=== PATIENT | female | born 1970 | race Caucasian/White ===

== ENCOUNTER → 2017-11-21 15:55 | Outpatient (CLI) | payer OTHER, SELFPAY ==
[2017-11-26 09:22] LABS: HPV Reflexed? NOT INDICATED
== END ==
PROVIDERS: Visit Provider Nurse Practitioner Adult Health
DX: Z01.419 Encounter for gynecological examination (general) (routine) without abnormal findings (principal)
CPT/HCPCS: 88175; G0145

== ENCOUNTER → 2017-12-05 13:02 | Outpatient (CLI) | payer OTHER, SELFPAY ==
--- NOTE | 2017-12-05 13:05 | BI_ITS ---
MAMMOGRAPHY - BILATERAL SCREENING REASON FOR EXAM: Female, 47 years old. Routine annual screening examination. PERTINENT HISTORY: Non-contributory. TECHNIQUE: Digital bilateral breast charly (3D mammographic acquisition) in the CC and MLO projections. 2-D mediolateral oblique (MLO) and craniocaudad (CC) views of both breasts were obtained. CAD: Full Field Digital Mammography with Computer Added Detection was performed. COMPARISON: Comparison is made with prior study dated October 08, 2016 and August 18, 2015. FINDINGS: Breast Composition: There are scattered areas of fibroglandular density. There are no dominant masses or suspicious calcifications. No other significant abnormalities are identified. There has been no significant change since the prior study. BI/SCREENING MAMM (CAD), BILAT IMPRESSION: Stable bilateral screening mammogram. Yearly follow-up mammogram recommended. (A) ASSESSMENT CATEGORY: BIRADS Category 1: Negative. A letter regarding these results will be sent to the patient by the facility within 30 days. Approximately 10% of breast cancers are not detected by mammography. A normal mammogram should not delay biopsy of a clinically suspicious abnormality. [id number] Electronically Signed: Ricky Jensen MD at 15:27 EDT Tel [phone], Service support ,
== END ==
PROVIDERS: Visit Provider Nurse Practitioner Adult Health
DX: Z12.31 Encounter for screening mammogram for malignant neoplasm of breast (principal)
CPT/HCPCS: 77063; 77067

== ENCOUNTER → 2018-04-15 15:04 | Outpatient (CLI) | payer OTHER, SELFPAY ==
[2018-04-15 17:33] LABS: Absolute Lymphocyte Count 1.37 X10^3/ul (0.83-4.51); Basophil# 0.01 X10^3/uL; Basophil% 0.2 % (0-1); Eosinophils% 1.6 % (0-5); Hematocrit 39.3 % (37-47); Lymphocyte # 1.37 X10^3/ul (4.0); Lymphocyte % 22.5 % (19-41); Mean Corp Hgb Conc 33.1 g/gl (32-36); Mean Corpuscular Hgb 34.7 pg (27.0-32.0); Mean Corpuscular Volume 104.8 fL (81-99); Mean Platelet Vol. 9.2 fl (6.2-12.0); Monocyte# 0.64 X10^3/uL; Monocyte% 10.5 % (0-10); Neutrophil # 3.95 X10^3/uL (2.7-7.7); Neutrophil % 64.9 % (47-70); Platelet Count 274 K/mm3 (150-450); RBC Distribution Width CV 13.2 % (11.6-14.6); RBC Distribution Width SD 49.5 fl (35.1-43.9); Red Blood Count 3.75 M/mm3 (4.2-5.4); White Blood Count 6.1 K/mm3 (4.4-11.0)
[2018-04-15 17:34] LABS: POSITIVE COUNT NO; POSITIVE DIFFERENTIAL NO; POSITIVE MORPHOLOGY NO
[2018-04-15 18:09] LABS: AST(SGOT) 20 U/L (15-37); Alanine Aminotransfer ALT/SGPT 41 U/L (13-56); Albumin, Serum 3.6 g/dL (3.2-5.0); Alkaline Phosphatase 69 U/L (45-117); Anion Gap 8 (5-15); BUN 14 mg/dL (7-18); BUN/Creat Ratio 14.6 RATIO (10-20); Bilirubin, Direct 0.15 mg/dL (0.00-0.30); Calcium,Total 8.5 mg/dL (8.5-10.1); Chloride 104 mmol/L (98-107); Creatinine, Serum 0.96 mg/dL (0.55-1.02); EST Glomerular Filtration Rate 65 mL/min (>60); Est Glom Filt Rate - Afr Amer 79 mL/min (>60); Free T3 2.5 pg/mL (2.18-3.98); Globulin 3.7 g/dL (2.2-4.2); Glucose 73 mg/dL (74-106); Potassium 3.8 mmol/L (3.5-5.1); Protein, Total 7.3 g/dL (6.4-8.2); Sodium Level 141 mmol/L (136-145); T4 Free Direct 1.91 ng/dL (0.76-1.46); T4 Total, Thyroxin 5.6 ug/dL (4.8-13.9); Thyroid Stim Hormone (TSH) 1.93 uIU/mL (0.358-3.74)
== END ==
PROVIDERS: Family Provider Family Medicine; PCP Family Medicine; Referring Provider Nurse Practitioner Adult Health; Visit Provider Nurse Practitioner Adult Health
DX: K51.90 Ulcerative colitis, unspecified, without complications (principal); R53.83 Other fatigue
CPT/HCPCS: 80048; 80076; 84436; 84439; 84443; 84481; 85025

== ENCOUNTER 2018-05-25 13:58 | Emergency (ER) | payer OTHER, SELFPAY ==
[2018-05-25 13:58] VITALS: BP 164/93; PULSE 111; RESP 24; TEMP 37.3; O2SAT 98
[2018-05-25 14:04] VITALS: BP 164/93; PULSE 111; RESP 23; TEMP 37.3; O2SAT 99; BMI 25.2
[2018-05-25 14:05] VITALS: O2SAT 97
--- NOTE | 2018-05-25 14:05 | EKG12_ITS ---
Test Reason : CP Blood Pressure : / mmHG Vent. Rate : 113 BPM Atrial Rate : 113 BPM P-R Int : 186 ms QRS Dur : 092 ms QT Int : 334 ms P-R-T Axes : 061 061 054 degrees QTc Int : 458 ms Sinus tachycardia Otherwise normal ECG Confirmed by JAVIER QUINONES, JASON ([id number]), graphic editor DIAMOND MAO ([id number]) on 05/28/2018 11:14:15 AM Referred By: FRANC Confirmed By:JASON HERRERA MD
--- NOTE | 2018-05-25 14:05 | RAD_ITS ---
STUDY: X-RAY CHEST REASON FOR EXAM: Female, 48 years old. Chest pain since yesterday TECHNIQUE: Single AP portable view of the chest. COMPARISON: 06/24/2013 FINDINGS: The lungs are clear and expanded. There is no demonstrated pleural abnormality. Normal size heart. Normal mediastinum and ania. Normal visualized pulmonary arteries. Normal visualized aortic arch and descending thoracic aorta. Normal visualized thoracic spine. Normal visualized ribs, clavicles, and shoulders. There is no demonstrated abnormality of the visualized soft tissue structures of the upper abdomen. RAD/Chest 1 View (Portable) IMPRESSION: Normal x-ray examination of the chest. Electronically Signed: Terry Henderson DO at 14:53 EST Tel , Service support ,
--- NOTE | 2018-05-25 14:25 | ED.VISSUMM ---
- ER Visit Summary Date of Service: 05/25/18 Chief Complaint: Midsternal chest pain History of Present Illness: The patient is a 48 F no significant past medical history. No prior history of cardiac disease. No significant family history. No history of DVT or PE. She did have recent flight to and from [place] last 12 days. Denies any hemoptysis. No pleuritic chest pain. Patient states yesterday she had gradual onset of chest pain all day and again today. Pain is midsternal. She feels better to take a deep breath. She denies any leg pain or swelling. She does feel short of breath. No nausea or diaphoresis. No abdominal pain. She states today while she was in the kitchen the pain seemed to radiate to both arms and then resolved. That only lasted a brief period of time. Currently she states the pain is a 1 out of 10. No recent exertional dyspnea or exertional chest pain. No prior history. Physical Examination: Well-appearing middle-age female. No acute distress. Vital signs are stable. She is afebrile. Her pulse ox 9 9% room air. Her heart rate is 111. H EENT exam unremarkable. Neck nontender. No JVD. Lungs clear to auscultation bilaterally. Heart tachycardic no murmur rate about 110. Chest wall nontender. No ecchymosis or bruising. No subcu air. Abdomen is soft and nontender. No epigastric or right upper quadrant tenderness. Nondistended normal bowel sounds. She is moving all 4 extremities. They are neurovascularly intact. Equal symmetrical retail wireless sales consultant strength. Equal symmetrical dorsi and plantar flexion. Calves are nontender without edema or cords. Equal and symmetrical radial pulses. Test Results: Chest x-ray normal cardiac silhouette mediastinum. Portable one view read both of myself and the radiologist. EKG sinus tachycardia rate of 113 with no signs of NV or anemia. CBC normal. White count of 6. Hemoglobin 13. Chemistries normal. Normal BUN and creatinine. Liver enzymes normal. Lipase normal. Troponin normal. D-dimer less than 0.27 normal. Emergency Department Course and Treatment: Patient will undergo cardiac workup. I will obtain a d-dimer due to her recent travel. On repeat exam at 1508 patient is doing well. Pulse ox 99% on room air. Heart rate 92. States her chest pains 1 out of 10. No radiation. Patient will be treated GI cocktail and Pepcid and reassess. Patient is doing well at 1600. She feels better. She is comfortable being discharged. Treatment Plan: Discharged home follow-up with primary care physician. Disposition: Discharge Impression: Acute chest pain chest pain of uncertain etiology This note was generated with Lookback dictation software. It may contain incorrect words, spelling, and punctuation that were not noted in review of the chart prior to signing ED Disposition - Plan for ED Patient: Chief Complaint: Chest Pain Referrals: Arsalan Pedro MD [Primary Care Provider] -
[2018-05-25 14:26] LABS: Absolute Lymphocyte Count 1.56 X10^3/ul (0.83-4.51); Absolute Neutrophil Count 4.4 X10^3/uL (2.0-7.7); Basophil# 0.02 X10^3/uL; Basophil% 0.3 % (0-1); Eosinophil# 0.06 X10^3/uL; Eosinophils% 0.9 % (0-5); Hematocrit 39.4 % (37-47); Lymphocyte # 1.56 X10^3/ul (4.0); Lymphocyte % 23.4 % (19-41); Mean Corpuscular Volume 103.1 fL (81-99); Mean Platelet Vol. 8.7 fl (6.2-12.0); Monocyte# 0.62 X10^3/uL; Monocyte% 9.3 % (0-10); Neutrophil # 4.37 X10^3/uL (2.7-7.7); Neutrophil % 65.6 % (47-70); POSITIVE COUNT NO; POSITIVE DIFFERENTIAL NO; POSITIVE MORPHOLOGY NO; Platelet Count 236 K/mm3 (150-450); RBC Distribution Width CV 13.5 % (11.6-14.6); RBC Distribution Width SD 50.6 fl (35.1-43.9); Red Blood Count 3.82 M/mm3 (4.2-5.4); White Blood Count 6.7 K/mm3 (4.4-11.0)
[2018-05-25] MEDS: Aspirin 81 MG TAB.CHEW 324 MG PO (14:26)
--- NOTE | 2018-05-25 14:28 | ED.DCSUM_ITS ---
- ER Visit Summary Date of Service: 05/25/18 Chief Complaint: Midsternal chest pain History of Present Illness: The patient is a 48 F no significant past medical history. No prior history of cardiac disease. No significant family history. No history of DVT or PE. She did have recent flight to and from [place] last 12 days. Denies any hemoptysis. No pleuritic chest pain. Patient states yesterday she had gradual onset of chest pain all day and again today. Pain is midsternal. She feels better to take a deep breath. She denies any leg pain or swelling. She does feel short of breath. No nausea or diaphoresis. No abdominal pain. She states today while she was in the kitchen the pain seemed to radiate to both arms and then resolved. That only lasted a brief period of time. Currently she states the pain is a 1 out of 10. No recent exertional dyspnea or exertional chest pain. No prior history. Physical Examination: Well-appearing middle-age female. No acute distress. Vital signs are stable. She is afebrile. Her pulse ox 9 9% room air. Her heart rate is 111. H EENT exam unremarkable. Neck nontender. No JVD. Lungs clear to auscultation bilaterally. Heart tachycardic no murmur rate about 110. Chest wall nontender. No ecchymosis or bruising. No subcu air. Abdomen is soft and nontender. No epigastric or right upper quadrant tenderness. Nondistended normal bowel sounds. She is moving all 4 extremities. They are neurovascularly intact. Equal symmetrical assistant foreman strength. Equal symmetrical dorsi and plantar flexion. Calves are nontender without edema or cords. Equal and symmetrical radial pulses. Test Results: Chest x-ray normal cardiac silhouette mediastinum. Portable one view read both of myself and the radiologist. EKG sinus tachycardia rate of 113 with no signs of OR or anemia. CBC normal. White count of 6. Hemoglobin 13. Chemistries normal. Normal BUN and creatinine. Liver enzymes normal. Lipase normal. Troponin normal. D-dimer less than 0.27 normal. Emergency Department Course and Treatment: Patient will undergo cardiac workup. I will obtain a d-dimer due to her recent travel. On repeat exam at 1508 patient is doing well. Pulse ox 99% on room air. Heart rate 92. States her chest pains 1 out of 10. No radiation. Patient will be treated GI cocktail and Pepcid and reassess. Patient is doing well at 1600. She feels better. She is comfortable being discharged. Treatment Plan: Discharged home follow-up with primary care physician. Disposition: Discharge Impression: Acute chest pain chest pain of uncertain etiology This note was generated with Gradient X dictation software. It may contain incorrect words, spelling, and punctuation that were not noted in review of the chart prior to signing ED Disposition - Plan for ED Patient: Chief Complaint: Chest Pain Referrals: Arsalan Pedro MD [Primary Care Provider] -
[2018-05-25 14:41] LABS: Anion Gap 7 (5-15); BUN 17 mg/dL (7-18); BUN/Creat Ratio 19.1 RATIO (10-20); Calcium,Total 8.8 mg/dL (8.5-10.1); Chloride 105 mmol/L (98-107); Creatinine, Serum 0.89 mg/dL (0.55-1.02); EST Glomerular Filtration Rate 71 mL/min (>60); Est Glom Filt Rate - Afr Amer 86 mL/min (>60); Estimated Creatinine Clearance 73.54 ml/min; Glucose 97 mg/dL (74-106); Potassium 4.1 mmol/L (3.5-5.1); Sodium Level 138 mmol/L (136-145)
[2018-05-25 14:49] LABS: D-Dimer Quantitative (DVT/PE) < 0.27 FEU/ug/m (0.27-0.49)
[2018-05-25 14:51] LABS: Lipase 130 U/L (73-393)
[2018-05-25 14:54] LABS: AST(SGOT) 26 U/L (15-37); Alanine Aminotransfer ALT/SGPT 47 U/L (13-56); Albumin, Serum 3.8 g/dL (3.2-5.0); Alkaline Phosphatase 56 U/L (45-117); Bilirubin, Direct 0.18 mg/dL (0.00-0.30); Globulin 3.6 g/dL (2.2-4.2); Protein, Total 7.4 g/dL (6.4-8.2)
[2018-05-25 15:00] VITALS: BP 132/87; PULSE 91; RESP 19; O2SAT 99
[2018-05-25] MEDS: Pantoprazole Sodium 40 MG Tablet PO (15:49)
[2018-05-25 16:00] VITALS: BP 139/85; PULSE 90; RESP 16; O2SAT 99
--- NOTE | 2018-05-25 16:04 | ED.DEP ---
ED Disposition - Plan for ED Patient: Disposition: Home or Assisted Living Chief Complaint: Chest Pain Instructions: ED Chest Pain Atypical Unkn Cause Referrals: Arsalan Pedro MD [Primary Care Provider] - As soon as possible Additional Instructions: Return to ER if you are feeling worse. Otherwise follow-up your primary care physician this week. Your EKG, chest x-ray and all your lab work today were normal.
[2018-05-25 16:17] VITALS: BP 139/85; PULSE 90; RESP 16; O2SAT 99
== END 2018-05-25 16:22 | disposition home or self-care (01) ==
PROVIDERS: Emergency Provider Emergency Medicine; Family Provider Family Medicine; PCP Family Medicine
DX: R07.9 Chest pain, unspecified (principal)
CPT/HCPCS: 71045; 80048; 80076; 83690; 84484; 85025; 85379; 93005; 99285; A4216

== ENCOUNTER → 2018-06-11 13:47 | Outpatient (CLI) | payer OTHER, SELFPAY ==
--- NOTE | 2018-06-11 13:49 | US_ITS ---
STUDY: ULTRASOUND OF THE FEMALE PELVIS - COMPLETE REASON FOR EXAM: Female, 48 years old. Dysfunctional uterine bleeding x 6 months. LMP: May 03, 2018 TECHNIQUE: Transabdominal and Transvaginal. Despite a moderately distended urinary bladder, detail was limited with transabdominal scanning, so endovaginal imaging was also employed. TECHNICAL QUALITY: Adequate. COMPARISON: Pelvic ultrasound September 21, 2016. CT abdomen and pelvis September 22, 2016 was not available for comparison, but report from that study was reviewed. FINDINGS: The uterus is anteverted and is in a midline position. The uterus measures 9.4 x 5.4 x 4.5 cm. There is an 11-12 mm Nabothian cyst of the cervix. The endometrium measures 11 mm in thickness, and is hyperechoic. Minimal fluid also present in the endometrial cavity. There is no demonstrated endometrial mass. There are 3 demonstrated heterogeneous myometrial masses consistent with fibroids. The largest is in the posterior fundus, measuring 2.7 x 1.7 x 1.9 cm. Another is in the subserosal anterior body of uterus, measuring 1.4 x 1.1 x 1.5 cm. A third is in the anterior lower uterine segment, measuring 1.5 x 1.3 x 1.2 cm. I.U.D. - The patient does not have an I.U.D. The right ovary is visualized. The right ovary measures 4.0 x 3.6 x 2.9 cm. A simple appearing right ovarian cyst is seen, measuring 2.4 x 2.4 x 2.6 cm. Adjacent to this is a more poorly defined, heterogeneous and mildly hypoechoic 1.3 x 1.4 x 1.0 cm solid lesion. There is normal arterial and normal venous vascularity. The left ovary is visualized. The left ovary measures 3.3 x 1.4 1.0 cm. This includes a 7.5 mm follicular cyst. There is no visualized left adnexal mass or complex lesion. There is normal arterial and normal venous vascularity. There is no fluid in the cul-de-sac. The pre void volume of the bladder was 204.3 ml. Polycystic ovary disease: No. US/Transvaginal Non- IMPRESSION: 1. Simple appearing 2.6 cm right ovarian cyst. Adjacent to this is a 1.4 cm solid-appearing lesion difficult to further characterize. 2. Unremarkable left ovary. 3. At least 3 uterine fibroids are seen, as noted above. 4. Thickened endometrium, which may be physiologic. 5. 11-12 mm nabothian cyst in the uterine cervix. Electronically Signed: Aden Pena MD at 15:43 EST , Service support ,
--- OUTSIDE RECORDS SUMMARY | 2018-08-06 23:29 | XMS RPT_ITS ---
:1970 Author Organization [place] Support Name Relationship Address Phone [employer] [address] + [place] [id number] YR PEREZ Unavailable [address] + [place] [address] [employer] [place] + [place] [address] RY PEREZ Unavailable [address] + [place] [address] [employer] [place] + [place] [address] RY PEREZ Unavailable [address] + [place] [address] [employer] [place]available [address] + [place] [address] RY PEREZ Unavailable [address] + [place] [address] [employer] [place] + [place] [address] RY PEREZ Unavailable [address] + [place] [address] [employer] [employer] [place] + [place] [address] RY PEREZ Unavailable [address] + [place] [address] [employer] [place] + [place] [address] RY PEREZ Unavailable [address] + [place] [address] [employer] [place] + [place] [address] RY PEREZ Unavailable [address] + [place] [address] [employer] Un[address] + [place] [address] RY PEREZ Unavailable [address] + [place] [address] Care Team Providers Name Role Phone Marisa Modi Attending Unavailable Pedro, Arsalan Referring Unavailable Marcanthony, Marisa Attending Unavailable Marcanthony, Marisa Referring Unavailable Pedro, Arsalan Primary Care Unavailable Tickton, Cassi Attending Unavailable Tickton, Cassi Referring Unavailable Primay Care Physicia, No Primary Care Unavailable Tickton, Cassi Attending Unavailable Tickton, Cassi Referring Unavailable Primay Care Physicia, No Primary Care Unavailable Tickton, Cassi Attending Unavailable Tickton, Cassi Referring Unavailable Pedro, Arsalan Primary Care Unavailable Al Kaye Unavailable Marccalinony, Marisa Attending Unavailable Pedro, Arsalan Referring Unavailable Pedro, Arsalan Primary Care Unavailable Kranthi Gong Attending Unavailable Marcanthony, Marisa Attending Unavailable Marcanthony, Marisa Referring Unavailable Pedro, Arsalan Primary Care Unavailable Pedro, Arsalan Attending Unavailable PROBLEMS PROBLEMS DATE TYPE CONDITION / CODE ATTENDING STATUS SOURCE 06/29/2018 Unknown N93.9 - Abnormal Marcanthony, Active [place] uterine and [facility] vaginal bleeding, Hospital unspecified / Repository N93.9(ICD-10) 04/15/2018 Unknown R53.83 - Other Tickton, Active [place] fatigue / [facility] R53.83(ICD-10) Hospital Repository 04/15/2018 Unknown 780.79 - Other [place], Active [place] malaise and [facility] fatigue / Hospital 780.79(ICD-9) Repository PROCEDURES PROCEDURES No Procedure Records FoundRESULTS RESULTS [employer] OFFICE VISIT Observed: 06/25/2018 Status: F Source: [place] RE[place] 1:26 AM [facility] [address] [place] [address]. [address] [place] [address] OFFICE VISIT Date of Service: 06/24/18 MR#: [id number] Acct: [id number] Name: TANYA PEREZ Rep #: [id number] : 1970 Provider: Marisa Modi MD Age/Sex: 48/F Location: [facility] Status: Signed Intake Vital Signs06/24/18 Height 5 ft 7 in 06/24/18 Weight: 173 lb 06/24/18 Body Mass Index (BMI) 27.1 06/24/18 Blood Pressure 120/82 H Intake Visit Reasons: EMB Chief Complaint: EMB [employer] Agent Required: No Is patient in pain?: No Allergies NSAIDS (Non-Steroidal Anti-Inflamma Allergy (Verified 06/24/18 09:35) Other Medications Bupropion HCl [Wellbutrin] 450 mg PO DAILY 11/10/14 [History Confirmed 06/24/18] Azathioprine 150 mg PO DAILY 09/21/16 [History Confirmed 06/24/18] vilazodone 40 mg tablet 40 mg PO DAILY 05/22/18 [History Confirmed 06/24/18] Is last menstrual period known: No Post menopausal: Yes Patient : No : No PFSH PFSH Medical History Colitis (Acute) History of anxiety (Acute) Surgical History delivery delivered (Acute) History of tonsillectomy (Acute) Social History Smoking Status: Never smoker alcohol intake: never substance use type: does not use caffeine: Yes what type of physical activity do you participate in: walking seatbelt use: always do you feel safe at home: Yes additional social history: [employer] Patient works at [employer] Pregancy History 1 Elective abortions Hx Para 1 Spontaneous abortions Past Pregnancies Del. DatName GA/WeeksOutcome Route [facility] LocaProviderFOB e ht en ia tn Unknown marcella 1 996, Sherri Childress HPI EMB: Details: TANYA PEREZ is a 48 year old who presents for emb. planning ablation ROS Const Constitutional: Reports system reviewed and no additional complaints, except as docu; denies chills, fever(s), weight loss or weight gain GI GI: Reports as per HPI; denies vomiting, nausea, constipation, cramping, bloating or abdominal pain : Reports as per HPI; denies vaginal dryness, vaginal discharge, urinary urgency, urinary frequency or urinary incontinence Exam Const General: cooperative, healthy appearing, comfortable, well developed Orientation: alert [facility] Head: normal to inspection Resp Effort AND Inspection: normal respiratory effort GI Inspection: normal to inspection, non-distended Palpation: soft, no hepatosplenomegaly, no guarding External Female Exam: normal external appearance, normal appearance of the urethra Urethra: normal appearance of the urethra Speculum Exam - Vagina: normal appearance of the vagina, normal vaginal discharge, no lesions Speculum Exam - Cervix: normal appearance of the cervix, nontender Bimanual Exam- Vagina AND Uterus: No cervical tenderness, normal bimanual exam, uterine mobility normal, uterine consistency normal, uterine shape normal, uterine size normal, uterus non-tender Bimanual Exam- Adnexa, other: normal adnexae, no adnexal masses Office Procedures Endometrial Biopsy Endometrial Biopsy Test: Yes Not Applicable Consent Signed: Yes Time out checklist: patient, procedure, site marked/identified, positioning of patient, supplies available, allergies confirmed, team agrees on procedure Time out time: 09:30 tenaculum used: Yes dilator used: No Details: Cervix prepped with betadine and pipelle inserted into uterus without complication. Specimen obtained and sent to lab for analysis. All instruments removed from vagina without complications. Excellent hemostasis noted. Assessment AND Plan Problems 1. Abnormal uterine bleeding N93.9 plan d and c hysterosocpy suzette ablation Plan biopsy done plan ablation Orders Orders: Coding Level of Care Code Off vis,est,level 2 Diagnoses Abnormal uterine bleeding N93.9 Additional Codes Endometrial Biopsy (47257) 06/25/18 0126 <Electronically signed by Marisa Modi MD> Date Marisa Modi MD Cosigner Signature: Date (if applicable) CC: ENDOMETRIAL BX/CURETTINGS Observed: 06/24/2018 Status: F Source: [place] 12:00 AM [facility] [place] Patient: TANYA PEREZ : 1970 (48/F) Acct Num: [id number] Phys: Marisa Modi MD Unit Num: [id number] Loc: LABSPEC Specimen: [id number] Received: 06/24/18 - 1417 Spec Type: ENDOM BX/C TISSUES 1 TISSUES: Endometrium, NOS GROSS DESCRIPTION Received is one container labeled with the patient's name and not further designated. The specimen consists of multiple irregular fragments of garcia-pink soft tissue mixed with mucoid tissue that in aggregate measure 3 x 2.5 x 0.2 cm. The specimen is totally submitted in one cassette. / SJ:olivia 06/24/18 TC:5 CPT: 37619 HEADER OPERATION: Endometrial biopsy PRE-OP DIAGNOSIS: Abnormal uterine bleeding TISSUE SUBMITTED: Endometrial lining MICROSCOPIC DESCRIPTION Slides are reviewed. MICROSCOPIC DIAGNOSIS Endometrium, curettings: Secretory endometrium with focal disorder. No evidence of hyperplasia. AM:olivia 06/25/18 Signed Fred Brunson 06/25/18 <signature on file> Performed By: #### PEMB #### [facility] [address] [place], [address] TRANSVAGINAL Observed: 06/11/2018 Status: F Source: JIM NON- 1:49 PM [facility] [place] [facility] Imaging Services [address] [place] [address] Transvaginal Non- MR#: [id number] Acct: [id number] Name: TANYA PEREZ Rep #: [id number] : 1970 F 48 From: Arjun Pena MD PCP: Arsalan Pedro MD Status: REG CLI Study: Transvaginal Non- Date of Exam: 06/11/18 Exam# [id number] Ordering Dr: Marisa Modi MD STUDY: ULTRASOUND OF THE FEMALE PELVIS - COMPLETE REASON FOR EXAM: Female, 48 years old. Dysfunctional uterine bleeding x 6 months. LMP: May 03, 2018 TECHNIQUE: Transabdominal and Transvaginal. Despite a moderately distended urinary bladder, detail was limited with transabdominal scanning, so endovaginal imaging was also employed. TECHNICAL QUALITY: Adequate. COMPARISON: Pelvic ultrasound September 21, 2016. CT abdomen and pelvis September 22, 2016 was not available for comparison, but report from that study was reviewed. FINDINGS: The uterus is anteverted and is in a midline position. The uterus measures 9.4 x 5.4 x 4.5 cm. There is an 11-12 mm Nabothian cyst of the cervix. The endometrium measures 11 mm in thickness, and is hyperechoic. Minimal fluid also present in the endometrial cavity. There is no demonstrated endometrial mass. There are 3 demonstrated heterogeneous myometrial masses consistent with fibroids. The largest is in the posterior fundus, measuring 2.7 x 1.7 x 1.9 cm. Another is in the subserosal anterior body of uterus, measuring 1.4 x 1.1 x 1.5 cm. A third is in the anterior lower uterine segment, measuring 1.5 x 1.3 x 1.2 cm. I.U.D. - The patient does not have an I.U.D. The right ovary is visualized. The right ovary measures 4.0 x 3.6 x 2.9 cm. A simple appearing right ovarian cyst is seen, measuring 2.4 x 2.4 x 2.6 cm. Adjacent to this is a more poorly defined, heterogeneous and mildly hypoechoic 1.3 x 1.4 x 1.0 cm solid lesion. There is normal arterial and normal venous vascularity. The left ovary is visualized. The left ovary measures 3.3 x 1.4 1.0 cm. This includes a 7.5 mm follicular cyst. There is no visualized left adnexal mass or complex lesion. There is normal arterial and normal venous vascularity. There is no fluid in the cul-de-sac. The pre void volume of the bladder was 204.3 ml. Polycystic ovary disease: No. US/Transvaginal Non- IMPRESSION: 1. Simple appearing 2.6 cm right ovarian cyst. Adjacent to this is a 1.4 cm solid-appearing lesion difficult to further characterize. 2. Unremarkable left ovary. 3. At least 3 uterine fibroids are seen, as noted above. 4. Thickened endometrium, which may be physiologic. 5. 11-12 mm nabothian cyst in the uterine cervix. Electronically Signed: Aden Pena MD at 15:43 EST , Service support , CC: Arsalan Pedro MD; Marisa Modi MD Hearing Care Practitioner: Signed PELVIC (NON ) Observed: 06/11/2018 Status: F Source: LYNN 1:49 PM [facility] [place] [facility] Imaging Services [address] [place] [address] Pelvic (Non ) MR#: [id number] Acct: [id number] Name: TANYA PEREZ Rep #: [id number] : 1970 F 48 From: Arjun Pena MD PCP: Arsalan Pedro MD Status: REG CLI Study: Pelvic (Non ) Date of Exam: 06/11/18 Exam# [id number] Ordering Dr: Marisa Modi MD STUDY: ULTRASOUND OF THE FEMALE PELVIS - COMPLETE REASON FOR EXAM: Female, 48 years old. Dysfunctional uterine bleeding x 6 months. LMP: May 03, 2018 TECHNIQUE: Transabdominal and Transvaginal. Despite a moderately distended urinary bladder, detail was limited with transabdominal scanning, so endovaginal imaging was also employed. TECHNICAL QUALITY: Adequate. COMPARISON: Pelvic ultrasound September 21, 2016. CT abdomen and pelvis September 22, 2016 was not available for comparison, but report from that study was reviewed. FINDINGS: The uterus is anteverted and is in a midline position. The uterus measures 9.4 x 5.4 x 4.5 cm. There is an 11-12 mm Nabothian cyst of the cervix. The endometrium measures 11 mm in thickness, and is hyperechoic. Minimal fluid also present in the endometrial cavity. There is no demonstrated endometrial mass. There are 3 demonstrated heterogeneous myometrial masses consistent with fibroids. The largest is in the posterior fundus, measuring 2.7 x 1.7 x 1.9 cm. Another is in the subserosal anterior body of uterus, measuring 1.4 x 1.1 x 1.5 cm. A third is in the anterior lower uterine segment, measuring 1.5 x 1.3 x 1.2 cm. I.U.D. - The patient does not have an I.U.D. The right ovary is visualized. The right ovary measures 4.0 x 3.6 x 2.9 cm. A simple appearing right ovarian cyst is seen, measuring 2.4 x 2.4 x 2.6 cm. Adjacent to this is a more poorly defined, heterogeneous and mildly hypoechoic 1.3 x 1.4 x 1.0 cm solid lesion. There is normal arterial and normal venous vascularity. The left ovary is visualized. The left ovary measures 3.3 x 1.4 1.0 cm. This includes a 7.5 mm follicular cyst. There is no visualized left adnexal mass or complex lesion. There is normal arterial and normal venous vascularity. There is no fluid in the cul-de-sac. The pre void volume of the bladder was 204.3 ml. Polycystic ovary disease: No. US/Pelvic (Non ) IMPRESSION: 1. Simple appearing 2.6 cm right ovarian cyst. Adjacent to this is a 1.4 cm solid-appearing lesion difficult to further characterize. 2. Unremarkable left ovary. 3. At least 3 uterine fibroids are seen, as noted above. 4. Thickened endometrium, which may be physiologic. 5. 11-12 mm nabothian cyst in the uterine cervix. Electronically Signed: Aden Pena MD at 15:43 EST , Service support , CC: Arsalan Pedro MD; Marisa Modi MD Hearing Care Practitioner: Signed 12 LEAD ELECTROCARDIOGRAM Observed: 05/28/2018 Status: F Source: JIM 11:14 AM [facility] Cardiovascular Services [address] [place] [address] 12 Lead EKG 05/25/18 1405 MR#: [id number] Acct: [id number] Name: TANYA PEREZ Rep #: [id number] : 1970 48 From: Trell Vargas MD Attending Dr: Status: DEP ER Ordering Dr: Kranthi Gong MD Date: 05/25/18 Location: ED Sex: F C Admitted: Test Reason : CP Blood Pressure : / mmHG Vent. Rate : 113 BPM Atrial Rate : 113 BPM P-R Int : 186 ms QRS Dur : 092 ms QT Int : 334 ms P-R-T Axes : 061 061 054 degrees QTc Int : 458 ms Sinus tachycardia Otherwise normal ECG Confirmed by JAVIER QUINONES, TRELL ([id number]), general expeditor DIAMOND MAO ([id number]) on 05/28/2018 11:14:15 AM Referred By: FRANC Confirmed By:TRELL VARGAS MD 05/28/18 1114 Date Trell Vargas MD CC: Kranthi Gong MD; Arsalan Pedro MD Signed [employer] OFFICE VISIT Observed: 05/27/2018 Status: F Source: JIM REPORT 2:22 AM [facility] Women[facility] Care [address] [place] [address] OFFICE VISIT Date of Service: 05/22/18 MR#: [id number] Acct: [id number] Name: JOSÉ PEREZYN [place] Rep #: [id number] : 1970 Provider: Marisa Modi MD Age/Sex: 48/F Location: [facility] Status: Signed Intake Vital Signs05/22/18 Height 5 ft 7 in 05/22/18 Weight: 171 lb 05/22/18 Body Mass Index (BMI) 26.7 Intake Visit Reasons: CONSULT FOR ABLATION Chief Complaint: ablation consultation [employer] Commission Agent Required: No Is patient in pain?: No Allergies NSAIDS (Non-Steroidal Anti-Inflamma Allergy (Verified 05/22/18 14:40) Other Medications Bupropion HCl [Wellbutrin] 450 mg PO DAILY 11/10/14 [History Confirmed 05/25/18] Azathioprine 150 mg PO DAILY 09/21/16 [History Confirmed 05/25/18] vilazodone 40 mg tablet 40 mg PO DAILY 05/22/18 [History Confirmed 05/25/18] Is last menstrual period known: No Post menopausal: No Patient : No : No [facility] Medical History Colitis (Acute) History of anxiety (Acute) Surgical History delivery delivered (Acute) History of tonsillectomy (Acute) Social History Smoking Status: Never smoker alcohol intake: never substance use type: does not use caffeine: Yes what type of physical activity do you participate in: walking seatbelt use: always do you feel safe at home: Yes additional social history: Mar[employer] Patient works at [employer] HPI CONSULT FOR ABLATION: Details: TANYA PEREZ is a 48 year old who presents for AUB. she has had heavier bleeding the last few cycles. she has seen her PCP and is interested in an abltion. Menses are not particularly painful but increasingly heavier to where she bleeds through protection. she uses a vsectomy for control Female Reproductive History Cycle Length: 21-35 Bleeding Duration: 5 Control Method: vasectomy Frequency of changing protection: 1 hour Questions: Metorrhagia: Yes, Sexually active: Yes, Dyspareunia: No, PCB: No Menopausal Symptoms: Yes night sweats, Yes change in libido, No hot flashes, No weight change, No mood changes, No difficulty concentrating, Yes sleep problems Pregancy History 1 Elective abortions Hx Para 1 Spontaneous abortions Past Pregnancies Del. DatName GA/WeeksOutcome Route [facility] Mckayla Langford LgAnestheSCel LocaProviderFOB e ht en ia tn Unknown marcella 1 996, GK Sherri Leal Constitutional: Reports night sweats ENT ENT: Reports system reviewed and no additional complaints, except as docu Cardio Card: Denies chest pain Resp Resp: Denies dyspnea or cough GI GI: Reports as per HPI; denies vomiting, nausea, abdominal pain or constipation : Denies hot flashes or nipple discharge Musc Musc: Denies muscle weakness, joint pain or back pain Skin Skin/Breast: Denies hair loss, change in hair, dry skin, breast pain, breast skin changes, breast lump or nipple discharge Neuro Neuro: Reports system reviewed and no additional complaints, except as docu Psych Psych: Reports change in sex drive; denies difficulty concentrating Endo Endo: Denies cold intolerance, increased thirst, excessive sweating or heat intolerance Jacky/Lymph Hematologic/Lymphatic: Denies easy bleeding, Denies easy bruising, Denies enlarged lymph nodes Exam Const General: cooperative, healthy appearing, comfortable, no acute distress, well developed Nutritional Appearance: average body habitus Orientation: alert HENMT Head: normal to inspection, normocephalic Ears: hearing grossly normal bilaterally, external ears normal Nose: external nose normal, nares normal Face and sinus: normal facial exam Neck Neck: normal visual inspection, trachea midline, no lymphadenopathy Thyroid: thyroid normal Resp Effort AND Inspection: normal respiratory effort Musc Other: gross motor intact no deficits, full bilateral strength Skin General: no rashes or lesions noted Neuro Motor: muscle tone normal throughout Assessment AND Plan Problems 1. Abnormal uterine bleeding N93.9 plan d and c hysterosocpy suzette ablation Plan recommend discussed different options including hormonal versus nonhormonal methods, lysteda, iud, or ablation. patient wants to proceed with ablation. recommend ultrasound first to confirm no large fibroids and will fu for emb and preop visit Orders Orders: Medications New: Coding Level of Care Code Off vis,new,level 3 Diagnoses Abnormal uterine bleeding N93.9 05/27/18 0222 <Electronically signed by Marisa Modi MD> Date Marisa Modi MD Cosigner Signature: Date (if applicable) CC: DISCHARGE INSTRUCTION Observed: 05/25/2018 Status: F Source: JIM 4:21 PM [facility] REPOSITORY [facility] Medical Records Department [address] [place] [address] Discharge Instruction 05/25/18 1604 MR#: [id number] Acct: [id number] Name: TANYA PEREZ Rep #: [id number] : 1970 48 From: Kranthi Gong MD PCP: Arsalan Pedro MD Status: REG ER ED Disposition - Plan for ED Patient: Disposition: Home or Assisted Living Chief Complaint: Chest Pain Instructions: ED Chest Pain Atypical Unkn Cause Referrals: Arsalan Pedro MD [Primary Care Provider] - As soon as possible Additional Instructions: Return to ER if you are feeling worse. Otherwise follow-up your primary care physician this week. Your EKG, chest x-ray and all your lab work today were normal. What to do if you have Problems For any increased pain, shortness of breath, bleeding, nausea or vomiting, chest pain, or any unexpected problems, contact your Primary Care Provider. Call [email or web address] ([phone]) or report to the closest Emergency Room. Call 911 if necessary. 05/25/18 1621 <Electronically signed by Kranthi Gong MD> Date Kranthi Gong MD Cosigner Signature (If Indicated): Date CC: Arsalan Pedro MD EMERGENCY DEPARTMENT Observed: 05/25/2018 Status: F Source: JIM SUMMARY 4:21 PM [facility] Medical Records Department [address] [place] [address] Emergency Department Summary 05/25/18 1425 MR#: [id number] Acct: [id number] Name: JOSÉ PEREZYN [place] Rep #: [id number] : 1970 48 From: Kranthi Gong MD PCP: Arsalan Pedro MD Status: REG ER - ER Visit Summary Date of Service: 05/25/18 Chief Complaint: Midsternal chest pain History of Present Illness: The patient is a 48 F no significant past medical history. No prior history of cardiac disease. No significant family history. No history of DVT or PE. She did have recent flight to and from [place] last 12 days. Denies any hemoptysis. No pleuritic chest pain. Patient states yesterday she had gradual onset of chest pain all day and again today. Pain is midsternal. She feels better to take a deep breath. She denies any leg pain or swelling. She does feel short of breath. No nausea or diaphoresis. No abdominal pain. She states today while she was in the kitchen the pain seemed to radiate to both arms and then resolved. That only lasted a brief period of time. Currently she states the pain is a 1 out of 10. No recent exertional dyspnea or exertional chest pain. No prior history. Physical Examination: Well-appearing middle-age female. No acute distress. Vital signs are stable. She is afebrile. Her pulse ox 9 9% room air. Her heart rate is 111. H EENT exam unremarkable. Neck nontender. No JVD. Lungs clear to auscultation bilaterally. Heart tachycardic no murmur rate about 110. Chest wall nontender. No ecchymosis or bruising. No subcu air. Abdomen is soft and nontender. No epigastric or right upper quadrant tenderness. Nondistended normal bowel sounds. She is moving all 4 extremities. They are neurovascularly intact. Equal symmetrical boiler riveter strength. Equal symmetrical dorsi and plantar flexion. Calves are nontender without edema or cords. Equal and symmetrical radial pulses. Test Results: Chest x-ray normal cardiac silhouette mediastinum. Portable one view read both of myself and the radiologist. EKG sinus tachycardia rate of 113 with no signs of [place] or anemia. CBC normal. White count of 6. Hemoglobin 13. Chemistries normal. Normal BUN and creatinine. Liver enzymes normal. Lipase normal. Troponin normal. D-dimer less than 0.27 normal. Emergency Department Course and Treatment: Patient will undergo cardiac workup. I will obtain a d-dimer due to her recent travel. On repeat exam at 1508 patient is doing well. Pulse ox 99% on room air. Heart rate 92. States her chest pains 1 out of 10. No radiation. Patient will be treated GI cocktail and Pepcid and reassess. Patient is doing well at 1600. She feels better. She is comfortable being discharged. Treatment Plan: Discharged home follow-up with primary care physician. Disposition: Discharge Impression: Acute chest pain chest pain of uncertain etiology This note was generated with [employer] dictation software. It may contain incorrect words, spelling, and punctuation that were not noted in review of the chart prior to signing ED Disposition - Plan for ED Patient: Chief Complaint: Chest Pain Referrals: Arsalan Pedro MD [Primary Care Provider] - What to do if you have Problems For any increased pain, shortness of breath, bleeding, nausea or vomiting, chest pain, or any unexpected problems, contact your Primary Care Provider. Call [email or web address] ([phone]) or report to the closest Emergency Room. Call 911 if necessary. 05/25/18 1621 <Electronically signed by Kranthi Gong MD> Date Kranthi Gong MD Cosigner Signature (If Indicated): Date CC: Arsalan Pedro MD CBC W/DIFF, AUTOMATED Collected: 05/25/2018 Status: F Source: [place] 2:10 [place] [facility] [place] CODE TESTS RESULT OUT OF RANGE REFERENCE UNITS LAB L100.1000 4.4-11.0 K/mm3 Normal WBC 6.7 LAB L100.1200 4.2-5.4 M/mm3 Low RBC 3.82 LAB L100.1300 12.0-15.0 g/dl Normal HGB 13.0 LAB L100.1400 37-47 % Normal HCT 39.4 LAB L100.1500 81-99 fL High MCV 103.1 LAB L100.1600 27.0-32.0 pg High MCH 34.0 LAB L100.1700 32-36 g/gl Normal MCHC 33.0 LAB L100.1810 11.6-14.6 % Normal RDW CV 13.5 LAB L100.1820 35.1-43.9 fl High RDW SD 50.6 LAB L100.1900 150-450 K/mm3 Normal PLT 236 LAB L100.2000 6.2-12.0 fl Normal MPV 8.7 LAB L100.2100 47-70 % Normal NEUT% 65.6 LAB L100.2200 19-41 % Normal LY% 23.4 LAB L100.2300 0-10 % Normal MONO% 9.3 LAB L100.2400 0-5 % Normal EO% 0.9 LAB L100.2500 0-1 % Normal BASO% 0.3 LAB L100.2550 0.0-0.9 % Normal IM GRAN % 0.500 Result Comment: IG% - Immature Granulocytes (promyelocytes, myelocytes and metamyelocytes) > 1% indicates that a LEFT SHIFT is Present. LAB L100.2620 2.0-7.7 X10 3/uL Normal Absolute Neut 4.4 LAB L100.2720 0.83-4.51 X10 3/ul Normal Absolute Lymph 1.56 Performed By: #### L100.0100 #### [facility] [address]. [place], [place], [address] BASIC METABOLIC Collected: 05/25/2018 Status: F Source: LYNN PROFILE (BMP) 2:10 PM [facility] [place] CODE TESTS RESULT OUT OF RANGE REFERENCE UNITS LAB L501.0100 74-106 mg/dL Normal GLU 97 Result Comment: Please note revised GLUCOSE reference range effective 2017. LAB L501.1000 7-18 mg/dL Normal BUN 17 LAB L501.1100 0.55-1.02 mg/dL Normal CREAT,SERUM 0.89 Result Comment: The validity of the calculated GFR AND GFRAA in patients over 70 years has not been determined. Clinical correlation is essential. LAB L501.1110 >60 mL/min Normal EST GFR 71 Result Comment: Non- GFR Calc LAB L501.1115 >60 mL/min Normal EST GFR - AA 86 Result Comment: GFR Calc LAB L501.1255 ml/min Normal Estimated CRCL 73.54 LAB L501.1300 10-20 RATIO Normal BUN/CRE 19.1 LAB L501.2200 8.5-10 mg/dL Normal .1 CA 8.8 LAB L501.5300 136-14 mmol/L Normal 5 NA 138 LAB L501.5600 3.5-5. mmol/L Normal 1 K 4.1 LAB L501.5900 98-107 mmol/L Normal CL 105 LAB L501.6100 21.0-3 mmol/L Normal 2.0 CO2 26.0 LAB L501.6200 5-15 Normal GAP 7 Performed By: #### L500.2500, L501.4010 #### [facility] [address] [facility]. [place], [place], [id number] TROPONIN-I Collected: 05/25/2018 Status: F Source: LYNN 2:10 PM [facility] [place] CODE TESTS RESULT OUT OF RANGE REFERENCE UNITS LAB L501.4010 <0.045 ng/mL Normal < 0.015 TROPONIN-I Result Comment: TROPONIN-I EXPECTED VALUES <0.045 Negative 0.045 - 0.590 Consistent with Cardiac Damage > OR = 0.600 Critical Value Not every elevated troponin is indicative of [place]. These values should be used with clinical judgement in examining the patient's clinical picture for diagnosis. To establish a diagnosis of [place] versus myocardial injury, there must be a demonstrated rise and/or fall in the troponin values, in addition to ischemic symptoms, EKG changes, new regional wall motion abnormality, and/or angiographical evidence. PLEASE NOTE: REFERENCE RANGES EDITED 17 Performed By: #### L500.2500, L501.4010 #### [facility] [address] [facility]. [place], [place], [address] D-DIMER QUANTITATIVE Collected: 05/25/2018 Status: F Source: LYNN (DVT/PE) 2:10 PM [facility] [place] CODE TESTS RESULT OUT OF RANGE REFERENCE UNITS LAB L300.8000 0.27-0.49 FEU/ug/m Low D-DIMER < 0.27 QUANT Result Comment: NORMAL D-Dimer level (<0.50) indicates no DVT or PE. Performed By: #### L300.8000 #### [facility] [address] [place] [address], [address] LIPASE Collected: 05/25/2018 Status: F Source: LYNN 2:10 PM [facility] [place] CODE TESTS RESULT OUT OF RANGE REFERENCE UNITS LAB L501.2450 73-393 U/L Normal LIPASE 130 Performed By: #### L501.2450 #### [facility] [address] [place], [address] LIVER PROFILE Collected: 05/25/2018 Status: F Source: LYNN 2:10 PM [facility] [place] CODE TESTS RESULT OUT OF RANGE REFERENCE UNITS LAB L501.1500 6.4-8.2 g/dL Normal T PROT 7.4 LAB L501.1800 3.2-5.0 g/dL Normal ALB 3.8 LAB L501.1950 2.2-4.2 g/dL Normal GLOB 3.6 LAB L501.4100 15-37 U/L Normal AST 26 LAB L501.4305 45-117 U/L Normal ALK P 56 LAB L501.4405 13-56 U/L Normal ALT 47 LAB L501.4600 0.20-1.00 mg/dL Normal T BILI 0.50 LAB L501.4700 0.00-0.30 mg/dL Normal D BILI 0.18 Performed By: #### L500.3400 #### [facility] [address] [place], [address] CHEST 1 VIEW Observed: 05/25/2018 Status: F Source: LYNN (PORTABLE) 2:06 PM [facility] [place] [facility] Imaging Services [address] [place] [address] Chest 1 View (Portable) MR#: [id number] Acct: [id number] Name: TANYA PEREZ Rep #: [id number] : 1970 F 48 From: Terry Henderson DO PCP: Arsalan Pedro MD Status: PRE ER Study: Chest 1 View (Portable) Date of Exam: 05/25/18 Exam# [id number] Ordering Dr: Kranthi Gong MD STUDY: X-RAY CHEST REASON FOR EXAM: Female, 48 years old. Chest pain since yesterday TECHNIQUE: Single AP portable view of the chest. COMPARISON: 06/24/2013 FINDINGS: The lungs are clear and expanded. There is no demonstrated pleural abnormality. Normal size heart. Normal mediastinum and ania. Normal visualized pulmonary arteries. Normal visualized aortic arch and descending thoracic aorta. Normal visualized thoracic spine. Normal visualized ribs, clavicles, and shoulders. There is no demonstrated abnormality of the visualized soft tissue structures of the upper abdomen. RAD/Chest 1 View (Portable) IMPRESSION: Normal x-ray examination of the chest. Electronically Signed: Terry Henderson DO at 14:53 EST Tel , Service support , CC: Kranthi Gong MD; Arsalan Pedro MD Hearing Care Practitioner: Signed CBC W/DIFF, AUTOMATED Collected: 04/15/2018 Status: F Source: LYNN 3:11 PM [facility] [place] CODE TESTS RESULT OUT OF RANGE REFERENCE UNITS LAB L100.1000 4.4-11.0 K/mm3 Normal WBC 6.1 LAB L100.1200 4.2-5.4 M/mm3 Low RBC 3.75 LAB L100.1300 12.0-15.0 g/dl Normal HGB 13.0 LAB L100.1400 37-47 % Normal HCT 39.3 LAB L100.1500 81-99 fL High MCV 104.8 LAB L100.1600 27.0-32.0 pg High MCH 34.7 LAB L100.1700 32-36 g/gl Normal MCHC 33.1 LAB L100.1810 11.6-14.6 % Normal RDW CV 13.2 LAB L100.1820 35.1-43.9 fl High RDW SD 49.5 LAB L100.1900 150-450 K/mm3 Normal PLT 274 LAB L100.2000 6.2-12.0 fl Normal MPV 9.2 LAB L100.2100 47-70 % Normal NEUT% 64.9 LAB L100.2200 19-41 % Normal LY% 22.5 LAB L100.2300 0-10 % High MONO% 10.5 LAB L100.2400 0-5 % Normal EO% 1.6 LAB L100.2500 0-1 % Normal BASO% 0.2 LAB L100.2550 0.0-0.9 % Normal IM GRAN % 0.300 Result Comment: IG% - Immature Granulocytes (promyelocytes, myelocytes and metamyelocytes) > 1% indicates that a LEFT SHIFT is Present. LAB L100.2620 2.0-7.7 X10 3/uL Normal Absolute Neut 4.0 LAB L100.2720 0.83-4.51 X10 3/ul Normal Absolute Lymph 1.37 Performed By: #### L100.0100, L500.2500, L501.81305, L501.9310, L501.9520, L506.0400 #### [facility] [address] [place], [address] BASIC METABOLIC Collected: 04/15/2018 Status: F Source: LYNN PROFILE (BMP) 3:11 PM [facility] [place] Order Comment: DR KAYE ONLY ORDERED CBCD/LIVER TYPE CODE TESTS RESULT OUT OF RANGE REFERENCE UNITS LAB L501.0100 74-106 mg/dL Low GLU 73 Result Comment: Please note revised GLUCOSE reference range effective 2017. LAB L501.1000 7-18 mg/dL Normal BUN 14 LAB L501.1100 0.55-1.02 mg/dL Normal CREAT,SERUM 0.96 Result Comment: The validity of the calculated GFR AND GFRAA in patients over 70 years has not been determined. Clinical correlation is essential. LAB L501.1110 >60 mL/min Normal EST GFR 65 Result Comment: Non- GFR Calc LAB L501.1115 >60 mL/min Normal EST GFR - AA 79 Result Comment: GFR Calc LAB L501.1300 10-20 RATIO Normal BUN/CRE 14.6 LAB L501.2200 8.5-10.1 mg/dL CA Normal 8.5 LAB L501.5300 136-145 mmol/L NA Normal 141 LAB L501.5600 3.5-5.1 mmol/L K Normal 3.8 LAB L501.5900 98-107 mmol/L CL Normal 104 LAB L501.6100 21.0-32.0 mmol/L Normal CO2 29.0 LAB L501.6200 5-15 Normal GAP 8 Performed By: #### L100.0100, L500.2500, L501.07660, L501.9310, L501.9520, L506.0400 #### [facility] [address] [place], [address] FREE T3 Collected: 04/15/2018 Status: F Source: JIM 3:11 PM [facility] [place] Order Comment: DR KAYE ONLY ORDERED CBCD/LIVER TYPE CODE TESTS RESULT OUT OF RANGE REFERENCE UNITS LAB L501.44444 2.18-3.98 pg/mL Normal FREE T3 2.5 Performed By: #### L100.0100, L500.2500, L501.86018, L501.9310, L501.9520, L506.0400 #### [facility] [address] [place], [address] T4 TOTAL, THYROXIN Collected: 04/15/2018 Status: F Source: JIM 3:11 PM [facility] [place] Order Comment: DR KAYE ONLY ORDERED CBCD/LIVER TYPE CODE TESTS RESULT OUT OF RANGE REFERENCE UNITS LAB L501.9310 4.8-13.9 ug/dL T4 Normal THYROXIN 5.6 Performed By: #### L100.0100, L500.2500, L501.79635, L501.9310, L501.9520, L506.0400 #### [facility] [address] [place], [address] THYROID STIM HORMONE Collected: 04/15/2018 Status: F Source: JIM (TSH) 3:11 PM [facility] [place] Order Comment: DR KAYE ONLY ORDERED CBCD/LIVER TYPE CODE TESTS RESULT OUT OF RANGE REFERENCE UNITS LAB L501.9520 0.358-3.74 uIU/mL Normal TSH 1.93 Performed By: #### L100.0100, L500.2500, L501.15801, L501.9310, L501.9520, L506.0400 #### [facility] [address] [facility]. [place], [place], [address] T4 FREE DIRECT Collected: 04/15/2018 Status: F Source: LYNN 3:11 PM [facility] [place] Order Comment: DR KAYE ONLY ORDERED CBCD/LIVER TYPE CODE TESTS RESULT OUT OF REFERENCE UNITS RANGE LAB L506.0400 0.76-1.46 ng/dL High T4 FREE 1.91 DIRECT Performed By: #### L100.0100, L500.2500, L501.91448, L501.9310, L501.9520, L506.0400 #### [facility] [address] [place], [place], [id number] LIVER PROFILE Collected: 04/15/2018 Status: F Source: LYNN 3:11 PM [facility] [place] Order Comment: DR KAYE ONLY ORDERED CBCD/LIVER TYPE CODE TESTS RESULT OUT OF RANGE REFERENCE UNITS LAB L501.1500 6.4-8.2 g/dL Normal T PROT 7.3 LAB L501.1800 3.2-5.0 g/dL Normal ALB 3.6 LAB L501.1950 2.2-4.2 g/dL Normal GLOB 3.7 LAB L501.4100 15-37 U/L Normal AST 20 LAB L501.4305 45-117 U/L Normal ALK P 69 LAB L501.4405 13-56 U/L Normal ALT 41 LAB L501.4600 0.20-1.00 mg/dL Normal T BILI 0.60 LAB L501.4700 0.00-0.30 mg/dL Normal D BILI 0.15 Performed By: #### L500.3400 #### [facility] [address] [place], [place], [id number] SCREENING MAMM (CAD), Observed: 12/05/2017 Status: F Source: LYNN BILAT 1:05 PM [facility] [place] [facility] Imaging Services [address] [place] [address] SCREENING MAMM (CAD), BILAT MR#: [id number] Acct: [id number] Name: TANYA PEREZ Rep #: [id number] : 1970 F 47 From: Ricky Jensen MD PCP: Care Physician, No Primary Status: REG CLI Study: SCREENING MAMM (CAD), BILAT Date of Exam: 12/05/17 Exam# [id number] Ordering Dr: Cassi Sandoval MAMMOGRAPHY - BILATERAL SCREENING REASON FOR EXAM: Female, 47 years old. Routine annual screening examination. PERTINENT HISTORY: Non-contributory. TECHNIQUE: Digital bilateral breast charly (3D mammographic acquisition) in the CC and MLO projections. 2-D mediolateral oblique (MLO) and craniocaudad (CC) views of both breasts were obtained. CAD: Full Field Digital Mammography with Computer Added Detection was performed. COMPARISON: Comparison is made with prior study dated October 08, 2016 and August 18, 2015. FINDINGS: Breast Composition: There are scattered areas of fibroglandular density. There are no dominant masses or suspicious calcifications. No other significant abnormalities are identified. There has been no significant change since the prior study. BI/SCREENING MAMM (CAD), BILAT IMPRESSION: Stable bilateral screening mammogram. Yearly follow-up mammogram recommended. (A) ASSESSMENT CATEGORY: BIRADS Category 1: Negative. A letter regarding these results will be sent to the patient by the facility within 30 days. Approximately 10% of breast cancers are not detected by mammography. A normal mammogram should not delay biopsy of a clinically suspicious abnormality. 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 of containers..01 ThinPrep Vial TYPE CODE TESTS RESULT OUT OF RANGE REFERENCE UNITS LAB L7400.0800 . Normal DIAGN Comment Result Comment: NEGATIVE FOR INTRAEPITHELIAL LESION AND MALIGNANCY. LAB L7400.0900 . Normal ADEQ Comment Result Comment: Satisfactory for evaluation. No endocervical cells are present. This is consistent with a history of hysterectomy. LAB L7400.1400 . Normal PERFORM Comment Result Comment: Aaron Chaparro, Auto Servicer (ASCP) LAB L7400.2575 . Normal TEST METHOD Comment Result Comment: This liquid based ThinPrep(R) pap test was screened with the use of an image guided system. LAB L7400.2600 . Normal . COMM LAB L7400.2700 . Normal PAPSMR Comment Result Comment: The Pap smear is a screening test designed to aid in the detection of premalignant and malignant conditions of the uterine cervix. It is not a diagnostic procedure and should not be used as the sole means of detecting cervical cancer. Both false-positive and false-negative reports do occur. LAB L7400.2800 . Normal HPV RFLX Comment Result Comment: The HPV DNA reflex criteria were not met with this specimen result therefore, no HPV testing was performed. Performed at: - [facility] [id number] Sales Promoter: Nadine Jones MD, Phone: [phone] Performed By: #### L7400.0350 #### [facility] (refer to report for specific site) refer to report for address and phone number ALLERGIES ALLERGIES DATE TYPE / CODE NAME / CODE REACTION SEVERITY SOURCE 06/24/2018 [facility] NSAIDS [facility] 16208(SNOMED Anti-Inflamma/ Repository CT) [id number](RXN ORM) ENCOUNTERS ENCOUNTERS ADMIT/DISCHARGE ACCOUNT ADMITTING ENCOUNTER LOCATION SOURCE NUMBER CLASS 06/24/2018 [id number] Ambulatory Jim Jim 4 [facility] ing:LABSPEC Repository 06/24/2018/ [id number] Ambulatory BMSBuilding:B Jim 8 1 [place] Repository 06/11/2018 [id number] Ambulatory [place] Jim 2 [facility] ing:US Repository 05/25/2018/ [id number] Emergency Jim Jim 8 3 [facility] ing:ED Repository 05/22/2018/ [id number] Ambulatory BMSBuilding:B Jim 8 4 [place] Repository 04/15/2018 [id number] Ambulatory Jim Jim 7 [facility] ing:MTLAB Repository 12/05/2017 [id number] Ambulatory Jim Jim 6 [facility] ing:OPBI Repository 11/21/2017 [id number] Ambulatory [place] 8 [facility] ing:LABSPEC Repository 11/21/2017 [id number] Ambulatory BMSBuilding:B Jim 3 [place] Repository PAYERS PAYERS ENCOUNTER GUARANTOR PAYER SUBSCRIBER SOURCE 06/24/2018 TANYA Tran Primary TANYA E Jim [id number] [facility]: [facility] Number: [id number] [place] [id number] Repository [address]Mls: (330) Date:6618-12-18NI [phone] ([facility] [address] [address]DO: 06/24/2018 Secondary NOT GIVENUNK [place] Insurance:SELF PAY [facility] Number: Effective Repository Date:2018-06-24 06/24/2018 TANYA E Primary TANYA E [place] [id number] Insurance:[facility] ic Number: [id number] [place], [place] [id number] Repository [address]Rzu: (330) Date:5807-10-64[phone] (HP) [address] [address]KY: 06/24/2018 Secondary NOT GIVENUNK Jim Insurance:SELF PAY [facility] Number: Effective Repository Date:2018-06-20 06/11/2018 TANYA E Primary TANYA E Jim [id number] Insurance:AULTCAREPol MCCLINTOCKDOB: Community [place] icy Number: [id number] Valley, [place] [id number] Repository [address]Dkn: (330) Date:5347-76-59JT [phone] (HP) [address] [address]BZ: 06/11/2018 Secondary NOT GIVENUNK Jim Insurance:SELF PAY [facility] Number: Effective Repository Date:2018-05-29 05/25/2018 TANYA E Primary TANYA E [place] [id number] Insurance:AULTCAREPol MCCLINTOCKDOB: Community [place] icy Number: [id number] Valley, [place] [id number] Repository [address]Ahw: ([phone]) Date:2080-17-93MV [phone] () [address] [address]BY: 05/25/2018 Secondary NOT GIVENUNK Jim Insurance:SELF PAY [facility] Number: Effective Repository Date:2018-05-25 05/22/2018 TANYA E Primary TANYA E Jim [id number] Insurance:AULTCAREPol MCCLINTOCKDOB: Community [place] icy Number: [id number] Valley, [place] [id number] Repository [address]Dlk: ([phone]) Date:2804-97-06QA [phone] (HP) [address] [address]HB: 05/22/2018 Secondary NOT GIVENUNK [place] Insurance:SELF PAY [facility] Number: Effective Repository Date:2018-05-22 04/15/2018 TANYA E Primary TANYA E Jim [id number] Insurance:AULTCAREPol MCCLINTOCKDOB: Community [place] icy Number: [id number] Valley, [place] [id number] Repository [address]Ghl: (330) Date:6680-96-62PW [phone] (HP) [address] [place] [phone]: 04/15/2018 Secondary NOT GIVENUNK Jim Insurance:SELF PAY [facility] Number: Effective Repository Date:2018-04-15 12/05/2017 TANYA E Primary TANYA E Jim [id number] Insurance:AULTCAREPol MCCLINTOCKDOB: Community [place] icy Number: [id number] Valley, [place] [id number] Repository [address]Xjt: (330) Date:2358-83-03LQ [phone] (HP) [address] [place] [address]GM: 12/05/2017 Secondary NOT GIVENUNK [place] Insurance:SELF PAY [facility] Number: Effective Repository Date:2017-11-21 11/21/2017 Tanya Primary Tanya Jim [id number] Insurance:AULTCAREPol McclintockDOB: Community [place] icy Number: [id number] Valley, [place] [id number] Repository [address]Ttq: ([phone]) Date:1989-03-54JE [phone] (HP) [address] [place] [address]OH: 11/21/2017 Secondary NOT GIVENUNK [place] Insurance:SELF PAY [facility] Number: Effective Repository Date:2017-11-21 11/21/2017 TANYA E Primary TANYA E [place] [id number] Insurance:AULTCAREPol MCCLINTOCKDOB: Community [place] icy Number: [id number] Valley, [place] [id number] Repository [address]Zec: (330) Date:5614-68-71IK [phone] (HP) [address] [place], [place] [address]WP: 11/21/2017 Secondary NOT GIVENUNK Jim Insurance:SELF PAY [facility] Number: Effective Repository Date:2017-11-21
== END ==
PROVIDERS: Family Provider Family Medicine; PCP Family Medicine; Referring Provider Obstetrics & Gynecology; Visit Provider Obstetrics & Gynecology
DX: N93.9 Abnormal uterine and vaginal bleeding, unspecified (principal)
CPT/HCPCS: 76830; 76856; 93976

== ENCOUNTER → 2018-06-24 13:08 | Outpatient (CLI) | payer OTHER, SELFPAY ==
--- NOTE | 2018-06-24 | EMB_PTH ---
PATIENT: TANYA PEREZ LOC: [facility] U#:[id number] AGE/SX: 55/F ROOM: RE06/24/[address]: Dr. Marisa Modi MD : 1970 BED: DIS: SPEC #: [id number] RECD: 06/24/18 14:17 STATUS: [facility] #: [id number] CONOR: 06/24/18 00:[address]: Marisa Modi DEPT: SURGICAL PATHOLOGY RECD BY: Phani Kelly ENTERED: 06/24/18 14:17 SP TYPE: ENDOM BX/C ADRIANA DR: Dr. Arsalan Pedro MD Tissues: Endometrium, NOS Procedures: Surgery Specimen Level IV HEADER OPERATION: Endometrial biopsy PRE-OP DIAGNOSIS: Abnormal uterine bleeding TISSUE SUBMITTED: Endometrial lining MICROSCOPIC DIAGNOSIS Endometrium, curettings: Secretory endometrium with focal disorder. No evidence of hyperplasia. AM:olivia 06/25/18 MICROSCOPIC DESCRIPTION Slides are reviewed. GROSS DESCRIPTION Received is one container labeled with the patient's name and not further designated. The specimen consists of multiple irregular fragments of garcia-pink soft tissue mixed with mucoid tissue that in aggregate measure 3 x 2.5 x 0.2 cm. The specimen is totally submitted in one cassette. / SJ:rg 06/24/18 TC:5 CPT: 69506
[2018-06-24 09:35] VITALS: BMI 27.1
== END ==
PROVIDERS: Family Provider Family Medicine; PCP Family Medicine; Referring Provider Obstetrics & Gynecology; Visit Provider Obstetrics & Gynecology
DX: N93.9 Abnormal uterine and vaginal bleeding, unspecified (principal)
CPT/HCPCS: 88305

== ENCOUNTER 2018-07-04 05:57 | Day surgery (SDC) | payer OTHER, SELFPAY ==
[2018-06-24 09:35] VITALS: BMI 27.1
--- NOTE | 2018-07-03 06:43 | HP.PCM_ITS ---
Problem List (1) Abnormal uterine bleeding Status: Acute Comment: plan d and c hysterosocpy suzette ablation History of Present Illness Date of Admission: 07/04/18 CONSULT FOR ABLATION: Details: TANYA PEREZ is a 48 year old who presents for AUB. she has had heavier bleeding the last few cycles. she has seen her PCP and is interested in an abltion. Menses are not particularly painful but increasingly heavier to where she bleeds through protection. she uses a vsectomy for control Female Reproductive History Cycle Length: 21-35 Bleeding Duration: 5 Control Method: vasectomy Frequency of changing protection: 1 hour Questions: Metorrhagia: Yes, Sexually active: Yes, Dyspareunia: No, PCB: No Menopausal Symptoms: Yes night sweats, Yes change in libido, No hot flashes, No weight change, No mood changes, No difficulty concentrating, Yes sleep problems Past Medical History Past Medical History (Chronic Problems): Chronic Problems (Last Reviewed 06/24/18 @ 09:36 by Mirta Whitley) Flank pain (Chronic) Gastric ulcer (Chronic) Chronic ulcerative colitis (Chronic) Medical History: Medical History (Last Reviewed 06/24/18 @ 09:36 by Mirta Whitley) Colitis K52.9 History of anxiety Z86.59 Allergies NSAIDS (Non-Steroidal Anti-Inflamma Allergy (Verified 06/24/18 09:35) Other GI Bleed Home Medications: Ambulatory Orders Medication Instructions Recorded Bupropion HCl [Wellbutrin] 450 mg PO DAILY 11/10/14 Azathioprine 150 mg PO DAILY 09/21/16 Vilazodone Hydrochloride [Viibryd] 50 mg PO DAILY 06/27/18 Surgical History: Surgical History (Last Reviewed 06/24/18 @ 09:36 by Mirta Whitley) delivery delivered O82 History of tonsillectomy Z90.89 Surgical History: tonsillectomy Psychiatric History: No pertinent psych hx RECREATION PROFESSOR History: No pertinent RECREATION PROFESSOR history Smoking Status: Never smoker - *Family History Maternal History Items: - Paternal History Items: - Review of Systems Constitutional: Denies: Fever, Malaise Eyes: Denies: Blurred vision, Vision Change HEENT: Denies: Head Aches, Visual Changes Cardiovascular: Denies: Chest Pain, Palpitations Respiratory: Denies: Cough, Shortness of Breath, Wheezing Gastrointestinal: Denies: Abdominal Pain, Diarrhea, Nausea, Vomiting Genitourinary: Denies: Dysuria, Hematuria Gynecological: Reports: Excessively long or heavy periods, Vaginal bleeding Musculoskeletal: Denies: Joint Pain, Muscle pain Skin: Denies: Lesions, Rash Neurological: Denies: Blurred vision, Focal weakness, Headaches Psychiatric: Denies: Anxiety, Depression Endocrine: Denies: Heat/ Cold Intolerance Hematologic/ Lymphatic: Denies: Easy Bruising, Easy Bleeding VTE Information - Inpt Only VTE Present on Admission: No - Physical Exam General: Alert, Oriented x3, Cooperative HEENT: Atraumatic, Normocephalic Neck: Trachea Midline, Thyroid Normal Size and Texture Lungs: Normal air movement Cardiovascular: Regular rate Abdomen: Soft, Non Tender, Non-Distended Extremities: No edema Skin: No rashes Musculoskeletal: No Tenderness to Palpation of Joints or Extremities Neurological: Neuro grossly intact Assessment/Plan All Active Problems (Last Reviewed 06/24/18 @ 09:36 by Mirta Whitley) Abnormal uterine bleeding (Acute) 48 yo presents with AUB normal emb. discussed surgical risks including risks of anesthesia, infection, bleeding, injury to bowel, bladder or blood vessels, and patient wishes to proceed with surgery. UPDATE- I have seen the patient and performed any clinically relevant updates to the history and physical exam. Marisa Modi MD
[2018-07-04] VITALS (7 sets, daily range): BP systolic 96–133; BP diastolic 56–83; PULSE 66–81; RESP 14–18; TEMP 36.2–36.6; O2SAT 76–99; BMI 27.1
[2018-07-04 06:24] LABS: Internal QC Validated? YES +Cl - CLEAR BKGD; Pregnancy, Urine Negative Negative
[2018-07-04 06:50] LABS: Absolute Lymphocyte Count 1.24 X10^3/ul (0.83-4.51); Absolute Neutrophil Count 3.2 X10^3/uL (2.0-7.7); Basophil# 0.02 X10^3/uL; Basophil% 0.4 % (0-1); Eosinophil# 0.08 X10^3/uL; Eosinophils% 1.6 % (0-5); Hematocrit 35.7 % (37-47); Lymphocyte # 1.24 X10^3/ul (4.0); Lymphocyte % 24.6 % (19-41); Mean Corp Hgb Conc 33.6 g/gl (32-36); Mean Corpuscular Volume 104.1 fL (81-99); Mean Platelet Vol. 8.3 fl (6.2-12.0); Monocyte# 0.47 X10^3/uL; Monocyte% 9.3 % (0-10); Neutrophil # 3.19 X10^3/uL (2.7-7.7); Neutrophil % 63.3 % (47-70); Platelet Count 320 K/mm3 (150-450); RBC Distribution Width SD 47.2 fl (35.1-43.9); Red Blood Count 3.43 M/mm3 (4.2-5.4)
[2018-07-04 06:51] LABS: POSITIVE COUNT NO; POSITIVE DIFFERENTIAL NO; POSITIVE MORPHOLOGY NO
--- NOTE | 2018-07-04 07:30 | EMB_PTH ---
PATIENT: TANYA PEREZ [place] [facility] [place][id number] AGE/SX: 48/F ROOM: RE07/04/[address]: Dr. Marisa Modi MD : 1970 BED: DIS: 07/04/2018 SPEC #: [id number] RECD: 07/04/18 09:15 STATUS: JANINE GARG #: [id number] CONOR: 07/04/18 07:[address]: Marisa Modi DEPT: SURGICAL PATHOLOGY RECD BY: Graeme Cordero ENTERED: 07/04/18 13:18 SP TYPE: ENDOM BX/C ADRIANA DR: Dr. Arsalan Pedro MD Tissues: Endometrium, NOS Procedures: Surgery Specimen Level IV HEADER OPERATION: Hysteroscopy, D & C, Mayra PRE-OP DIAGNOSIS: Abnormal uterine bleeding TISSUE SUBMITTED: Endometrial curettings MICROSCOPIC DIAGNOSIS Endometrial curettings: Proliferative endometrium. Fragments of benign endocervical mucosa with chronic inflammation. SJ:olivia 07/07/18 COMMENT A few fragments are consistent with benign endocervical polyp. Please make reference to previous specimen ([id number]), endometrium, curettings with diagnosis of secretory endometrium with focal disorder. MICROSCOPIC DESCRIPTION Slides are reviewed. GROSS DESCRIPTION Received in fixative is one container labeled with the patient's name and designated endometrial curettings. The specimen consists of multiple fragments of hemorrhagic soft tissue mixed with mucoid tissue that in aggregate measure 3 x 2.5 x 0.3 cm. The entire specimen is submitted in one cassette. / MINI:olivia 07/04/18 TC:5 CPT: 40874
--- NOTE | 2018-07-04 07:35 | PCM.OPRPT ---
Problem List (1) Abnormal uterine bleeding Status: Acute Comment: plan d and c hysterosocpy mayra ablation Report of Operation Date of Procedure: 07/04/18 Pre-Operative Diagnosis: Abnormal uterine bleeding Post-Operative Diagnosis: same Surgery/Procedure Performed:: D&C hysteroscopy Mayra ablation Description of Surgical Findings:: normal lining Type of Anesthesia:: Local MAC Special Medications: none Specimen's removed: endometrial curetting Drains: none Estimated Blood Loss (mL): 50 Fluids Replaced: crystalloid Description of Procedure: Patient was prepped and draped in a normal sterile fashion under MAC anesthesia. A weighted speculum was placed in the vagina and the anterior lip of the cervix was grasped with a single-tooth tenaculum. A paracervical block was placed with 1% lidocaine. Cervix was progressively dilated to allow passage of a 5 mm hysteroscope. The lining was fully visualized and noted to have no abnormalities. Uterine sounded to 9.5 cm. Curettage was performed and moderate amount of tissue was removed, sent to pathology. The Mayra device was opened and the cavity length was found to be 5 cm. Device was inserted into the uterus and balloon inflated and device deployed. Integrity of the cavity was confirmed and a 2 minute treatment cycle was completed without complication. All instruments were removed from the vagina and excellent hemostasis was noted. Patient was awoken and taken to recovery in stable condition. Grafts/Implants Used: none - Complications none - Admit VTE Documentation VTE Present on Admission: No
--- NOTE | 2018-07-04 07:37 | DCINST_ITS ---
Discharge Diet: No Restrictions Discharge Activity: Return to Normal Activity, May Shower, May Take a Tub Bath Allergies/Adverse Reactions: Allergies NSAIDS (Non-Steroidal Anti-Inflamma Allergy (Verified 06/24/18 09:35) Other GI Bleed Medications to take at Discharge Bupropion HCl [Wellbutrin] 450 mg PO DAILY 11/10/14 Azathioprine 150 mg PO DAILY 09/21/16 Vilazodone Hydrochloride [Viibryd] 50 mg PO DAILY 06/27/18 Primary Care Physician: Arsalan Pedro MD [Primary Care Provider] - Test Results: Test results from this visit will be discussed in further detail at your follow- up appointment, if applicable. Please Follow Up With: Marisa Modi MD - [phone]
[2018-07-04] MEDS: Lubricating Jelly 60 GM Tube 30 GM TOPICAL (07:47)
[2018-07-04] MEDS: HYDROcodone Bitartrate/Apap 5/325 Tablet PO (09:13)
== END 2018-07-04 09:46 | disposition home or self-care (01) ==
LOC: SDC 05:58 → AC 05:59
PROVIDERS: Family Provider Family Medicine; PCP Family Medicine; Referring Provider Obstetrics & Gynecology; Visit Provider Obstetrics & Gynecology
PROC: 0U5B8ZZ Destruction of Endometrium, Via Natural or Artificial Opening Endoscopic (ICD-10-PCS; CPT 58558; principal; 2018-07-04 07:15)
DX: N93.9 Abnormal uterine and vaginal bleeding, unspecified (principal); F41.9 Anxiety disorder, unspecified; K51.90 Ulcerative colitis, unspecified, without complications; Z79.899 Other long term (current) drug therapy
CPT/HCPCS: 00952; 58563; 36415; 81025; 85025; 86850; 86900; 88305; J7120; J2405

== ENCOUNTER → 2018-10-15 08:33 | Outpatient (CLI) | payer OTHER, SELFPAY ==
[2018-07-16 12:32] VITALS: BMI 27.1
[2018-10-15 09:57] LABS: Absolute Lymphocyte Count 1.16 X10^3/ul (0.83-4.51); Absolute Neutrophil Count 2.6 X10^3/uL (2.0-7.7); Basophil# 0.03 X10^3/uL; Basophil% 0.7 % (0-1); Eosinophil# 0.14 X10^3/uL; Eosinophils% 3.2 % (0-5); Hematocrit 41.1 % (37-47); Hemoglobin 13.6 g/dl (12.0-15.0); Lymphocyte # 1.16 X10^3/ul (4.0); Lymphocyte % 26.6 % (19-41); Mean Corp Hgb Conc 33.1 g/gl (32-36); Mean Corpuscular Hgb 33.1 pg (27.0-32.0); Mean Platelet Vol. 8.6 fl (6.2-12.0); Monocyte# 0.41 X10^3/uL; Monocyte% 9.4 % (0-10); Neutrophil % 59.6 % (47-70); Platelet Count 302 K/mm3 (150-450); RBC Distribution Width CV 12.8 % (11.6-14.6); RBC Distribution Width SD 45.9 fl (35.1-43.9); Red Blood Count 4.11 M/mm3 (4.2-5.4); White Blood Count 4.4 K/mm3 (4.4-11.0)
[2018-10-15 09:59] LABS: POSITIVE COUNT NO; POSITIVE DIFFERENTIAL NO; POSITIVE MORPHOLOGY NO
[2018-10-15 10:17] LABS: AST(SGOT) 22 U/L (15-37); Alanine Aminotransfer ALT/SGPT 39 U/L (13-56); Albumin, Serum 3.7 g/dL (3.2-5.0); Alkaline Phosphatase 60 U/L (45-117); Bilirubin, Direct 0.19 mg/dL (0.00-0.30); Globulin 3.3 g/dL (2.2-4.2)
== END ==
PROVIDERS: Family Provider Family Medicine; PCP Family Medicine; Referring Provider Internal Medicine Gastroenterology; Visit Provider Internal Medicine Gastroenterology
DX: K51.90 Ulcerative colitis, unspecified, without complications (principal)
CPT/HCPCS: 36415; 80076; 85025

== ENCOUNTER → 2019-02-13 07:31 | Outpatient (CLI) | payer OTHER, SELFPAY ==
[2019-02-01 10:47] VITALS: BMI 27.1
--- NOTE | 2019-02-13 07:37 | BI_ITS ---
MAMMOGRAPHY - BILATERAL SCREENING REASON FOR EXAM: Female, 48 years old. Routine annual screening examination. PERTINENT HISTORY: Non-contributory. TECHNIQUE: Digital bilateral breast marc (3D mammographic acquisition) in the CC and MLO projections. 2-D mediolateral oblique (MLO) and craniocaudad (CC) views of both breasts were obtained. CAD: Full Field Digital Mammography with Computer Added Detection was performed. COMPARISON: Comparison is made with prior study dated December 05, 2017 and October 08, 2016. FINDINGS: Breast Composition: There are scattered areas of fibroglandular density. There are no dominant masses or suspicious calcifications. No other significant abnormalities are identified. There has been no significant change since the prior study. BI/SCREEN MAMM (CAD) W/MARC BILAT IMPRESSION: Stable bilateral screening mammogram. Yearly follow-up mammogram recommended. (A) ASSESSMENT CATEGORY: BIRADS Category 1: Negative. A letter regarding these results will be sent to the patient by the facility within 30 days. Approximately 10% of breast cancers are not detected by mammography. A normal mammogram should not delay biopsy of a clinically suspicious abnormality. [id number] Electronically Signed: Ricky Jensen, at 9:29 EDT , Service support ,
== END ==
PROVIDERS: Family Provider Family Medicine; PCP Family Medicine; Referring Provider Nurse Practitioner Adult Health; Visit Provider Nurse Practitioner Adult Health
DX: Z12.31 Encounter for screening mammogram for malignant neoplasm of breast (principal)
CPT/HCPCS: 77063; 77067

== ENCOUNTER → 2019-04-10 12:58 | Outpatient (CLI) | payer OTHER, SELFPAY ==
[2018-07-16 12:32] VITALS: BMI 27.1
[2019-02-01 10:47] VITALS: BMI 27.1
[2019-04-10 14:27] LABS: Absolute Lymphocyte Count 1.18 X10^3/uL (0.83-4.51); Basophil# 0.03 X10^3/uL; Basophil% 0.5 % (0-1); Eosinophil# 0.04 X10^3/uL; Eosinophils% 0.7 % (0-5); Hemoglobin 14.2 g/dL (12.0-15.0); Lymphocyte # 1.18 X10^3/ul (4.0); Lymphocyte % 20.7 % (19-41); Mean Corpuscular Hgb 34.1 pg (27.0-32.0); Mean Corpuscular Volume 103.1 fL (81-99); Mean Platelet Vol. 8.8 fl (6.2-12.0); NRBC Flagged by Analyzer 0 % (0-5); Neutrophil # 4.03 X10^3/uL (2.7-7.7); Neutrophil % 70.6 % (47-70); Platelet Count 307 K/mm3 (150-450); RBC Distribution Width SD 45.5 fl (35.1-43.9); Red Blood Count 4.17 M/mm3 (4.2-5.4); White Blood Count 5.7 K/mm3 (4.4-11.0)
[2019-04-10 14:41] LABS: AST(SGOT) 15 U/L (15-37); Alanine Aminotransfer ALT/SGPT 28 U/L (13-56); Alkaline Phosphatase 62 U/L (45-117); Bilirubin, Direct 0.23 mg/dL (0.00-0.30); Globulin 3.6 g/dL (2.2-4.2); Protein, Total 7.6 g/dL (6.4-8.2)
[2019-04-10 14:43] LABS: Anion Gap 5 (5-15); BUN 11 mg/dL (7-18); BUN/Creat Ratio 12.4 RATIO (10-20); Chloride 103 mmol/L (98-107); Cholesterol 191 mg/dL (200); Creatinine, Serum 0.89 mg/dL (0.55-1.02); EST Glomerular Filtration Rate 71 mL/min (>60); Est Glom Filt Rate - Afr Amer 86 mL/min (>60); Glucose 88 mg/dL (74-106); High Density Lipoprotein 85 mg/dL; Potassium 4.2 mmol/L (3.5-5.1); Sodium Level 136 mmol/L (136-145); Triglycerides 40 mg/dL; Very Low Density Lipoprotein 8 mg/dL (5-40)
== END ==
PROVIDERS: Nurse Practitioner Adult Health; Family Provider Family Medicine; PCP Family Medicine; Referring Provider Internal Medicine Gastroenterology; Visit Provider Internal Medicine Gastroenterology
DX: K51.90 Ulcerative colitis, unspecified, without complications (principal); Z13.1 Encounter for screening for diabetes mellitus; Z13.220 Encounter for screening for lipoid disorders
CPT/HCPCS: 36415; 80048; 80061; 80076; 85025

== ENCOUNTER → 2019-04-12 14:27 | Outpatient (CLI) | payer SELFPAY ==
[2019-04-12 14:49] LABS: Color, Urine Yellow (Yellow); Glucose, Dipstick Normal (Normal); Ketone-Dipstick Negative (Negative); Leukocyte Esterase-Dipstick Negative /ul (Negative); Nitrite-Dipstick Negative (Negative); Occult Blood-Urine Negative /ul (Negative); Protein-Dipstick Negative (Negative); Specific Gravity, Urine 1.015 (1.002-1.030); Urine Bilirubin Dipstick Negative (Negative); Urine Clarity Clear (Clear); Urine Urobilinogen Normal (Normal)
[2019-04-12 14:58] LABS: Bacteria 0 SEEN /hpf (None Seen); Mucous, Urine 0 SEEN /hpf (<or=2+); Red Blood Cells-Urine 0 SEEN /hpf (0-5)
[2019-04-12 15:01] LABS: Squamous Epithelial Cells - UA 0-5 SEEN /hpf (5-10); White Blood Cells 0-5 SEEN /hpf (0-5)
== END ==
PROVIDERS: Visit Provider Physician Assistant Surgical
DX: R10.9 Unspecified abdominal pain (principal)
CPT/HCPCS: 81001; 87086

== ENCOUNTER → 2019-04-13 17:42 | Outpatient (CLI) | payer OTHER, SELFPAY ==
[2019-04-10 13:31] VITALS: BMI 27.1
== END ==
PROVIDERS: Family Provider Family Medicine; PCP Family Medicine; Referring Provider Nurse Practitioner Adult Health; Visit Provider Nurse Practitioner Adult Health
DX: N76.0 Acute vaginitis (principal)
CPT/HCPCS: 87070; 87205

== ENCOUNTER → 2019-12-16 09:32 | Outpatient (CLI) | payer OTHER, SELFPAY ==
[2019-04-10 13:31] VITALS: BMI 27.1
[2019-12-16 10:50] LABS: Absolute Lymphocyte Count 0.92 X10^3/uL (0.83-4.51); Absolute Neutrophil Count 5.7 X10^3/uL (2.0-7.7); Basophil# 0.03 X10^3/uL; Basophil% 0.4 % (0-1); Eosinophil# 0.02 X10^3/uL; Eosinophils% 0.3 % (0-5); Hematocrit 42.5 % (37-47); Hemoglobin 14.2 g/dL (12.0-15.0); Lymphocyte # 0.92 X10^3/ul (4.0); Lymphocyte % 13.1 % (19-41); Mean Corp Hgb Conc 33.4 g/dL (32-36); Mean Corpuscular Hgb 33.6 pg (27.0-32.0); Mean Corpuscular Volume 100.5 fL (81-99); Mean Platelet Vol. 8.7 fl (6.2-12.0); Monocyte# 0.34 X10^3/uL; Monocyte% 4.9 % (0-10); NRBC Flagged by Analyzer 0 % (0-5); Neutrophil # 5.66 X10^3/uL (2.7-7.7); Neutrophil % 80.9 % (47-70); Platelet Count 322 K/mm3 (150-450); RBC Distribution Width CV 12.2 % (11.6-14.6); RBC Distribution Width SD 45.1 fl (35.1-43.9); Red Blood Count 4.23 M/mm3 (4.2-5.4)
[2019-12-16 11:15] LABS: AST(SGOT) 18 U/L (15-37); Alanine Aminotransfer ALT/SGPT 31 U/L (13-56); Albumin, Serum 4.1 g/dL (3.2-5.0); Alkaline Phosphatase 60 U/L (45-117); Bilirubin, Direct 0.13 mg/dL (0.00-0.30); Globulin 3.6 g/dL (2.2-4.2); Protein, Total 7.7 g/dL (6.4-8.2)
== END ==
PROVIDERS: PCP Family Medicine; Referring Provider Internal Medicine Gastroenterology; Visit Provider Internal Medicine Gastroenterology
DX: K51.90 Ulcerative colitis, unspecified, without complications (principal)
CPT/HCPCS: 36415; 80076; 85025

== ENCOUNTER → 2020-04-07 07:14 | Outpatient (CLI) | payer OTHER, SELFPAY ==
[2019-04-10 13:31] VITALS: BMI 27.1
[2020-04-07 09:59] LABS: Absolute Lymphocyte Count 1.11 X10^3/uL (0.83-4.51); Basophil# 0.03 X10^3/uL; Basophil% 0.7 % (0-1); Eosinophil# 0.07 X10^3/uL; Eosinophils% 1.5 % (0-5); Hematocrit 39.3 % (37-47); Hemoglobin 13.2 g/dL (12.0-15.0); Lymphocyte # 1.11 X10^3/ul (4.0); Lymphocyte % 24.2 % (19-41); Mean Corp Hgb Conc 33.6 g/dL (32-36); Mean Corpuscular Hgb 33.8 pg (27.0-32.0); Mean Corpuscular Volume 100.8 fL (81-99); Mean Platelet Vol. 9.1 fl (6.2-12.0); Monocyte# 0.39 X10^3/uL; Monocyte% 8.5 % (0-10); NRBC Flagged by Analyzer 0 % (0-5); Neutrophil # 2.96 X10^3/uL (2.7-7.7); Neutrophil % 64.7 % (47-70); Platelet Count 366 K/mm3 (150-450); RBC Distribution Width CV 13.4 % (11.6-14.6); RBC Distribution Width SD 50.2 fl (35.1-43.9); White Blood Count 4.6 K/mm3 (4.4-11.0)
[2020-04-07 10:23] LABS: AST(SGOT) 26 U/L (15-37); Alanine Aminotransfer ALT/SGPT 44 U/L (13-56); Albumin, Serum 4.3 g/dL (3.2-5.0); Alkaline Phosphatase 69 U/L (45-117); Bilirubin, Direct 0.22 mg/dL (0.00-0.30); Globulin 3.1 g/dL (2.2-4.2); Protein, Total 7.4 g/dL (6.4-8.2)
[2020-04-07 10:31] LABS: Anion Gap 5 (5-15); BUN 14 mg/dL (7-18); BUN/Creat Ratio 16.4 RATIO (10-20); Calcium,Total 8.9 mg/dL (8.5-10.1); Chloride 107 mmol/L (98-107); Cholesterol 211 mg/dL (200); Creatinine, Serum 0.86 mg/dL (0.55-1.02); EST Glomerular Filtration Rate 74 mL/min (>60); Est Glom Filt Rate - Afr Amer 90 mL/min (>60); Glucose 88 mg/dL (74-106); High Density Lipoprotein 74 mg/dL; Potassium 3.8 mmol/L (3.5-5.1); Sodium Level 140 mmol/L (136-145); Thyroid Stim Hormone (TSH) 2.39 uIU/mL (0.358-3.74); Triglycerides 36 mg/dL; Very Low Density Lipoprotein 7 mg/dL (5-40)
== END ==
PROVIDERS: Nurse Practitioner Adult Health; PCP Family Medicine; Referring Provider Internal Medicine Gastroenterology; Visit Provider Internal Medicine Gastroenterology
DX: Z13.220 Encounter for screening for lipoid disorders (principal); Z13.1 Encounter for screening for diabetes mellitus; K51.90 Ulcerative colitis, unspecified, without complications; F32.9 Major depressive disorder, single episode, unspecified
CPT/HCPCS: 36415; 80048; 80061; 80076; 84443; 85025

== ENCOUNTER → 2020-04-14 07:15 | Outpatient (CLI) | payer OTHER, SELFPAY ==
--- NOTE | 2020-04-14 07:19 | BI_ITS ---
MAMMOGRAPHY - BILATERAL SCREENING REASON FOR EXAM: Female, 50 years old. Routine annual screening examination. PERTINENT HISTORY: Non-contributory. TECHNIQUE: Digital bilateral breast marc (3D mammographic acquisition) in the CC and MLO projections. 2-D mediolateral oblique (MLO) and craniocaudad (CC) views of both breasts were obtained. CAD: Full Field Digital Mammography with Computer Added Detection was performed. COMPARISON: Comparison is made with prior examination dated 02/13/2019 and 12/05/2017. FINDINGS: Breast Composition: There are scattered areas of fibroglandular density. There are no dominant masses or suspicious calcifications. No other significant abnormalities are identified. There has been no significant change since the prior study. BI/SCREEN MAMM (CAD) W/MARC BILAT IMPRESSION: Stable bilateral screening mammogram. Yearly follow-up mammogram recommended. (A) ASSESSMENT CATEGORY: BIRADS Category 1: Negative. A letter regarding these results will be sent to the patient by the facility within 30 days. Approximately 10% of breast cancers are not detected by mammography. A normal mammogram should not delay biopsy of a clinically suspicious abnormality. [id number] Electronically Signed: Ricky Jensen, at 8:36 EDT , Service support ,
== END ==
PROVIDERS: PCP Family Medicine; Referring Provider Nurse Practitioner Adult Health; Visit Provider Nurse Practitioner Adult Health
DX: Z12.31 Encounter for screening mammogram for malignant neoplasm of breast (principal)
CPT/HCPCS: 77063; 77067

== ENCOUNTER → 2021-04-26 | Outpatient (CLI) | payer OTHER, SELFPAY ==
[2021-05-01 15:38] LABS: HPV Reflexed? NOT INDICATED
== END | disposition home or self-care (01) ==
PROVIDERS: PCP Family Medicine; Visit Provider Nurse Practitioner Family
DX: Z00.00 Encounter for general adult medical examination without abnormal findings (principal)
CPT/HCPCS: 88175; G0145

== ENCOUNTER → 2021-04-28 08:12 | Outpatient (CLI) | payer OTHER, SELFPAY ==
[2021-04-28 10:16] LABS: Anion Gap 5 (5-15); BUN 12 mg/dL (7-18); Calcium,Total 8.9 mg/dL (8.5-10.1); Chloride 107 mmol/L (98-107); Cholesterol 195 mg/dL (200); Creatinine, Serum 0.86 mg/dL (0.55-1.02); EST Glomerular Filtration Rate 73 mL/min (>60); Est Glom Filt Rate - Afr Amer 89 mL/min (>60); Glucose 87 mg/dL (74-106); High Density Lipoprotein 87 mg/dL; Potassium 4.2 mmol/L (3.5-5.1); Sodium Level 139 mmol/L (136-145); Triglycerides 30 mg/dL; Very Low Density Lipoprotein 6 mg/dL (5-40)
== END ==
PROVIDERS: PCP Family Medicine; Referring Provider Nurse Practitioner Family; Visit Provider Nurse Practitioner Family
DX: Z13.1 Encounter for screening for diabetes mellitus (principal); Z13.220 Encounter for screening for lipoid disorders
CPT/HCPCS: 36415; 80048; 80061

== ENCOUNTER → 2021-05-16 07:29 | Outpatient (CLI) | payer OTHER, SELFPAY ==
--- NOTE | 2021-05-16 07:31 | BI_ITS ---
MAMMOGRAPHY - BILATERAL SCREENING REASON FOR EXAM: Female, 51 years old. Routine annual screening examination. PERTINENT HISTORY: Non-contributory. TECHNIQUE: Digital bilateral breast charly (3D mammographic acquisition) in the CC and MLO projections. 2-D mediolateral oblique (MLO) and craniocaudad (CC) views of both breasts were obtained. CAD: Full Field Digital Mammography with Computer Added Detection was performed. COMPARISON: Comparison is made with prior study 04/14/2020 and 02/13/2019. FINDINGS: Breast Composition: There are scattered areas of fibroglandular density. There are no dominant masses or suspicious calcifications. Stable small benign-appearing bilateral axillary lymph nodes. No other significant abnormalities are identified. There has been no significant change since the prior study. BI/SCREENING MAMM (CAD), BILAT IMPRESSION: Stable bilateral screening mammogram. Yearly follow-up mammogram recommended. (A) ASSESSMENT CATEGORY: BIRADS Category 2: Benign. A letter regarding these results will be sent to the patient by the facility within 30 days. Approximately 10% of breast cancers are not detected by mammography. A normal mammogram should not delay biopsy of a clinically suspicious abnormality. [id number] Electronically Signed: Ricky Jensen MD at 11:30 EDT , Service support ,
== END ==
PROVIDERS: PCP Family Medicine; Referring Provider Nurse Practitioner Family; Visit Provider Nurse Practitioner Family
DX: Z12.31 Encounter for screening mammogram for malignant neoplasm of breast (principal)
CPT/HCPCS: 77067

== ENCOUNTER 2021-08-30 06:29 | Outpatient (CLI) | payer OTHER, SELFPAY ==
--- NOTE | 2021-08-30 06:34 | MRI_ITS ---
History: ulcerative colitis and increased LFTS EXAMINATION: MR MRCP W/O Contrast TECHNIQUE: Multiplanar and multisequence MR images of the abdomen were obtained with MRCP sequence. Three-dimensional post-processing reconstructions were performed. IV Contrast dosage and agent: None. COMPARISON: CT abdomen September 22, 2016 FINDINGS: LIVER: 11 mm cyst noted within hepatic segment 1. Subcentimeter cysts are noted within hepatic segment 8 near the dome of the liver. Normal morphology. GALLBLADDER AND BILIARY TREE: No gallstones. No gallbladder distension or wall edema. The extrahepatic CBD measures 4.5 mm. No intra- or extrahepatic biliary dilation. No choledochal filling defect . PANCREAS: No mass. No pancreatic duct dilation. SPLEEN: Non-enlarged. ADRENAL GLANDS: No nodules. KIDNEYS: Normal renal size and position. No hydronephrosis. No mass. LYMPH NODES: No enlarged periportal or retroperitoneal lymph nodes. PERITONEUM: No ascites or fluid collection. VESSELS: Aorta is non-dilated. LOWER CHEST: No pleural effusion. MRI/MRCP Abdomen without Contrast IMPRESSION: Unremarkable MRCP. No biliary dilation or choledocolithiasis. Simple appearing hepatic cysts. at 0811 Reported and signed by: Holger Milan MD Electronically Signed: Holger Milan MD at 8:10 EST ,
[2021-08-30 08:41] LABS: Absolute Lymphocyte Count 1.19 X10^3/uL (0.83-4.51); Basophil# 0.03 X10^3/uL; Basophil% 0.6 % (0-1); Eosinophil# 0.09 X10^3/uL; Eosinophils% 1.9 % (0-5); Hematocrit 41.2 % (37-47); Hemoglobin 13.6 g/dL (12.0-15.0); Lymphocyte # 1.19 X10^3/ul (0.83-4.51); Lymphocyte % 25.5 % (19-41); Mean Corpuscular Hgb 33.1 pg (27.0-32.0); Mean Corpuscular Volume 100.2 fL (81-99); Mean Platelet Vol. 8.8 fl (6.2-12.0); Monocyte# 0.35 X10^3/uL; Monocyte% 7.5 % (0-10); NRBC Flagged by Analyzer 0 % (0-5); Neutrophil # 2.96 X10^3/uL (2.7-7.7); Neutrophil % 63.6 % (47-70); Platelet Count 316 K/mm3 (150-450); RBC Distribution Width CV 13.2 % (11.6-14.6); RBC Distribution Width SD 48.9 fl (35.1-43.9); Red Blood Count 4.11 M/mm3 (4.2-5.4); White Blood Count 4.7 K/mm3 (4.4-11.0)
[2021-08-30 08:42] LABS: Erythrocyte Sedimentation Rate 7 mm/hr (0-30)
[2021-08-30 09:10] LABS: ALB/GLOB Ratio 0.9 RATIO (0.9-2.4); AST(SGOT) 22 U/L (15-37); Alanine Aminotransfer ALT/SGPT 37 U/L (13-56); Albumin, Serum 3.5 g/dL (3.2-5.0); Alkaline Phosphatase 58 U/L (45-117); Anion Gap 5 (5-15); BUN 10 mg/dL (7-18); BUN/Creat Ratio 11.9 RATIO (10-20); CRP < 2.90 mg/L (0.0-3.0); Calcium,Total 8.6 mg/dL (8.5-10.1); Chloride 105 mmol/L (98-107); Creatinine, Serum 0.84 mg/dL (0.55-1.02); EST Glomerular Filtration Rate 75 mL/min (>60); Est Glom Filt Rate - Afr Amer 91 mL/min (>60); Globulin 3.8 g/dL (2.2-4.2); Glucose 86 mg/dL (74-106); Potassium 3.8 mmol/L (3.5-5.1); Protein, Total 7.3 g/dL (6.4-8.2); Sodium Level 138 mmol/L (136-145)
[2021-08-31 20:36] LABS: Anti-Mitochondrial AB <20.0 Units (0.0-20.0)
[2021-09-03 21:07] LABS: Immunoglobulin A 146 mg/dL (87-352); Immunoglobulin G 1092 mg/dL (586-1602); Immunoglobulin M 212 mg/dL (26-217)
[2021-09-04 13:17] LABS: Immunoglobulin E 5 IU/mL (6-495)
== END 2021-08-30 23:59 | disposition home or self-care (01) ==
LOC: MRI 06:34
PROVIDERS: PCP Family Medicine; Referring Provider Internal Medicine Gastroenterology; Visit Provider Internal Medicine Gastroenterology
DX: K51.90 Ulcerative colitis, unspecified, without complications (principal); K25.9 Gastric ulcer, unspecified as acute or chronic, without hemorrhage or perforation
CPT/HCPCS: 36415; 74181; 80053; 82784; 82785; 83516; 85025; 85652; 86140

== ENCOUNTER 2021-09-10 13:12 | Emergency (ER) | payer OTHER, SELFPAY ==
[2021-09-10 13:13] VITALS: BP 121/78; PULSE 82; RESP 15; TEMP 36.3; O2SAT 98; BMI 29.1
--- NOTE | 2021-09-10 13:48 | RAD_ITS ---
STUDY: X-RAY CHEST REASON FOR EXAM: Female, 51 years old. Fall. Right lower, posterior rib cage injury TECHNIQUE: PA and lateral views of the chest. COMPARISON: 05/25/2018 FINDINGS: The lungs are clear and expanded. There is no demonstrated pleural abnormality. Normal size heart. Normal mediastinum and ania. Normal visualized pulmonary arteries. Normal visualized aortic arch and descending thoracic aorta. Normal visualized thoracic spine. Normal visualized ribs, clavicles, and shoulders. There is no demonstrated abnormality of the visualized soft tissue structures of the upper abdomen. RAD/Chest PA and Lateral IMPRESSION: Normal x-ray examination of the chest. Electronically Signed: Graeme Wagner MD at 14:15 EST ,
--- NOTE | 2021-09-10 13:49 | EX.ED.GENINJ ---
HPI History of Present Illness Chief Complaint: Back Informant: patient Onset/Context/Timing Onset: Today and Hours Mechanism/Context: Blunt Injury Location: Right lower, posterior rib cage. Current Severity: Moderate Maximum Severity: Moderate Associated Symptoms Associated Symptoms: Negative for Parasthesias, Weakness, Loss of function, Inability to ambulate, Loss of consciousness and Amnesia Narrative Narrative: 51-year-old female history of ulcerative colitis. She was on the front porch she went to take a step slipped on the ice and as she was falling hit her right posterior rib cage against that cement stoop. No LOC. She did not hit her head or neck. She denies any chest or abdominal pain. Or other injuries. She is on no blood thinners. Prior similar symptoms: No Recent Illness/Hospitalization: No PFSH [facility] Medical History (Updated 09/10/21 @ 14:[address] Prudencio Gong MD) Colitis History of anxiety Home Medications bupropion HCl 450 mg PO DAILY 11/10/14 [History Last Taken 05/25/18 08:30] vilazodone 50 mg PO DAILY 06/27/18 [History Last Taken Unknown] azathioprine 50 mg tablet 150 mg PO DAILY #270 tab 08/18/21 [Rx Last Taken Unknown] Allergy/AdvReac Type Severity Reaction Status Date / Time NSAIDS (Non-Steroidal Allergy Other Verified 09/10/21 13:13 Anti-Inflamma Surgical History delivery delivered History of tonsillectomy uterine ablation Social History Smoking Status: Never smoker alcohol intake: never substance use type: does not use caffeine: Yes what type of physical activity do you participate in: walking seatbelt use: always do you feel safe at home: Yes additional social history: [employer] Patient works at [employer] ROS ED ROS Narrative No recent illness. Review of Systems ROS Unobtainable: Denies due to encephalopathy Constitutional Constitutional ED: Denies fever(s) or subjective Eyes Eyes: Denies change in vision ENT ENT ED: Denies ear pain or rhinorrhea Cardiovascular Cardiovascular: Denies chest pain Respiratory/Chest Respiratory/Chest: Denies cough or dyspnea Gastrointestinal Gastrointestinal: Denies abdominal pain or nausea Genitourinary Genitourinary ED: Denies dysuria or hematuria Musculoskeletal Musculoskeletal: Denies myalgias Integumentary Denies abscess or rash Neurologic Neurologic: Denies headache(s) Psychiatric Psychiatric: Denies depression Endocrine Endocrinology: Denies polyuria Hematologic/Lymphatic Hematologic/Lymphatic: Denies easy bruising Allergic/Immunologic Allergic/Immunologic ED: Denies mouth swelling or urticaria EXAM Physical Exam Narrative Exam Narrative: No extrema no acute distress. Vital signs stable afebrile. Pulse ox 90% on room air no signs hypoxia. H EENT exam unremarkable atraumatic. No trauma to her face or scalp nontender. C-spine nontender trachea midline. Full range of motion her neck. Lungs clear to auscultation bilaterally. Heart regular rhythm rate about 80 no murmur. Anterior chest wall nontender. Back cervical, thoracic and lumbar spine completely nontender. She has a contusion and tenderness to her right lower, posterior rib cage. There is no crepitance. No subcu air. The left side of the ribs are nontender. Spine is completely nontender. Abdomen soft nontender. Pelvic girdle intact. Moving all 4 extremities. Nontender no deformity. Normal range of motion. Normal strength and sensation. Neurologic exam normal. GCS of 15. Awake and alert. Answering questions following commands. Const Vital Signs: 09/10/21 13:13 Temperature 97.3 F L Temperature Source Temporal Pulse Rate 82 Respiratory Rate 15 Blood Pressure 121/78 H Blood Pressure Mean 92 Pulse Ox 98 Oxygen Delivery Method Room Air Positive well nourished and well developed; Negative for cachectic, contractures or unkempt General Appearance ED: well developed and NAD; Negative for unkempt, cachectic or contractures Nutritional Appearance: Negative for cachectic HEENT atraumatic; Negative for trauma or tenderness Eyes PERRL and EOMs intact bilaterally Neck full ROM General: Negative for tenderness Chest Wall inspection of chest normal and palpation of chest normal Resp normal respiratory effort and clear to auscultation bilaterally Auscultation: Negative for rales, rhonchi or wheezes Cardio regular rhythm, S1 normal heart sound, S2 normal heart sound and no murmurs Rate: regular rate GI normal to inspection, nondistended, normoactive bowel sounds, non-tender, non-distended and no masses Inspection: Negative for abdominal distention Auscultation: normoactive bowel sounds Palpation: soft; Negative for tender, guarding or rebound tenderness present Back/Spine no thoracic nor lumbar tenderness; Negative for normal to inspection Back/Spine Narrative: Tenderness right lower, posterior rib cage. Spine nontender. General Back: Negative for CVA tenderness Thoracic Spine / Upper Back: Negative for thoracic spinal tenderness Extremity normal to inspection and full ROM General Extremety ED: Negative for deformity, edema or tenderness General Extremity: Negative for deformity or edema Neuro oriented x3, CN's II-XII intact bilaterally, moves all extremities, no focal motor deficits and no sensory deficits noted Nini Coma Scale: document GCS findings (GCS 15.) Spontaneous Obeys Commands Oriented 15 Sensorium / Orientation: alert, oriented to person, oriented to place and oriented to time; Negative for orientation impaired, lethargic or stuporous Motor Exam: strength 5/5 throughout Psych mental status grossly normal and thought process normal Appearance: Negative for unkempt Skin no rashes or lesions noted, no wounds, No skin turgor normal and No no jaundice Rashes: No rashes noted MDM MDM MDM Narrative Medical decision making narrative: 51-year-old female fall with right lower posterior rib injury. Exam otherwise benign. 2 [place] for pain. Chest x-ray being obtained. Repeat exam patient is doing well at 2:30 PM. We went over her chest x-ray. I did explain to her and her that you could have nondisplaced fractures on a chest x-ray that do not show up. Ice to the rib cage. Motrin and Tylenol for pain. Follow-up if not improving. Radiography Diagnostic Testing: Clinical Impression(s) from Imaging Studies Chest X-Ray 09/10/21 13:48 IMPRESSION: Normal x-ray examination of the chest. Electronically Signed: Graeme Wagner MD at 14:15 EST , Chest x-ray, 2 views, AP and lateral interpreted by myself and the radiologist shows no acute abnormality. Normal cardiac silhouette. Normal lungs. No obvious rib fracture. No pneumothorax. Discharge Plan Triage Chief Complaint: Back ED Provider: Prudencio Gong Dx/Rx/DC Orders Clinical Impression: Fall, Rib contusion Instructions: ED Back Contusion Prescriptions: No Action azathioprine 50 mg tablet 150 mg PO DAILY Qty: 270 RF: 3 bupropion HCl 75 MG tablet 450 mg PO DAILY RF: 0 vilazodone 40 MG tablet 50 mg PO DAILY RF: 0 Primary Care Provider: Arsalan Pedro Referrals: Arsalan Pedro MD [Primary Care Provider] - 1 Week if not improving Activity Restrictions/Additional Instructions: Your chest x-ray did not show any obvious rib fractures. Ice to the area. Motrin and Tylenol for pain. [place] for more severe pain. Plenty of fluids and fiber to prevent constipation if you take the [place]. Do not drink or drive with it. Follow-up with your doctor if not improving. Disposition Disposition: Home, Self Care
[2021-09-10] MEDS: HYDROcodone Bitartrate/Apap 5/325 Tablet PO (13:54)
== END 2021-09-10 14:44 | disposition home or self-care (01) ==
PROVIDERS: Emergency Provider Emergency Medicine; PCP Family Medicine; Visit Provider Emergency Medicine
DX: S20.211A Contusion of right front wall of thorax, initial encounter (principal); W00.1XXA Fall from stairs and steps due to ice and snow, initial encounter; Y92.008 Other place in unspecified non-institutional (private) residence as the place of occurrence of the external cause; F41.9 Anxiety disorder, unspecified; Z79.899 Other long term (current) drug therapy
CPT/HCPCS: 71046; 99281; 99283

== ENCOUNTER 2021-09-19 11:36 | Outpatient (CLI) | payer OTHER, SELFPAY ==
--- NOTE | 2021-09-19 11:39 | RAD_ITS ---
HISTORY: FALL. TECHNIQUE: XR Ribs Unilateral W/ PA Chest Min 3 Views. # of images incl. paperwork: 5. COMPARISON: 09/10/2021. FINDINGS: CARDIOMEDIASTINAL BORDERS: Cardiac silhouette not enlarged.Mediastinal contour unremarkable. LUNGS: Radiographically clear. PLEURA: No pleural effusion or pneumothorax. OSSEOUS STRUCTURES: No acute displaced rib fracture. RAD/Ribs Uni Min 3V w/PA Chest IMPRESSION: No acute abnormality identified. at 1206 Reported and signed by: Mirna Yin MD Electronically Signed: Mirna Yin MD at 12:05 EST ,
== END 2021-09-19 23:59 | disposition home or self-care (01) ==
LOC: MTRAD 11:37
PROVIDERS: PCP Family Medicine; Referring Provider Registered Nurse; Visit Provider Registered Nurse
DX: T14.8XXA Other injury of unspecified body region, initial encounter (principal); W19.XXXA Unspecified fall, initial encounter; R06.02 Shortness of breath
CPT/HCPCS: 71101

== ENCOUNTER → 2021-12-26 | Outpatient (CLI) | payer OTHER, SELFPAY ==
[2021-12-26 17:53] LABS: Absolute Lymphocyte Count 1.81 X10^3/uL (0.83-4.51); Absolute Neutrophil Count 3.8 X10^3/uL (2.0-7.7); Basophil# 0.03 X10^3/uL; Basophil% 0.5 % (0-1); Eosinophil# 0.14 X10^3/uL; Eosinophils% 2.2 % (0-5); Hematocrit 40.3 % (37-47); Hemoglobin 13.6 g/dL (12.0-15.0); Lymphocyte # 1.81 X10^3/ul (0.83-4.51); Lymphocyte % 28.5 % (19-41); Mean Corp Hgb Conc 33.7 g/dL (32-36); Mean Corpuscular Hgb 33.7 pg (27.0-32.0); Mean Corpuscular Volume 99.8 fL (81-99); Mean Platelet Vol. 9.2 fl (6.2-12.0); Monocyte# 0.51 X10^3/uL; NRBC Flagged by Analyzer 0 % (0-5); Neutrophil # 3.83 X10^3/uL (2.7-7.7); Neutrophil % 60.3 % (47-70); Platelet Count 319 K/mm3 (150-450); RBC Distribution Width CV 11.9 % (11.6-14.6); RBC Distribution Width SD 43.7 fl (35.1-43.9); Red Blood Count 4.04 M/mm3 (4.2-5.4); White Blood Count 6.4 K/mm3 (4.4-11.0)
[2021-12-26 18:06] LABS: AST(SGOT) 15 U/L (15-37); Alanine Aminotransfer ALT/SGPT 29 U/L (13-56); Albumin, Serum 3.8 g/dL (3.2-5.0); Alkaline Phosphatase 60 U/L (45-117); Anion Gap 5 (5-15); BUN 18 mg/dL (7-18); BUN/Creat Ratio 17.8 RATIO (10-20); CRP < 2.90 mg/L (0.0-3.0); Calcium,Total 9.4 mg/dL (8.5-10.1); Chloride 104 mmol/L (98-107); Creatinine, Serum 1.01 mg/dL (0.55-1.02); EST Glomerular Filtration Rate 61 mL/min (>60); Est Glom Filt Rate - Afr Amer 74 mL/min (>60); Globulin 3.8 g/dL (2.2-4.2); Glucose 66 mg/dL (74-106); Potassium 3.8 mmol/L (3.5-5.1); Protein, Total 7.6 g/dL (6.4-8.2); Sodium Level 139 mmol/L (136-145)
[2021-12-26 18:08] LABS: Erythrocyte Sedimentation Rate 8 mm/hr (0-30)
== END | disposition home or self-care (01) ==
LOC: MTLAB 15:52
PROVIDERS: PCP Family Medicine; Referring Provider Internal Medicine Gastroenterology; Visit Provider Internal Medicine Gastroenterology
DX: K51.90 Ulcerative colitis, unspecified, without complications (principal)
CPT/HCPCS: 36415; 80053; 85025; 85652; 86140

== ENCOUNTER → 2021-12-27 | Outpatient (CLI) | payer OTHER, SELFPAY ==
[2021-12-31 16:52] LABS: Calprotectin, Stool 26 ug/g (0-120)
== END | disposition home or self-care (01) ==
LOC: MTLAB 08:29 → LABSPEC 08:30
PROVIDERS: Family Medicine; PCP Family Medicine; Referring Provider Internal Medicine Gastroenterology; Visit Provider Internal Medicine Gastroenterology
DX: Z71.84 Encounter for health counseling related to travel (principal); K51.90 Ulcerative colitis, unspecified, without complications; Z20.822 Contact with and (suspected) exposure to COVID-19
CPT/HCPCS: 83630; 83993; 87635; U0003; U0005

== ENCOUNTER 2022-03-27 11:51 | Day surgery (SDC) | payer OTHER, SELFPAY ==
--- NOTE | 2022-03-27 11:54 | HP.PCM_ITS ---
History and Physical Date of Admission: 03/27/22 TIFFANIE PEREZ, is a 51 F who presents to the office today for Follow up visit. Tiffanie established with this clinic 08.18.21 with a history of ulcerative colitis diagnosed around 2016. This is was being managed with azathioprine 150mg. No history of primary biliary cirrhosis, primary sclerosing cholangitis or pancreatitis. At initial evaluation she had no symptoms. Blood work 08.30.21 IgE decreased at 5. AST, ALT, alkphos in normal limits. MRCP performed 08.30.21 found 11mm liver cyst and subcentimeter cysts in hepatic segment. Exam otherwise without chronic or acute remark. Medications currently prescribed by this clinic include azathioprine 150mg QD. Plan last visit 10.02.21: Chronic ulcerative colitis ? titrate azathioprine to 100mg. MRI for elevated LFT performed without abnormalities. Reports that she is doing very well since downward titration of azathioprine; no return of symptoms. Reports one BM a day without difficulty. Would like to explore further reduction of azathioprine in the future. ? ROS Const Constitutional: No anorexia, fatigue, fever(s), weight change or sleep problems Eyes Eyes: No change in vision ENT ENT: No abnormal hearing, difficulty swallowing, mouth lesions, tongue swelling or throat swelling Resp Respiratory: No cough or shortness of breath Cardio Cardiology: No chest pain at rest, chest pain with exertion, shortness of breath or dyspnea on exertion Gastro GI: No difficulty swallowing Genitourinary-Female: No difficulty urinating or burning urination Musc Musculoskeletal: No joint pain, joint swelling, muscle weakness or decreased muscle mass Skin Skin: No hair loss in leg, yellowing of the eye, itchy eyes, rash, skin ulcer or skin swelling Neuro Neurology: No abnormal hearing, abnormal movements, confusion, unsteady gait/balance or memory loss Psych Psychiatric: No anxiety, No confusion and No memory loss Endo Endocrine: No fatigue or weight change Aller/Imm Allergy/Immunologic: No itchy eyes, throat swelling or tongue swelling Jacky/Lymp Hematologic/Lymphatic: No easy bleeding, easy bruising or enlarged lymph nodes Exam Const General: cooperative and comfortable Nutritional Appearance: average body habitus and well nourished HENMT Head: normal to inspection Ears: hearing grossly normal bilaterally Nose: external nose normal Face and sinus: normal facial exam Mouth: oral mucosae normal Throat: posterior oropharynx normal Eyes General: appearance normal, both eyes and all related structures Neck Neck: normal visual inspection Chest Chest palpation & inspection: normal inspection of the chest and normal palpation of entire chest wall Resp Effort & Inspection: normal respiratory effort Auscultation: Bilateral: Clear to Auscultation Cardio Palpation: normal PMI Rate: regular rate Rhythm: regular rhythm GI Inspection: normal to inspection Auscultation: normal bowel sounds Percussion: normal to percussion Palpation: no hepatosplenomegaly Skin General: no rashes or lesions noted Neuro General: patient alert Extrem General: normal to inspection Psych Affect: normal affect Quality Reporting Tobacco Screening ([facility]) Smoking Status: Never smoker Assessment and Plan Assessment and Plan (1) Chronic ulcerative colitis: ?Status:?Chronic ? ? ? Orders:?Orders: ? Comprehensive Metabolic Profil Today ? ? ? CRP Today ? ? ? CBC W/Diff, Automated Today ? ? ? Erythrocyte Sed Rate Today ? ? ? Calprotectin, Stool Today ? ? ? Stool Lactoferrin/WBC Today ?Plan - Dr. Carrasquillo Friend, DO: We will titrate her Imuran down to 50 mg a day and we will check her a CMP, CRP, CBC, ESR, fecal calprotectin, stool lactoferrin.? The goal will be to titrate to off and hopefully maintain her in remission.? VSL 3 or Florastor. (2) Gastric ulcer: ?Status:?Chronic ?Plan - Dr. Carrasquillo Friend, DO: She had a gastric ulcer which was identified in 2013.? She was seen cooky machine operator to make sure the gastric ulcer is completely healed. I have re-examined the patient. There are no clinical changes since date of exam.
[2022-03-27 12:20] VITALS: BP 130/84; PULSE 82; RESP 17; TEMP 36.6; O2SAT 97; BMI 29.7
[2022-03-27 12:32] LABS: Internal QC Validated? YES +Cl - CLEAR BKGD; Pregnancy, Urine Negative Negative
--- NOTE | 2022-03-27 13:00 | IMM_PTH ---
PATIENT: TANYA PEREZ LOC: EN U#:[id number] AGE/SX: 52/F ROOM: RE03/27/[address]: Dr. Foreign Ortiz DO : 1970 BED: DIS: 03/27/2022 SPEC #: [id number] RECD: 03/28/22 09:37 STATUS: JANINE REWolfgang #: [id number] CONOR: 03/27/22 13:[address]: Foreign Ortiz DEPT: IMMUNOHISTOCHEMISTRY RECD BY: Tahira Matos ENTERED: 03/28/22 09:37 SP TYPE: IMMUNO OTHR DR: Dr. Arsalan Pedro MD Tissues: B - Stomach, NOS Procedures: H Pylori (initial) PHYSICIAN & INSTITUTION [place] [phone] SPECIMEN INFORMATION: Tissue Source: B - Gastric antrum Clinical Info: Chronic ulcerative colitis, gastric ulcer Specimen Number: [id number] CPT code: 38809 METHODOLOGY: Deparaffinized sections of prefer/formalin-fixed tissue or PAP/DQ stained slides are incubated with monoclonal/polyclonal antibodies/oligonucleotide probes. Localization is made via biotin free immunoperoxidase method. Appropriate controls are performed and reacted as expected. Results on target cell population are indicated in the following table: RESULTS: ANTIBODY / CLONE RESULT Block B H Pylori (polyclonal) negative These tests were developed and their performance characteristics determined by [facility]. They may not have been cleared or approved by the U.S. Food and Drug Administration. The FDA has determined that such clearance or approval is not necessary. The above immunohistochemical/dualISH markers are ordered and reviewed by the Pathologist. INTERPRETATION: B. Gastric antrum, biopsy: Negative for Helicobacter pylori organisms. MINI:olivia 03/29/2022
[2022-03-27 13:35] VITALS: BP 107/69; BP 130/84; PULSE 77; RESP 16; TEMP 36.9; O2SAT 100
--- NOTE | 2022-03-27 13:37 | OP.EGD_ITS ---
Patient Name: Tiffanie Castillo Procedure Date: 03/27/2022 1:12 PM Date of : 1970 Age: 52 Procedure: Upper GI endoscopy Indications: Functional Dyspepsia Providers: Foreign Ortiz DO Medicines: Monitored Anesthesia Care Patient Profile: This is a 52 year old female. Refer to note in patient chart for documentation of history and physical. Patient has symptoms. Complications: No immediate complications. Procedure: Pre-Anesthesia Assessment: - Prior to the procedure, a History and Physical was performed, and patient medications and allergies were reviewed. The risks and benefits of the procedure and the sedation options and risks were discussed with the patient. All questions were answered and informed consent was obtained. Patient identification and proposed procedure were verified by the physician in the pre-procedure area. Mental Status Examination: alert and oriented. Airway Examination: normal oropharyngeal airway and neck mobility. Respiratory Examination: clear to auscultation. CV Examination: normal. Prophylactic Antibiotics: The patient does not require prophylactic antibiotics. Prior Anticoagulants: The patient has taken no previous anticoagulant or antiplatelet agents. After reviewing the risks and benefits, the patient was deemed in satisfactory condition to undergo the procedure. The anesthesia plan was to use monitored anesthesia care (MAC). Immediately prior to administration of medications, the patient was re-assessed for adequacy to receive sedatives. The heart rate, respiratory rate, oxygen saturations, blood pressure, adequacy of pulmonary ventilation, and response to care were monitored throughout the procedure. The physical status of the patient was re-assessed after the procedure. After obtaining informed consent, the endoscope was passed under direct vision. Throughout the procedure, the patient's blood pressure, pulse, and oxygen saturations were monitored continuously. The Endoscope was introduced through the mouth, and advanced to the second part of duodenum. The upper GI endoscopy was accomplished without difficulty. The patient tolerated the procedure well. Moderate Sedation: Moderate (conscious) sedation was personally administered by an anesthesia professional. The following parameters were monitored: oxygen saturation, heart rate, blood pressure, respiratory rate, EKG, adequacy of pulmonary ventilation, and response to care. Scope In: 1:23:19 PM Scope Out: 1:28:52 PM Total Procedure Duration Time 0 hours 5 minutes 33 seconds Findings: LA Grade B (one or more mucosal breaks greater than 5 mm, not extending between the tops of two mucosal folds) esophagitis with no bleeding was found 35 to 37 cm from the incisors. Biopsies were taken with a cold forceps for histology. Verification of patient identification for the specimen was done. Estimated blood loss was minimal. A small hiatal hernia was present. Patchy mildly erythematous mucosa without bleeding was found in the gastric body. No gross lesions were noted in the second portion of the duodenum. Biopsies were taken with a cold forceps for histology. Verification of patient identification for the specimen was done. Estimated blood loss was minimal. Impression: - LA Grade B reflux esophagitis. Biopsied. - Small hiatal hernia. - Erythematous mucosa in the gastric body. - No gross lesions in the second portion of the duodenum. Biopsied. Recommendation: - Discharge patient to home. - Resume previous diet. - Continue present medications. - Await pathology results. - Use Protonix (pantoprazole) 20 mg PO BID for 4 weeks. Procedure Code(s): --- Professional --- 88941, Esophagogastroduodenoscopy, flexible, transoral; with biopsy, single or multiple CPT copyright 2017 [employer]. All rights reserved. The codes documented in this report are preliminary and upon vacuum truck driver review may be revised to meet current compliance requirements. Foreign Ortiz DO 03/27/2022 1:37:36 PM This report has been signed electronically. Number of Addenda: 0 Note Initiated On: 03/27/2022 1:12 PM
--- NOTE | 2022-03-27 13:38 | OP.CCLET_ITS ---
03/27/2022 Arsalan Pedro MD [address] [phone] Re : Upper GI endoscopy procedure for Tiffanie Champagnetock Dear Dr. Pedro This procedure was performed on Sunday, March 27, 2022. My impressions and recommendations are as follows: Impressions : - LA Grade B reflux esophagitis. Biopsied. - Small hiatal hernia. - Erythematous mucosa in the gastric body. - No gross lesions in the second portion of the duodenum. Biopsied. Recommendations : - Discharge patient to home. - Resume previous diet. - Continue present medications. - Await pathology results. - Use Protonix (pantoprazole) 20 mg PO BID for 4 weeks. My findings are described in the full procedure note, which is enclosed. If I can be of further assistance, please feel free to contact me at . Sincerely, Foreign Friend, 03/27/2022 1:37:36 PM This report has been signed electronically.
[2022-03-27 13:40] VITALS: BP 112/76; BP 130/84; PULSE 78; RESP 16; O2SAT 99
[2022-03-27 13:45] VITALS: BP 119/78; BP 130/84; PULSE 75; RESP 16; O2SAT 98
[2022-03-27 13:50] VITALS: BP 130/84; BP 133/88; PULSE 80; RESP 16; TEMP 36.8; O2SAT 100
--- NOTE | 2022-03-27 15:25 | EGD_PTH ---
PATIENT: TANYA PEREZ LOC: EN U#:[id number] AGE/SX: 52/F ROOM: RE03/27/[address]: Dr. Foreign Ortiz DO : 1970 BED: DIS: 03/27/2022 SPEC #: [id number] RECD: 03/27/22 15:25 STATUS: JANINE FOREST #: [id number] CONOR: 03/27/22 15:[address]: Foreign Ortiz DEPT: SURGICAL PATHOLOGY RECD BY: Sandra Tompkins ENTERED: 03/28/22 08:20 SP TYPE: EGD BIOPSY [facility] DR: Dr. Arsalan Pedro MD Tissues: A - Duodenum, NOS B - Gastric mucous membrane C - Esophagus, NOS Procedures: Special Stain Group II Surgery Specimen Level IV Alcian Blue/PAS (control) HEADER OPERATION: EGD ([facility] [place] PRE-OP DIAGNOSIS: Chronic ulcerative colitis, gastric ulcer TISSUE SUBMITTED: A ? Duodenum biopsy, B ? Gastric antrum biopsy for histo and H. pylori, C ? Distal esophagus biopsy MICROSCOPIC DIAGNOSIS A. Duodenum, biopsy: A fragment of duodenal mucosa, no pathologic diagnosis. B. Gastric antrum, biopsy: Mild gastritis. See microscopic description and comment. C. Distal esophagus, biopsy: Fragments of gastroesophageal mucosa with chronic inflammation. Intestinal metaplasia (goblet cell metaplasia) is not identified. See comment. SJ:olivia 03/29/2022 COMMENT B. The results of immunohistochemistry for Helicobacter pylori will be reported separately ([id number]). C. Alcian blue/PAS stain with matched control is used in the evaluation of the specimen. MICROSCOPIC DESCRIPTION Slides are reviewed. B. The specimen shows fragments of gastric mucosa with chronic inflammatory cell infiltrates in the lamina propria consisting of lymphocytes and plasma cells, consistent with mild chronic gastritis. GROSS DESCRIPTION A - Received in fixative is one container labeled with the patient's name and designated duodenum biopsy. The specimen consists of one irregular fragment of light garcia soft tissue that measures 0.4 x 0.4 x 0.1 cm. The specimen is totally submitted in one cassette. B - Received in fixative is one container labeled with the patient's name and designated gastric antrum biopsy. The specimen consists of two irregular fragments of light garcia soft tissue that in aggregate measure 0.6 x 0.3 x 0.1 cm. The specimen is totally submitted in one cassette. C - Received in fixative is one container labeled with the patient's name and designated distal esophagus biopsy. The specimen consists of multiple irregular fragments of light garcia soft tissue that in aggregate measure 0.8 x 0.4 x 0.1 cm. The specimen is totally submitted in one cassette. / SJ:rg 03/28/2022 TC:3 CPT: 93251 x3
== END 2022-03-27 14:20 | disposition home or self-care (01) ==
LOC: EN 11:52 → AC 11:53
PROVIDERS: Anesthesiology; PCP Family Medicine; Referring Provider Family Medicine; Visit Provider Internal Medicine Gastroenterology
PROC: 0DJ08ZZ Inspection of Upper Intestinal Tract, Via Natural or Artificial Opening Endoscopic (ICD-10-PCS; CPT 43235; principal; 2022-03-27 12:55)
DX: K21.00 Gastro-esophageal reflux disease with esophagitis, without bleeding (principal); K51.90 Ulcerative colitis, unspecified, without complications; K29.70 Gastritis, unspecified, without bleeding; K44.9 Diaphragmatic hernia without obstruction or gangrene; K25.7 Chronic gastric ulcer without hemorrhage or perforation; K30 Functional dyspepsia; Z79.899 Other long term (current) drug therapy
CPT/HCPCS: 43239; 81025; 88305; 88313; 88342; J7120; J2405

== ENCOUNTER → 2022-04-18 | Outpatient (CLI) | payer OTHER, SELFPAY ==
--- NOTE | 2022-04-18 12:30 | STE_ITS ---
Reason For Study: MURMUR Stress Results Protocol: Shadi Protocol Maximum Predicted HR: 166 bpm Target HR: 141 bpm % Maximum Predicted HR: 86 % DurationHeart Rate Stage (mm:ss) (bpm) BP Comment BASELINE 73 118/82 STAGE 1 3:00 110 140/92 STAGE 2 3:00 125 130/82 STAGE 3 3:00 131 160/88 STAGE 4 3:00 142 160/80SOB, NO CHEST PAIN RECOVERY 98 130/82 Stress Duration: 12:00 mm:ss Maximum Stress HR: 142 bpm Baseline Echocardiogram Findings Stress Echo Wall motion Data Resting WM Intermediate WM Stress WM ECHO/Stress Test Echo w/o Contrast Interpretation Summary Stress echocardiogram. 52-year-old lady with a history of chest pain. Stress protocol: Resting EKG demonstrates normal sinus rhythm with a rate of 75 bpm normal inter vals are noted resting blood pressure is 118/82 mmHg. The patient exercised according to the r egular Shadi protocol for a total duration of 12 minutes. Patient completed stage IV of the Shadi pro tocol the maximum heart rate was 157 bpm which was 94% of max impacted heart rate the maximum wor kload was 13.4 metabolic equivalents. At rest there were no ST or T wave changes noted to sugg est ischemia and at peak exercise upsloping ST changes were noted we did not meet the criteria for ischemia. No clinical angina was noted. The peak blood pressure was 160/88 mmHg. Stress echocardiogram. The resting echocardiogram demonstrated an ejection fraction of approximately 5 7%. At peak exercise there was thickening of all reddy, reduction of left ventricular cavity size an d peaking of ejection fraction at approximately 70%. No wall motion abnormalities were noted. Conclusion: Exercise stress echo with no EKG criteria for ischemia. Normal echocardiographic findings noted. Ordering Physician: Trell Vargas Referring Physician: Trell Vargas Performed By: Lilly Joyner, RDCS, RVT
--- NOTE | 2022-04-18 12:30 | ECHOD_ITS ---
Version 2 Reason For Study: Nurmur Procedure This was a 2D Doppler, Color Flow transthoracic echocardiogram. Exam performed in department. Left Ventricle Normal LV size. Left ventricular systolic function is normal. The estimated ejection fraction is 55 %. Normal diastology for age. No regional wall motion abnormalities noted. Right Ventricle Normal RV size. Normal systolic function. Atria Normal left atrium. Normal right atrium. Mitral Valve Normal mitral valve. Tricuspid Valve Normal tricuspid valve. Mild tricuspid valve insufficiency. Aortic Valve Normal aortic valve. Trisinus/trileaflet aortic valve. Pulmonic Valve Normal pulmonic valve. Great Vessels Normal aortic root. The pulmonary artery is normal size. Normal inferior vena cava. Pericardium/Pleural No pericardial effusion. MMode/2D Measurements & Calculations LVIDd: 4.5 cm IVSd: 1.0 cm Ao root diam: 3.2 cm LVIDs: 3.0 cm LVPWd: 0.85 cm RVDd: 3.6 cm FS: 34.3 % LAV(MOD-bp): 50.3 ml LVAd ap4: 28.8 cm2 SV(MOD-sp4): 52.1 ml LAV(MOD-bp) Indexed: 25.4 ml/m2 LVLd ap4: 8.3 cm LAV(MOD-sp2): 61.4 ml EDV(MOD-sp4): 81.3 ml LAV(MOD-sp4): 40.3 ml EDV(sp4-el): 85.1 ml LVAs ap4: 15.6 cm2 LVLs ap4: 7.0 cm ESV(MOD-sp4): 29.2 ml ESV(sp4-el): 29.2 ml EF(MOD-sp4): 64.1 % EF(sp4-el): 65.7 % SV(sp4-el): 55.9 ml LA A4 area: 15.5 cm2 LA dimension(2D): 3.9 cm RA A4 area: 13.1 cm2 Doppler Measurements & Calculations MV E max leonardo: 79.3 cm/sec Lat Peak E' Leonardo: 8.6 cm/sec Med Peak E' Leonardo: 7.3 cm/sec MV A max leonardo: 66.0 cm/sec E/E' lat: 9.2 E/E' med: 10.9 MV E/A: 1.2 Ao V2 max: 114.3 cm/sec LV V1 max: 108.2 cm/sec PA V2 max: 115.3 cm/sec Ao max P.2 mmHg LV V1 max P.7 mmHg Ao V2 mean: 77.9 cm/sec Ao mean P.7 mmHg Ao V2 VTI: 24.2 cm TR max leonardo: 207.2 cm/sec TR max P.2 mmHg ECHO/Echo Complete Interpretation Summary Normal LV size. Left ventricular systolic function is normal. The estimated ejection fraction is 55 %. Normal diastology for age. Structurally normal valves. Ordering Physician: Trell Vargas Referring Physician: Arsalan Pedro Performed By: Lilly Joyner, RDCS, RVT
[2022-04-18 13:10] LABS: Cholesterol 300 mg/dL (200); High Density Lipoprotein 95 mg/dL; Triglycerides 55 mg/dL; Very Low Density Lipoprotein 11 mg/dL (5-40)
== END | disposition home or self-care (01) ==
LOC: CVS 12:30
PROVIDERS: PCP Family Medicine; Referring Provider Internal Medicine Cardiovascular Disease; Visit Provider Internal Medicine Cardiovascular Disease
DX: I35.9 Nonrheumatic aortic valve disorder, unspecified (principal); R07.9 Chest pain, unspecified; R01.1 Cardiac murmur, unspecified
CPT/HCPCS: 36415; 80061; 93017; 93306; 93350

== ENCOUNTER → 2022-05-18 | Outpatient (CLI) | payer SELFPAY ==
--- NOTE | 2022-05-18 12:36 | CT_ITS ---
STUDY: CARDIAC CALCIUM SCORING - CT CHEST. Chest over read. REASON FOR EXAM: Female, 52 years old. CHEST PAIN RADIATION DOSAGE (If Supplied By Facility): CTDIvol = ( 12.19 ) mGy, DLP = ( 243.79 ) mGycm TECHNIQUE: Axial non-enhanced images were acquired through the heart for the sole purpose of measuring coronary artery calcium. Individualized dose optimization techniques were used for this CT. COMPARISON: None. FINDINGS: Minimal calcification of the circumflex artery. Tiny benign-appearing mediastinal lymph nodes. The lungs are clear. CT/Limited Chest CT Cardiac Only IMPRESSION: No significant abnormality is seen. Please go to: [email or web address] , for a description of the calculator. Electronically Signed: Ricky Jensen MD at 8:45 EST ,
[2022-05-18 12:47] VITALS: BP 130/87; PULSE 67; RESP 16; TEMP 36.6; O2SAT 97; BMI 29.0
--- NOTE | 2022-05-18 15:12 | CA.SCORE ---
Calcium Scoring Date of Study:: 05/18/22 Coronary Calcium Scoring: High-resolution Computed Tomographic imaging of the chest was performed on [05/18/2022], with particular attention paid to the coronary arteries. Images from the examination were analyzed for the presence and extent of coronary artery calcification , using coronary calcium quantification software. The patient tolerated the procedure well and there were no complications. The results of the coronary calcification analysis are provided below. Findings Coronary Artery Left Main (LM): 0 Left Anterior Descending (LAD): 0 Left Circumflex (LCX): 0 Right Coronary Artery (RCA): 0 Total Agatston Score: 0 Percentile Rankinth Calcium Scoring Interpretation: 0 No identifiable atherosclerotic plaque. Very low cardiovascular disease risk. <5% chance of presence coronary artery disease A Negative Examination 1-10 Minimal Plaque burden. Significant coronary artery disease very unlikely. 11-100 Mild plaque burden. Likely mild or minimal coronary atherosclerosis. 101-400 Moderate plaque burden Moderate non-obstructive coronary artery disease highly likely. Over 400 Extensive plaque burden. High likelihood of at least one significant coronary stenosis (>50% diameter) Calcium Score: 0 Negative Examination
== END | disposition home or self-care (01) ==
LOC: CT 12:34
PROVIDERS: PCP Family Medicine; Referring Provider Internal Medicine Cardiovascular Disease; Visit Provider Internal Medicine Cardiovascular Disease
DX: R07.9 Chest pain, unspecified (principal)
CPT/HCPCS: 75571; 76380

== ENCOUNTER → 2022-05-30 | Outpatient (CLI) | payer OTHER, SELFPAY ==
--- NOTE | 2022-05-30 07:23 | BI_ITS ---
MAMMOGRAPHY - BILATERAL SCREENING REASON FOR EXAM: Female, 52 years old. Routine annual screening examination. PERTINENT HISTORY: Non-contributory. TECHNIQUE: Digital bilateral breast marc (3D mammographic acquisition) in the CC and MLO projections. 2-D mediolateral oblique (MLO) and craniocaudad (CC) views of both breasts were obtained. CAD: Full Field Digital Mammography with Computer Added Detection was performed. COMPARISON: Comparison is made with prior study 05/16/2021 and 04/14/2020. FINDINGS: Breast Composition: There are scattered areas of fibroglandular density. There are no dominant masses or suspicious calcifications. Stable small benign-appearing bilateral axillary No other significant abnormalities are identified. There has been no significant change since the prior study. BI/SCRN MAMM (CAD)W/MARC BILAT IMPRESSION: Stable bilateral screening mammogram. Yearly follow-up mammogram recommended. (A) ASSESSMENT CATEGORY: BIRADS Category 2: Benign. A letter regarding these results will be sent to the patient by the facility within 30 days. Approximately 10% of breast cancers are not detected by mammography. A normal mammogram should not delay biopsy of a clinically suspicious abnormality. [id number] Electronically Signed: Ricky Jensen MD at 8:43 EST ,
== END | disposition home or self-care (01) ==
LOC: OPBI 07:22
PROVIDERS: PCP Family Medicine; Visit Provider Nurse Practitioner Family
DX: Z12.31 Encounter for screening mammogram for malignant neoplasm of breast (principal)
CPT/HCPCS: 77063; 77067

== ENCOUNTER → 2022-10-31 | Outpatient (CLI) | payer OTHER, SELFPAY ==
[2022-10-31 13:30] LABS: AST(SGOT) 18 U/L (15-37); Alanine Aminotransfer ALT/SGPT 29 U/L (13-56); Albumin, Serum 3.6 g/dL (3.2-5.0); Alkaline Phosphatase 61 U/L (45-117); Bilirubin, Direct 0.12 mg/dL (0.00-0.30); Cholesterol 274 mg/dL (200); Globulin 4.2 g/dL (2.2-4.2); High Density Lipoprotein 101 mg/dL; Protein, Total 7.8 g/dL (6.4-8.2); Triglycerides 52 mg/dL; Very Low Density Lipoprotein 10 mg/dL (5-40)
== END | disposition home or self-care (01) ==
LOC: MTLAB 10:02
PROVIDERS: PCP Family Medicine; Referring Provider Internal Medicine Cardiovascular Disease; Visit Provider Internal Medicine Cardiovascular Disease
DX: E78.5 Hyperlipidemia, unspecified (principal)
CPT/HCPCS: 36415; 80061; 80076

== ENCOUNTER → 2022-11-01 | Outpatient (CLI) | payer OTHER, SELFPAY ==
[2022-11-06 16:09] LABS: Calprotectin, Stool 24 ug/g (0-120)
== END | disposition home or self-care (01) ==
PROVIDERS: PCP Family Medicine; Referring Provider Nurse Practitioner Adult Health; Visit Provider Nurse Practitioner Adult Health
DX: K51.90 Ulcerative colitis, unspecified, without complications (principal)
CPT/HCPCS: 83630; 83993

== ENCOUNTER 2022-11-08 05:33 | Day surgery (SDC) | payer OTHER, SELFPAY ==
[2022-10-31 12:32] LABS: Erythrocyte Sedimentation Rate 12 mm/hr (0-30)
[2022-10-31 12:46] LABS: Absolute Neutrophil Count 3.1 X10^3/uL (2.0-7.7); Basophil# 0.02 X10^3/uL; Basophil% 0.4 % (0-1); Eosinophil# 0.08 X10^3/uL; Eosinophils% 1.5 % (0-5); Hematocrit 40.4 % (37-47); Hemoglobin 13.5 g/dL (12.0-15.0); Lymphocyte % 32.7 % (19-41); Mean Corp Hgb Conc 33.4 g/dL (32-36); Mean Corpuscular Hgb 31.8 pg (27.0-32.0); Mean Corpuscular Volume 95.1 fL (81-99); Mean Platelet Vol. 9.3 fl (6.2-12.0); Monocyte# 0.45 X10^3/uL; Monocyte% 8.2 % (0-10); NRBC Flagged by Analyzer 0 % (0-5); Neutrophil # 3.14 X10^3/uL (2.7-7.7); Neutrophil % 56.8 % (47-70); Platelet Count 314 K/mm3 (150-450); RBC Distribution Width CV 12.3 % (11.6-14.6); RBC Distribution Width SD 42.5 fl (35.1-43.9); Red Blood Count 4.25 M/mm3 (4.2-5.4); White Blood Count 5.5 K/mm3 (4.4-11.0)
[2022-10-31 16:50] LABS: ALB/GLOB Ratio 0.9 RATIO (0.9-2.4); AST(SGOT) 19 U/L (15-37); Alanine Aminotransfer ALT/SGPT 28 U/L (13-56); Albumin, Serum 3.6 g/dL (3.2-5.0); Alkaline Phosphatase 63 U/L (45-117); Anion Gap 6 (5-15); BUN 17 mg/dL (7-18); CRP < 2.90 mg/L (0.0-3.0); Calcium,Total 9.1 mg/dL (8.5-10.1); Chloride 105 mmol/L (98-107); Creatinine, Serum 0.85 mg/dL (0.55-1.02); EST Glomerular Filtration Rate 74 mL/min (>60); Est Glom Filt Rate - Afr Amer 89 mL/min (>60); Globulin 3.9 g/dL (2.2-4.2); Glucose 92 mg/dL (74-106); LDH 206 U/L (84-246); Protein, Total 7.5 g/dL (6.4-8.2); Sodium Level 135 mmol/L (136-145)
[2022-11-01 16:09] LABS: Endomysial Antibody IgA Negative (Negative); Immunoglobulin A 132 mg/dL (87-352); t-Transglutaminase IgA <2 U/mL (0-3)
[2022-11-08] MEDS: Lactated Ringers 1,000 ML 15 ML IV (06:00)
[2022-11-08 06:02] VITALS: BP 111/75; PULSE 91; RESP 18; TEMP 36.2; O2SAT 97; BMI 29.9
--- NOTE | 2022-11-08 06:30 | COLBX_PTH ---
PATIENT: TANYA PEREZ LOC: EN U#:[id number] AGE/SX: 52/F ROOM: RE11/08/[address]: Dr. Foreign Ortiz DO : 1970 BED: DIS: 11/08/2022 SPEC #: [id number] RECD: 11/08/22 14:06 STATUS: JANINE GARG #: [id number] CONOR: 11/08/22 06:[address]: Foreign Ortiz DEPT: SURGICAL PATHOLOGY RECD BY: Bailee Staton ENTERED: 11/09/22 08:52 SP TYPE: COLON BX OT DR: Dr. Arsalan Pedro MD Tissues: A - Cecum, NOS B - COLON BIOPSY Procedures: Surgery Specimen Level IV HEADER OPERATION: Colonoscopy (MAC), biopsy PRE-OP DIAGNOSIS: Chronic ulcerative colitis TISSUE SUBMITTED: A ? Cecal polyp biopsy, B ? Random colonic biopsy MICROSCOPIC DIAGNOSIS A. Cecal polyp, biopsy: Fragments of tubular adenoma. B. Colon, random biopsy: No significant pathologic change. No evidence of colitis. AM:olivia 11/12/2022 MICROSCOPIC DESCRIPTION Slides are reviewed. GROSS DESCRIPTION A - Received in fixative is one container labeled with the patient's name and designated cecal polyp biopsy. The specimen consists of multiple irregular fragments of light garcia soft tissue that in aggregate measure 0.8 x 0.3 x 0.1 cm. The specimen is totally submitted in one cassette. B - Received in fixative is one container labeled with the patient's name and designated random colonic biopsy. The specimen consists of multiple irregular fragments of light garcia soft tissue that in aggregate measure 2.0 x 0.7 x 0.1 cm. The specimen is totally submitted in one cassette. / SJ:olivia 11/09/2022 TC:5 CPT: 87723 x2
--- NOTE | 2022-11-08 06:32 | PCM.HP.BLA ---
History and Physical Date of Admission: 11/08/22 52 F who presents to the office today for ulcerative colitis. She called on 08/16/22 because she was having a UC flair, diarrhea with bright red blood per rectum, was occurring several times per day. Much better on mesalamine suppository once a day. No longer having pelvic cramping. Notes red blood with first stool of the day. Now having some formed stools too. Stopped coffee, salads, fruits which aggravate the bowels. Would like to update colonoscopy. Ulcerative colitis -- diagnosed around 2016, was managed with azathioprine 150 mg daily. Tapered off azathioprine in Summer 2021, did well until 08/2022. She takes a daily probiotic. December 2021 labs: unremarkable CBC, CMP, ESR, CRP, stool calprotectin, fecal lactoferrin. No history of primary biliary cirrhosis, primary sclerosing cholangitis or pancreatitis. Last colonoscopy approx 2018. GERD -- small hiatal hernia, esophagitis on EGD, neg Gonsales's. Takes pantoprazole 20 mg QAM. MRCP performed 08.30.21 found 11mm liver cyst and subcentimeter cysts in hepatic segment. Exam otherwise without chronic or acute remark. ROS Const Constitutional: No fatigue ENT ENT: No difficulty swallowing Gastro GI: Positive for abdominal pain, change in bowel habits, diarrhea and Blood in stool; No belching, bloating, change in stool character, coffee ground emesis, constipation, cramping, heartburn, difficulty swallowing, feeling full early, excessive flatus, incontinent of stools, Vomiting blood/hematemesis, loose stools, Black,tarry stools, nausea/dyspepsia, pain with swallowing, vomiting or other Musc Musculoskeletal: No joint pain Skin Skin: No yellowing of the eye or itchy eyes Psych Psychiatric: No anxiety and No depression Endo Endocrine: No fatigue Aller/Imm Allergy/Immunologic: No itchy eyes Jacky/Lymp Hematologic/Lymphatic: No easy bleeding or easy bruising Exam Const General: cooperative, healthy appearing and comfortable Orientation: alert, awake and oriented x3 HENMT Head: normal to inspection Eyes Sclera: sclerae normal Resp Effort & Inspection: normal respiratory effort GI Inspection: normal to inspection Quality Reporting Tobacco Screening ([facility] 138) Smoking Status: Never smoker Assessment and Plan Assessment and Plan (1) Chronic ulcerative colitis: ?Status:?Chronic ?Plan: Continue mesalamine suppository Update blood and stool tests today Schedule colonoscopy f/u with Dr Ortiz 2 wks after colonoscopy ? ? ? Medications: Discontinued azithromycin ?? 2 tablets today, then 1 tablet daily on days 2 through 5 ?? Discontinued Reason:? Order Completed 250 mg? PO QDAY 6 tabs 0RF ? ? I have examined the patient and the H&P has been reviewed. There are no clinical changes since date of exam.
[2022-11-08 06:55] VITALS: BP 111/75; BP 92/66; PULSE 72; RESP 16; TEMP 35.9; O2SAT 96
--- NOTE | 2022-11-08 06:58 | OP.CCLET_ITS ---
11/08/2022 Arsalan Pedro MD [address] [id number] Re : Colonoscopy procedure for Tiffanie Champagnetock Dear Dr. Pedro This procedure was performed on October. My impressions and recommendations are as follows: Impressions : - One 5 mm polyp in the cecum, removed with a cold snare. Resected and retrieved. - The entire examined colon is normal on direct and retroflexion views. Recommendations : - Discharge patient to home. - Resume previous diet. - Continue present medications. - Await pathology results. - Repeat colonoscopy in 2 years for surveillance. My findings are described in the full procedure note, which is enclosed. If I can be of further assistance, please feel free to contact me at . Sincerely, Foreign Ortiz, 11/08/2022 6:57:08 AM This report has been signed electronically.
--- NOTE | 2022-11-08 06:58 | OP.COLON_ITS ---
Patient Name: Tiffanie Castillo Procedure Date: 11/08/2022 6:09 AM Date of : 1970 Age: 52 Procedure: Colonoscopy Indications: Chronic ulcerative pancolitis Providers: Foreign Ortiz DO Referring MD: Arsalan Pedro MD Medicines: Monitored Anesthesia Care Patient Profile: This is a 52 year old female. Refer to note in patient chart for documentation of history and physical. Last Colonoscopy: 1 year ago. Complications: No immediate complications. Procedure: Pre-Anesthesia Assessment: - Prior to the procedure, a History and Physical was performed, and patient medications and allergies were reviewed. The risks and benefits of the procedure and the sedation options and risks were discussed with the patient. All questions were answered and informed consent was obtained. Patient identification and proposed procedure were verified by the physician. Mental Status Examination: normal. Prophylactic Antibiotics: The patient does not require prophylactic antibiotics. Prior Anticoagulants: The patient has taken no previous anticoagulant or antiplatelet agents. After reviewing the risks and benefits, the patient was deemed in satisfactory condition to undergo the procedure. The anesthesia plan was to use monitored anesthesia care (MAC). Immediately prior to administration of medications, the patient was re-assessed for adequacy to receive sedatives. The heart rate, respiratory rate, oxygen saturations, blood pressure, adequacy of pulmonary ventilation, and response to care were monitored throughout the procedure. The physical status of the patient was re-assessed after the procedure. After I obtained informed consent, the scope was passed under direct vision. Throughout the procedure, the patient's blood pressure, pulse, and oxygen saturations were monitored continuously. The Colonoscope was introduced through the anus and advanced to the cecum, identified by appendiceal orifice and ileocecal valve. The colonoscopy was performed without difficulty. The patient tolerated the procedure well. The quality of the bowel preparation was good. Scope In: 6:37:05 AM Scope Withdrawal Time 0 hours 8 minutes 41 seconds Scope Out: 6:49:15 AM Total Procedure Duration Time 0 hours 12 minutes 10 seconds Findings: The perianal and digital rectal examinations were normal. A 5 mm polyp was found in the cecum. The polyp was sessile. The polyp was removed with a cold snare. Resection and retrieval were complete. Verification of patient identification for the specimen was done. Estimated blood loss was minimal. The entire examined colon appeared normal on direct and retroflexion views. Biopsies were taken with a cold forceps for histology. Verification of patient identification for the specimen was done. Estimated blood loss was minimal. Impression: - One 5 mm polyp in the cecum, removed with a cold snare. Resected and retrieved. - The entire examined colon is normal on direct and retroflexion views. Recommendation: - Discharge patient to home. - Resume previous diet. - Continue present medications. - Await pathology results. - Repeat colonoscopy in 2 years for surveillance. Procedure Code(s): --- Professional --- 31547, Colonoscopy, flexible; with removal of tumor(s), polyp(s), or other lesion(s) by snare technique 85920, 59, Colonoscopy, flexible; with biopsy, single or multiple CPT copyright 2017 [employer]. All rights reserved. The codes documented in this report are preliminary and upon pre coder review may be revised to meet current compliance requirements. Foreign Ortiz DO 11/08/2022 6:57:08 AM This report has been signed electronically. Number of Addenda: 0 Note Initiated On: 11/08/2022 6:09 AM
[2022-11-08 07:00] VITALS: BP 107/71; BP 111/75; PULSE 73; RESP 16; O2SAT 99
[2022-11-08 07:05] VITALS: BP 111/63; BP 111/75; PULSE 68; RESP 16; O2SAT 97
[2022-11-08 07:10] VITALS: BP 105/81; BP 111/75; PULSE 71; RESP 16; TEMP 36.1; O2SAT 97
[2022-11-08 07:19] VITALS: BP 111/75
== END 2022-11-08 07:27 | disposition home or self-care (01) ==
LOC: EN 05:37 → AC 05:38
PROVIDERS: Nurse Practitioner Adult Health; PCP Family Medicine; Referring Provider Family Medicine; Visit Provider Internal Medicine Gastroenterology
PROC: 0DJD8ZZ Inspection of Lower Intestinal Tract, Via Natural or Artificial Opening Endoscopic (ICD-10-PCS; CPT 45378; principal; 2022-11-08 06:25)
DX: K51.00 Ulcerative (chronic) pancolitis without complications (principal); D12.0 Benign neoplasm of cecum; K21.9 Gastro-esophageal reflux disease without esophagitis; Z79.899 Other long term (current) drug therapy
CPT/HCPCS: 45385; 45380; 36415; 80053; 82784; 83516; 83615; 85025; 85652; 86140; 86255; 88305; J7120; J2405

== ENCOUNTER → 2023-03-25 | Outpatient (CLI) | payer OTHER, SELFPAY ==
[2023-03-25 16:33] LABS: Absolute Lymphocyte Count 2.09 X10^3/uL (0.83-4.51); Absolute Neutrophil Count 4.9 X10^3/uL (2.0-7.7); Basophil# 0.03 X10^3/uL; Basophil% 0.4 % (0-1); Eosinophil# 0.12 X10^3/uL; Eosinophils% 1.6 % (0-5); Hematocrit 41.7 % (37-47); Hemoglobin 13.4 g/dL (12.0-15.0); Lymphocyte # 2.09 X10^3/ul (0.83-4.51); Lymphocyte % 27.4 % (19-41); Mean Corp Hgb Conc 32.1 g/dL (32-36); Mean Corpuscular Hgb 30.9 pg (27.0-32.0); Mean Corpuscular Volume 96.1 fL (81-99); Mean Platelet Vol. 9.3 fl (6.2-12.0); Monocyte# 0.49 X10^3/uL; Monocyte% 6.4 % (0-10); NRBC Flagged by Analyzer 0 % (0-5); Neutrophil # 4.87 X10^3/uL (2.7-7.7); Neutrophil % 63.8 % (47-70); Platelet Count 314 K/mm3 (150-450); RBC Distribution Width CV 13.1 % (11.6-14.6); RBC Distribution Width SD 46.5 fl (35.1-43.9); Red Blood Count 4.34 M/mm3 (4.2-5.4); White Blood Count 7.6 K/mm3 (4.4-11.0)
[2023-03-25 17:21] LABS: AST(SGOT) 17 U/L (15-37); Alanine Aminotransfer ALT/SGPT 25 U/L (13-56); Albumin, Serum 3.5 g/dL (3.2-5.0); Alkaline Phosphatase 75 U/L (45-117); Anion Gap 7 (5-15); BUN 11 mg/dL (7-18); BUN/Creat Ratio 15.4 RATIO (10-20); Calcium,Total 8.6 mg/dL (8.5-10.1); Chloride 104 mmol/L (98-107); Cholesterol 258 mg/dL (200); Creatinine, Serum 0.72 mg/dL (0.55-1.02); EST Glomerular Filtration Rate 90 mL/min (>60); Est Glom Filt Rate - Afr Amer 109 mL/min (>60); Estradiol 46.1 pg/mL; Globulin 3.6 g/dL (2.2-4.2); Glucose 86 mg/dL (74-106); High Density Lipoprotein 71 mg/dL; Potassium 3.7 mmol/L (3.5-5.1); Protein, Total 7.1 g/dL (6.4-8.2); Sodium Level 137 mmol/L (136-145); Triglycerides 109 mg/dL; Very Low Density Lipoprotein 22 mg/dL (5-40)
[2023-03-27 04:07] LABS: DHEA Sulfate 95.9 ug/dL (29.4-220.5)
== END | disposition home or self-care (01) ==
LOC: LABSPEC 15:49
PROVIDERS: PCP Family Medicine; Referring Provider Nurse Practitioner Family; Visit Provider Nurse Practitioner Family
DX: E28.9 Ovarian dysfunction, unspecified (principal); R53.82 Chronic fatigue, unspecified; R63.5 Abnormal weight gain; G47.00 Insomnia, unspecified; Z13.9 Encounter for screening, unspecified
CPT/HCPCS: 80053; 80061; 82627; 82670; 83036; 84144; 84403; 85025; 82626

== ENCOUNTER → 2023-05-20 | Outpatient (CLI) | payer OTHER, SELFPAY ==
[2023-05-20 08:16] LABS: Bacteria 0 SEEN /hpf (None Seen); Mucous, Urine 0 SEEN /hpf (<or=2+); Red Blood Cells-Urine 0 SEEN /hpf (0-5); White Blood Cells 0 SEEN /hpf (0-5)
[2023-05-20 10:17] LABS: Color, Urine Yellow (Yellow); Glucose, Dipstick Normal (Normal); Ketone-Dipstick Negative (Negative); Leukocyte Esterase-Dipstick Negative /ul (Negative); Nitrite-Dipstick Negative (Negative); Occult Blood-Urine Negative /ul (Negative); Protein-Dipstick Negative (Negative); Urine Bilirubin Dipstick Negative (Negative); Urine Clarity Sl. Cloudy (Clear); Urine Urobilinogen Normal (Normal)
[2023-05-20 10:46] LABS: Squamous Epithelial Cells - UA 0-5 SEEN /hpf (5-10)
== END | disposition home or self-care (01) ==
PROVIDERS: PCP Family Medicine; Visit Provider Physician Assistant Medical
DX: R30.0 Dysuria (principal)
CPT/HCPCS: 81001; 87086

== ENCOUNTER → 2023-06-03 | Outpatient (CLI) | payer OTHER, SELFPAY ==
--- NOTE | 2023-06-03 07:32 | BI_ITS ---
MAMMOGRAPHY - BILATERAL SCREENING 3-D TOMOSYNTHESIS REASON FOR EXAM: Female, 53 years old. screening PERTINENT HISTORY: No significant family history. TECHNIQUE: 2-D mammograms and 3-D Tomosynthesis of the breast (s) were performed. CAD was performed. COMPARISON: 05/30/2022 FINDINGS: The breast composition is composed of scattered fibroglandular density. Scattered benign calcifications are seen. No dense spiculated masses or suspicious microcalcifications are identified. No architectural distortion is identified. There is no skin thickening or retraction. There has been no significant change since the prior study. BI/SCRN MAMM (CAD)W/MARC BILAT IMPRESSION: No mammographic signs of malignancy. Routine yearly mammograms recommended. ASSESSMENT CATEGORY: BIRADS Category 1: Negative. A letter regarding these results will be sent to the patient by the facility within 30 days. FOLLOW UP RECOMMENDATION: Yearly follow up mammogram recommended. (A) Approximately 10% of breast cancers are not detected by mammography. A normal mammogram should not delay biopsy of a clinically suspicious abnormality. Electronically Signed: Graeme Wagner MD at 8:10 EST ,
== END | disposition home or self-care (01) ==
LOC: OPBI 07:31
PROVIDERS: PCP Family Medicine; Referring Provider Nurse Practitioner Family; Visit Provider Nurse Practitioner Family
DX: Z12.31 Encounter for screening mammogram for malignant neoplasm of breast (principal)
CPT/HCPCS: 77063; 77067

== ENCOUNTER → 2023-07-09 | Outpatient (CLI) | payer OTHER, SELFPAY ==
--- NOTE | 2023-07-09 08:52 | BD_ITS ---
STUDY: DUAL ENERGY X-RAY ABSORPTIOMETRY / DXA REASON FOR EXAM: Female, 53 years old. 733.00OsteoporosisBONE DENSITY REASON FOR EXAM TECHNIQUE: Bone Mineral Density (BMD) measurements of lumbar spine and bilateral hips were obtained. COMPARISON: None. FINDINGS: Lumbar Spine (L1-L4): g/cm2 (1.012) / T-score (-0.3) / Z-score (0.8) Findings are suggestive of normal bone density with a low fracture risk. Left Femur Total: g/cm2 (0.908) / T-score (-0.3) / Z-score (0.4) Left Femoral Neck: g/cm2 (0.735) / T-score (-1.0) / Z-score (0.0) Right Femur Total: g/cm2 (0.929) / T-score (-0.1) / Z-score (0.6) Right Femoral Neck: g/cm2 (0.780) / T-score (-0.6) / Z-score (0.5) BD/Dexa Bone Density Study IMPRESSION: The patient is considered normal as outlined below according to World [employer]igi Organization (WHO) criteria with a low fracture risk. Reference Information: The T-score is the number of standard deviations above or below the standard which is normal for young adults at their peak bone mineral density. The World Health Organization (WHO) interprets the T-scores as follows: Above -1 Normal bone density Between -1 and -2.5 Osteopenia Equal to / or below -2.5 Osteoporosis As a practical clinical guideline, osteopenia may be graded as follows: Mild -1 through -1.5 Moderate -1.6 through -2.0 Severe -2.1 through -2.4 The Z-score is the number of standard deviations above or below age-matched controls. A Z-score of less than -1.5 would be considered abnormal. References: 1. NIH Osteoporosis and Related Bone Diseases www osteo.org 2. International Society for Clinical Densitometry www iscd.org 3. National Osteoporosis Foundation www nof.org Electronically Signed: Rciky Jensen MD at 12:44 EST ,
== END | disposition home or self-care (01) ==
LOC: OPBD 08:53
PROVIDERS: PCP Family Medicine; Referring Provider Nurse Practitioner Family; Visit Provider Nurse Practitioner Family
DX: Z13.820 Encounter for screening for osteoporosis (principal)
CPT/HCPCS: 77080

== ENCOUNTER → 2024-01-08 | Outpatient (CLI) | payer BC, SELFPAY ==
[2024-01-08 11:01] LABS: Thyroid Stim Hormone (TSH) 2.21 uIU/mL (0.358-3.74)
== END | disposition home or self-care (01) ==
LOC: MFPLAB 08:47
PROVIDERS: PCP Family Medicine; Visit Provider Nurse Practitioner Family
DX: F41.9 Anxiety disorder, unspecified (principal)
CPT/HCPCS: 36415; 84443

== ENCOUNTER → 2024-03-13 | Outpatient (CLI) | payer BC, SELFPAY ==
[2024-03-13 10:23] LABS: Absolute Lymphocyte Count 2.21 X10^3/uL (0.83-4.51); Absolute Neutrophil Count 3.6 X10^3/uL (2.0-7.7); Basophil# 0.03 X10^3/uL; Basophil% 0.5 % (0-1); Eosinophil# 0.11 X10^3/uL; Eosinophils% 1.7 % (0-5); Hematocrit 38.8 % (37-47); Lymphocyte # 2.21 X10^3/ul (0.83-4.51); Lymphocyte % 34.1 % (19-41); Mean Corp Hgb Conc 33.5 g/dL (32-36); Mean Corpuscular Hgb 30.9 pg (27.0-32.0); Mean Corpuscular Volume 92.2 fL (81-99); Mean Platelet Vol. 9.2 fl (6.2-12.0); Monocyte% 7.7 % (0-10); NRBC Flagged by Analyzer 0 % (0-5); Neutrophil % 55.4 % (47-70); Platelet Count 326 K/mm3 (150-450); RBC Distribution Width CV 12.9 % (11.6-14.6); RBC Distribution Width SD 43.4 fl (35.1-43.9); Red Blood Count 4.21 M/mm3 (4.2-5.4); White Blood Count 6.5 K/mm3 (4.4-11.0)
[2024-03-13 10:48] LABS: ALB/GLOB Ratio 0.9 RATIO (0.9-2.4); AST(SGOT) 16 U/L (15-37); Alanine Aminotransfer ALT/SGPT 22 U/L (13-56); Albumin, Serum 3.6 g/dL (3.2-5.0); Alkaline Phosphatase 73 U/L (45-117); Anion Gap 8 (5-15); BUN 16 mg/dL (7-18); BUN/Creat Ratio 17.3 RATIO (10-20); Calcium,Total 9.4 mg/dL (8.5-10.1); Chloride 107 mmol/L (98-107); Cholesterol 247 mg/dL (200); Creatinine, Serum 0.93 mg/dL (0.55-1.02); EST Glomerular Filtration Rate 67 mL/min (>60); Est Glom Filt Rate - Afr Amer 81 mL/min (>60); Estradiol < 11.0 pg/mL; Globulin 3.8 g/dL (2.2-4.2); Glucose 91 mg/dL (74-106); High Density Lipoprotein 77 mg/dL; Protein, Total 7.4 g/dL (6.4-8.2); Sodium Level 139 mmol/L (136-145); Triglycerides 83 mg/dL; Very Low Density Lipoprotein 17 mg/dL (5-40)
[2024-03-14 08:12] LABS: PROGESTERONE 2.2 ng/mL (.)
== END | disposition home or self-care (01) ==
PROVIDERS: PCP Family Medicine; Referring Provider Nurse Practitioner Family; Visit Provider Nurse Practitioner Family
DX: E28.9 Ovarian dysfunction, unspecified (principal); R53.82 Chronic fatigue, unspecified; R63.5 Abnormal weight gain; G47.00 Insomnia, unspecified; Z13.9 Encounter for screening, unspecified
CPT/HCPCS: 36415; 80053; 80061; 82627; 82670; 83036; 84144; 84403; 85025; 82626

== ENCOUNTER → 2024-06-30 | Outpatient (CLI) | payer BC, SELFPAY ==
--- NOTE | 2024-06-30 07:41 | BI_ITS ---
MAMMOGRAPHY - BILATERAL SCREENING REASON FOR EXAM: Female, 54 years old. Routine annual screening examination. PERTINENT HISTORY: Non-contributory. TECHNIQUE: Digital bilateral breast charly (3D mammographic acquisition) in the CC and MLO projections. 2-D mediolateral oblique (MLO) and craniocaudad (CC) views of both breasts were obtained. CAD: Full Field Digital Mammography with Computer Added Detection was performed. COMPARISON: Comparison is made with prior study dated June 03, 2023 and May 30, 2022. FINDINGS: Breast Composition: There are scattered areas of fibroglandular density. There are no dominant masses or suspicious calcifications. No other significant abnormalities are identified. There has been no significant change since the prior study. BI/SCREENING MAMM (CAD), BILAT IMPRESSION: Stable bilateral screening mammogram. Yearly follow-up mammogram recommended. (A) ASSESSMENT CATEGORY: BIRADS Category 1: Negative. A letter regarding these results will be sent to the patient by the facility within 30 days. Approximately 10% of breast cancers are not detected by mammography. A normal mammogram should not delay biopsy of a clinically suspicious abnormality. [id number] Electronically Signed: Ricky Jensen MD at 9:18 EST ,
== END | disposition home or self-care (01) ==
LOC: OPBI 07:38
PROVIDERS: PCP Family Medicine; Referring Provider Nurse Practitioner Family; Visit Provider Nurse Practitioner Family
DX: Z12.31 Encounter for screening mammogram for malignant neoplasm of breast (principal)
CPT/HCPCS: 77067

== ENCOUNTER → 2024-12-31 | Outpatient (CLI) | payer BC, SELFPAY ==
--- OUTSIDE RECORDS SUMMARY | 2024-12-31 11:53 | XMS RPT_ITS | CCD ---
Author Organization [facility] Care Team Providers Care Cloth Booker Name Role Phone Anthony Marcelo Unavailable AL KAYE Attending Unavailable Arsalan Pedro Primary Care Provider Dr. Arsalan Pedro Primary Care Provider Dr. Arsalan Pedro Referring Provider Dr. Foreign Ortiz Attending Provider Dr. Arsalan Pedro Primary Care Provider Dr. Arsalan Pedro Referring Provider FriendDr. Carrasquillo Attending Provider [phone] FriendDr. Carrasquillo Other Provider [phone] Trell Vargas Attending Provider [phone] Arsalan Pedro Primary Care Provider Dr. Arsalan Pedro Referring Provider Dr. Foreign Ortiz Attending Provider [phone] FriendDr. Carrasquillo Other Provider [phone] Dr. Trell Vargas Attending Provider [phone] Jose FOX, RESEARCH SOIL SCIENTISTTasha Mendoza Attending Provider Dr. Trell Vargas Referring Provider [phone] Trell Vargas Other Provider VANESSA Marcelo Attending Provider Willis, Dr. Arriaza Primary Care Provider Willis, Dr. Arriaza Referring Provider Jose FOX, TAY Mendoza Attending Provider Friend, Dr. Carrasquillo Attending Provider Friend, Dr. Carrasquillo Other Provider Willis, Dr. Arriaza Primary Care Provider Willis, Dr. Arriaza Referring Provider [phone] Freddie MENDEZ, PA Lori Mendoza Attending Provider Leigh Bowie Attending Unavailable Pedro, Arsalan Primary Care Unavailable Leigh Bowie Attending Unavailable Pedro, Arsalan Primary Care Unavailable Pedro, Arsalan Primary Care Unavailable Brianna RESEARCH SOIL SCIENTIST, Jamee Attending Unavailable Pedro, Arsalan Primary Care Unavailable Christina RESEARCH SOIL SCIENTIST, Renetta Basilio Referring Unavailabl e Christina RESEARCH SOIL SCIENTIST, Renetta Basilio Attending Unavailabl e Radha Murillo Attending Unavailable Pedro, Arsalan Primary Care Unavailable Radha Murillo Attending Unavailable Pedro, Arsalan Primary Care Unavailable Radha Murillo Attending Unavailable Pedro, Arsalan Primary Care Unavailable Pedro, Arsalan Primary Care Unavailable Leigh Bowie Attending Unavailable Pedro, Arsalan Primary Care Unavailable Foreign Ortiz Attending Unavailable Brianna RESEARCH SOIL SCIENTIST, Jamee Attending Unavailable Brianna RESEARCH SOIL SCIENTIST, Jamee Referring Unavailable Pedro, Arsalan Primary Care Unavailable Pedro, Arsalan Referring Unavailable Pedro, Arsalan Primary Care Unavailable Radha Ward Attending Unavailable Radha Murlilo Attending Unavailable Pedro, Arsalan Primary Care Unavailable Pedro, Arsalan Primary Care Unavailable Leigh Bowie Attending Unavailable Pedro, Arsalan Primary Care Unavailable Leigh Bowie Attending Unavailable Allergies Allergy Classification Reported Allergen(s) Allergy Type Date of Onset Reaction(s) Facility (2 sources) NSAIDs drug allergy 7 [facility] Work Phone: (1 source) Environmental allergies [Other] Propensity to adverse reactions 6 [facility] (12 sources) NSAIDS (Non-Steroidal Anti-Inflamma; Translations: [NSAIDS (Non-Steroidal Anti-Inflamma] Allergy to substance 2 Other [facility] Medications Current Medications Medication Drug Class(es) Dates Sig (Normalized) Sig (Original) acetaminophen 325 mg / HYDROcodone bitartrate 5 mg oral tablet (1 source) Opioid Agonist Start: 09-10-2021 take 1 tablet by mouth every four hours Hydrocodone-Aceta minophen Active 1 TABLET PO Q4H 20 5 September 10, 2021 azaTHIOprine 50 mg oral tablet (4 sources) Purine Antimetabolite Start: 08-18-2021 take 150 mg by mouth once daily Azathioprine Active 150 MG PO DAILY August 18, 2021 1:00am Start: 11-14-2016 AZATHIOPRINE T ABS as directed AZATHIOPRINE TABS [id number] Blank Cosme LPN take 1 tablet by lissette th three times daily at mealtime azaTHIOprine 50 mg tablet Take 50 mg by mouth three times daily with meals. 0 Active Comment on above: Take 50 mg by mouth three times daily with meals. fluconazole 100 mg oral tablet (6 sources) Azole Antifungal Start: 3 take 1 tablet by mouth once daily Fluconazole (Diflucan) 100 mg tablet Active 100 MG PO DAILY May 17, 2023 11:00pm Start: 06-11-2022 take 200 mg by mouth once karissa y Fluconazole Active 200 MG PO DAILY June 11, 2022 12:00am Start: 11-14-2016 DIFLUCAN 200 M G TABS 1 tablet 1 as instructed FLUCONAZOLE [id number] Anthony MENDEZ Lactobac 2-Bifido 1-S. Therm (Vsl#3) 112.5 billion cell capsule (20 sources) Start: 11-27-2022 Lactobac 2-Bif jacque 1-S. Therm (Vsl#3) 112.5 billion cell capsule Active 1 CAP PO TWICE A DAY 180 November 27, 2022 8:00am Start: 11-05-2022 End: 11-27-2022 Lactobac 2-Bifido 1-S. Therm (Vsl#3) 112.5 billion cell capsule Discontinued 1 CAP PO TWICE A DAY November 05, 2022 9:25am November 27, 2022 8:00am Start: 11-05-2022 Lactobac 2-Bif jacque 1-S. Therm (Vsl#3) 112.5 billion cell capsule Active 1 CAP PO TWICE A DAY November 05, 2022 10:25am Start: 06-05-2022 End: 11-05-2022 Lactobac 2-Bifido 1-S. Therm (Vsl#3) 112.5 billion cell capsule Discontinued 1 CAP PO TWICE A DAY 60 June 05, 2022 9:01am November 05, 2022 9:25am Start: 06-05-2022 End: 11-05-2022 Lactobac 2-Bifido 1-S. Therm (Vsl#3) 112.5 billion cell capsule Discontinued 1 CAP PO TWICE A DAY 60 June 05, 2022 10:01am November 05, 2022 10:25am Start: 06-05-2022 Lactobac 2-Bif jacque 1-S. Therm (Vsl#3) 112.5 billion cell capsule Active 1 CAP PO TWICE A DAY 60 June 05, 2022 9:01am Start: 12-27-2021 End: 06-05-2022 Lactobac 2-Bifido 1-S. Therm (Vsl#3) 112.5 billion cell capsule Discontinued 1 CAP PO TWICE A DAY 60 December 27, 2021 12:00am June 05, 2022 10:01am Start: 12-27-2021 End: 06-05-2022 Lactobac 2-Bifido 1-S. Therm (Vsl#3) 112.5 billion cell capsule Discontinued 1 CAP PO TWICE A DAY 60 December 26, 2021 11:00pm June 05, 2022 9:01am Start: 12-27-2021 Lactobac 2-Bif jacque 1-S. Therm (Vsl#3) 112.5 billion cell capsule Active 1 CAP PO TWICE A DAY 60 December 26, 2021 11:00pm Start: 12-27-2021 Lactobac 2-Bif jacque 1-S. Therm (Vsl#3) 112.5 billion cell capsule Active 1 CAP PO TWICE A DAY 60 December 27, 2021 12:00am Multivitamin preparation (6 sources) Start: 11-05-2022 take 1 tablet by mouth once daily Multivitamin Active 1 TABLET PO DAILY November 04, 2022 11:00pm Start: 11-05-2022 take 1 tablet by lissette th once daily Multivitamin Active 1 TABLET PO DAILY November 05, 2022 12:00am pantoprazole 20 mg delayed release oral tablet (19 sources) Proton Pump Inhibitor Start: 04-23-2022 End: 07-04-2023 take 20 mg by mouth once daily in the morning Pantoprazole Active 20 MG PO EVERY MORNING July 04, 2023 8:42am Start: 03-27-2022 End: 04-23-2022 take 20 mg by mouth twice daily Pantoprazole Discontinued 20 MG PO TWICE A DAY 60 30 March 26, 2022 11:00pm April 23, 2022 12:36pm vilazodone hydrochloride 40 mg oral tablet (14 sources) Start: 03-22-2022 take 1 tablet by mouth once daily at mealtime Vilazodone (Viibryd) 40 mg Tablet Active 20 MG PO DAILY March 21, 2022 11:00pm must administer with a meal/food Start: 06-27-2018 take 50 mg by mouth once daily Vilazodone Active 50 MG PO DAILY June 27, 2018 1:00am Start: 11-14-2016 VIIBRYD TABS a s directed VILAZODONE HCL TABS [id number] Blank Cosme LPN take 10 mg by mouth once daily at breakfast vilazodone (VIIBRYD) 40 mg Take 10 mg by mouth daily with breakfast. 0 Active Comment on above: Take 10 mg by mouth daily with breakfast. Completed/Discontinued Medications Medication Drug Class(es) Dates Sig (Normalized) Sig (Original) acetaminophen 325 mg / oxyCODONE hydrochloride 5 mg oral tablet (11 sources) Opioid Agonist Start: 09-22-2016 End: 05-22-2018 take 1 tablet by mouth every six hours as needed Oxycodone-Acetamin ophen Discontinued 1 TABLET PO EVERY 6 HOURS NEEDED September 22, 2016 12:00am May 22, 2018 2:40pm amoxicillin 500 mg oral capsule (4 sources) Penicillin-class Antibacterial Start: 05-30-2017 AMOXICILLIN 500 MG CAPS 2 capsules 2 times a day AMOXICILLIN [id number] Anthony MENDEZ Start: 11-14-2016 AMOXICILLIN 50 0 MG CAPS 2 capsules 2 times a day AMOXICILLIN [id number] Anthony MENDEZ ascorbic acid 500 mg oral tablet (1 source) Vitamin C Start: 09-04-2006 VITAMIN C 500 MG TAB Take one(1) tablet daily. otc 0 09/04/2006 Active Comment on above: Take one(1) tablet d aily. azithromycin 250 mg oral tablet (7 sources) Macrolide Antimicrobial Start: 06-11-2022 End: 09-06-2022 Azithromycin Discontinued 250 MG PO daily June 11, 2022 12:00am September 06, 2022 3:39pm 2 tablets today, then 1 tablet daily on days 2 through 5 BUPROPION HCL [id number] (14 sources) Aminoketone Start: 11-14-2016 WELLBUTRIN XL [id number] as directed BUPROPION HCL [id number] Blank Cosme LPN Start: 11-10-2014 take 300 mg by mouth once karissa y Bupropion Hcl Active 300 MG PO DAILY November 09, 2014 11:00pm Start: 11-10-2014 take 450 mg by mouth once karissa y Bupropion Hcl Active 450 MG PO DAILY November 10, 2014 12:00am take 1 tablet by lissette th once daily buPROPion XL 300 mg 24 hr tablet Take 300 mg by mouth once daily. 0 Active Comment on above: Take 300 mg by mouth once daily. etodolac 200 mg oral capsule (11 sources) Nonsteroidal Anti-inflammatory Drug Start: 06-24-2013 End: 06-26-2013 Etodolac Discontinued June 24, 2013 12:00am June 26, 2013 8:29am mesalamine 1000 mg rectal suppository (20 sources) Aminosalicylate Start: 08-17-2022 End: 04-24-2023 Mesalamine Discontinued 1 GM RC AT BEDTIME March 25, 2023 8:59am April 23, 2023 11:04pm Start: 08-16-2022 End: 08-17-2022 Mesalamine Discontinued 4 GM RC AT BEDTIME [id number] 16, 2022 12:00am August 17, 2022 1:54pm MULTIVITAMIN TAB (1 source) Start: 08-02-2005 MULTIVITAMIN TAB Take one(1) tablet daily. 0 08/02/2005 Active Comment on above: Take one(1) tablet d aily. nitrofurantoin, macrocrystals 25 mg / nitrofurantoin, monohydrate 75 mg oral capsule (3 sources) Nitrofuran Antibacterial Start: 05-18-2023 End: 05-23-2023 take 1 capsule by mouth every twelve hours at mealtime Nitrofurantoin Monohyd/M-Cryst (Macrobid) 100 mg capsule Discontinued 100 MG PO Q12H 10 May 17, 2023 11:00pm May 23, 2023 12:05am must administer with a meal/food SUMAtriptan 50 mg oral tablet (1 source) Serotonin-1b and Serotonin-1d Receptor Agonist Start: 02-03-2010 sumatriptan succinate(IMITREX 50 MG TAB) Indications: Migraine, unspecified, without mention of intractable migraine without mention of status migrainosus as necessary for headache 27 3 02/03/2010 Active Comment on above: as necessary for hea dache Problems Active Problems Problem Classification Problem Date Documented Date Episodic/Chronic Abdominal pain (20 sources) Pain in pelvis; Translations: [Pelvic and perineal pain] 04-03-2022 Episodic Acute bronchitis (8 sources) Acute bronchitis; Translations: [Acute bronchitis, unspecified] Episodic Anxiety disorders (1 source) Anxiety disorder, unspecified; Translations: [Anxiety disorder, unspecified] Onset: 01-24-2024 Chronic Cardiac dysrhythmias (9 sources) Palpitations - rapid; Translations: [Palpitations] 04-04-2022 Episodic Conditions associated with dizziness or vertigo (9 sources) Lightheadedness; Translations: [Dizziness and giddiness] 04-04-2022 Episodic Disorders of lipid metabolism (10 sources) Hyperlipidemia; Translations: [Hyperlipidemia, unspecified] Onset: 09-04-2006 09-04-2006 Chronic E Codes: Fall (11 sources) Fall; Translations: [Unspecified fall, initial encounter] 09-18-2021 Episodic Esophageal disorders (11 sources) Gastroesophageal reflux disease; Translations: [Gastro-esophageal reflux disease without esophagitis] Onset: 06-20-2007 06-20-2007 Chronic Gastroduodenal ulcer (except hemorrhage) (13 sources) Gastric ulcer; Translations: [Gastric ulcer, unspecified as acute or chronic, without hemorrhage or perforation] Chronic Headache; including migraine (1 source) Migraine; Translations: [Migraine, unspecified, without mention of intractable migraine without mention of status migrainosus] Onset: 06-18-2005 06-18-2005 Chronic Heart valve disorders (12 sources) Aortic valve disorder; Translations: [Nonrheumatic aortic valve disorder, unspecified] Chronic Nonspecific chest pain (12 sources) Chest pain; Translations: [Chest pain, unspecified] Episodic Other endocrine disorders (1 source) Ovarian dysfunction, unspecified; Translations: [Ovarian dysfunction, unspecified] Onset: 03-24-2024 Chronic Other female genital disorders (11 sources) Abnormal uterine bleeding; Translations: [Abnormal uterine and vaginal bleeding, unspecified] 04-03-2022 Chronic Regional enteritis and ulcerative colitis (20 sources) Ulcerative colitis, unspecified, without complications; Translations: [Chronic ulcerative proctitis] Onset: 06-20-2007 06-20-2007 Chronic Residual codes; unclassified (9 sources) Family history of cardiac disorder; Translations: [Family history of ischemic heart disease and other diseases of the circulatory system] 04-03-2022 Episodic Superficial injury; contusion (11 sources) Contusion of rib; Translations: [Contusion of unspecified front wall of thorax, initial encounter] 09-18-2021 Episodic Urinary tract infections (6 sources) Urinary tract infectious disease; Translations: [Urinary tract infection, site not specified] 05-18-2023 Episodic Past or Other Problems Problem Classification Problem Date Documented Da te Episodic/Chronic Calculus of urinary tract (1 source) Ureteric stone; Translations: [Calculus of ureter] Onset: 07-27-2008 07-27-2008 Episodic Deficiency and other anemia (1 source) Iron deficiency anemia; Translations: [Iron deficiency anemia, unspecified] Onset: 07-04-2007 07-04-2007 Episodic Other ear and sense organ disorders (2 sources) Otalgia, unspecified ear; Translations: [Otalgia, unspecified ear] Onset: 11-14-2016 11-14-2016 Episodic Other screening for suspected conditions (not mental disorders or infectious disease) (1 source) Encounter for screening mammogram for malignant neoplasm of breast; Translations: [Encounter for screening mammogram for malignant neoplasm of breast] Onset: 07-28-2024 Episodic Other upper respiratory infections (4 sources) Acute maxillary sinusitis; Translations: [Pharyngitis] Onset: 11-14-2016 05-30-2017 Episodic Otitis media and related conditions (2 sources) Otitis media; Translations: [Otitis media, unspecified, unspecified ear] Onset: 11-14-2016 11-14-2016 Episodic Skin and subcutaneous tissue infections (1 source) Cellulitis and abscess of trunk; Translations: [Cellulitis and abscess of trunk] Onset: 10-22-2005 10-22-2005 Episodic Unclassified (10 sources) uterine ablation 02-07-2022 Results Test Name Value Interpretation Reference Range Facility MR/[facility] 12-03-2024 MR/BMSDionBP [address], [address] [place] [address] OFFICE VISIT Date of Service: 12/03/24 MR#: [id number] Acct: [id number] Name: TANYA CASTILLO Rep #: [id number] : 1970 Provider: DO solis Age/Sex: 54/F Location: [facility] Status: Signed Intake Vital Signs 08/17/24 08:06 11/24/24 08:57 12/03/24 12:19 Height 5 ft 7 in 5 ft 7 in 5 ft 7 in Weight: 176 lb 4 oz BMI 27.6 BP 108/81 H Respiration 16 Pulse 99 Pulse Oximetry (%) 94 Oxygen Delivery Method room air BP Intake Visit Reasons: Follow up Allergies NSAIDS (Non-Steroidal Anti-Inflamma Allergy (Verified 11/24/24 08:43) [facility] Medical History Post-menopausal Cardiology follow-up encounter History of echocardiogram History of stress test Acute bronchitis, unspecified Rapid palpitations Family history of valvular heart disease Wears contact lenses Anxiety Alcohol use History of kidney stones History of GI bleed Non-smoker Pelvic pain Abnormal uterine bleeding Colitis History of anxiety Flank pain Gastric ulcer Chronic ulcerative colitis Surgical History History of esophagogastroduodenoscopy (EGD) History of bunionectomy History of D C uterine ablation delivery delivered History of tonsillectomy Family History Mother Nonrheumatic aortic (valve) stenosis, Onset Age: 55 AVR Other Heart disease Social History Smoking Status: Never smoker alcohol intake: current alcohol intake frequency: holidays/special occasions only Alcohol type: wine substance use type: does not use caffeine: Yes what type of physical activity do you participate in: walking seatbelt use: always do you feel safe at home: Yes additional social history: Marixa [employer] Patient works at [employer] HPI History of Present Illness HPI: Pietro Castillo is a 54 year-old female returning for therapy. She identified wanting to learn about meditation and journaling. Provided psychoeducation on meditation particularly focusing on sounds or focusing on breath, tendency for mind to wander and brining attention back to breath or sounds, and how to gradually increase length of time. Practiced focusing on breath for 1 minute, which Tanya was able to do. Taught GLAD (gratitude, learning, accomplishment, delight) journaling technique. Worked on breathing as a technique to implement when anxious providing psychoeducation on square breathing and leading Tanya in practicing it. Discussed how to implement and practice. Discussed recent incident where Tanya became very distressed following an interaction with a family member. Encouraged verbalization of emotions while providing support. Provided psychoeducation and handout on DBT Mindfulness skill nonjudgementalness to reduce emotional mind. Tanya reported struggling with tiredness and insomnia. She had a recent psychiatric appointment and is following through with an [facility] appointment to assess impact of menopause on sleep. No SI. Future-oriented. Exam Mental Status Exam - Psych Appearance casually dressed and well kempt Attitude cooperative, calm, engaged and pleasant Activity/Motor Behavior MSE activity/motor behavior finding no adventitious movements and appropriate eye contact Speech regular rate, regular volume and regular prosody Mood OK and anxious Affect full range Thought Process linear, logical and coherent Thought Content no delusions and no hallucinations Suicidal Ideation none Homicidal Ideation none Attention impaired (Per pt. report.) Concentration impaired (Per pt. report.) Sensorium/Orientation awake, alert and oriented x3 Memory/Cognition impaired (Per pt. report.) Insight good Judgement good Assessment Plan Assessment Plan (1) Generalized anxiety disorder: Plan: therapy using CBT, DBT, and ACT interventions to address thought patterns contributing to anxious symptoms and to teach coping skills. Psychiatric services to monitor anxious symptoms and medication effectiveness. (2) MDD (major depressive disorder): Qualifiers: Major depression recurrence: recurrent Active/Remission status: in full remission Qualified Code(s): F33.42 - Major depressive disorder, recurrent, in full remission Plan: BH therapy using CBT, DBT, and ACT interventions to address thought patterns contributing to depressive symptoms and teach coping skills. Continued psychiatric services to monitor depressive symptoms and medication effectiveness. Pt. to call 911, call suicide prevention hotline, or go to ER if experi (more content not included)... Normal [facility] Gastroenterology Visit Repor ton 11-24-2024 Gastroenterology Visit Report [facility] [address] [place] [address] OFFICE VISIT Date of Service: 11/24/24 MR#: [id number] Acct: [id number] Name: TANYA CASTILLO Rep #: [id number] : 1970 Provider: TAY sims Age/Sex: 54/F Location: [facility] Status: Signed Intake Vital Signs 05/18/23 11:42 11/04/24 07:27 11/24/24 08:57 Height 5 ft 8 in 5 ft 7 in 5 ft 7 in Weight: 176 lb 4 oz BMI 27.6 BP 108/81 H Respiration 16 Pulse 99 Pulse Oximetry (%) 94 Oxygen Delivery Method room air Intake Visit Reasons: 1 Y FU Chief Complaint: annual follow-up Reception Centre Manager Required: No Accompanied by: Self Is patient in pain?: No Allergies NSAIDS (Non-Steroidal Anti-Inflamma Allergy (Verified 11/24/24 08:43) Other Medications ???Medication ???Instructions ???Recorded ???Confirmed ???Type multivitamin 1 tab PO DAILY 11/05/22 11/24/24 H istory propranolol 10 mg tablet 10 mg PO TID PRN anxiety #90 tabs 05/06/24 11/24/24 Rx bupropion HCl 300 mg 24 hr tablet, 300 mg PO QAM #90 tabs 07/01/24 11/24/24 Rx extended release pantoprazole 20 mg tablet,delayed 20 mg PO QAM #90 tabs 07/28/24 Rx release buspirone 15 mg tablet 15 mg PO BID #180 tabs 08/05/24 Rx vilazodone 20 mg tablet 20 mg PO DAILY #90 tabs 08/05/24 0 11/24/24 Rx Lactobac no.2-Bifidobac no.1-S. 1 cap PO BID #180 caps 10/07/24 Rx thermo 112.5 billion cell capsule (VSL#3) trazodone 50 mg tablet 50 mg PO QHS PRN insomnia #30 tabs 11/04/24 11/24/24 Rx ondansetron 4 mg disintegrating 4 mg PO .COMPLEX #5 tabs 11/24/24 11/24/24 Rx tablet sodium sul 1.479 gram-potas ch See Rx Instructions PO PER PKG DIR 11/24/24 11/24/24 Rx 0.188 gram-magnes sul 0.225 gram #24 tabs tablet (Sutab) Nurse's Note: Has had one flare but not too bad PFSH Medical History Post-menopausal Cardiology follow-up encounter History of echocardiogram History of stress test Acute bronchitis, unspecified Rapid palpitations Family history of valvular heart disease Wears contact lenses Anxiety Alcohol use History of kidney stones History of GI bleed Non-smoker Pelvic pain Abnormal uterine bleeding Colitis History of anxiety Flank pain Gastric ulcer Chronic ulcerative colitis Surgical History History of esophagogastroduodenoscopy (EGD) History of bunionectomy History of D C uterine ablation delivery delivered History of tonsillectomy Family History Mother Nonrheumatic aortic (valve) stenosis, Onset Age: 55 AVR Other Heart disease Social History Smoking Status: Never smoker alcohol intake: current alcohol intake frequency: holidays/special occasions only Alcohol type: wine substance use type: does not use caffeine: Yes what type of physical activity do you participate in: walking seatbelt use: always do you feel safe at home: Yes additional social history: Marixa [employer] Patient works at [employer] HPI HPI Chief Complaint: annual follow-up Details: TANYA CASTILLO, is a 54 F who presents to the office today for OV 12/10/2023 Friend We reviewed results from her EGD--small hiatal hernia, LA Grade B reflux esophagitis, erythematous mucosa in the stomach; mild gastritis on bx, neg H pylori, neg Gonsales's. She will continue pantoprazole 20 mg QAM. f/u 6 mos. She will repeat labs before that appt to f/u UC. Will decide then re next colonoscopy. Lactobac 2-Bifido 1-S. therm 112.5 billion cell (VSL#3) 1 cap PO BID 180 caps 3RF pantoprazole 20 mg PO QAM 90 tabs 3RF COLON 11/08/2022 - TA, negative for colitis - One 5 mm polyp in the cecum, removed with a cold snare. Resected and retrieved. - The entire examined colon is normal on direct and retroflexion views. Recommendation: - Discharge patient to home. - Resume previous diet. - Continue present medications. - Await pathology results. - Repeat colonoscopy in 2 years for surveillance. COLON: 05/25/2014 ([facility]) - negative for colitis INITIAL CONSULT 08/18/2021 on Imuran 150mg QD 10/02/2021 Imuran dose decreased to 100mg QD, MRCP, AMA negative for PSC 12/25/2021 Imuran decreased to 50mg daily and then discontinued - with goal to manage her with VSL-3 or Florastor Initial Diagnosis: in her 30's Presenting Symptoms: diarrhea and BRBPR - was managed with azathioprine 150 mg daily. Tapered off azathioprine in Summer 2021, did well until 08/2022. She takes a daily probiotic. December 2021 labs: unremarkable CBC, CMP, ESR, CRP, stool calprotectin (more content not included)... Normal [facility] MR/BMS.BPon 11-04-2024 MR/BMS.BP [facility] [address], [address] [place] [id number] OFFICE VISIT Date of Service: 11/04/24 MR#: [id number] Acct: [id number] Name: TANYA CASTILLOTH Rep #: [id number] : 1970 Provider: ATY hubbard Age/Sex: 54/F Location: [facility] Status: Signed Intake Vital Signs 08/05/24 07:32 09/18/24 13:01 11/04/24 07:27 Height 5 ft 7 in 5 ft 7 in 5 ft 7 in Weight: 178 lb BMI 27.8 BP 105/71 Blood Pressure Location Lt brachial Position Sitting Respiration 16 Pulse 103 H Pulse Source Monitor BP Intake Visit Reasons: 3mfu Accompanied by: Self Allergies NSAIDS (Non-Steroidal Anti-Inflamma Allergy (Verified 11/04/24 07:30) Other Medications ???Medication ???Instructions ???Recorded ???Confirmed ???Type multivitamin 1 tab PO DAILY 11/05/22 11/04/24 H istory progesterone micronized 100 mg 100 mg PO QAM 03/17/24 11/04/24 Hi story capsule testosterone 50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 uterine ablation delivery delivered History of tonsillectomy Family History Mother Nonrheumatic aortic (valve) stenosis, Onset Age: 55 AVR Other Heart disease Social History (Updated 03/17/24 @ 08:40 by Lidia Wiley) Smoking Status: Never smoker alcohol intake: current alcohol intake frequency: holidays/special occasions only Alcohol type: wine substance use type: does not use caffeine: Yes what type of physical activity do you participate in: walking seatbelt use: always do you feel safe at home: Yes additional social history: Marixa Lux Patient works at [employer] HPI History of Present Illness History provided by: patient HPI: Tanya Anna is a 54 year old female patient presenting today for a follow up evaluation. Patient presents today discussing a family matter that happened with her brother a few weeks ago that was stressful. Patient states she was able to handle this situation well and remained more calm and less anxious during this time. Patient also reports she has been back to the place where she had her first panic attack and she was able to use behavioral techniques, distraction, and redirecting her thoughts to help her through being in this place and she did well. Denies having panic attacks since last appointment. Denies any depressive symptoms and reports mood to be good. Denies SI/HI. Reports she has been eating well and has no changes in appetite or in weight. Has also been having improvements in sleep. Has not needed to utilize propranolol since last appointment but does make sure it is readily available. Patient is planning to go out of the country to [place] for 2 weeks and is feeling anxious about the flight. However patient reports she plans to read a lot about the culture and history of the places she is traveling to in order to distract her mind during the flight and does state she will bring the propranolol with her in the instance she needs it for her flight. Previous similar episode: Yes Age of first onset of symptoms: 31-40 years Review of Systems Constitutional Reports: change in weight (30 pound gain in last year); Denies: fever(s), chills or fatigue Eyes Denies: change in vision or blurry vision Ears, Nose, Mouth, Throat Denies: throat pain or neck pain Cardiovascular Denies: chest pain, palpitations or dyspnea Respiratory Denies: dyspnea or wheezing Gastrointestinal Denies: abdominal pain, nausea, vomiting, diarrhea or constipation Genitourinary Denies: dysuria, urinary frequency or urinary urgency Musculoskeletal Denies: back pain or neck pain Integumentary/Breast Denies: rash, pruritus or erythema Neurological Denies: headache(s) Psychiatric Reports: anxiety (much decreased in frequency and severity since last appointment), mood swings, irritability (does feel this has decreased since last appointment ), memory loss and difficulty concentrating; Denies: panic attacks, change in sleep pattern, hopelessness, loss of interest, paranoia, visual hallucinations, auditory hallucinations, suicidal ideation or homicidal ideation Endocrine Denies: fatigue Hematologic/Lymphatic Denies: easy bruising Allergic/Immunologic Denies: wheezing Exam Mental Status Exam - Psych Appearance casually dressed, adequately groomed and no apparent distress Attitude cooperative and calm Activity/Motor Beh (more content not included)... Normal [facility] MR/BMS.BPon 03-17-2024 MR/BMS.BP [facility] [address], [address] [place] [address] OFFICE VISIT Date of Service: 03/17/24 MR#: [id number] Acct: [id number] Name: TANYA CASTILLO Rep #: [id number] : 1970 Provider: TAY hubbard Age/Sex: 54/F Location: [facility].BP Status: Signed Intake Vital Signs 02/06/24 08:57 03/17/24 08:30 Height 5 ft 8 in 5 ft 7 in Weight: 197 lb BMI 30.8 BP 133/84 H Blood Pressure Location Rt brachial Position Sitting Respiration 16 Pulse 83 Pulse Source Monitor Pulse Oximetry (%) 97 Oxygen Delivery Method room air BP Intake Visit Reasons: 6 wk 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 1 cap PO BID #180 caps 11/26/23 03/17/24 Rx thermo 112.5 billion cell capsule (VSL#3) pantoprazole 20 mg tablet,delayed 20 mg PO QAM #90 tabs 11/26/23 03/17/24 Rx release propranolol 10 mg tablet 10 mg PO TID PRN anxiety #90 tabs 02/06/24 03/17/24 Rx buspirone 15 mg tablet 15 mg PO BID #60 tabs 03/17/24 03/17/24 Rx progesterone micronized 100 mg 100 mg PO QAM 03/17/24 03/17/24 History capsule testosterone 50 mg/5 gram (1 %) 1 tube transdermal QAM 03/17/24 03/17/24 History transdermal gel PFSH Medical History Post-menopausal Cardiology follow-up encounter History of echocardiogram History of stress test Acute bronchitis, unspecified Rapid palpitations Family history of valvular heart disease Wears contact lenses Anxiety Alcohol use History of kidney stones History of GI bleed Non-smoker Pelvic pain Abnormal uterine bleeding Colitis History of anxiety Flank pain Gastric ulcer Chronic ulcerative colitis Surgical History History of esophagogastroduodenoscopy (EGD) History of bunionectomy History of D C uterine ablation delivery delivered History of tonsillectomy Family History Mother Nonrheumatic aortic (valve) stenosis, Onset Age: 55 AVR Other Heart disease Social History Smoking Status: Never smoker alcohol intake: current alcohol intake frequency: holidays/special occasions only Alcohol type: wine substance use type: does not use caffeine: Yes what type of physical activity do you participate in: walking seatbelt use: always do you feel safe at home: Yes additional social history: Marixa Lux Patient works at [employer] History of Present Illness History provided by: patient HPI: Tanya Castillo is a 54 year old female patient presenting today for a follow up evaluation. Does feel things are better but not quite where it should be. Feels her fuse is longer but still not where it should be. Has taken the propranolol twice since previous appointment. Feels she has been better but still not to 100% where she should be and she reports her agrees the same. The propranolol was beneficial when she did utilize it. Denies noticing any side effects. Denies changes in appetite. Sleep has been unchanged. Patient reports she spent the holiday weekend at home spending time with her and also going to see her mother, who has dementia, in the custodial as she does every day. Patient reports she is planning to go to [place] in May and is excited for this trip. Reports she does well with traveling but has had one panic attack while traveling. Denies any depressive symptoms and feels that current medication regimen for that has been beneficial. Denies SI/HI. Previous similar episode: Yes Age of first onset of symptoms: 31-40 years Review of Systems Constitutional Reports: change in weight (30 pound gain in last year) and fatigue; Denies: fever(s) or chills Eyes Denies: change in vision or blurry vision Ears, Nose, Mouth, Throat Denies: throat pain or neck pain Cardiovascular Denies: chest pain, palpitations or dyspnea Respiratory Denies: dyspnea or wheezing Gastrointestinal Denies: abdominal pain, nausea, vomiting, diarrhea or constipation Genitourinary Denies: dysuria, urinary frequency or urinary urgency Musculoskeletal Denies: back pain or neck pain Integumentary/Breast Denies: rash, pruritus or erythema Neurological Denies: headache(s) Psychiatric Reports: anxi (more content not included)... Normal [facility] DHEA Sulfateon 03-14-2024 DHEA SULFATE 159.0 ug/dL Normal 29.4-220.5 [facility] Comment on above: Order Comment: N Result Comment: Perf ormed at: [employer] [id number] Artist'S Representative: Al Beavers PhD, Phone: [phone] Performed By: #### L 500.4050, L500.4100, L501.9985, L3300.1750, L100.0100, L509.3000, L801.2600, L3300.1500 ####[facility] [address] [place], [address] PROGESTERONE 4317on 03-14-20 24 PROGESTERONE 2.2 ng/mL Normal . [facility] Comment on above: Order Comment: N Result Comment: Foll icular phase 0.1 - 0.9 Luteal phase 1.8 - 23.9 Ovulation phase 0.1 - 12.0 First trimester 11.0 - 44.3 Second trimester 25.4 - 83.3 Third trimester 58.7 - 214.0 Postmenopausal 0.0 - 0.1 Performed at: [employer] [id number] Artist'S Representative: Al Beavers PhD, Phone: [phone] Performed By: #### L 500.4050, L500.4100, L501.9985, L3300.1750, L100.0100, L509.3000, L801.2600, L3300.1500 ####[facility] [address] [place], [place], [phone] CBC W/Diff, Automatedon 08-3 0-2024 Absolute Lymph 2.21 X10 3/uL Normal 0.83-4.51 [facility] Comment on above: Performed By: #### L 500.4050, L500.4100, L501.9985, L3300.1750, L100.0100, L509.3000, L801.2600, L3300.1500 ####[facility] [address] [place], [address] Absolute Neut 3.6 X10 3/uL Normal 2.0-7.7 [facility] Comment on above: Performed By: #### L 500.4050, L500.4100, L501.9985, L3300.1750, L100.0100, L509.3000, L801.2600, L3300.1500 ####[facility] [address] [place], [address] Basophils/100 WBC (Bld) 0.5 % Normal 0-1 [facility] Comment on above: Performed By: #### L 500.4050, L500.4100, L501.9985, L3300.1750, L100.0100, L509.3000, L801.2600, L3300.1500 ####[facility] [address] [place], [address] Eosinophils/100 WBC (Bld) 1.7 % Normal 0-5 [facility] Comment on above: Performed By: #### L 500.4050, L500.4100, L501.9985, L3300.1750, L100.0100, L509.3000, L801.2600, L3300.1500 ####[facility] [address] [place], [address] Erythrocyte distribution width (RBC) [Ratio] 12.9 % Normal 11.6-14.6 [facility] Comment on above: Performed By: #### L 500.4050, L500.4100, L501.9985, L3300.1750, L100.0100, L509.3000, L801.2600, L3300.1500 ####[facility] [address] [place], [address] Hematocrit (Bld) [Volume fraction] 38.8 % Normal 37-47 [facility] Comment on above: Performed By: #### L 500.4050, L500.4100, L501.9985, L3300.1750, L100.0100, L509.3000, L801.2600, L3300.1500 ####[facility] [address] [place], [address] Hemoglobin (Bld) [Mass/Vol] 13.0 g/dL Normal 12.0-15.0 [facility] Comment on above: Performed By: #### L 500.4050, L500.4100, L501.9985, L3300.1750, L100.0100, L509.3000, L801.2600, L3300.1500 ####[facility] [address] [place], [address] IG% 0.600 Normal 0.0-0.9 [facility] Comment on above: Result Comment: IG% - Immature Granulocytes (promyelocytes, myelocytes and metamyelocytes) > 1% indicates that a LEFT SHIFT is Present. Performed By: #### L 500.4050, L500.4100, L501.9985, L3300.1750, L100.0100, L509.3000, L801.2600, L3300.1500 ####[facility] [address] [place], [address] Lymphocytes/100 WBC (Bld) 34.1 % Normal 19-41 [facility] Comment on above: Performed By: #### L 500.4050, L500.4100, L501.9985, L3300.1750, L100.0100, L509.3000, L801.2600, L3300.1500 ####[facility] [address] [place], [address] MCH (RBC) [Entitic mass] 30.9 pg Normal 27.0-32.0 [facility] Comment on above: Performed By: #### L 500.4050, L500.4100, L501.9985, L3300.1750, L100.0100, L509.3000, L801.2600, L3300.1500 ####[facility] [address] [place], [address] MCHC (RBC) [Mass/Vol] 33.5 g/dL Normal 32-36 [facility] Comment on above: Performed By: #### L 500.4050, L500.4100, L501.9985, L3300.1750, L100.0100, L509.3000, L801.2600, L3300.1500 ####[facility] [address] [place], [address] MCV (RBC) [Entitic vol] 92.2 fL Normal 81-99 [facility] Comment on above: Performed By: #### L 500.4050, L500.4100, L501.9985, L3300.1750, L100.0100, L509.3000, L801.2600, L3300.1500 ####[facility] [address] [place], [address] Monocytes/100 WBC (Bld) 7.7 % Normal 0-10 [facility] Comment on above: Performed By: #### L 500.4050, L500.4100, L501.9985, L3300.1750, L100.0100, L509.3000, L801.2600, L3300.1500 ####[facility] [address] [place], [address] Neutrophils/100 WBC (Bld) 55.4 % Normal 47-70 [facility] Comment on above: Performed By: #### L 500.4050, L500.4100, L501.9985, L3300.1750, L100.0100, L509.3000, L801.2600, L3300.1500 ####[facility] [address] [place], [address] Nucleated RBC (Bld) [#/Vol] 0 10*3/uL Normal 0-5 [facility] Comment on above: Performed By: #### L 500.4050, L500.4100, L501.9985, L3300.1750, L100.0100, L509.3000, L801.2600, L3300.1500 ####[facility] [address] [place], [address] Platelet mean volume (Bld) [Entitic vol] 9.2 fL Normal 6.2-12.0 [facility] Comment on above: Performed By: #### L 500.4050, L500.4100, L501.9985, L3300.1750, L100.0100, L509.3000, L801.2600, L3300.1500 ####[facility] [address] [place], [address] Platelets (Bld) [#/Vol] 326 10*3/uL Normal 150-450 [facility] Comment on above: Performed By: #### L 500.4050, L500.4100, L501.9985, L3300.1750, L100.0100, L509.3000, L801.2600, L3300.1500 ####[facility] [address] [place], [address] RBC (Bld) [#/Vol] 4.21 10*6/uL Normal 4.2-5.4 [facility] Comment on above: Performed By: #### L 500.4050, L500.4100, L501.9985, L3300.1750, L100.0100, L509.3000, L801.2600, L3300.1500 ####[facility] [address] [place], [address] RDW SD 43.4 fl Normal 35.1-43.9 [facility] Comment on above: Performed By: #### L 500.4050, L500.4100, L501.9985, L3300.1750, L100.0100, L509.3000, L801.2600, L3300.1500 ####[facility] [address] [place], [place], [phone]) WBC (Bld) [#/Vol] 6.5 10*3/uL Normal 4.4-11.0 [facility] Comment on above: Performed By: #### L 500.4050, L500.4100, L501.9985, L3300.1750, L100.0100, L509.3000, L801.2600, L3300.1500 ####[facility] [address] [place], [place], [phone] Metabolic [facility] 03-13-2024 Albumin [Mass/Vol] 3.6 g/dL Normal 3.2-5.0 [facility] Comment on above: Performed By: #### L 500.4050, L500.4100, L501.9985, L3300.1750, L100.0100, L509.3000, L801.2600, L3300.1500 ####[facility] [address] [place], [address] Albumin/Globulin [Mass ratio] 0.9 {ratio} Normal 0.9-2.4 [facility] Comment on above: Performed By: #### L 500.4050, L500.4100, L501.9985, L3300.1750, L100.0100, L509.3000, L801.2600, L3300.1500 ####[facility] [address] [place], [address] ALK P 73 U/L Normal 45-117 [facility] Comment on above: Performed By: #### L 500.4050, L500.4100, L501.9985, L3300.1750, L100.0100, L509.3000, L801.2600, L3300.1500 ####[facility] [address] [place], [address] ALT [Catalytic activity/Vol] 22 U/L Normal 13-56 [facility] Comment on above: Performed By: #### L 500.4050, L500.4100, L501.9985, L3300.1750, L100.0100, L509.3000, L801.2600, L3300.1500 ####[facility] [address] [place], [address] AST [Catalytic activity/Vol] 16 U/L Normal 15-37 [facility] Comment on above: Performed By: #### L 500.4050, L500.4100, L501.9985, L3300.1750, L100.0100, L509.3000, L801.2600, L3300.1500 ####[facility] [address] [place], [address] Bilirubin [Mass/Vol] 0.50 mg/dL Normal 0.20-1.00 [facility] Comment on above: Result Comment: For patients on eltrombopag therapy, use of Dimension [place] TBIL is not recommended. Performed By: #### L 500.4050, L500.4100, L501.9985, L3300.1750, L100.0100, L509.3000, L801.2600, L3300.1500 ####[facility] [address] [place], [address] BUN/CRE 17.3 RATIO Normal 10-20 [facility] Comment on above: Performed By: #### L 500.4050, L500.4100, L501.9985, L3300.1750, L100.0100, L509.3000, L801.2600, L3300.1500 ####[facility] [address] [place], [address] CA,Total 9.4 mg/dL Normal 8.5-10.1 [facility] Comment on above: Performed By: #### L 500.4050, L500.4100, L501.9985, L3300.1750, L100.0100, L509.3000, L801.2600, L3300.1500 ####[facility] [address] [place], [address] Chloride [Moles/Vol] 107 mmol/L Normal 98-107 [facility] Comment on above: Performed By: #### L 500.4050, L500.4100, L501.9985, L3300.1750, L100.0100, L509.3000, L801.2600, L3300.1500 ####[facility] [address] [place], [address] CO2 [Moles/Vol] 24.0 mmol/L Normal 21.0-32.0 [facility] Comment on above: Performed By: #### L 500.4050, L500.4100, L501.9985, L3300.1750, L100.0100, L509.3000, L801.2600, L3300.1500 ####[facility] [address] [place], [address] Creatinine [Mass/Vol] 0.93 mg/dL Normal 0.55-1.02 [facility] Comment on above: Result Comment: The validity of the calculated GFR GFRAA in patients over 70 years has not been determined. Clinical correlation is essential. Performed By: #### L 500.4050, L500.4100, L501.9985, L3300.1750, L100.0100, L509.3000, L801.2600, L3300.1500 ####[facility] [address] [place], [address] EST GFR - AA 81 mL/min Normal >60 [facility] Comment on above: Result Comment: Afri can Mexican GFR Calc Performed By: #### L 500.4050, L500.4100, L501.9985, L3300.1750, L100.0100, L509.3000, L801.2600, L3300.1500 ####[facility] [address] [place], [place], [phone] GAP 8 Normal 5-15 [facility] Comment on above: Performed By: #### L 500.4050, L500.4100, L501.9985, L3300.1750, L100.0100, L509.3000, L801.2600, L3300.1500 ####[facility] [address] [place], [place], [phone] GFR/1.73 sq M.predicted among non-blacks MDRD (S/P/Bld) [Vol rate/Area] 67 mL/min/{1.73_m2} Normal >60 [facility] Comment on above: Result Comment: Non- GFR Calc Performed By: #### L 500.4050, L500.4100, L501.9985, L3300.1750, L100.0100, L509.3000, L801.2600, L3300.1500 ####[facility] [address] [place], [place], [phone] Globulin (S) [Mass/Vol] 3.8 g/dL Normal 2.2-4.2 [facility] Comment on above: Performed By: #### L 500.4050, L500.4100, L501.9985, L3300.1750, L100.0100, L509.3000, L801.2600, L3300.1500 ####[facility] [address] [place], [address] Glucose [Mass/Vol] 91 mg/dL Normal 74-106 [facility] Comment on above: Performed By: #### L 500.4050, L500.4100, L501.9985, L3300.1750, L100.0100, L509.3000, L801.2600, L3300.1500 ####[facility] [address] [place], [address] Potassium [Moles/Vol] 4.0 mmol/L Normal 3.5-5.1 [facility] Comment on above: Performed By: #### L 500.4050, L500.4100, L501.9985, L3300.1750, L100.0100, L509.3000, L801.2600, L3300.1500 ####[facility] [address] [place], [address] Sodium [Moles/Vol] 139 mmol/L Normal 136-145 [facility] Comment on above: Performed By: #### L 500.4050, L500.4100, L501.9985, L3300.1750, L100.0100, L509.3000, L801.2600, L3300.1500 ####[facility] [address] [place], [address] T PROT 7.4 g/dL Normal 6.4-8.2 [facility] Comment on above: Performed By: #### L 500.4050, L500.4100, L501.9985, L3300.1750, L100.0100, L509.3000, L801.2600, L3300.1500 ####[facility] [address] [place], [place], [phone] Urea nitrogen [Mass/Vol] 16 mg/dL Normal 7-18 [facility] Comment on above: Performed By: #### L 500.4050, L500.4100, L501.9985, L3300.1750, L100.0100, L509.3000, L801.2600, L3300.1500 ####[facility] [address] [place], [address] Estradiolon 03-13-2024 ESTRADIOL < 11.0 Normal [facility] Comment on above: Result Comment: NORM AL REFERENCE RANGES FEMALE FOLLICULAR 21.4 - 164.8 pg/mL MID-CYCLE PEAK 49.9 - 367.2 pg/mL LUTEAL 40.2 - 259.0 pg/mL POST-MENOPAUSAL ON MHT <11.0 - 462.1 pg/mL NOT ON MHT <11.0 - 58.3 pg/mL MALE <11.0 - 52.5 pg/mL NOTE: [facility] HAS CONFIRMED THE DRUG FULVETRANT (FASLODEX) MAY CAUSE FALSELY ELEVATED ESTRADIOL RESULTS WHEN USING THIS TEST METHOD. IF PATIENT IS TAKING FULVESTRANT AN ALTERNATIVE METHOD SHOULD BE USED TO DETERMINE ESTRADIOL CONCENTRATION. Performed By: #### L 500.4050, L500.4100, L501.9985, L3300.1750, L100.0100, L509.3000, L801.2600, L3300.1500 ####[facility] [address] [place], [address] Hemoglobin A1con 03-13-2024 HbA1c (Bld) [Mass fraction] 5.0 % Normal 3.8-5.6 [facility] Comment on above: Result Comment: Norm al < 5.7 % Prediabetic 5.7 - 6.4 % Diabetic >or= 6.5 % Please note range changes. Performed By: #### L 500.4050, L500.4100, L501.9985, L3300.1750, L100.0100, L509.3000, L801.2600, L3300.1500 ####[facility] [address] [place], [address] Lipid Profileon 03-13-2024 Cholesterol [Mass/Vol] 247 mg/dL High [address] [facility] Comment on above: Result Comment: <200 mg/dL Desirable 200-240 mg/dL Borderline >240 mg/dL High Risk Performed By: #### L 500.4050, L500.4100, L501.9985, L3300.1750, L100.0100, L509.3000, L801.2600, L3300.1500 ####[facility] [address] [place], [address] Cholesterol in HDL [Mass/Vol] 77 mg/dL Normal [facility] Comment on above: Result Comment: The drugs N-Acetylcysteine and Metamizole may falsely depress this assay. Reference Range HDL <40 mg/dL Low HDL Cholesterol HDL >or= 60 mg/dL High HDL Cholesterol Performed By: #### L 500.4050, L500.4100, L501.9985, L3300.1750, L100.0100, L509.3000, L801.2600, L3300.1500 ####[facility] [address] [place], [address] Cholesterol in LDL [Mass/Vol] 153 mg/dL High 0-130 [facility] Comment on above: Performed By: #### L 500.4050, L500.4100, L501.9985, L3300.1750, L100.0100, L509.3000, L801.2600, L3300.1500 ####[facility] [address] [place], [address] Cholesterol in VLDL [Mass/Vol] 17 mg/dL Normal 5-40 [facility] Comment on above: Performed By: #### L 500.4050, L500.4100, L501.9985, L3300.1750, L100.0100, L509.3000, L801.2600, L3300.1500 ####[facility] [address] [place], [place], [address] Triglyceride [Mass/Vol] 83 mg/dL Normal [facility] Comment on above: Result Comment: The drugs N-Acetylcysteine and Metamizole may falsely depress this assay. Serum Triglycerides Reference Interval Normal <150 mg/dL Borderline high 150 - 199 mg/dL High 200 - 499 mg/dL Very High > or = 500 mg/dL Performed By: #### L 500.4050, L500.4100, L501.9985, L3300.1750, L100.0100, L509.3000, L801.2600, L3300.1500 ####[facility] [address] [place], [place], [id number] Testosterone, Serum Totalon 03-13-2024 Testosterone [Mass/Vol] 89.04 ng/dL Normal [facility] Comment on above: Result Comment: CENT RAL 90% REFERENCE RANGES MALE AGE <50 197.44 - 669.58 ng/dL MALE AGE > or = 50 187.72 - 684.19 ng/dL FEMALE AGE <50 8.38 - 35.01 ng/dL FEMALE AGE > or = 50 <7.00 - 35.92 ng/dL Effective as of 02/07/21 Performed By: #### L 500.4050, L500.4100, L501.9985, L3300.1750, L100.0100, L509.3000, L801.2600, L3300.1500 ####[facility] [address] [place], [place], [id number] MR/BMSon 02-06-2024 MR/BMS. [address], [address] [place] [address] OFFICE VISIT Date of Service: 02/06/24 MR#: [id number] Acct: [id number] Name: TANYA CASTILLO Rep #: [id number] : 1970 Provider: TAY hubbard Age/Sex: 53/F Location: [facility] Status: Signed Intake Vital Signs 05/18/23 11:42 02/06/24 08:39 02/06/24 08:53 Height 5 ft 8 in 5 ft 8 in 5 ft 8 in Weight: 200 lb BMI 30.4 BP 128/88 H Blood Pressure Location Rt brachial Position Sitting Pulse 87 Pulse Source Monitor BP Intake Visit Reasons: Anxiety Allergies NSAIDS (Non-Steroidal Anti-Inflamma Allergy (Verified 02/06/24 08:55) Other Medications ???Medication ???Instructions ???Recorded ???Confirmed ???Type bupropion HCl 75 mg tablet 300 mg PO DAILY 11/10/14 02/06/24 History vilazodone 40 mg tablet (Viibryd) 20 mg PO DAILY ANXIETY 03/22/22 02/06/24 History multivitamin 1 tab PO DAILY 11/05/22 02/06/24 History Lactobac no.2-Bifidobac no.1-S. 1 cap PO BID #180 caps 11/26/23 02/06/24 Rx thermo 112.5 billion cell capsule (VSL#3) pantoprazole 20 mg tablet,delayed 20 mg PO QAM #90 tabs 11/26/23 02/06/24 Rx release buspirone 7.5 mg tablet 7.5 mg PO BID #60 tabs 02/06/24 02/06/24 Rx propranolol 10 mg tablet 10 mg PO TID PRN anxiety #90 tabs 02/06/24 02/06/24 Rx PFSH Medical History Post-menopausal Cardiology follow-up encounter History of echocardiogram History of stress test Acute bronchitis, unspecified Rapid palpitations Family history of valvular heart disease Wears contact lenses Anxiety Alcohol use History of kidney stones History of GI bleed Non-smoker Pelvic pain Abnormal uterine bleeding Colitis History of anxiety Flank pain Gastric ulcer Chronic ulcerative colitis Surgical History History of esophagogastroduodenoscopy (EGD) History of bunionectomy History of D C uterine ablation delivery delivered History of tonsillectomy Family History Mother Nonrheumatic aortic (valve) stenosis, Onset Age: 55 AVR Other Heart disease Social History Smoking Status: Never smoker alcohol intake: never substance use type: does not use caffeine: Yes what type of physical activity do you participate in: walking seatbelt use: always do you feel safe at home: Yes additional social history: Marixa Lux Patient works at [employer] HPI History of Present Illness History provided by: patient Chief complaint: Anxiety HPI: Tanya Castillo is a 53 year old female patient presenting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 [#/Vol] 6.4 10*3/uL 4.4-11.0 [facility] Work Phone: [phone] Blood erythrocytes count (nu mber/volume)on 12-26-2021 RBC (Bld) [#/Vol] 4.04 10*6/uL 4.2-5.4 [facility]: Blood hemoglobin measurement (mass/volume)on 12-26-2021 Hemoglobin (Bld) [Mass/Vol] 13.6 g/dL 12.0-15.0 [facility] Work Phone: Blood lymphocytes/100 leukoc yteson 12-26-2021 Lymphocytes/100 WBC (Bld) 28.5 % 19-41 [facility] Work Phone: Blood monocytes/100 leukocyt eson 12-26-2021 Monocytes/100 WBC (Bld) 8.0 % 0-10 [facility] Work Phone: Blood platelet mean volumeon 12-26-2021 Platelet mean volume (Bld) [Entitic vol] 9.2 fL 6.2-12.0 [facility] Work Phone: Determination of erythrocyte mean corpuscular volume (MCV)on 12-26-2021 MCV (RBC) [Entitic vol] 99.8 fL 81-99 [facility] Work Phone: Erythrocyte sedimentation ra leonardo 12-26-2021 ESR (Bld) [Velocity] 8 mm/h 0-[address] [facility] [facility] Work Phone: Hematocrit Auto (Bld) [Volum e fraction]on 12-26-2021 Hematocrit (Bld) [Volume fraction] 40.3 % 37-47 [facility] Work Phone: Laboratory - Chemistry and C hemistry - challengeon 12-26-2021 ALP [Catalytic activity/Vol] 60 U/L 45-117 [facility] Work Phone: ALT [Catalytic activity/Vol] 29 U/L 13-56 [facility] Work Phone: CO2 [Moles/Vol] 30.0 mmol/L 21.0-32.0 [facility] Work Phone: Globulin (S) [Mass/Vol] 3.8 g/dL 2.2-4.2 [facility] Work Phone: Urea nitrogen/Creatinine [Mass ratio] 17.8 mg/mg 10-20 [facility] Work Phone: Laboratory - Hematology and Cell countson 12-26-2021 Erythrocyte distribution width (RBC) [Entitic vol] 43.7 fL 35.1-43.9 [facility] Work Phone: Erythrocyte distribution width (RBC) [Ratio] 11.9 % 11.6-14.6 [facility] Work Phone: Immature granulocytes/100 WBC (Bld) 0.500 % 0.0-0.9 [facility] Work Phone: Comment on above: IG% - Immature Granu locytes (promyelocytes, myelocytes and metamyelocytes) > 1% indicates that a LEFT SHIFT is Present. MCH (RBC) [Entitic mass] 33.7 pg 27.0-32.0 [facility] Work Phone: Nucleated RBC/100 WBC (Bld) [Ratio] 0 % 0-5 [facility] Work Phone: MCHC Auto (RBC) [Mass/Vol]on 12-26-2021 MCHC (RBC) [Mass/Vol] 33.7 g/dL 32-36 [facility] Work Phone: No Panel Informationon 12-26 Estimated GFR (MDRD) Amer 74 mL/min >60 [facility] Work Phone: Comment on above: GFR Calc Estimated GFR (MDRD) Non-Af Amer 61 mL/min >60 [facility] Work Phone: Comment on above: Non- GFR Calc Platelets bldon 12-26-2021 Platelets (Bld) [#/Vol] 319 10*3/uL 150-450 [facility] Work Phone: Serum or plasma C reactive p rotein measurement (mass/volume)on 12-26-2021 CRP [Mass/Vol] mg/L 0.0-3.0 [facility] Work Phone: Comment on above: C-Reactive Protein ( CRP) provides useful information for thediagnosis, therapy and monitoring of inflammatory processesand associated diseases. For the evaluation of Relative Riskfor Cardiovascular Disease, a High Sensitivity CRP (HSCRP)should be ordered. Serum or plasma albumin lorrie urement (mass/volume)on 12-26-2021 Albumin [Mass/Vol] 3.8 g/dL 3.2-5.0 [facility] Work Phone: Serum or plasma albumin/glob ulin mass ratioon 12-26-2021 Albumin/Globulin [Mass ratio] 1.0 {ratio} 0.9-2.4 [facility] Work Phone: Serum or plasma calcium lorrie urement (mass/volume)on 12-26-2021 Calcium [Mass/Vol] 9.4 mg/dL 8.5-10.1 [facility] Work Phone: Serum or plasma creatinine m easurement (mass/volume)on 12-26-2021 Creatinine [Mass/Vol] 1.01 mg/dL 0.55-1.02 [facility] Work Phone: Comment on above: The validity of the calculated GFR & GFRAA in patients over 70 years has not been determined. Clinical correlation is essential. Serum or plasma urea nitroge n measurement (mass/volume)on 12-26-2021 Urea nitrogen [Mass/Vol] 18 mg/dL 7-18 [facility] Work Phone: Thin prep Papanicolaou smear with manual screeningon 12-26-2021 Thin prep Papanicolaou smear with manual screening 15 U/L 15-37 [facility] Work Phone: Thin prep Papanicolaou smear with manual screening 5 5-15 [facility] Work Phone: Absolute lymphocyte counton 08-30-2021 Lymphocytes Auto (Unsp spec) [#/Vol] 1.19 10*3/uL 0.83-4.51 [facility] Work Phone: Basophil percentageon 2021 Basophils/100 WBC (Bld) 0.6 % 0-1 [facility] Work Phone: Bilirubin [Mass/Vol] 0.50 mg/dL 0.20-1.00 [facility] Work Phone: Comment on above: For patients on eltr ombopag therapy, use of Dimension [place] TBIL is not recommended. Chloride [Moles/Vol] 105 mmol/L 98-107 [facility] Work Phone: Eosinophils/100 WBC (Bld) 1.9 % 0-5 [facility] Work Phone: Glucose [Mass/Vol] 86 mg/dL 74-106 [facility] Work Phone: Neutrophils (Bld) [#/Vol] 3.0 10*3/uL 2.0-7.7 [facility] Work Phone: Neutrophils/100 WBC (Bld) 63.6 % 47-70 [facility] Work Phone: Potassium [Moles/Vol] 3.8 mmol/L 3.5-5.1 [facility] Work Phone: Protein [Mass/Vol] 7.3 g/dL 6.4-8.2 [facility] Work Phone: Sodium [Moles/Vol] 138 mmol/L 136-145 [facility] Work Phone: WBC (Bld) [#/Vol] 4.7 10*3/uL 4.4-11.0 [facility] Work Phone: Blood erythrocytes count (nu mber/volume)on 08-30-2021 RBC (Bld) [#/Vol] 4.11 10*6/uL 4.2-5.4 [facility] Work [facility]: Blood hemoglobin measurement (mass/volume)on 08-30-2021 Hemoglobin (Bld) [Mass/Vol] 13.6 g/dL 12.0-15.0 [facility] Work Phone: Blood lymphocytes/100 leukoc yteson 08-30-2021 Lymphocytes/100 WBC (Bld) 25.5 % 19-41 [facility] Work Phone: Blood monocytes/100 leukocyt eson 08-30-2021 Monocytes/100 WBC (Bld) 7.5 % 0-10 [facility] Work Phone: Blood platelet mean volumeon 08-30-2021 Platelet mean volume (Bld) [Entitic vol] 8.8 fL 6.2-12.0 [facility] Work Phone: Determination of erythrocyte mean corpuscular volume (MCV)on 08-30-2021 MCV (RBC) [Entitic vol] 100.2 fL 81-99 [facility] Work Phone: Erythrocyte sedimentation ra leonardo 08-30-2021 ESR (Bld) [Velocity] 7 mm/h 0-[address] [facility] Work Phone: Hematocrit Auto (Bld) [Volum e fraction]on 08-30-2021 Hematocrit (Bld) [Volume fraction] 41.2 % 37-47 [facility] Work Phone: Laboratory - Chemistry and C hemistry - challengeon 08-30-2021 ALP [Catalytic activity/Vol] 58 U/L 45-117 [facility] Work Phone: ALT [Catalytic activity/Vol] 37 U/L 13-56 [facility] Work Phone: CO2 [Moles/Vol] 28.0 mmol/L 21.0-32.0 [facility] Work Phone: Globulin (S) [Mass/Vol] 3.8 g/dL 2.2-4.2 [facility] Work Phone: Urea nitrogen/Creatinine [Mass ratio] 11.9 mg/mg 10-20 [facility] Work Phone: Laboratory - Hematology and Cell countson 08-30-2021 Erythrocyte distribution width (RBC) [Entitic vol] 48.9 fL 35.1-43.9 [facility] Work Phone: Erythrocyte distribution width (RBC) [Ratio] 13.2 % 11.6-14.6 [facility] Work Phone: Immature granulocytes/100 WBC (Bld) 0.900 % 0.0-0.9 [facility] Work Phone: Comment on above: IG% - Immature Granu locytes (promyelocytes, myelocytes and metamyelocytes) > 1% indicates that a LEFT SHIFT is Present. MCH (RBC) [Entitic mass] 33.1 pg 27.0-32.0 [facility] Work Phone: Nucleated RBC/100 WBC (Bld) [Ratio] 0 % 0-5 [facility] Work Phone: MCHC Auto (RBC) [Mass/Vol]on 08-30-2021 MCHC (RBC) [Mass/Vol] 33.0 g/dL 32-36 [facility] Work Phone: No Panel Informationon 08-30 Estimated GFR (MDRD) Amer 91 mL/min >60 [facility] Work Phone: Comment on above: GFR Calc Estimated GFR (MDRD) Non-Af Amer 75 mL/min >60 [facility] Work Phone: Comment on above: Non- GFR Calc Immunoglobulin E 5 IU/mL 6-495 [facility] Work Phone: Comment on above: Performed at: [facility] [address] [id number] Director: Al Beavers PhD, Phone: [phone] at: [employer] [address] [id number] Director: Navin Sanchez MD, Phone: [phone] Platelets bldon 08-30-2021 Platelets (Bld) [#/Vol] 316 10*3/uL 150-450 [facility] Work Phone: Serum mitochondria antibody detectionon 08-30-2021 Mitochondria Ab Ql (S) <20.0 Units 0.0-20.0 [facility] Work Phone: Comment on above: Negative 0.0 - 20.0 Equivocal 20.1 - 24.9 Positive >24.9Mitochondrial (M2) Antibodies are found in 90-96% ofpatients with primary biliary cirrhosis.Performed at: [employer] [address] [id number] Director: Al Beavers PhD, Phone: [phone] Serum or plasma C reactive p rotein measurement (mass/volume)on 08-30-2021 CRP [Mass/Vol] mg/L 0.0-3.0 [facility] Work Phone: Comment on above: C-Reactive Protein ( CRP) provides useful information for thediagnosis, therapy and monitoring of inflammatory processesand associated diseases. For the evaluation of Relative Riskfor Cardiovascular Disease, a High Sensitivity CRP (HSCRP)should be ordered. Serum or plasma IgA measurem ent (mass/volume)on 08-30-2021 IgA [Mass/Vol] 146 mg/dL 87-352 [facility] Work Phone: Serum or plasma IgG measurem ent (mass/volume)on 08-30-2021 IgG [Mass/Vol] 1092 mg/dL 586-1602 [facility] Work Phone: Serum or plasma IgM measurem ent (mass/volume)on 08-30-2021 IgM [Mass/Vol] 212 mg/dL 26-217 [facility] Work Phone: Serum or plasma albumin lorrie urement (mass/volume)on 08-30-2021 Albumin [Mass/Vol] 3.5 g/dL 3.2-5.0 [facility] Work Phone: Serum or plasma albumin/glob ulin mass ratioon 08-30-2021 Albumin/Globulin [Mass ratio] 0.9 {ratio} 0.9-2.4 [facility] Work Phone: Serum or plasma calcium lorrie urement (mass/volume)on 08-30-2021 Calcium [Mass/Vol] 8.6 mg/dL 8.5-10.1 [facility] Work Phone: Serum or plasma creatinine m easurement (mass/volume)on 08-30-2021 Creatinine [Mass/Vol] 0.84 mg/dL 0.55-1.02 [facility] Work Phone: Comment on above: The validity of the calculated GFR & GFRAA in patients over 70 years has not been determined. Clinical correlation is essential. Serum or plasma urea nitroge n measurement (mass/volume)on 08-30-2021 Urea nitrogen [Mass/Vol] 10 mg/dL 7-18 [facility] Work Phone: Thin prep Papanicolaou smear with manual screeningon 08-30-2021 Thin prep Papanicolaou smear with manual screening 22 U/L 15-37 [facility] Work Phone: Thin prep Papanicolaou smear with manual screening 5 5-15 [facility] Work Phone: Final Surgical Pathology Rep selene 10-21-2018 Final Surgical Pathology Report . Pathology Reports Accession: Collected Date/Time: Received Date/Time: Pathologist: [id number] 10/17/2018 14:14 EDT 10/20/2018 14:14 EDT DO LEONARDO DIAZ Final Surgical Pathology Report DIAGNOSIS: A) TUBULAR ADENOMA, CECUM. B) RIGHT COLON BIOPSIES- NONSPECIFIC CHANGES. Negative for active colitis or lymphocytic/collagenous colitis. C) LEFT COLON BIOPSIES- NONSPECIFIC CHANGES. Negative for active colitis or lymphocytic/ collagenous colitis. CLINICAL INFORMATION: ULCERATIVE COLITIS SPECIMEN: A POLYP, COLORECT- CECUM- R/O ADENOMA B COLON, BX- RIGHT COLON- R/O ACTIVE UC C COLON, BX- LEFT COLON- R/O ACTIVE UC GROSS DESCRIPTION: A. Received in formalin labeled cecal polyp with biopsies is a 0.3 cm garcia glistening soft tissue. TS -1 B. Received in formalin labeled right colon biopsies are several garcia glistening soft tissues ranging from 0.2 to 0.3 cm. TS -1 C. Received in formalin labeled left colon biopsies are several garcia glistening soft tissues ranging from 0.2 to 0.7 cm. TS -1 Dictated by Denita MENDEZ ([facility]) MICROSCOPIC DESCRIPTION: A-C Slides reviewed. Electronically Signed by Pathology Report verified by [facility] Electronically signed by LEONARDO DIAZ DO Sign out Date: 10/21/2018 12:15 Performing Lab: [facility], [address] [place] [address] ([place]) Comment on above: Performed By: #### S PFR #### [place] [address] Office Visit: UC: sinusitiso n 05-30-2017 Documentation of current medications (procedure) Done Invalid Interpretation Code [facility] Work Phone: Fall risk assessment No Invalid Interpretation Code [facility] Work Phone: Tobacco smoking status NHIS Never Invalid Interpretation Code [facility] Work Phone: Tobacco use CPHS Never smoker Invalid Interpretation Code [facility] Work Phone: Vital Signs Date Time Vital Sign Value Performing Clinician Faci lity 05-18-2023 11:42-0400 Body height 172.[address] Arsalan Pedro Work Phone: [facility] 05-18-2023 11:42-0400 Body mass index (BMI) [Ratio] 30.4 kg/m2 Dr. Arsalan Pedro Work Phone: [facility] 05-18-2023 11:42-0400 Body weight 90.[address] Arsalan Pedro Work Phone: [facility] 05-18-2023 11:42-0400 Diastolic blood pressure 87 mm[Hg] Dr. Arsalan Pedro Work Phone: [facility] 05-18-2023 11:42-0400 Heart rate 88 /min Dr. Arsalan Pedro Work Phone: [facility] 05-18-2023 11:42-0400 Respiratory rate 16 /min Dr. Arsalan Pedro Work Phone: [facility] 05-18-2023 11:42-0400 SaO2% (BldA) [Mass fraction] 98 % Dr. Arsalan Pedro Work Phone: [facility] 05-18-2023 11:42-0400 Systolic blood pressure 135 mm[Hg] Dr. Arsalan Pedro Work Phone: [facility] 11-08-2022 07:10-0400 Body temperature 96.9 [degF] Dr. Arsalan Pedro Work Phone: [facility] 11-08-2022 07:10-0400 Diastolic blood pressure 81 mm[Hg] Dr. Arsalan Pedro Work Phone: [facility] 11-08-2022 07:10-0400 Heart rate 71 /min Dr. Arsalan Pedro Work Phone: [facility] 11-08-2022 07:10-0400 Respiratory rate 16 /min Dr. Arsalan Pedro Work Phone: [facility] 11-08-2022 07:10-0400 SaO2% (BldA) [Mass fraction] 97 % Dr. Arsalan Pedro Work Phone: [facility] 11-08-2022 07:10-0400 Systolic blood pressure 105 mm[Hg] Dr. Arsalan Pedro Work Phone: 3(212)115-824564 [place] [address] 11-08-2022 06:02-0400 Body height 170.[address] Arsalan Pedro Work Phone: 9(306)146-196108 [address] 11-08-2022 06:02-0400 Body mass index (BMI) [Ratio] 29.9 kg/m2 Dr. Arsalan Pedro Work Phone: 0(392)068-493464 [place] [address] 11-08-2022 06:02-0400 Body weight 86.[address] Arsalan Pedro Work Phone: 3(566)[phone] [place] [address] 09-06-2022 15:24-0500 Body height 170.[address] Arsalan Pedro Work Phone: 9(920)966-980508 [address] 09-06-2022 15:24-0500 Body mass index (BMI) [Ratio] 30.4 kg/m2 Dr. Arsalan Pedro Work Phone: 3(271)948-446291 [place] [address] 09-06-2022 15:24-0500 Body weight 87.[address] Arsalan Pedro Work Phone: 9(349)473-979464 [place] [address] 09-06-2022 15:24-0500 Diastolic blood pressure 91 mm[Hg] Dr. Arsalan Pedro Work Phone: [facility] 09-06-2022 15:24-0500 Heart rate 98 /min Dr. Arsalan Pedro Work Phone: 4(237)353-856664 [place] [address] 09-06-2022 15:24-0500 SaO2% (BldA) [Mass fraction] 98 % Dr. Arsalan Pedro Work Phone: 1(176)310-672464 [place] [address] 09-06-2022 15:24-0500 Systolic blood pressure 136 mm[Hg] Dr. Arsalan Pedro Work Phone: 7(569)103-986108 [address] 06-11-2022 07:04-0500 Body temperature 98.6 [degF] Dr. Arsalan Pedro Work Phone: [facility] Work Phone: 06-11-2022 07:04-0500 Diastolic blood pressure 72 mm[Hg] Dr. Arsalan Pedro Work Phone: [facility] Work Phone: 06-11-2022 07:04-0500 Heart rate 82 /min Dr. Arsalan Pedro Work Phone: [facility] Work Phone: 06-11-2022 07:04-0500 Respiratory rate 14 /min Dr. Arsalan Pedro Work Phone: [facility] Work Phone: 06-11-2022 07:04-0500 SaO2% (BldA) [Mass fraction] 99 % Dr. Arsalan Pedro Work Phone: [facility] Work Phone: 06-11-2022 07:04-0500 Systolic blood pressure 122 mm[Hg] Dr. Arsalan Pedro Work Phone: [facility] Work Phone: 05-18-2022 12:47-0400 Body height 170.[address] Arsalan Pedro Work Phone: [facility] Work Phone: 05-18-2022 12:47-0400 Body mass index (BMI) [Ratio] 29 kg/m2 Dr. Arsalan Pedro Work Phone: [facility] Work Phone: 05-18-2022 12:47-0400 Body temperature 97.9 [degF] Dr. Arsalan Pedro Work Phone: [facility] Work Phone: 05-18-2022 12:47-0400 Body weight 83.[address] Arsalan Pedro Work Phone: [facility] Work Phone: 05-18-2022 12:47-0400 Diastolic blood pressure 87 mm[Hg] Dr. Arsalan Pedro Work Phone: [facility] Work Phone: 05-18-2022 12:47-0400 Heart rate 67 /min Dr. Arsalan Pedro Work Phone: [facility] Work Phone: 05-18-2022 12:47-0400 Respiratory rate 16 /min Dr. Arsalan Pedro Work Phone: [facility] Work Phone: 05-18-2022 12:47-0400 SaO2% (BldA) [Mass fraction] 97 % Dr. Arsalan Pedro Work Phone: [facility] Work Phone: 05-18-2022 12:47-0400 Systolic blood pressure 130 mm[Hg] Dr. Arsalan Pedro Work Phone: [facility] Work Phone: 04-23-2022 13:07-0400 Body mass index (BMI) [Ratio] 29.7 kg/m2 Dr. Arsalan Pedro Work Phone: [facility] Work Phone: 04-23-2022 13:07-0400 Body weight 86.[address] Arsalan Pedro Work Phone: [facility] Work Phone: 04-04-2022 13:49-0400 Body height 170.[address] Arsalan Pedro Work Phone: [facility] Work Phone: 04-04-2022 13:49-0400 Body mass index (BMI) [Ratio] 29.9 kg/m2 Dr. Arsalan Pedro Work Phone: [facility] Work Phone: 04-04-2022 13:49-0400 Body weight 86.[address] Arsalan Pedro Work Phone: [facility] Work Phone: 04-04-2022 13:49-0400 Diastolic blood pressure 88 mm[Hg] Dr. Arsalan Pedro Work Phone: [facility] Work Phone: 04-04-2022 13:49-0400 Heart rate 86 /min Dr. Arsalan Pedro Work Phone: [facility] Work Phone: 04-04-2022 13:49-0400 Respiratory rate 16 /min Dr. Arsalan Pedro Work Phone: [facility] Work Phone: 04-04-2022 13:49-0400 SaO2% (BldA) [Mass fraction] 99 % Dr. Arsalan Pedro Work Phone: [facility] Work Phone: 04-04-2022 13:49-0400 Systolic blood pressure 140 mm[Hg] Dr. Arsalan Pedro Work Phone: [facility] Work Phone: 03-27-2022 13:50-0400 Body temperature 98.2 [degF] Dr. Arsalan Pedro Work Phone: [facility] Work Phone: 03-27-2022 13:50-0400 Diastolic blood pressure 88 mm[Hg] Dr. Arsalan Pedro Work Phone: [facility] Work Phone: 03-27-2022 13:50-0400 Heart rate 80 /min Dr. Arsalan Pedro Work Phone: [facility] Work Phone: 03-27-2022 13:50-0400 Respiratory rate 16 /min Dr. Arsalan Pedro Work Phone: [facility] Work Phone: 03-27-2022 13:50-0400 SaO2% (BldA) [Mass fraction] 100 % Dr. Arsalan Pedro Work Phone: [facility] Work Phone: 03-27-2022 13:50-0400 Systolic blood pressure 133 mm[Hg] Dr. Arsalan Pedro Work Phone: [facility] Work Phone: 03-27-2022 12:20-0400 Body height 170.[address] Arsalan Pedro Work Phone: [facility] Work Phone: 03-27-2022 12:20-0400 Body mass index (BMI) [Ratio] 29.7 kg/m2 Dr. Arsalan Pedro Work Phone: [facility] Work Phone: 03-27-2022 12:20-0400 Body weight [address] Arsalan Pedro Work Phone: [facility] Work Phone: 09-10-2021 13:13-0500 Body height 170.[address] Arsalan Pedro Work Phone: [facility] Work Phone: 09-10-2021 13:13-0500 Body mass index (BMI) [Ratio] 29.1 kg/m2 Dr. Arsalan Pedro Work Phone: [facility] Work Phone: 09-10-2021 13:13-0500 Body temperature 97.3 [degF] Dr. Arsalan Pedro Work Phone: [facility] Work Phone: 09-10-2021 13:13-0500 Body weight 84.[address] Arsalan Pedro Work Phone: [facility] Work Phone: 09-10-2021 13:13-0500 Diastolic blood pressure 78 mm[Hg] Dr. Arsalan Pedro Work Phone: [facility] Work Phone: 09-10-2021 13:13-0500 Heart rate 82 /min Dr. Arsalan Pedro Work Phone: [facility] Work Phone: 09-10-2021 13:13-0500 Respiratory rate 15 /min Dr. Arsalan Pedro Work Phone: [facility] Work Phone: 09-10-2021 13:13-0500 SaO2% (BldA) [Mass fraction] 98 % Dr. Arsalan Pedro Work Phone: [facility] Work Phone: 09-10-2021 13:13-0500 Systolic blood pressure 121 mm[Hg] Dr. Arsalan Pedro Work Phone: [facility] Work Phone: 05-30-2017 08:41-0500 BMI (Body Mass Index) 28.03 kg/m2 Anthony MENDEZ [facility] Work Phone: 05-30-2017 08:41-0500 Body Temperature 98.6 [degF] Anthony MENDEZ [facility] Work Phone: 05-30-2017 08:41-0500 BP Diastolic 84 mm[Hg] Anthony MENDEZ [facility] Work Phone: 05-30-2017 08:41-0500 BP Systolic 126 mm[Hg] Anthony MENDEZ [facility] Work Phone: 05-30-2017 08:41-0500 Height 170.18 cm Anthony MENDEZ [facility] Work Phone: 05-30-2017 08:41-0500 Pulse (Heart Rate) 83 /min Anthony MENDEZ [facility] Work Phone: 05-30-2017 08:41-0500 Respiratory Rate 14 /min Anthony MENDEZ [facility] Work Phone: 05-30-2017 08:41-0500 Weight 81.19 kg Anthony MENDEZ [facility] Work Phone: Encounters Encounter Date Encounter Type Care Provider Facility Start: 12-03-2024 End: 12-03-2024 ambulatory Radha Murillo Facility:[facility] Start: 11-24-2024 End: 11-24-2024 ambulatory Arsalan Pedro Facility:[facility] Start: 11-04-2024 End: 11-04-2024 ambulatory Arsalan Pedro Facility:[facility] Start: 10-30-2024 End: 10-30-2024 ambulatory Radha Murillo Facility:[facility] Start: 09-18-2024 End: 09-18-2024 ambulatory Radha Murillo Facility:[facility] Start: 08-17-2024 End: 08-17-2024 ambulatory Radha Murillo Facility:[facility] Start: 08-05-2024 End: 08-05-2024 ambulatory Arsalan Pedro Facility:[facility] Start: 06-30-2024 End: 06-30-2024 ambulatory Jamee Reed NP Facility:[facility] Start: 04-30-2024 End: 04-30-2024 ambulatory [facility] Facility:[facility] Start: 03-17-2024 End: 03-17-2024 ambulatory Leigh Azeb Facility:[facility] Start: 03-13-2024 End: 03-13-2024 ambulatory Arsalan Pedro Facility:[facility] Start: 02-06-2024 End: 02-06-2024 ambulatory Arsalan Pedro Facility:[facility] Start: 01-08-2024 End: 01-08-2024 ambulatory Arsalan Pedro Facility:[facility] Start: 07-09-2023 End: 07-09-[address] Arsalan Pedro Work Phone: [facility] Work Phone: Start: 07-09-2023 End: 07-09-[address] Arsalan Pedro Work Phone: [facility]-Outpatient Bone Densitometry Work Phone: Start: 06-03-2023 End: 06-03-[address] Arsalan Pedro Work Phone: [facility] Work Phone: Start: 06-03-2023 End: 06-03-[address] Arsalan Pedro Work Phone: [facility]-Outpatient Breast Imaging Work Phone: Start: 05-20-2023 End: 05-20-[address] Arsalan Pedro Work Phone: [facility] Work Phone: Start: 05-20-2023 End: 05-20-[address] Arsalan Pedro Work Phone: [facility]-Laboratory, Specimen Work Phone: Start: 05-18-2023 End: 05-18-[address] Arsalan Pedro Work Phone: [facility] Work Phone: Start: 03-25-2023 End: 03-25-[address] Arsalan Pedro Work Phone: [facility]Laboratory, Specimen Work Phone: Start: 11-08-2022 Non-patient / Non-visit Dr. Arsalan Pedro Work Phone: [facility] Start: 11-08-2022 End: 11-08-2022 Admission to same day surgery center Dr. Arsalan Pedro Work Phone: [facility]-Endoscopy Start: 11-08-2022 End: 11-08-[address] Arsalan Pedro Work Phone: [facility] Work Phone: Start: 11-01-2022 End: 11-01-[address] Arsalan Pedro Work Phone: [facility] Work Phone: Start: 11-01-2022 End: 11-01-[address] Arsalan Pedro Work Phone: [facility]-Laboratory, [place] Start: 10-31-2022 End: 10-31-[address] Arsalan ePdro Work Phone: [facility] Work Phone: Start: 10-31-2022 End: 10-31-[address] Arsalan Pedro Work Phone: [facility] Start: 09-06-2022 End: 09-06-[address] Arsalan Pedro Work Phone: [facility] Start: 06-11-2022 End: 06-11-[address] Arsalan Pedro Work Phone: [facility] Start: 05-30-2022 End: 05-30-[address] Arsalan Pedro Work Phone: [facility] Work Phone: Start: 05-30-2022 End: 05-30-[address] Arsalan Pedro Work Phone: [facility]-Outpatient Breast Imaging Start: 05-18-2022 Non-patient / Non-visit Dr. Arsalan Pedro Work Phone: [facility] Start: 05-18-2022 End: 05-18-[address] Arsalan Pedro Work Phone: [facility] Work Phone: Start: 05-18-2022 End: 05-18-[address] Arsalan Pedro Work Phone: [facility] Start: 04-23-2022 End: 04-23-[address] Arsalan Pedro Work Phone: [facility] Start: 04-18-2022 Non-patient / Non-visit Dr. Arsalan Pedro Work Phone: [facility] Start: 04-18-2022 End: 04-18-[address] Arsalan Pedro Work Phone: [facility] Work Phone: Start: 04-18-2022 End: 04-18-[address] Arsalan Pedro Work Phone: [facility]-Cardiovascular Services Start: 04-04-2022 End: 04-04-[address] Arsalan Pedro Work Phone: [facility] Start: 03-27-2022 Non-patient / Non-visit Dr. Arsalan Pedro Work Phone: [facility] Start: 03-27-2022 End: 03-27-2022 Admission to same day surgery center Dr. Arsalan Pedro Work Phone: [facility]-Endoscopy Start: 03-27-2022 End: 03-27-[address] Arsalan Pedro Work Phone: [facility] Work Phone: Start: 12-27-2021 End: 12-27-[address] Arsalan Pedro Work Phone: [facility]-Laboratory, Specimen Start: 12-26-2021 End: 12-26-[address] Arsalan Pedro Work Phone: [facility] Start: 12-25-2021 End: 12-25-[address] Arsalan Pedro Work Phone: [facility] Start: 10-02-2021 End: 10-02-[address] Arsalan Pedro Work Phone: [facility] Start: 09-19-2021 End: 09-19-[address] Arsalan Pedro Work Phone: [facility]-Radiology, [place] Start: 09-10-2021 End: 09-10-2021 Emergency department patient visit Dr. Arsalan Pedro Work Phone: [facility]-Emergency Department Start: 08-30-2021 End: 08-30-[address] Arsalan Pedro Work Phone: [facility] Start: 04-23-2020 End: 04-23-2020 Patient encounter procedure Graeme Cooper Work Phone: [facility] Start: 04-23-2020 Results Only Graeme kim Work Phone: General Surgery Start: 10-17-2018 End: 10-22-2018 Patient encounter procedure AL KAYE Facility:A Procedures Date Procedure Procedure Detail Performing Clinician Start: 06-03-[address] Arsalan Pedro Work Phone: Start: 05-18-[address] Arsalan Pedro Work Phone: Start: 11-08-[address] Arsalan Pedro Work Phone: Start: 05-30-[address] Arsalan Pedro Work Phone: Start: 05-18-2022 CT angiography of coronary arteries Dr. Arsalan Pedro Work Phone: Start: 03-27-[address] Arsalan bolanos Work Phone: Start: 09-19-2021 X-ray of chest posteroanterior view Dr. Arsalan Pedro Work Phone: Start: 09-10-2021 Plain chest X-ray Dr. Arsalan Pedro Work Phone: Start: 08-30-[address] Arsalan Pedro Work Phone: Start: 04-23-2020 PT ED PATIENT INFORMATION Graeme kim Work Phone: Start: 12-10-2013 Mammography Graeme Cooper Lactoferrin measurement Dr. Arsalan Pedro Work Phone: Lactoferrin measurement Dr. Arsalan Pedro Work Phone: Plan of Treatment Date Care Activity Detail Author Start: 01-26-2025 ambulatory Ambulatory Facility:[facility] Start: 07-09-2023 Dual energy X-ray absorptiometry Dexa Bone Density Study [facility] Start: 07-09-2023 DXA Bone [Mass/Area] Bone density [facility] Start: 11-08-2022 Patient discharge [facility] Start: 03-27-2022 Egd transoral biopsy single/multiple EGD BIOPSY SINGLE/MULTIPLE [facility] Work Phone: Start: 03-27-2022 Patient discharge [facility] Work Phone: Start: 12-27-2021 Protein measurement [facility] Work Phone: Start: 03-15-2020 Influenza vaccination INFLUENZA (#1) [facility] Start: 02-25-2018 SHINGRIX VACCINE (1 of 2) SHINGRIX VACCINE (1 of 2) [facility] Start: 02-25-2018 Tuberculosis screening COLORECTAL CANCER SCREENING,SEE MODIFIER [facility] Start: 05-30-2017 End: 05-30-2017 Appointment Appointment [facility] Work Phone: Start: 10-29-2016 HPV TESTING HPV TESTING [facility] Start: 10-29-2016 PAP TESTING PAP TESTING [facility] Start: 08-15-2016 LIPID SCREEN LIPID SCREEN [facility] Start: 12-10-2014 Mammography MAMMOGRAM [facility] Start: 02-25-2013 DIABETES SCREEN DIABETES SCREEN [facility] Start: 08-15-2010 Urine microalbumin profile DTAP,TDAP,TD (2 - Tdap) [facility] Start: 02-25-1986 HEPATITIS C SCREENING HEPATITIS C SCREENING [facility] Start: 02-25-1986 HIV SCREENING HIV SCREENING [facility] C reactive protein [Mass/volume] in Serum or Plasma [facility] Work Phone: CBC W Auto Different ial panel - Blood [facility] Work Phone: Celiac disease screen [facility] Work Phone: CT angiography of co ronary arteries [facility] Work Phone: Erythrocyte sediment ation rate [facility] Work Phone: Lactoferrin [Presenc e] in Stool by Immunoassay [facility] Work Phone: Patient Education [facility] Work Phone: Patient referral [facility] Work Phone: Protein measurement [facility] Work Phone: Protein measurement [facility] PT ED PATIENT INFORMATION PT ED PATIENT INFORMATION Other 04/23/2020 [facility] Immunizations Immunization Date Immunization Notes Care Provider Fa [facility] 09-22-2016 influenza, injectabl e, quadrivalent, preservative free Dr. Arsalan Pedro Work Phone: [facility] 09-22-2016 influenza, seasonal, injectable Dr. Arsalan Pedro Work Phone: [facility] 05-26-2007 influenza virus vaccine, unspecified formulation [facility] 08-15-2000 diphtheria and tetan us toxoids, adsorbed for pediatric use [facility] Payers Date Payer Category Payer Unknown [id number] 2024 Self-pay [id number] 2024 Unknown [id number] 2023 Unknown [id number] 2019 Unknown [employer] E PPO [id number] 2019-Present PPO [id number] 2018 Unknown [id number] 1970 Unknown [id number] Unknown [id number] Unknown [employer] [id number] Unknown [id number] Unknown [id number] Unknown [id number] Unknown [id number] Unknown [id number] Unknown [id number] Unknown [id number] Unknown [id number] Unknown [id number] Unknown [id number] Unknown [id number] Unknown [id number] Unknown [id number] Unknown [id number] Social History Date Type Detail Facility Start: 02-05-2015 Tobacco smoking status RIIS Never smoker [facility] Start: 02-05-2015 Tobacco use and exposure Never used [facility] Start: 02-05-2015 Alcohol intake Current drinke r of alcohol (finding) [facility] Start: 01-05-2014 Alcohol Comment Occasionally Wine [facility] Sex Assigned At Not on file [facility] Exposure to SARS-CoV-2 (event) Unable to assess [facility] Start: 12-25-2021 End: 05-18-2023 Tobacco smoking status RIIS Unknown if ever smoked [facility] Start: 06-24-2013 Occasional [facility] Start: 06-24-2013 None [facility] Start: 06-24-2013 Spouse/ Signif icant Other [facility] Start: 09-22-2016 Non-smoker [facility] Start: 1970 Sex Assigned At Female [facility] NEGATED: Highlighted row [facility] Goals Date Patient Goal Desired Activity /State Mental Status Date Assessment Result Facility 11-08-2022 Cognitive function Voice/Name [facility] Work Phone: 05-18-2022 Cognitive function Voice/Name [facility] Work Phone: 03-27-2022 Cognitive function Level Of Consciousness Awake [facility] Work Phone: 03-27-2022 Cognitive function Voice/Name [facility] Work Phone: Procedure note 11-08-2022 Note Date & Type Note Facility 11-08-2022 Procedure note [facility] Procedure note 11-08-2022 Note Date & Type Note Facility 11-08-2022 Procedure note [facility] Evaluation note Note Date & Type Note Facility Evaluation note Diagnosis Onset Date Chronic ulcerative colitis c hronic Chronic ulcerative colitis c hronic Gastric ulcer [facility] Work Phone: Evaluation note Note Date & Type Note Facility Evaluation note Diagnosis Onset Date Chronic ulcerative colitis c hronic Gastric ulcer [facility] Work Phone: Evaluation note Note Date & Type Note Facility Evaluation note Diagnosis Onset Date Aortic valve disorder acute Chest pain acute [facility] Work Phone: Evaluation note Note Date & Type Note Facility Evaluation note Diagnosis Onset Date Aortic valve disorder acute Chest pain acute GERD (gastroesophageal reflux disease) acute Ulcerative colitis acute [facility] Work Phone: Evaluation note Note Date & Type Note Facility Evaluation note Diagnosis Onset Date Aortic valve disorder acute Chest pain acute GERD (gastroesophageal reflux disease) acute Ulcerative colitis acute Acute bronchitis, unspecified acute [facility] Work Phone: Evaluation note Note Date & Type Note Facility Evaluation note Diagnosis Onset Date Chronic ulcerative colitis c hronic [facility] Work Phone: Evaluation note Note Date & Type Note Facility Evaluation note Diagnosis Onset Date UTI (urinary tract infection) acute [facility] Work Phone: History and physical note Note Date & Type Note Facility History and physical note Note Date/Time November 08, 2022 6:32am [facility] Medical Records Department [address] [place] [address] History & Physical Exam 11/08/22 0632 MR#: [id number] Acct: [id number] Name: TANYA CASTILLO Rep #: [id number] : [id number] 52 From: Foreign Friend DO PCP: Dr. Arsalan Pedro MD Status:REG S DC Location: [place] [address] History and Physical Date of Admission: 11/08/22 52 F who presents to the office today for ulcerative colitis. She called on 08/16/22 because she was having a UC flair, diarrhea with bright red blood per rectum, was occurring several times per day. Much better on mesalamine suppository once a day. No longer having pelvic cramping. Notes red blood with first stool of the day. Now having some formed stools too. Stopped coffee, salads, fruits which aggravate the bowels. Would like to update colonoscopy. Ulcerative colitis -- diagnosed around 2016, was managed with azathioprine 150 mg daily. Tapered off azathioprine in Summer 2021, did well until 08/2022. She takes a daily probiotic. December 2021 labs: unremarkable CBC, CMP, ESR, CRP, stool calprotectin, fecal lactoferrin. No history of primary biliary cirrhosis, primary sclerosing cholangitis or pancreatitis. Last colonoscopy approx 2018. GERD -- small hiatal hernia, esophagitis on EGD, neg Gonsales's. Takes pantoprazole 20 mg QAM. MRCP performed 08.30.21 found 11mm liver cyst and subcentimeter cysts in hepatic segment. Exam otherwise without chronic or acute remark. ROS Const Constitutional: No fatigue ENT ENT: No difficulty swallowing Gastro GI: Positive for abdominal pain, change in bowel habits, diarrhea and Blood in stool; No belching, bloating, change in stool character, coffee ground emesis, constipation, cramping, heartburn, difficulty swallowing, feeling full early, excessive flatus, incontinent of stools, Vomiting blood/hematemesis, loose stools, Black,tarry stools, nausea/dyspepsia, pain with swallowing, vomiting or other Musc Musculoskeletal: No joint pain Skin Skin: No yellowing of the eye or itchy eyes Psych Psychiatric: No anxiety and No depression Endo Endocrine: No fatigue Aller/Imm Allergy/Immunologic: No itchy eyes Jacky/Lymp Hematologic/Lymphatic: No easy bleeding or easy bruising Exam Const General: cooperative, healthy appearing and comfortable Orientation: alert, awake and oriented x3 HENMT Head: normal to inspection Eyes Sclera: sclerae normal Resp Effort & Inspection: normal respiratory effort GI Inspection: normal to inspection Quality Reporting Tobacco Screening ([facility] 138) Smoking Status: Never smoker Assessment and Plan Assessment and Plan (1) Chronic ulcerative colitis: ?Status:?Chronic ?Plan: Continue mesalamine suppository Update blood and stool tests today Schedule colonoscopy f/u with Dr Ortiz 2 wks after colonoscopy ? ? ? Medications: Discontinued azithromycin ?? 2 tablets today, then 1 tablet daily on days 2 through 5 ?? Discontinued Reason:? Order Completed 250 mg? PO QDAY 6 tabs 0RF ? ? I have examined the patient and the H&P has been reviewed. There are no clinicalchanges since date of exam. 11/08/22 0632 <Electronically signed by Foreign Ortiz DO> Cosigner Signature (if applicable): CC: Dr. Arsalan Pedro MD; Foreign Ortiz DO~ Signed [facility] Work Phone: Summary Purpose Family History No Family History Records Found Relationship Condition Age at Onset Recorded Date/T jc Unknown Family History?- Unknown July 042017 8:33am Family History?- Unknown July 042017 8:33am Family History?- Unknown July 102017 1:46pm Relationship Condition Age at Onset Recorded Date/T jc Not Specified Cardiac disease Unknown mother Nonrheumatic aortic valve stenosis 55 Advance Directives No Advanced Directives Records Found Advance Directive Response Recorded Date/ Time Name of Medical Power of Meat Cooler stephon miranda elaine September 10, 2021 2:43pm Advance Directives No June 1:46pm Living Will Yes September 10 022 2:43pm Power of Meat Cooler Yes September 10, 2021 2:43pm Advance Directive Response Recorded Date/ Time Name of Medical Power of Meat Cooler HUSAM kimble March 22, 2022 2:54pm Advance Directives No June 1:46pm Living Will Yes March 22 022 2:54pm Power of Meat Cooler Yes March 22, 2022 2:54pm Advance Directive Response Recorded Date/ Time Name of Medical Power of Meat Cooler HUSAM kimble March 22, 2022 1:54pm Advance Directives No June 12:46pm Living Will Yes March 22 1:54pm Power of Meat Cooler Yes March 22, 2022 1:54pm Advance Directive Response Recorded Date/ Time Advance Directives No June 1:46pm Living Will Yes November 05, 2022 10:28am Power of Meat Cooler Yes November 05 10:28am Advance Directive Response Recorded Date/ Time Name of Medical Power of Meat Cooler BARRY HENNESSYRomán Chetna November 05, 2022 10:28am Advance Directives No June 1:46pm Living Will Yes November 05, 2022 10:28am Power of Meat Cooler Yes November 05 10:28am Advance Directive Response Recorded Date/ Time Advance Directives No June 12:46pm Living Will Yes November 05, 2022 9:28am Power of Meat Cooler Yes November 05 9:28am Chief Complaint and Reason for Visit Chief Complaint ULCERATIVE COLITIS & ELEVATED LFT'S back FALL 6wk f/u Ulcerative Colitis 2 WK FU E ORDER E ORDER Reason for Visit Chronic ulcerative c olitis Chronic ulcerative colitis Gastric ulcer Chief Complaint 2 WK FU E ORDER E ORDER Reason for Visit Chronic ulcerative c olitis Gastric ulcer Chief Complaint 2 WK FU E ORDER E ORDER fam hx of aortic replacement/ hereditary MURMUR Reason for Visit Aortic valve disorde r Chest pain Chief Complaint fam hx of aortic rep lacement/ hereditary MURMUR 3 M FU CHEST PAIN CHEST PAIN Reason for Visit Aortic valve disorde r Chest pain GERD (gastroesophageal reflux disease) Ulcerative colitis Chief Complaint fam hx of aortic rep lacement/ hereditary MURMUR 3 M FU CHEST PAIN CHEST PAIN SCREENING COUGH/WHEEZING Reason for Visit Aortic valve disorde r Chest pain GERD (gastroesophageal reflux disease) Ulcerative colitis Acute bronchitis, unspecified Chief Complaint FU EORDER EORDER- STOOL DROPOFF Reason for Visit Chronic ulcerative c olitis Chief Complaint CONCERN FOR BLADDER INFECTION Reason for Visit UTI (urinary tract i nfection) Chief Complaint CONCERN FOR BLADDER INFECTION SCREENING Reason for Visit UTI (urinary tract i nfection) Chief Complaint CONCERN FOR BLADDER INFECTION SCREENING SCREENING OSTEO Reason for Visit UTI (urinary tract i nfection) Additional Source Comments INFORMATION SOURCE (unrecogn ized section and content) DATE CREATED AUTHOR 10/27/2018 [facility] ([place]) DATE CREATED AUTHOR AUTHOR'S ORGANIZ ATION 12/25/2024 [facility] Source Comments (unrecognize d section and content) In the event this informatio n is protected by the Federal Confidentiality of Alcohol and Drug Abuse Patient Records regulations: The Federal rules restrict any use of the information to criminally investigate or prosecute any alcohol or drug abuse patient.[facility] Goals (unrecognized section and content) Goals may be documented in a n alternate sectionGoals may be documented in an alternate sectionGoals may be documented in an alternate sectionGoals may be documented in an alternate sectionGoals may be documented in an alternate sectionGoals may be documented in an alternate section Care Teams (unrecognized sec tion and content) Team Status: Active Member Role Status Dates Dr. Arsalan Pedro MD Family Provider Active Dr. Arsalan Pedro MD Primary Care Provider Active Team Status: Inactive Member Role Status Dates Dr. Arsalan Pedro MD Primary Care Provider, Referring Provider Active Franchesca Garcia NP, RESEARCH SOIL SCIENTIST-C Attending Provider Active Team Status: Inactive Member Role Status Dates Dr. Arsalan Pedro MD Primary Care Provider Active Dr. Trell Vargas MD Attending Provider, Referring Pro vider Active Team Status: Active Member Role Status Dates Dr. Arsalan Pedro MD Primary Care Provider Active Franchesca M Jose RESEARCH SOIL SCIENTIST, RESEARCH SOIL SCIENTIST-C Attending Provider, Referrin g Provider Active Team Status: Inactive Member Role Status Dates Dr. Arsalan Pedro MD Primary Care Provider Active Franchesca Garcia RESEARCH SOIL SCIENTIST, RESEARCH SOIL SCIENTIST-C Attending Provider, Referrin g Provider Active Team Status: Active Member Role Status Dates Dr. Arsalan Pedro MD Primary Care Provider, Referring Provider Active Dr. Foreign Ortiz DO Attending Provider, Other Prov ider Active Team Status: Inactive Member Role Status Dates Dr. Arsalan Pedro MD Primary Care Provider, Referring Provider Active Dr. Foreign Ortiz DO Attending Provider Active Team Status: Inactive Member Role Status Dates Dr. Arsalan Pedro MD Primary Care Provider, Referring Provider Active Lori MENDEZ, PA Attending Provider Active Team Status: Inactive Member Role Status Dates Dr. Arsalan Pedro MD Primary Care Provider Active Renetta Vasquez NP, RESEARCH SOIL SCIENTIST-C Attending Provider, Referri ng Provider Active Team Status: Inactive Member Role Status Dates Dr. Arsalan Pedro MD Primary Care Provider Active Lori MENDEZ, PA Attending Provider Active Team Status: Inactive Member Role Status Dates Dr. Arsalan Pedro MD Primary Care Provider Active Laurel Martinez NP-C Attending Provider, Referring Pr ovider Active FOR RECORDS PERTAINING TO PATIENTS WHO ARE OR HAVE BEEN ENROLLED IN A CHEMICAL DEPENDENCY/SUBSTANCEABUSE PROGRAM, SOME INFORMATION MAY BE OMITTED. This clinical summary was aggregated from multiple sources. Caution should be exercised in using it in the provision of clinical care. This summary normalizes information from multiple sources, and as a consequence, information in this document may materially change the coding, format and clinical context of patient data. In addition, data may be omitted in some cases. CLINICAL DECISIONS SHOULD BE BASED ON THE PRIMARY CLINICAL RECORDS. [employer] provides no warranty or guarantee of the accuracy or completeness of information in this document.
[2024-12-31 11:56] LABS: Absolute Lymphocyte Count 2.58 X10^3/uL (0.83-4.51); Absolute Neutrophil Count 3.8 X10^3/uL (2.0-7.7); Basophil# 0.03 X10^3/uL; Basophil% 0.4 % (0-1); Eosinophil# 0.07 X10^3/uL; Hematocrit 39.2 % (37-47); Hemoglobin 13.4 g/dL (12.0-15.0); Lymphocyte # 2.58 X10^3/ul (0.83-4.51); Mean Corp Hgb Conc 34.2 g/dL (32-36); Mean Corpuscular Hgb 31.5 pg (27.0-32.0); Mean Corpuscular Volume 92.2 fL (81-99); Mean Platelet Vol. 8.7 fl (6.2-12.0); Monocyte# 0.45 X10^3/uL; Monocyte% 6.4 % (0-10); NRBC Flagged by Analyzer 0 % (0-5); Neutrophil # 3.82 X10^3/uL (2.7-7.7); Neutrophil % 54.8 % (47-70); Platelet Count 316 K/mm3 (150-450); RBC Distribution Width CV 12.4 % (11.6-14.6); Red Blood Count 4.25 M/mm3 (4.2-5.4)
[2024-12-31 12:37] LABS: ALB/GLOB Ratio 1.4 RATIO (0.9-2.4); AST(SGOT) 18 U/L (<=31); Alanine Aminotransfer ALT/SGPT 15 U/L (<=34); Albumin, Serum 4.2 g/dL (3.5-5.0); Alkaline Phosphatase 63 U/L (35-104); Anion Gap 11 (5-15); BUN 12 mg/dL (4-19); BUN/Creat Ratio 15.8 RATIO (10-20); Calcium,Total 9.3 mg/dL (7.6-11.0); Carbon Dioxide 24.2 mmol/L (21.0-32.0); Chloride 103 mmol/L (98-108); Creatinine, Serum 0.78 mg/dL (0.70-1.20); EST Glomerular Filtration Rate 89 (>60); Glucose 88 mg/dL (70-99); Potassium 3.9 mmol/L (3.3-5.1); Protein, Total 7.2 g/dL (5.9-8.4); Sodium Level 137 mmol/L (133-145); Total Bilirubin 0.35 mg/dL (0.00-1.30); Vitamin D,25 Hydroxy 61.6 ng/mL (30-100)
[2024-12-31 12:41] LABS: CRP < 3.00 mg/L (0.0-3.0)
== END | disposition home or self-care (01) ==
PROVIDERS: PCP Family Medicine; Referring Provider Nurse Practitioner Acute Care; Visit Provider Nurse Practitioner Acute Care
DX: K51.90 Ulcerative colitis, unspecified, without complications (principal)
CPT/HCPCS: 36415; 80053; 82306; 85025; 86140

== ENCOUNTER → 2025-01-22 | Outpatient (CLI) | payer BC, SELFPAY ==
[2025-01-26 09:09] LABS: Calprotectin, Stool 825 ug/g (0-120)
== END | disposition home or self-care (01) ==
LOC: MTLAB 08:53
PROVIDERS: PCP Family Medicine; Referring Provider Nurse Practitioner Acute Care; Visit Provider Nurse Practitioner Acute Care
DX: K51.90 Ulcerative colitis, unspecified, without complications (principal)
CPT/HCPCS: 83993

== ENCOUNTER 2025-01-26 05:27 | Day surgery (SDC) | payer BC, SELFPAY ==
--- NOTE | 2025-01-21 19:34 | PAT.ANESEVAL ---
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 When Was Last Pacemaker Check QUESTION #4 FULL TEXT: You/Your Family Experience fever (hyperthermia) with Anesthesia Last Oral Intake Last Oral intake: Last Oral Intake NPO since Meds taken in AM with sips of water? Meds patient instructed to take am of surgery PONV PONV - technology teacher: PONV - technology teacher Female Yes 01/21/25 12:31 HX of Motion Sickness No 01/21/25 12:31 HX of N/V After Surgery No 01/21/25 12:31 Non-Smoker Yes 01/21/25 12:31 Duration of Surgery greater No 01/21/25 12:31 than 60 minutes Number of Risk Factors 2 01/21/25 12:31 PONV Score Moderate Risk 01/21/25 12:31 Height & Weight Height & Weight: Anesthesia: Height & Weight Height 5 ft 7 in 11/24/24 08:57 Respiratory Assessment Respiratory Assessment - technology teacher: Respiratory Tract Infection Hx - technology teacher Hx Respiratory Tract Infection No 01/21/25 12:31 STOP Sleep Apnea STOP Sleep Apnea - technology teacher: STOP Sleep Apnea - technology teacher Hx Hypertension No 01/21/25 12:31 Hx Sleep Apnea No 01/21/25 12:31 CPAP No 11/08/22 06:55 BIPAP No 11/05/22 10:28 Do you snore loudly (louder No 01/21/25 12:31 than talking or can be heard Do you often feel tired/ No 01/21/25 12:31 fatigued/ sleepy during daytime? Has anyone observed you stop No 01/21/25 12:31 breathing during sleep? STOP Results Negative 01/21/25 12:31 QUESTION #5 FULL TEXT : Do you snore loudly (louder than talking or can be heard through closed doors)? Tobacco Use History Tobacco Use History - technology teacher: Tobacco Use History - technology teacher Tobacco Use Smoking Status Never smoker 01/21/25 12:31 Hx Tobacco Use No 01/21/25 12:31 Years Smoking Packs Smoked per Day Smoking Cessation Date was within the last 15 years Hx Smoking Cessation Date Hx Smoking Cessation No 01/21/25 12:31 Counseling Hematologic Medial History Hematologic Hx - technology teacher: Hematologic Medical Hx - wastewater supervisor Hx of Blood Transfusion No 01/21/25 12:31 Hx of Transfusion in last 3 No 01/21/25 12:31 Months Date of Last Transfusion (if within last 3 months) Ever experience any problems No 01/21/25 12:31 with transfusion(s)? Specify any problems Hx of Preganancy in last 3 No 01/21/25 12:31 Months Nurse Filling Out Transfusion [email or web address] 01/21/25 12:31 & Questions: Date: 01/21/25 01/21/25 12:31 Time: 12:32 01/21/25 12:31 Patient unable to answer at this time (ie. confused, unrespo /Reproduction History /Reproductive History - technology teacher: /Reproductive Hx- technology teacher Hx Now Gestational Age (in weeks): EDC: Hx Hx Para Hx Section SAB No 11/05/22 10:28 PFSH Medical History (Updated 01/21/25 @ 12:35 by Deyvi Simms) Gastric reflux Post-menopausal Cardiology follow-up encounter History of echocardiogram History of stress test Acute bronchitis, unspecified Rapid palpitations Family history of valvular heart disease Wears contact lenses Anxiety Alcohol use History of kidney stones History of GI bleed Non-smoker Pelvic pain Abnormal uterine bleeding Colitis History of anxiety Flank pain Gastric ulcer Chronic ulcerative colitis Home Medications Medication Instructions Recorded Last Taken Type multivitamin 1 tab PO DAILY 11/05/22 Unknown History propranolol 10 mg tablet 10 mg PO TID PRN anxiety #90 tabs 05/06/24 Unknown Rx bupropion HCl 300 mg 24 hr tablet, 300 mg PO QAM #90 tabs 07/01/24 Unknown Rx extended release pantoprazole 20 mg tablet,delayed 20 mg PO QAM #90 tabs 07/28/24 Unknown Rx release buspirone 15 mg tablet 15 mg PO BID #180 tabs 01/22/25 Unknown Rx vilazodone 20 mg tablet 20 mg PO DAILY #90 tabs 08/05/24 Unknown Rx Lactobac no.2-Bifidobac no.1-S. 1 cap PO BID #180 caps 10/07/24 Unknown Rx thermo 112.5 billion cell capsule (VSL#3) trazodone 50 mg tablet 50 mg PO QHS PRN insomnia #30 tabs 11/04/24 Unknown Rx ondansetron 4 mg disintegrating 4 mg PO .COMPLEX #5 tabs 11/24/24 Unknown Rx tablet sodium sul 1.479 gram-potas ch See Rx Instructions PO PER PKG DIR 11/24/24 Unknown Rx 0.188 gram-magnes sul 0.225 gram #24 tabs tablet (Sutab) Allergy/AdvReac Type Severity Reaction Status Date / Time NSAIDS (Non-Steroidal Allergy Other Verified 01/21/25 12:28 Anti-Inflamma Family History Mother Nonrheumatic aortic (valve) stenosis, Onset Age: 55 AVR Other Heart disease Surgical History History of esophagogastroduodenoscopy (EGD) History of bunionectomy History of D&C uterine ablation delivery delivered History of tonsillectomy Social History Smoking Status: Never smoker alcohol intake: current alcohol intake frequency: holidays/special occasions only Alcohol type: wine substance use type: does not use caffeine: Yes what type of physical activity do you participate in: walking seatbelt use: always do you feel safe at home: Yes additional social history: [email or web address] Patient works at [employer] Audit: Pertinent Findings Pertinent Findings EKG Perinent findings: 04/04/2022. Sinus rhythm within normal limits. Stress test pertinent findings: 04/18/2022. EF is 57% at rest. Peak ejection fraction of 70% with exercise. No wall motion abnormalities noted. No EKG criteria for ischemia. Patient reached a workload of 13.4 METS. Echo (EF%) pertinent findings: 04/18/2022 EF of 55%. No aortic stenosis noted. Structurally normal valves. Consult pertinent findings: 04/04/2022. Dr. Vargas. 1. Rule out aortic valve [id number] clear-cut murmur. Will check echo. (See above). 2. Chest pain–acute-atypical. Check a stress echo. (See above) Recommendation Anesthesia Recommendation Anesthesia recommendation: OPTIMIZED for anesthesia
[2025-01-26] VITALS (8 sets, daily range): BP systolic 92–105; BP diastolic 62–78; PULSE 70–80; RESP 16; TEMP 36.1–36.3; O2SAT 96–100; BMI 26.3
--- OUTSIDE RECORDS SUMMARY | 2025-01-26 05:32 | XMS RPT_ITS | CCD ---
Author Organization [facility] CliniSyid Care Team Providers Care Manager Change Name Role Phone Anthony Marcelo Unavailable AL KAYE Attending Unavailable Arsalan Pedro Primary Care Provider Dr. Arsalan Pedro Primary Care Provider Dr. Araslan Pedro Referring Provider Dr. Foreign Ortiz Attending [...] Vargas Attending Provider [phone] Jose FOX, SUPERVISOR LINE DEPARTMENTTasha Mendoza Attending Provider Dr. Trell Vargas Referring Provider [phone] Trell Vargas Other Provider VANESSA Marcelo Attending Provider Willis, Dr. Arriaza Primary Care Provider Willis, Dr. Arriaza Referring Provider [phone] Jose FOX, TAY Mendoza Attending Provider Friend, Dr. Carrasquillo Attending Provider Friend, Dr. Carrasquillo Other Provider Willis, Dr. Arriaza Primary Care Provider Willis, Dr. Arriaza Referring Provider [phone] Freddie MENDEZ, PA Lori Mendoza Attending Provider Radha Ward Attending Unavailable Ed, Radha Referring Unavailable Pedro, Arsalan Primary Care Unavailable Ed, Radha Attending Unavailable Ed, Radha Referring Unavailable Pedro, Arsalan Primary Care Unavailable Christina SUPERVISOR LINE DEPARTMENT, Renetta Basilio Attending Unavailabl e Christina SUPERVISOR LINE DEPARTMENT, Renetta K Referring Unavailabl e Pedro, Arsalan Primary Care Unavailable Leigh Bowie Attending Unavailable Pedro, Arsalan Primary Care Unavailable EdRadha Attending Unavailable Pedro, Arsalan Referring Unavailable Pedro, Arsalan Primary Care Unavailable SkruckRadha Attending Unavailable Pedro, Arsalan Primary Care Unavailable SkruckRadha Attending Unavailable Pedro, Arsalan Primary Care Unavailable Foreign Ortiz Attending Unavailable Pedro, Arsalan Primary Care Unavailable Pedro, Arsalan Referring Unavailable Brianna SUPERVISOR LINE DEPARTMENT, Jamee Attending Unavailable Brianna SUPERVISOR LINE DEPARTMENT, Jamee Referring Unavailable Pedro, Arsalan Primary Care Unavailable Azeb Leigh Attending Unavailable Pedro, Arsalan Primary Care Unavailable SkruckRadha Attending Unavailable Pedro, Arsalan Primary Care Unavailable SkruckRadha Attending Unavailable Pedro, Arsalan Primary Care Unavailable SkruckRadha Attending Unavailable Pedro, Arsalan Primary Care Unavailable Azeb, Leigh Attending Unavailable Pedro, Arsalan Primary Care Unavailable Bowie, Leigh Attending Unavailable Pedro, Arsalan Primary Care Unavailable Bowie, Leigh Attending Unavailable Pedro, Arsalan Primary Care Unavailable Allergies Allergy Classification Reported Allergen(s) Allergy Type Date of Onset Reaction(s) Facility (2 sources) NSAIDs drug allergy 7 [facility] Work Phone: (1 source) Environmental allergies [Other] Propensity to adverse reactions 6 [facility] (12 sources) NSAIDS (Non-Steroidal Anti-Inflamma; Translations: [NSAIDS (Non-Steroidal Anti-Inflamma] Allergy to substance 2 Other [facility] Medications Current Medications Medication Drug Class(es) Dates Sig (Normalized) Sig (Original) acetaminophen 325 mg / HYDROcodone bitartrate 5 mg oral tablet (1 source) Opioid Agonist Start: 09-10-2021 take 1 tablet by mouth every four hours Hydrocodone-Aceta minophen Active 1 TABLET PO Q4H 20 September 10, 2021 azaTHIOprine 50 mg oral tablet (4 sources) Purine Antimetabolite Start: 08-18-2021 take 150 mg by mouth once daily Azathioprine Active 150 MG PO DAILY August 18, 2021 1:00am Start: 11-14-2016 AZATHIOPRINE T ABS as directed AZATHIOPRINE TABS [id number] Blank Cosme LPN take 1 tablet by lissette three times daily at mealtime azaTHIOprine 50 [...] TABS 1 tablet 1 as instructed FLUCONAZOLE [id number] Anthony Gusman PA Lactobac 2-Bifido 1-S. Therm (Vsl#3) 112.5 billion cell capsule (20 sources) Start: 11-27-2022 Lactobac 2-Bif jacque 1-S. Therm (Vsl#3) 112.5 billion cell capsule Active 1 CAP PO TWICE A DAY November 27, 2022 8:00am Start: 11-05-2022 End: [...] TABS a s directed VILAZODONE HCL TABS [id number] Blank Cosme LPN take 10 mg by [...] 2 capsules 2 times a day AMOXICILLIN [id number] Anthony MENDEZ Start: 11-14-2016 AMOXICILLIN 50 0 MG CAPS 2 capsules 2 times a day AMOXICILLIN [id number] Anthony MENDEZ ascorbic acid 500 mg oral [...] on days 2 through 5 BUPROPION HCL [id number] (14 sources) Aminoketone Start: 11-14-2016 WELLBUTRIN XL [id number] as directed BUPROPION HCL [id number] Blank Cosme LPN Start: 11-10-2014 take 300 [...] Acute bronchitis; Translations: [Acute bronchitis, unspecified] Episodic Cardiac dysrhythmias (9 sources) Palpitations - rapid; [...] Test Name Value Interpretation Reference Range Facility MR/PAT.Esa 01-21-2025 MR/PAT.[facility] Medical Records Department [address] [place] [address] PAT - Anesthesia 01/21/25 1934 MR#: [id number] Acct: [id number] Name: TIFFANIE CASTILLO Rep #: [id number] : 1970 54 From: Andrea Brewster MD PCP: Dr. Arsalan Pedro MD Status:PRE [facility] Race: C Location: EN Pre-Assessment Diagnosis/Proposed Procedure Planned Operative Procedure(s): COLONOSCOPY Anesthesia History Anesthesia History - motion designer: Anesthesia History - motion designer Hx Hospitalization No 01/21/25 12:31 Any Problems With Anesthesia No 01/21/25 12:31 Cholinesterase deficiency No 01/21/25 12:31 You/Your Family Experience No 01/21/25 12:31 fever (hyperthermia) with Relationship Recent Exposure to Contagious No 11/08/22 06:02 Disease Does patient have nerve No 01/21/25 12:31 stimulator Patient instructed to have device shut off --Does patient have Pacemaker or ICD? When Was Last Pacemaker Check QUESTION #4 FULL TEXT: You/Your Family Experience fever (hyperthermia) with Anesthesia Last Oral Intake Last Oral intake: Last Oral Intake NPO since Meds taken in AM with sips of water? Meds patient instructed to take am of surgery PONV PONV - motion designer: PONV - motion designer Female Yes 01/21/25 12:31 HX of Motion Sickness No 01/21/25 12:31 HX of N/V After Surgery No 01/21/25 12:31 Non-Smoker Yes 01/21/25 12:31 Duration of Surgery greater No 01/21/25 12:31 than 60 minutes Number of Risk Factors 2 07/10/25 12:31 PONV Score Moderate Risk 01/21/25 12:31 Height Weight Height Weight: Anesthesia: Height Weight Height 5 ft 7 in 11/24/24 08:57 Respiratory Assessment Respiratory Assessment - motion designer: Respiratory Tract Infection Hx - motion designer Hx Respiratory Tract Infection No 01/21/25 12:31 STOP Sleep Apnea STOP Sleep Apnea - motion designer: STOP Sleep Apnea - motion designer Hx Hypertension No 01/21/25 12:31 Hx Sleep Apnea No 01/21/25 12:31 CPAP No 11/08/22 06:55 BIPAP No 11/05/22 10:28 Do you snore loudly (louder No 01/21/25 12:31 than talking or can be heard Do you often feel tired/ No 01/21/25 12:31 fatigued/ sleepy during daytime? Has anyone observed you stop No 01/21/25 12:31 breathing during sleep? STOP Results Negative 01/21/25 12:31 QUESTION #5 FULL TEXT : Do you snore loudly (louder than talking or can be heard through closed doors)? Tobacco Use History Tobacco Use History - motion designer: Tobacco Use History - motion designer Tobacco Use Smoking Status Never smoker 01/21/25 12:31 Hx Tobacco Use No 01/21/25 12:31 Years Smoking Packs Smoked per Day Smoking Cessation Date was within the last 15 years Hx Smoking Cessation Date Hx Smoking Cessation No 01/21/25 12:31 Counseling Hematologic Medial History Hematologic Hx - motion designer: Hematologic Medical Hx - bi specialist Hx of Blood Transfusion No 01/21/25 12:31 Hx of Transfusion in last 3 No 01/21/25 12:31 Months Date of Last Transfusion (if within last 3 months) Ever experience any problems No 01/21/25 12:31 with transfusion(s)? Specify any problems Hx of Preganancy in last 3 No 01/21/25 12:31 Months Nurse Filling Out Transfusion [id number] 01/21/25 12:31 Questions: Date: 01/21/25 01/21/25 12:31 Time: 12:32 01/21/25 12:31 Patient unable to answer at this time (ie. confused, unrespo /Reproduction History /Reproductive History - motion designer: /Reproductive Hx- motion designer Hx Now Gestational Age (in weeks): EDC: Hx Hx Para Hx Section SAB No 11/05/22 10:28 [facility] Medical History (Updated 01/21/25 @ 12:35 by Deyvi Simms) Gastric reflux Post-menopausal Cardiology follow-up encounter History of echocardiogram History of stress test Acute bronchitis, unspecified Rapid palpitations Family history of valvular heart disease Wears contact lenses Anxiety Alcohol use History of kidney stones History of GI bleed Non-smoker Pelvic pain Abnormal uterine bleeding Colitis History of anxiety Flank pain Gastric ulcer Chronic ulcerative colitis Home Medications ???Medication ???Instructions ???Recorded ???Last Taken ???Type multivitamin 1 tab PO DAILY 11/05/22 Unknown Hi story propranolol 10 mg tablet 10 mg PO TID PRN anxiety #90 tabs 05/06/24 Unknown Rx bupropion HCl 300 mg 24 hr tablet, 300 mg PO QAM #90 tabs 07/01/24 Unknown Rx extended release pantoprazole 20 mg tablet,delayed 20 mg PO QAM #90 tabs 07/28/24 Un known Rx release buspirone (more content not included)... Normal [facility] CBC W/Diff, Automatedon 12-13 Absolute Lymph 2.58 X10 3/uL Normal 0.83-4.51 [facility] Comment on above: Performed By: #### L 501.6710, L100.0100, L500.4050, L506.1001 #### [facility] [address] [place], [address] Absolute Neut 3.8 X10 3/uL Normal 2.0-7.7 [facility] Comment on above: Performed By: #### L 501.6710, L100.0100, L500.4050, L506.1001 #### [facility] [address] [place], [address] Basophils/100 WBC (Bld) 0.4 % Normal 0-1 [facility] Comment on above: Performed By: #### L 501.6710, L100.0100, L500.4050, L506.1001 #### [facility] [address] [place], [address] Eosinophils/100 WBC (Bld) 1.0 % Normal 0-5 [facility] Comment on above: Performed By: #### L 501.6710, L100.0100, L500.4050, L506.1001 #### [facility] [address] [place], [address] Erythrocyte distribution width (RBC) [Ratio] 12.4 % Normal 11.6-14.6 [facility] Comment on above: Performed By: #### L 501.6710, L100.0100, L500.4050, L506.1001 #### [facility] [address] [place], [address] Hematocrit (Bld) [Volume fraction] 39.2 % Normal 37-47 [facility] Comment on above: Performed By: #### L 501.6710, L100.0100, L500.4050, L506.1001 #### [facility] [address] [place], [address] Hemoglobin (Bld) [Mass/Vol] 13.4 g/dL Normal 12.0-15.0 [facility] Comment on above: Performed By: #### L 501.6710, L100.0100, L500.4050, L506.1001 #### [facility] [address] [place], [address] IG% 0.400 Normal 0.0-0.9 [facility] Comment on above: Result Comment: IG% - Immature Granulocytes (promyelocytes, myelocytes and metamyelocytes) > 1% indicates that a LEFT SHIFT is Present. Performed By: #### L 501.6710, L100.0100, L500.4050, L506.1001 #### [facility] [address] [place], [address] Lymphocytes/100 WBC (Bld) 37.0 % Normal 19-41 [facility] Comment on above: Performed By: #### L 501.6710, L100.0100, L500.4050, L506.1001 #### [facility] [address] [place], [address] MCH (RBC) [Entitic mass] 31.5 pg Normal 27.0-32.0 [facility] Comment on above: Performed By: #### L 501.6710, L100.0100, L500.4050, L506.1001 #### [facility] [address] [place], [address] MCHC (RBC) [Mass/Vol] 34.2 g/dL Normal 32-36 [facility] Comment on above: Performed By: #### L 501.6710, L100.0100, L500.4050, L506.1001 #### [facility] [address] [place], [address] MCV (RBC) [Entitic vol] 92.2 fL Normal 81-99 [facility] Comment on above: Performed By: #### L 501.6710, L100.0100, L500.4050, L506.1001 #### [facility] [address] [place], [address] Monocytes/100 WBC (Bld) 6.4 % Normal 0-10 [facility] Comment on above: Performed By: #### L 501.6710, L100.0100, L500.4050, L506.1001 #### [facility] [address] [place], [address] Neutrophils/100 WBC (Bld) 54.8 % Normal 47-70 [facility] Comment on above: Performed By: #### L 501.6710, L100.0100, L500.4050, L506.1001 #### [facility] [address] [place], [address] Nucleated RBC (Bld) [#/Vol] 0 10*3/uL Normal 0-5 [facility] Comment on above: Performed By: #### L 501.6710, L100.0100, L500.4050, L506.1001 #### [facility] [address] [place], [address] Platelet mean volume (Bld) [Entitic vol] 8.7 fL Normal 6.2-12.0 [facility] Comment on above: Performed By: #### L 501.6710, L100.0100, L500.4050, L506.1001 #### [facility] [address] [place], [address] Platelets (Bld) [#/Vol] 316 10*3/uL Normal 150-450 [facility] Comment on above: Performed By: #### L 501.6710, L100.0100, L500.4050, L506.1001 #### [facility] [address] [place], [address] RBC (Bld) [#/Vol] 4.25 10*6/uL Normal 4.2-5.4 [facility] Comment on above: Performed By: #### L 501.6710, L100.0100, L500.4050, L506.1001 #### [facility] [address] [place], [address] RDW SD 42.0 fl Normal 35.1-43.9 [facility] Comment on above: Performed By: #### L 501.6710, L100.0100, L500.4050, L506.1001 #### [facility] [address] [place], [address] WBC (Bld) [#/Vol] 7.0 10*3/uL Normal 4.4-11.0 [facility] Comment on above: Performed By: #### L 501.6710, L100.0100, L500.4050, L506.1001 #### [facility] [address] [place], [address] CRPon 12-31-2024 C-REACTIVE PROT < 3.00 Normal 0.0-3.0 [facility] Comment on above: Performed By: #### L 501.6710, L100.0100, L500.4050, L506.1001 #### [facility] [address] [place], [address] Comprehensive Metabolic Prof ilon 12-31-2024 Albumin [Mass/Vol] 4.2 g/dL Normal 3.5-5.0 [facility] Comment on above: Performed By: #### L 3300.1500, L500.4050, L500.4100, L501.9985, L3300.1750, L100.0100, L509.3000, L801.2600 #### [facility] [address] [place], [address] Albumin/Globulin [Mass ratio] 1.4 {ratio} Normal 0.9-2.4 [facility] Comment on above: Performed By: #### L 3300.1500, L500.4050, L500.4100, L501.9985, L3300.1750, L100.0100, L509.3000, L801.2600 #### [facility] [address] [place], [address] ALK PHOS 63 U/L Normal 35-104 [facility] Comment on above: Performed By: #### L 3300.1500, L500.4050, L500.4100, L501.9985, L3300.1750, L100.0100, L509.3000, L801.2600 #### [facility] [address] [place], [address] ALT [Catalytic activity/Vol] 15 U/L Normal <=34 [facility] Comment on above: Performed By: #### L 3300.1500, L500.4050, L500.4100, L501.9985, L3300.1750, L100.0100, L509.3000, L801.2600 #### [facility] [address] [place], [address] AST [Catalytic activity/Vol] 18 U/L Normal <=31 [facility] Comment on above: Performed By: #### L 3300.1500, L500.4050, L500.4100, L501.9985, L3300.1750, L100.0100, L509.3000, L801.2600 #### [facility] [address] [place], [address] Bilirubin [Mass/Vol] 0.35 mg/dL Normal 0.00-1.30 [facility] Comment on above: Performed By: #### L 3300.1500, L500.4050, L500.4100, L501.9985, L3300.1750, L100.0100, L509.3000, L801.2600 #### [facility] [address] [place], [place], [phone] (204) BUN/CRE 15.8 RATIO Normal 10-20 [facility] Comment on above: Performed By: #### L 3300.1500, L500.4050, L500.4100, L501.9985, L3300.1750, L100.0100, L509.3000, L801.2600 #### [facility] [address] [place], [place], [phone] (189) Calcium [Mass/Vol] 9.3 mg/dL Normal 7.6-11.0 [facility] Comment on above: Performed By: #### L 3300.1500, L500.4050, L500.4100, L501.9985, L3300.1750, L100.0100, L509.3000, L801.2600 #### [facility] [address] [place], [address] Chloride [Moles/Vol] 103 mmol/L Normal 98-108 [facility] Comment on above: Performed By: #### L 3300.1500, L500.4050, L500.4100, L501.9985, L3300.1750, L100.0100, L509.3000, L801.2600 #### [facility] [address] [place], [address] CO2 [Moles/Vol] 24.2 mmol/L Normal 21.0-32.0 [facility] Comment on above: Performed By: #### L 3300.1500, L500.4050, L500.4100, L501.9985, L3300.1750, L100.0100, L509.3000, L801.2600 #### [facility] [address] [place], [place], [phone] (405) Creatinine [Mass/Vol] 0.78 mg/dL Normal 0.70-1.20 [facility] Comment on above: Performed By: #### L 3300.1500, L500.4050, L500.4100, L501.9985, L3300.1750, L100.0100, L509.3000, L801.2600 #### [facility] [address] [place], [address] GAP 11 Normal 5-15 [facility] Comment on above: Performed By: #### L 3300.1500, L500.4050, L500.4100, L501.9985, L3300.1750, L100.0100, L509.3000, L801.2600 #### [facility] [address] [place], [address] GFR/1.73 sq M.predicted among non-blacks MDRD (S/P/Bld) [Vol rate/Area] 89 mL/min/{1.73_m2} Normal >60 [facility] Comment on above: Result Comment: mL/m in/1.73m2 CKD-EPI Creatinine Equation (2020) Performed By: #### L 3300.1500, L500.4050, L500.4100, L501.9985, L3300.1750, L100.0100, L509.3000, L801.2600 #### [facility] [address] [place], [address] Globulin (S) [Mass/Vol] 3.0 g/dL Normal 2.2-4.2 [facility] Comment on above: Performed By: #### L 3300.1500, L500.4050, L500.4100, L501.9985, L3300.1750, L100.0100, L509.3000, L801.2600 #### [facility] [address] [place], [address] Glucose [Mass/Vol] 88 mg/dL Normal 70-99 [facility] Comment on above: Performed By: #### L 3300.1500, L500.4050, L500.4100, L501.9985, L3300.1750, L100.0100, L509.3000, L801.2600 #### [facility] [address] [place], [place], [phone] (234) Potassium [Moles/Vol] 3.9 mmol/L Normal 3.3-5.1 [facility] Comment on above: Performed By: #### L 3300.1500, L500.4050, L500.4100, L501.9985, L3300.1750, L100.0100, L509.3000, L801.2600 #### [facility] [address] [place], [address] Sodium [Moles/Vol] 137 mmol/L Normal 133-145 [facility] Comment on above: Performed By: #### L 3300.1500, L500.4050, L500.4100, L501.9985, L3300.1750, L100.0100, L509.3000, L801.2600 #### [facility] [address] [place], [address] T PROT 7.2 g/dL Normal 5.9-8.4 [facility] Comment on above: Performed By: #### L 3300.1500, L500.4050, L500.4100, L501.9985, L3300.1750, L100.0100, L509.3000, L801.2600 #### [facility] [address] [place], [address] Urea nitrogen [Mass/Vol] 12 mg/dL Normal 4-19 [facility] Comment on above: Performed By: #### L 3300.1500, L500.4050, L500.4100, L501.9985, L3300.1750, L100.0100, L509.3000, L801.2600 #### [facility] [address] [place], [place], [id number] MR/BMS.BPon 12-31-2024 MR/BMS.BP [address], [address] [place], [place] [address] OFFICE VISIT Date of Service: 12/31/24 MR#: [id number] Acct: [id number] Name: TIFFANIE CASTILLO Rep #: [id number] : 1970 Provider: [facility] Radha solis Age/Sex: 54/F Location: [facility].BP Status: Signed Intake Vital Signs 08/17/24 08:06 12/03/24 12:19 12/31/24 11:03 Height 5 ft 7 in 5 ft 7 in 5 ft 7 in BP Intake Visit Reasons: Follow up Allergies NSAIDS (Non-Steroidal Anti-Inflamma Allergy (Verified 11/24/24 08:43) Other [facility] Medical History Post-menopausal Cardiology follow-up encounter History [...] history: [employer] Patient works at [employer] HPI History of Present Illness HPI: Tiffanie Castillo is a 54 year-old female returning for therapy. She reported implementing squared breathing effectively. Tiffanie has become mindful of her symptoms, level of symptoms, and when to implement breathing. She also has attempted meditating. Her efforts at implementing these skills was reinforced. Tiffanie identified struggling with focus at work and avoiding tasks because her lack of focus. Encouraged verbalization of emotions while providing support. Discussed varying tasks based on her level of focus, finding ways to increase enjoyment of boring tasks, focusing on what tasks match her level of focus, and breaking tasks into smaller pieces. Taught CBT skill of predicting difficulty of task (1-10) and degree of satisfaction completing a task would produce (1-10) prior to and following the task in order to address thoughts of dread. Also worked on thought patterns about self and abilities. Tiffnaie asked for and was given information on GLAD journaling technique to lift mood, which was discussed the previous session. No SI. Future-oriented. Exam Mental Status Exam - Psych Appearance no apparent distress and well kempt Attitude cooperative, calm, engaged, pleasant and friendly Activity/Motor Behavior MSE activity/motor behavior finding no adventitious movements and appropriate eye contact Speech regular rate, regular volume and regular prosody Mood OK Affect full range Thought Process linear, logical and coherent Thought Content no delusions and no hallucinations Suicidal Ideation none Homicidal Ideation none Attention impaired (Per pt. report.) Concentration impaired (Per pt. report.) Sensorium/Orientation awake, alert and oriented x3 Memory/Cognition impaired (Per pt. report.) Insight good Judgement good Assessment Plan Assessment Plan (1) Generalized anxiety disorder: Plan: BH therapy using CBT, DBT, and [...] and/or feel unable to ensure own safety. (3) Insomnia: Qualifiers: Insomnia type: unspecified Qualified Code(s): G47.00 - Insomnia, unspecified Plan: BH therapy using CBT, DBT, and ACT interventions to (more content not included)... Normal [facility] Vitamin D,25 Hydroxyon 12-31 Vitamin D 25-OH 61.6 ng/mL Normal 30-100 [facility] Comment on above: Result Comment: Karla min D Status Deficiency: <20 ng/mL (50nmol/L) Insufficiency: 20-30 ng/mL (50-75 nmol/L) Sufficiency: 30-100 ng/mL (75-250 nmol/L) Toxicity: >100 ng/mL (>250 nmol/L) Performed By: #### L 3300.1500, L500.4050, L500.4100, L501.9985, L3300.1750, L100.0100, L509.3000, L801.2600 #### [facility] [address] [place], [place], [id number] MR/BMSjosué 12-03-2024 MR/BMS.BP [facility] [address] [facility] [place], [address] [place] [address] OFFICE VISIT Date of Service: 12/03/24 MR#: [id number] Acct: [id number] Name: TIFFANIE CASTILLO Rep #: [id number] : 1970 Provider: [facility] Radha solis Age/Sex: 54/F Location: [facility].BP Status: Signed Intake Vital Signs 08/17/24 08:06 11/24/24 08:57 12/03/24 12:19 Height 5 ft 7 in 5 ft 7 in 5 ft 7 in Weight: 176 lb 4 oz BMI 27.6 BP 108/81 H Respiration 16 Pulse 99 Pulse Oximetry (%) 94 Oxygen Delivery Method room air BP Intake Visit Reasons: Follow up Allergies NSAIDS (Non-Steroidal Anti-Inflamma Allergy (Verified 11/24/24 08:43) Other [facility] Medical History Post-menopausal Cardiology follow-up encounter History [...] social history: [employer] Patient works at [employer] HPI History of Present Illness HPI: Pietro [...] focusing on breath for 1 minute, which Tiffanie was able to do. Taught GLAD (gratitude, learning, accomplishment, delight) journaling technique. Worked on breathing as a technique to implement when anxious providing psychoeducation on square breathing and leading Tiffanie in practicing it. Discussed how to implement and practice. Discussed recent incident where Tiffanie became very distressed following an interaction with a family member. Encouraged verbalization of emotions while providing support. Provided psychoeducation and handout on DBT Mindfulness skill nonjudgementalness to reduce emotional mind. Tiffanie reported struggling with tiredness and insomnia. 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 Normal [facility] Gastroenterology Visit Repor ton 11-24-2024 Gastroenterology Visit Report [facility] Gastroenterology [address] [place] [address] OFFICE VISIT Date of Service: 11/24/24 MR#: [id number] Acct: [id number] Name: TIFFANIE CASTILLO Rep #: [id number] : 1970 Provider: TAY sims Age/Sex: 54/F Location: [facility] Status: Signed Intake Vital Signs 05/18/23 11:42 11/04/24 07:27 11/24/24 08:57 Height 5 ft 8 in 5 ft 7 in 5 ft 7 in Weight: 176 lb 4 oz BMI 27.6 BP 108/81 H Respiration 16 Pulse 99 Pulse Oximetry (%) 94 Oxygen Delivery Method room air Intake Visit Reasons: 1 Y FU Chief Complaint: annual follow-up 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 Ortiz We reviewed results from her EGD--small hiatal [...] in 2 years for surveillance. COLON: 05/25/2014 ([facility]) - negative for colitis INITIAL CONSULT [...] stool calprotectin (more content not included)... Normal [facility] MR/BMS.BPon 11-04-2024 MR/BMS.BP [address], [address] [place] [address] OFFICE VISIT Date of Service: 11/04/24 MR#: [id number] Acct: [id number] Name: TIFFANIE CASTILLO Rep #: [id number] : 1970 Provider: TAY hubbard Age/Sex: 54/F Location: [facility].BP Status: Signed Intake Vital Signs 08/05/24 07:32 [...] social history: Marixa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 (U) Negative [facility] pH (U) 6.0 [pH] [facility] Specific gravity (U) [Rel density] 1.015 [facility] Urobilinogen (U) [Mass/Vol] 0.4980818 mg/dL [facility] - Hematology and Cell countson 05-18-2023 Hemoglobin Ql (U) Small [facility] - Specimen inform ationon 05-18-2023 Clarity (U) Cloudy [facility] Color (U) YELLOW [facility] - Urinalysison Nitrite Ql (U) Negative [facility] Protein Ql (U) Negative [facility] Mucus LM Ql (Urine sed)Order ed By: Lori Frazier on 05-18-2023 Mucus Ql (Urine sed) 0 SEEN /hpf [facility] Nitrite Test strip Ql (U)Ord ered By: Lori Frazier on 05-18-2023 Nitrite Ql (U) Negative Negative [facility] No Panel Informationon 05-18 Urine Leukocytes Positive [facility] Urine Non-Hemolyzed Blood Negative [facility] Protein Test strip Ql (U)Ord ered By: Lori Frazier on 05-18-2023 Protein Ql (U) Negative Negative [facility] Squamous epithelial cells de tection in urine sediment by light microscopyOrdered By: Lori Frazier on 05-18-2023 Epithelial cells.squamous LM Ql (Urine sed) 0-5 SEEN /hpf 5-10 [facility] Urine blood detectionOrdered By: Lori Frazier on 05-18-2023 RBC Ql (U) Negative Negative [facility] RBC Ql (U) 0 SEEN /hpf 0-5 [facility] Urine clarityOrdered By: Umer Frazier on 05-18-2023 Clarity (U) Sl. Cloudy Clear [facility] Urine color determinationOrd ered By: Lori Frazier on 05-18-2023 Color (U) Yellow Yellow [facility] Urine glucose detectionOrder ed By: Lori Frazier on 05-18-2023 Glucose Ql (U) Normal mg/dl Normal [facility] Urine leukocyte esterase det ection by dipstickOrdered By: Lori Frazier on 05-18-2023 Leukocyte esterase Test strip Ql (U) Negative Negative [facility] Urine pHOrdered By: Lori Frazier on 05-18-2023 pH (U) 7.0 [pH] 5.0 - 8.0 [facility] Urine sediment bacteria coun t by microscopy (number/high power field)Ordered By: Lori Frazier on 05-18-2023 Bacteria LM.HPF (Urine sed) [#/Area] 0 /[HPF] None Seen [facility] Urine specific gravity measu rementOrdered By: Lori Frazier on 05-18-2023 Specific gravity (U) [Rel density] 1.010 1.002-1.03 0 [facility] Urobilinogen Auto test strip Ql (U)Ordered By: Lori Frazier on 05-18-2023 Urobilinogen Ql (U) Normal mg/dl Normal [facility] Absolute lymphocyte countOrd ered By: Renetta Vasquez on 03-25-2023 Lymphocytes Auto (Unsp spec) [#/Vol] 2.09 10*3/uL 0.83-4.51 [facility] Basophil percentageOrdered B y: Renetta Vasquez on 03-25-2023 Basophils/100 WBC (Bld) 0.4 % 0-1 [facility] Bilirubin [Mass/Vol] 0.50 mg/dL 0.20-1.00 [facility] Comment on above: For patients on eltr ombopag therapy, use of Dimension [place] TBIL is not recommended. Chloride [Moles/Vol] 104 mmol/L 98-107 [facility] Cholesterol [Mass/Vol] 258 mg/dL <200 [facility] Comment on above: <200 mg/dL Desirable 200-240 mg/dL Borderline >240 mg/dL High Risk Eosinophils/100 WBC (Bld) 1.6 % 0-5 [facility] Glucose [Mass/Vol] 86 mg/dL 74-106 [facility] Neutrophils (Bld) [#/Vol] 4.9 10*3/uL 2.0-7.7 [facility] Neutrophils/100 WBC (Bld) 63.8 % 47-70 [facility] Potassium [Moles/Vol] 3.7 mmol/L 3.5-5.1 [facility] Protein [Mass/Vol] 7.1 g/dL 6.4-8.2 [facility] Sodium [Moles/Vol] 137 mmol/L 136-145 [facility] Testosterone [Mass/Vol] 14.91 ng/dL [facility] Comment on above: CENTRAL 90% REFERENC E RANGES MALE AGE <50 197.44 - 669.58 ng/dL MALE AGE > or = 50 187.72 - 684.19 ng/dL FEMALE AGE <50 8.38 - 35.01 ng/dL FEMALE AGE > or = 50 <7.00 - 35.92 ng/dL Effective as of 02/07/21 Triglyceride [Mass/Vol] 109 mg/dL <199 [facility] Comment on above: The drugs N-Acetylcy steine and Metamizole may falsely depress this assay.Serum Triglycerides Reference Interval Normal <150 mg/dL Borderline high 150 - 199 mg/dL High 200 - 499 mg/dL Very High > or = 500 mg/dL WBC (Bld) [#/Vol] 7.6 10*3/uL 4.4-11.0 [facility] Blood erythrocytes count (nu mber/volume)Ordered By: Renetta Vasquez on 03-25-2023 RBC (Bld) [#/Vol] 4.34 10*6/uL 4.2-5.4 [facility] Blood hemoglobin measurement (mass/volume)Ordered By: Renetta Vasquez on 03-25-2023 Hemoglobin (Bld) [Mass/Vol] 13.4 g/dL 12.0-15.0 [facility] Blood lymphocytes/100 leukoc ytesOrdered By: Renetta Vasquez on 03-25-2023 Lymphocytes/100 WBC (Bld) 27.4 % 19-41 [facility] Blood monocytes/100 leukocyt esOrdered By: Renetta Vasquez on 03-25-2023 Monocytes/100 WBC (Bld) 6.4 % 0-10 [facility] Blood platelet mean volumeOr dered By: Renetta Vasquez on 03-25-2023 Platelet mean volume (Bld) [Entitic vol] 9.3 fL 6.2-12.0 [facility] Determination of erythrocyte mean corpuscular volume (MCV)Ordered By: Renetta Vasquez on 03-25-2023 MCV (RBC) [Entitic vol] 96.1 fL 81-99 [facility] Hematocrit Auto (Bld) [Volum e fraction]Ordered By: Renetta Vasquez on 03-25-2023 Hematocrit (Bld) [Volume fraction] 41.7 % 37-47 [facility] - Chemistry and C hemistry - challengeOrdered By: Renetta Vasquez on 03-25-2023 ALP [Catalytic activity/Vol] 75 U/L 45-117 [facility] ALT [Catalytic activity/Vol] 25 U/L 13-56 [facility] CO2 [Moles/Vol] 26.0 mmol/L 21.0-32.0 [facility] Globulin (S) [Mass/Vol] 3.6 g/dL 2.2-4.2 [facility] Urea nitrogen/Creatinine [Mass ratio] 15.4 mg/mg 10-20 [facility] - Hematology and Cell countsOrdered By: Renetta Vasquez on 03-25-2023 Erythrocyte distribution width (RBC) [Entitic vol] 46.5 fL 35.1-43.9 [facility] Erythrocyte distribution width (RBC) [Ratio] 13.1 % 11.6-14.6 [facility] Immature granulocytes/100 WBC (Bld) 0.400 % 0.0-0.9 [facility] Comment on above: IG% - Immature Granu locytes (promyelocytes, myelocytes and metamyelocytes) > 1% indicates that a LEFT SHIFT is Present. MCH (RBC) [Entitic mass] 30.9 pg 27.0-32.0 [facility] Nucleated RBC/100 WBC (Bld) [Ratio] 0 % 0-5 [facility] MCHC Auto (RBC) [Mass/Vol]Or dered By: Renetta Vasquez on 03-25-2023 MCHC (RBC) [Mass/Vol] 32.1 g/dL 32-36 [facility] No Panel InformationOrdered By: Renetta Vasquez on 03-25-2023 Dehydroepiandrosterone Sulfate 95.9 ug/dL 29.4-220.5 [facility] Comment on above: Performed at: [facility] [employer] [address] Director: Al Beavers PhD, Phone: [phone] Estimated GFR (MDRD) Amer 109 mL/min >60 [facility] Comment on above: GFR Calc Estimated GFR (MDRD) Non-Af Amer 90 mL/min >60 [facility] Comment on above: Non- GFR Calc Platelets bldOrdered By: Arlene Vasquez on 03-25-2023 Platelets (Bld) [#/Vol] 314 10*3/uL 150-450 [facility] Serum or plasma albumin lorrie urement (mass/volume)Ordered By: Renetta Vasquez on 03-25-2023 Albumin [Mass/Vol] 3.5 g/dL 3.2-5.0 [facility] Serum or plasma albumin/glob ulin mass ratioOrdered By: Renetta Vasquez on 03-25-2023 Albumin/Globulin [Mass ratio] 1.0 {ratio} 0.9-2.4 [facility] Serum or plasma calcium lorrie urement (mass/volume)Ordered By: Renetta Vasquez on 03-25-2023 Calcium [Mass/Vol] 8.6 mg/dL 8.5-10.1 [facility] Serum or plasma cholesterol in HDL measurement (mass/volume)Ordered By: Renetta Vasquez on 03-25-2023 Cholesterol in HDL [Mass/Vol] 71 mg/dL >40 [facility] Comment on above: The drugs N-Acetylcy steine and Metamizole may falsely depress this assay. Reference Range HDL <40 mg/dL Low HDL Cholesterol HDL >or= 60 mg/dL High HDL Cholesterol Serum or plasma cholesterol in VLDL measurement (mass/volume)Ordered By: Renetta Vasquez on 03-25-2023 Cholesterol in VLDL [Mass/Vol] 22 mg/dL 5-40 [facility] Serum or plasma creatinine m easurement (mass/volume)Ordered By: Renetta Vasquez on 03-25-2023 Creatinine [Mass/Vol] 0.72 mg/dL 0.55-1.02 [facility] Comment on above: The validity of the calculated GFR & GFRAA in patients over 70 years has not been determined. Clinical correlation is essential. Serum or plasma estradiol (E 2) measurement (mass/volume)Ordered By: Renetta Vasquez on 03-25-2023 E2 [Mass/Vol] 46.1 pg/mL [facility] Comment on above: NORMAL REFERENCE RAN GES FEMALE FOLLICULAR 21.4 - 164.8 pg/mL MID-CYCLE PEAK 49.9 - 367.2 pg/mL LUTEAL 40.2 - 259.0 pg/mL POST-MENOPAUSAL ON MHT <11.0 - 462.1 pg/mL NOT ON MHT <11.0 - 58.3 pg/mL MALE <11.0 - 52.5 pg/mL NOTE:[employer] HAS CONFIRMED THE DRUG FULVETRANT (FASLODEX) MAY CAUSE FALSELY ELEVATED ESTRADIOL RESULTS WHEN USING THIS TEST METHOD. IF PATIENT IS TAKING FULVESTRANT AN ALTERNATIVE METHOD SHOULD BE USED TO DETERMINE ESTRADIOL CONCENTRATION. Serum or plasma low density lipoprotein (LDL) cholesterol measurement (mass/volume)Ordered By: Renetta Vasquez on 03-25-2023 Cholesterol in LDL [Mass/Vol] 165 mg/dL 0-130 [facility] Serum or plasma progesterone measurement (mass/volume)Ordered By: Renetta Vasquez on 03-25-2023 Progesterone [Mass/Vol] 0.50 ng/mL See Comment [facility] Comment on above: Progesterone Referen ce Table: [...] 03-25-2023 Urea nitrogen [Mass/Vol] 11 mg/dL 7-18 [facility] Thin prep Papanicolaou smear with manual screeningOrdered By: Renetta Vasquez on 03-25-2023 Thin prep Papanicolaou smear with manual screening 17 U/L 15-37 [facility] Thin prep Papanicolaou smear with manual screening 7 5-15 [facility] Whole blood hemoglobin A1c/t otal hemoglobin ratio (mass fraction)Ordered By: Renetta Vasquez on 03-25-2023 HbA1c (Bld) [Mass fraction] 5.0 % 3.8-5.6 [facility] Comment on above: Normal < 5.7 % Predi abetic 5.7 - 6.4 % Diabetic >or= 6.5 % Please note range changes. No Panel InformationOrdered By: Franchesca aGrcia on 11-01-2022 Stool Calprotectin 24 ug/g 0-120 [facility] Comment on above: Concentration Interp retation Follow-Up<16 - 50 ug/g Normal None>50 -120 ug/g Borderline Re-evaluate in 4-6 weeks >120 ug/g Abnormal Repeat as clinically indicatedPerformed at: [facility] [id number] Director: Navin Sanchez MD, Phone: [phone] Stool lactoferrin detection by immunoassayOrdered By: Franchesca Garcia on 11-01-2022 Lactoferrin IA Ql (Stl) [facility] Absolute lymphocyte countOrd ered By: Franchesca Garcia on 10-31-2022 Lymphocytes Auto (Unsp spec) [#/Vol] 1.80 10*3/uL 0.83-4.51 [facility] Basophil percentageOrdered B y: Franchesca Garcia on 10-31-2022 Basophils/100 WBC (Bld) 0.4 % 0-1 [facility] Bilirubin [Mass/Vol] 0.40 mg/dL 0.20-1.00 [facility] Comment on above: For patients on eltr ombopag therapy, use of Dimension [place] TBIL is not recommended. Chloride [Moles/Vol] 105 mmol/L 98-107 [facility] Eosinophils/100 WBC (Bld) 1.5 % 0-5 [facility] Glucose [Mass/Vol] 92 mg/dL 74-106 [facility] LDH [Catalytic activity/Vol] 206 U/L 84-246 [facility] Neutrophils (Bld) [#/Vol] 3.1 10*3/uL 2.0-7.7 [facility] Neutrophils/100 WBC (Bld) 56.8 % 47-70 [facility] Potassium [Moles/Vol] 4.0 mmol/L 3.5-5.1 [facility] Protein [Mass/Vol] 7.5 g/dL 6.4-8.2 [facility] Sodium [Moles/Vol] 135 mmol/L 136-145 [facility] WBC (Bld) [#/Vol] 5.5 10*3/uL 4.4-11.0 [facility] Basophil percentageOrdered B y: Dr. Vargas on 10-31-2022 Bilirubin [Mass/Vol] 0.50 mg/dL 0.20-1.00 [facility] Comment on above: For patients on eltr ombopag therapy, use of Dimension [place] TBIL is not recommended. Cholesterol [Mass/Vol] 274 mg/dL <200 [facility] Comment on above: <200 mg/dL Desirable 200-240 mg/dL Borderline >240 mg/dL High Risk Protein [Mass/Vol] 7.8 g/dL 6.4-8.2 [facility] Triglyceride [Mass/Vol] 52 mg/dL <199 [facility] Comment on above: The drugs N-Acetylcy steine and Metamizole may falsely depress this assay.Serum Triglycerides Reference Interval Normal <150 mg/dL Borderline high 150 - 199 mg/dL High 200 - 499 mg/dL Very High > or = 500 mg/dL Blood erythrocytes count (nu mber/volume)Ordered By: Franchesca Garcia on 10-31-2022 RBC (Bld) [#/Vol] 4.25 10*6/uL 4.2-5.4 [facility] Blood hemoglobin measurement (mass/volume)Ordered By: Franchesca Garcia on 10-31-2022 Hemoglobin (Bld) [Mass/Vol] 13.5 g/dL 12.0-15.0 [facility] Blood lymphocytes/100 leukoc ytesOrdered By: Franchesca Garcia on 10-31-2022 Lymphocytes/100 WBC (Bld) 32.7 % 19-41 [facility] Blood monocytes/100 leukocyt esOrdered By: Franchesca Garcia on 10-31-2022 Monocytes/100 WBC (Bld) 8.2 % 0-10 [facility] Blood platelet mean volumeOr dered By: Franchesca Garcia on 10-31-2022 Platelet mean volume (Bld) [Entitic vol] 9.3 fL 6.2-12.0 [facility] Determination of erythrocyte mean corpuscular volume (MCV)Ordered By: Franchesca Garcia on 10-31-2022 MCV (RBC) [Entitic vol] 95.1 fL 81-99 [facility] Direct bilirubinOrdered By: Dr. Vargas on 10-31-2022 Bilirubin.direct [Mass/Vol] 0.12 mg/dL 0.00-0.30 [facility] Erythrocyte sedimentation ra teOrdered By: Franchesca Garcia on 10-31-2022 ESR (Bld) [Velocity] 12 mm/h 0-30 [facility] Hematocrit Auto (Bld) [Volum e fraction]Ordered By: Franchesca Garcia on 10-31-2022 Hematocrit (Bld) [Volume fraction] 40.4 % 37-47 [facility] - Chemistry and C hemistry - challengeOrdered By: Franchesca Garcia on 10-31-2022 ALP [Catalytic activity/Vol] 63 U/L 45-117 [facility] ALT [Catalytic activity/Vol] 28 U/L - [facility] CO2 [Moles/Vol] 24.0 mmol/L 21.0-32.0 [facility] Globulin (S) [Mass/Vol] 3.9 g/dL 2.2-4.2 [facility] Urea nitrogen/Creatinine [Mass ratio] 20.0 mg/mg 10-20 [facility] - Chemistry and C hemistry - challengeOrdered By: Dr. Vargas on 10-31-2022 ALP [Catalytic activity/Vol] 61 U/L 45-117 [facility] ALT [Catalytic activity/Vol] 29 U/L - [facility] Globulin (S) [Mass/Vol] 4.2 g/dL 2.2-4.2 [facility] - Hematology and Cell countsOrdered By: Franchesca Garcia on 10-31-2022 Erythrocyte distribution width (RBC) [Entitic vol] 42.5 fL 35.1-43.9 [facility] Erythrocyte distribution width (RBC) [Ratio] 12.3 % 11.6-14.6 [facility] Immature granulocytes/100 WBC (Bld) 0.400 % 0.0-0.9 [facility] Comment on above: IG% - Immature Granu locytes (promyelocytes, myelocytes and metamyelocytes) > 1% indicates that a LEFT SHIFT is Present. MCH (RBC) [Entitic mass] 31.8 pg 27.0-32.0 [facility] Nucleated RBC/100 WBC (Bld) [Ratio] 0 % 0-5 [facility] MCHC Auto (RBC) [Mass/Vol]Or dered By: Franchesca Garcia on 10-31-2022 MCHC (RBC) [Mass/Vol] 33.4 g/dL 32-36 [facility] No Panel InformationOrdered By: Franchesca Garcia on 10-31-2022 Endomysial IgA Antibody Negative Negative [facility] Estimated GFR (MDRD) Amer 89 mL/min >60 [facility] Comment on above: GFR Calc Estimated GFR (MDRD) Non-Af Amer 74 mL/min >60 [facility] Comment on above: Non- GFR Calc Platelets bldOrdered By: Diane Garcia on 10-31-2022 Platelets (Bld) [#/Vol] 314 10*3/uL 150-450 [facility] Serum IgA measurement (units /volume)Ordered By: Franchesca Garcia on 10-31-2022 IgA Qn (S) 132 mg/dL 87-352 [facility] Comment on above: Performed at: [address] Director: Al Beavers PhD, Phone: [phone] Serum or plasma C reactive p rotein measurement (mass/volume)Ordered By: Franchesca Garcia on 10-31-2022 CRP [Mass/Vol] mg/L 0.0-3.0 [facility] Comment on above: C-Reactive Protein ( CRP) provides useful information for thediagnosis, therapy and monitoring of inflammatory processesand associated diseases. For the evaluation of Relative Riskfor Cardiovascular Disease, a High Sensitivity CRP (HSCRP)should be ordered. Serum or plasma albumin lorrie urement (mass/volume)Ordered By: Franchesca Garcia on 10-31-2022 Albumin [Mass/Vol] 3.6 g/dL 3.2-5.0 [facility] Serum or plasma albumin lorrie urement (mass/volume)Ordered By: Dr. Vargas on 10-31-2022 Albumin [Mass/Vol] 3.6 g/dL 3.2-5.0 [facility] Serum or plasma albumin/glob ulin mass ratioOrdered By: Franchesca Garcia on 10-31-2022 Albumin/Globulin [Mass ratio] 0.9 {ratio} 0.9-2.4 [facility] Serum or plasma calcium lorrie urement (mass/volume)Ordered By: Franchesca Garcia on 10-31-2022 Calcium [Mass/Vol] 9.1 mg/dL 8.5-10.1 [facility] Serum or plasma cholesterol in HDL measurement (mass/volume)Ordered By: Dr. Vargas on 10-31-2022 Cholesterol in HDL [Mass/Vol] 101 mg/dL >40 [facility] Comment on above: The drugs N-Acetylcy steine and Metamizole may falsely depress this assay. Reference Range HDL <40 mg/dL Low HDL Cholesterol HDL >or= 60 mg/dL High HDL Cholesterol Serum or plasma cholesterol in VLDL measurement (mass/volume)Ordered By: Dr. Vargas on 10-31-2022 Cholesterol in VLDL [Mass/Vol] 10 mg/dL 5-40 [facility] Serum or plasma creatinine m easurement (mass/volume)Ordered By: Franchesca Garcia on 10-31-2022 Creatinine [Mass/Vol] 0.85 mg/dL 0.55-1.02 [facility] Comment on above: The validity of the calculated GFR & GFRAA in patients over 70 years has not been determined. Clinical correlation is essential. Serum or plasma low density lipoprotein (LDL) cholesterol measurement (mass/volume)Ordered By: Dr. Vargas on 10-31-2022 Cholesterol in LDL [Mass/Vol] 163 mg/dL 0-130 [facility] Serum or plasma urea nitroge n measurement (mass/volume)Ordered By: Franchesca Garcia on 10-31-2022 Urea nitrogen [Mass/Vol] 17 mg/dL 7-18 [facility] Serum tissue transglutaminas e IgA antibody assay (units/volume)Ordered By: Franchesca Garcia on 10-31-2022 tTG IgA Qn (S) <2 U/mL 0-3 [facility] Comment on above: Negative 0 - 3 Weak Positive 4 - 10 Positive >10 Tissue Transglutaminase (tTG) has been identified as the endomysial antigen. Studies have demonstr- ated that endomysial IgA antibodies have over 99% specificity for gluten sensitive enteropathy. Thin prep Papanicolaou smear with manual screeningOrdered By: Franchesca Garcia on 10-31-2022 Thin prep Papanicolaou smear with manual screening 19 U/L [facility] Thin prep Papanicolaou smear with manual screening 6 5-15 [facility] Thin prep Papanicolaou smear with manual screeningOrdered By: Dr. Vargas on 10-31-2022 Thin prep Papanicolaou smear with manual screening 18 U/L -37 [facility] Basophil percentageon 2021 Cholesterol [Mass/Vol] 300 mg/dL <200 [facility] Work Phone: Comment on above: <200 mg/dL Desirable 200-240 mg/dL Borderline >240 mg/dL High Risk Triglyceride [Mass/Vol] 55 mg/dL <199 [facility] Work Phone: Comment on above: The drugs N-Acetylcy steine and Metamizole may falsely depress this assay.Serum Triglycerides Reference Interval Normal <150 mg/dL Borderline high 150 - 199 mg/dL High 200 - 499 mg/dL Very High > or = 500 mg/dL Serum or plasma cholesterol in HDL measurement (mass/volume)on 04-18-2022 Cholesterol in HDL [Mass/Vol] 95 mg/dL >40 [facility] Work Phone: Comment on above: The drugs N-Acetylcy steine and Metamizole may falsely depress this assay. Reference Range HDL <40 mg/dL Low HDL Cholesterol HDL >or= 60 mg/dL High HDL Cholesterol Serum or plasma cholesterol in VLDL measurement (mass/volume)on 04-18-2022 Cholesterol in VLDL [Mass/Vol] 11 mg/dL 5-40 [facility] Work Phone: Serum or plasma low density lipoprotein (LDL) cholesterol measurement (mass/volume)on 04-18-2022 Cholesterol in LDL [Mass/Vol] 194 mg/dL 0-130 [facility] Work Phone: Laboratory - Chemistry and C hemistry - challengeon 03-27-2022 HCG ( test) Ql (U) Negative [facility] Work Phone: Comment on above: Very dilute urine sp ecimens, as indicated by a low specificgravity, may not contain lifeline representatives levels of hCG. If is still suspected, a first morning urinespecimen should be collected 48 hours later and tested. Laboratory - Microbiology an d Antimicrobial susceptibilityon 12-27-2021 SARS-CoV-2 (COVID-19) RNA ABIODUN+probe Ql (Unsp spec) Negative Not Detect [facility] Work Phone: Comment on above: Normal Reference Ran ge: Not DetectedMethod:(RT-PCR) real-time reverse transcriptase PCRLuminex LORNA Instrument*The Food and Drug Administration (FDA) has issued an Emergency Use Authorization (EAU) for the LORNA SARS-CoV-2 Assay for the rapid detection of the virus that causes COVID-19. This test has been validated, but the [facility] independent [facility] of this validation is pending.*Negative [...] Informationon 12-27 Stool Calprotectin 26 ug/g 0-120 [facility] Work Phone: Comment on above: Concentration Interp retation Follow-Up<16 - 50 ug/g Normal None>50 -120 ug/g Borderline Re-evaluate in 4-6 weeks >120 ug/g Abnormal Repeat as clinically indicatedPerformed at: [facility] [id number] Director: Navin Sanchez MD, Phone: [phone] Absolute lymphocyte counton 12-26-2021 Lymphocytes Auto (Unsp spec) [#/Vol] 1.81 10*3/uL 0.83-4.51 [facility] Work Phone: Basophil percentageon 2021 Basophils/100 WBC (Bld) 0.5 % 0-1 [facility] Work Phone: Bilirubin [Mass/Vol] 0.30 mg/dL 0.20-1.00 [facility] Work Phone: Comment on above: For patients on eltr ombopag therapy, use of Dimension [place] TBIL is not recommended. Chloride [Moles/Vol] 104 mmol/L 98-107 [facility] Work Phone: Eosinophils/100 WBC (Bld) 2.2 % 0-5 [facility] Work Phone: Glucose [Mass/Vol] 66 mg/dL 74-106 [facility] Work Phone: Neutrophils (Bld) [#/Vol] 3.8 10*3/uL 2.0-7.7 [facility] Work Phone: [phone] Neutrophils/100 WBC (Bld) 60.3 % 47-70 [facility] Work Phone: Potassium [Moles/Vol] 3.8 mmol/L 3.5-5.1 [facility] Work Phone: [phone] Protein [Mass/Vol] 7.6 g/dL 6.4-8.2 [facility] Work Phone: [phone] Sodium [Moles/Vol] 139 mmol/L 136-145 [facility] Work Phone: WBC (Bld) [#/Vol] 6.4 10*3/uL 4.4-11.0 [facility] Work Phone: Blood erythrocytes count (nu mber/volume)on 12-26-2021 RBC (Bld) [#/Vol] 4.04 10*6/uL 4.2-5.4 [facility]: Blood hemoglobin measurement (mass/volume)on 12-26-2021 Hemoglobin (Bld) [Mass/Vol] 13.6 g/dL 12.0-15.0 [facility] Work Phone: [phone] Blood lymphocytes/100 leukoc yteson 12-26-2021 Lymphocytes/100 WBC (Bld) 28.5 % 19-41 [facility] Work Phone: [phone] Blood monocytes/100 leukocyt eson 12-26-2021 Monocytes/100 WBC (Bld) 8.0 % 0-10 [facility] Work Phone: [phone] Blood platelet mean volumeon 12-26-2021 Platelet mean volume (Bld) [Entitic vol] 9.2 fL 6.2-12.0 [facility] Work Phone: Determination of erythrocyte mean corpuscular volume (MCV)on 12-26-2021 MCV (RBC) [Entitic vol] 99.8 fL 81-99 [facility] Work Phone: Erythrocyte sedimentation ra leonardo 12-26-2021 ESR (Bld) [Velocity] 8 mm/h 0-30 [facility] Work [facility]: Hematocrit Auto (Bld) [Volum e fraction]on 12-26-2021 Hematocrit (Bld) [Volume fraction] 40.3 % 37-47 [facility] Work Phone: Laboratory - Chemistry and C hemistry - challengeon 12-26-2021 ALP [Catalytic activity/Vol] 60 U/L 45-117 [facility] Work Phone: ALT [Catalytic activity/Vol] 29 U/L 13-56 [facility] Work Phone: CO2 [Moles/Vol] 30.0 mmol/L 21.0-32.0 [facility] Work Phone: Globulin (S) [Mass/Vol] 3.8 g/dL 2.2-4.2 [facility] Work Phone: Urea nitrogen/Creatinine [Mass ratio] 17.8 mg/mg 10-20 [facility] Work Phone: Laboratory - Hematology and Cell countson 12-26-2021 Erythrocyte distribution width (RBC) [Entitic vol] 43.7 fL 35.1-43.9 [facility] Work Phone: Erythrocyte distribution width (RBC) [Ratio] 11.9 % 11.6-14.6 [facility] Work Phone: Immature granulocytes/100 WBC (Bld) 0.500 % 0.0-0.9 [facility] Work Phone: Comment on above: IG% - Immature Granu locytes (promyelocytes, myelocytes and metamyelocytes) > 1% indicates that a LEFT SHIFT is Present. MCH (RBC) [Entitic mass] 33.7 pg 27.0-32.0 [facility] Work Phone: Nucleated RBC/100 WBC (Bld) [Ratio] 0 % 0-5 [facility] Work Phone: MCHC Auto (RBC) [Mass/Vol]on 12-26-2021 MCHC (RBC) [Mass/Vol] 33.7 g/dL 32-36 [facility] Work Phone: No Panel Informationon 12-26 Estimated GFR (MDRD) Amer 74 mL/min >60 [facility] Work Phone: Comment on above: GFR Calc Estimated GFR (MDRD) Non-Af Amer 61 mL/min >60 [facility] Work Phone: Comment on above: Non- GFR Calc Platelets bldon 12-26-2021 Platelets (Bld) [#/Vol] 319 10*3/uL 150-450 [facility] Work Phone: Serum or plasma C reactive p rotein measurement (mass/volume)on 12-26-2021 CRP [Mass/Vol] mg/L 0.0-3.0 [facility] Work Phone: Comment on above: C-Reactive Protein ( CRP) provides useful information for thediagnosis, therapy and monitoring of inflammatory processesand associated diseases. For the evaluation of Relative Riskfor Cardiovascular Disease, a High Sensitivity CRP (HSCRP)should be ordered. Serum or plasma albumin lorrie urement (mass/volume)on 12-26-2021 Albumin [Mass/Vol] 3.8 g/dL 3.2-5.0 [facility] Work Phone: Serum or plasma albumin/glob ulin mass ratioon 12-26-2021 Albumin/Globulin [Mass ratio] 1.0 {ratio} 0.9-2.4 [facility] Work Phone: Serum or plasma calcium lorrie urement (mass/volume)on 12-26-2021 Calcium [Mass/Vol] 9.4 mg/dL 8.5-10.1 [facility] Work Phone: Serum or plasma creatinine m easurement (mass/volume)on 12-26-2021 Creatinine [Mass/Vol] 1.01 mg/dL 0.55-1.02 [facility] Work Phone: Comment on above: The validity of the calculated GFR & GFRAA in patients over 70 years has not been determined. Clinical correlation is essential. Serum or plasma urea nitroge n measurement (mass/volume)on 12-26-2021 Urea nitrogen [Mass/Vol] 18 mg/dL 7-18 [facility] Work Phone: Thin prep Papanicolaou smear with manual screeningon 12-26-2021 Thin prep Papanicolaou smear with manual screening 15 U/L 15-37 [facility] Work Phone: Thin prep Papanicolaou smear with manual screening 5 5-15 [facility] Work Phone: Absolute lymphocyte counton 08-30-2021 Lymphocytes Auto (Unsp spec) [#/Vol] 1.19 10*3/uL 0.83-4.51 [facility] Work Phone: Basophil percentageon 2021 Basophils/100 WBC (Bld) 0.6 % 0-1 [facility] Work Phone: Bilirubin [Mass/Vol] 0.50 mg/dL 0.20-1.00 [facility] Work Phone: Comment on above: For patients on eltr ombopag therapy, use of Dimension [place] TBIL is not recommended. Chloride [Moles/Vol] 105 mmol/L 98-107 [facility] Work Phone: Eosinophils/100 WBC (Bld) 1.9 % 0-5 [facility] Work Phone: Glucose [Mass/Vol] 86 mg/dL 74-106 [facility] Work Phone: Neutrophils (Bld) [#/Vol] 3.0 10*3/uL 2.0-7.7 [facility] Work Phone: Neutrophils/100 WBC (Bld) 63.6 % 47-70 [facility] Work Phone: Potassium [Moles/Vol] 3.8 mmol/L 3.5-5.1 [facility] Work Phone: Protein [Mass/Vol] 7.3 g/dL 6.4-8.2 [facility] Work Phone: Sodium [Moles/Vol] 138 mmol/L 136-145 [facility] Work Phone: WBC (Bld) [#/Vol] 4.7 10*3/uL 4.4-11.0 [facility] Work Phone: Blood erythrocytes count (nu mber/volume)on 08-30-2021 RBC (Bld) [#/Vol] 4.11 10*6/uL 4.2-5.4 [facility] Work Phone: Blood hemoglobin measurement (mass/volume)on 08-30-2021 Hemoglobin (Bld) [Mass/Vol] 13.6 g/dL 12.0-15.0 [facility] Work Phone: Blood lymphocytes/100 leukoc yteson 08-30-2021 Lymphocytes/100 WBC (Bld) 25.5 % 19-41 [facility] Work Phone: Blood monocytes/100 leukocyt eson 08-30-2021 Monocytes/100 WBC (Bld) 7.5 % 0-10 [facility] Work Phone: Blood platelet mean volumeon 08-30-2021 Platelet mean volume (Bld) [Entitic vol] 8.8 fL 6.2-12.0 [facility] Work Phone: Determination of erythrocyte mean corpuscular volume (MCV)on 08-30-2021 MCV (RBC) [Entitic vol] 100.2 fL 81-99 [facility] Work Phone: Erythrocyte sedimentation ra leonardo 08-30-2021 ESR (Bld) [Velocity] 7 mm/h 0-30 [facility] Work Phone: [phone] Hematocrit Auto (Bld) [Volum e fraction]on 08-30-2021 Hematocrit (Bld) [Volume fraction] 41.2 % 37-47 [facility] Work Phone: Laboratory - Chemistry and C hemistry - challengeon 08-30-2021 ALP [Catalytic activity/Vol] 58 U/L 45-117 [facility] Work Phone: ALT [Catalytic activity/Vol] 37 U/L 13-56 [facility] Work Phone: CO2 [Moles/Vol] 28.0 mmol/L 21.0-32.0 [facility] Work Phone: Globulin (S) [Mass/Vol] 3.8 g/dL 2.2-4.2 [facility] Work Phone: Urea nitrogen/Creatinine [Mass ratio] 11.9 mg/mg 10-20 [facility] Work Phone: Laboratory - Hematology and Cell countson 08-30-2021 Erythrocyte distribution width (RBC) [Entitic vol] 48.9 fL 35.1-43.9 [facility] Work Phone: Erythrocyte distribution width (RBC) [Ratio] 13.2 % 11.6-14.6 [facility] Work Phone: Immature granulocytes/100 WBC (Bld) 0.900 % 0.0-0.9 [facility] Work Phone: Comment on above: IG% - Immature Granu locytes (promyelocytes, myelocytes and metamyelocytes) > 1% indicates that a LEFT SHIFT is Present. MCH (RBC) [Entitic mass] 33.1 pg 27.0-32.0 [facility] Work Phone: Nucleated RBC/100 WBC (Bld) [Ratio] 0 % 0-5 [facility] Work Phone: MCHC Auto (RBC) [Mass/Vol]on 08-30-2021 MCHC (RBC) [Mass/Vol] 33.0 g/dL 32-36 [facility] Work Phone: No Panel Informationon 08-30 Estimated GFR (MDRD) Amer 91 mL/min >60 [facility] Work Phone: Comment on above: GFR Calc Estimated GFR (MDRD) Non-Af Amer 75 mL/min >60 [facility] Work Phone: Comment on above: Non- GFR Calc Immunoglobulin E 5 IU/mL 6-495 [facility] Work Phone: Comment on above: Performed at: [email or web address] [address] [id number] Director: Al Beavers PhD, Phone: [phone] at: [employer] [address] [id number] Director: Navin Sanchez MD, Phone: [phone] Platelets bldon 08-30-2021 Platelets (Bld) [#/Vol] 316 10*3/uL 150-450 [facility] Work Phone: Serum mitochondria antibody detectionon 08-30-2021 Mitochondria Ab Ql (S) <20.0 Units 0.0-20.0 [facility] Work Phone: Comment on above: Negative 0.0 - 20.0 Equivocal 20.1 - 24.9 Positive >24.9Mitochondrial (M2) Antibodies are found in 90-96% ofpatients with primary biliary cirrhosis.Performed at: [employer] [address] [id number] Director: Al Beavers PhD, Phone: [phone] Serum or plasma C reactive p rotein measurement (mass/volume)on 08-30-2021 CRP [Mass/Vol] mg/L 0.0-3.0 [facility] Work Phone: Comment on above: C-Reactive Protein ( CRP) provides useful information for thediagnosis, therapy and monitoring of inflammatory processesand associated diseases. For the evaluation of Relative Riskfor Cardiovascular Disease, a High Sensitivity CRP (HSCRP)should be ordered. Serum or plasma IgA measurem ent (mass/volume)on 08-30-2021 IgA [Mass/Vol] 146 mg/dL 87-352 [facility] Work Phone: Serum or plasma IgG measurem ent (mass/volume)on 08-30-2021 IgG [Mass/Vol] 1092 mg/dL [phone] [facility] Work Phone: Serum or plasma IgM measurem ent (mass/volume)on 08-30-2021 IgM [Mass/Vol] 212 mg/dL 26-217 [facility] Work Phone: Serum or plasma albumin lorrie urement (mass/volume)on 08-30-2021 Albumin [Mass/Vol] 3.5 g/dL 3.2-5.0 [facility] Work Phone: Serum or plasma albumin/glob ulin mass ratioon 08-30-2021 Albumin/Globulin [Mass ratio] 0.9 {ratio} 0.9-2.4 [facility] Work Phone: Serum or plasma calcium lorrie urement (mass/volume)on 08-30-2021 Calcium [Mass/Vol] 8.6 mg/dL 8.5-10.1 [facility] Work Phone: Serum or plasma creatinine m easurement (mass/volume)on 08-30-2021 Creatinine [Mass/Vol] 0.84 mg/dL 0.55-1.02 [facility] Work Phone: Comment on above: The validity of the calculated GFR & GFRAA in patients over 70 years has not been determined. Clinical correlation is essential. Serum or plasma urea nitroge n measurement (mass/volume)on 08-30-2021 Urea nitrogen [Mass/Vol] 10 mg/dL 7-18 [facility] Work Phone: Thin prep Papanicolaou smear with manual screeningon 08-30-2021 Thin prep Papanicolaou smear with manual screening 22 U/L 15-37 [facility] Work Phone: Thin prep Papanicolaou smear with manual screening 5 5-15 [facility] Work Phone: Final Surgical Pathology Rep selene 10-21-2018 Final Surgical Pathology Report . Pathology Reports Accession: Collected Date/Time: Received Date/Time: Pathologist: [id number] 10/17/2018 14:14 EDT 10/20/2018 14:14 EDT DO [...] cm. TS -1 Dictated by Denita MENDEZ ([facility]) MICROSCOPIC DESCRIPTION: A-C Slides reviewed. Electronically Signed by Pathology Report verified by [facility] Electronically signed by LEONARDO DIAZ DO Sign out Date: 10/21/2018 12:15 Performing Lab: [facility], [address] [place] [address] ([place]) Comment on above: Performed By: #### S PFR #### [place] [address] Office Visit: UC: sinusitiso n 05-30-2017 Documentation of current medications (procedure) Done Invalid Interpretation Code [facility] Work Phone: Fall risk assessment No Invalid Interpretation Code [facility] Work Phone: Tobacco smoking status NHIS Never Invalid Interpretation Code [facility] Work Phone: Tobacco use CPHS Never smoker Invalid Interpretation Code [facility] Work Phone: Vital Signs Date Time Vital Sign Value Performing Clinician Anmol page 05-18-2023 11:42-0400 Body height 172.[address] Arsalan Pedro Work Phone: [facility] 05-18-2023 11:42-0400 Body mass index (BMI) [Ratio] 30.4 kg/m2 Dr. Arsalan Pedro Work Phone: [facility] 05-18-2023 11:42-0400 Body weight 90.[address] Arsalan Pedro Work Phone: [facility] 05-18-2023 11:42-0400 Diastolic blood pressure 87 mm[Hg] Dr. Arsalan Pedro Work Phone: [facility] 05-18-2023 11:42-0400 Heart rate 88 /min Dr. Arsalan Pedro Work Phone: [facility] 05-18-2023 11:42-0400 Respiratory rate 16 /min Dr. Arsalan Pedro Work Phone: [facility] 05-18-2023 11:42-0400 SaO2% (BldA) [Mass fraction] 98 % Dr. Arsalan Pedro Work Phone: [facility] 05-18-2023 11:42-0400 Systolic blood pressure 135 mm[Hg] Dr. Arsalan Pedro Work Phone: [facility] 11-08-2022 07:10-0400 Body temperature 96.9 [degF] Dr. Arsalan Pedro Work Phone: [facility] 11-08-2022 07:10-0400 Diastolic blood pressure 81 mm[Hg] Dr. Arsalan Pedro Work Phone: [facility] 11-08-2022 07:10-0400 Heart rate 71 /min Dr. Arsalan Pedro Work Phone: [facility] 11-08-2022 07:10-0400 Respiratory rate 16 /min Dr. Arsalan Pedro Work Phone: [facility] 11-08-2022 07:10-0400 SaO2% (BldA) [Mass fraction] 97 % Dr. Arsalan Pedro Work Phone: [facility] 11-08-2022 07:10-0400 Systolic blood pressure 105 mm[Hg] Dr. Arsalan Pedro Work Phone: [facility] 11-08-2022 06:02-0400 Body height 170.[address] Arsalan Pedro Work Phone: [facility] 11-08-2022 06:02-0400 Body mass index (BMI) [Ratio] 29.9 kg/m2 Dr. Arsalan Pedro Work Phone: [facility] 11-08-2022 06:02-0400 Body weight 86.[address] Arsalan Pedro Work Phone: [facility] 09-06-2022 15:24-0500 Body height 170.[address] Arsalan Pedro Work Phone: [facility] 09-06-2022 15:24-0500 Body mass index (BMI) [Ratio] 30.4 kg/m2 Dr. Arsalan Pedro Work Phone: [facility] 09-06-2022 15:24-0500 Body weight 87.[address] Arsalan Pedro Work Phone: [facility] 09-06-2022 15:24-0500 Diastolic blood pressure 91 mm[Hg] Dr. Arsalan Pedro Work Phone: [facility] 09-06-2022 15:24-0500 Heart rate 98 /min Dr. Arsalan Pedro Work Phone: [facility] 09-06-2022 15:24-0500 SaO2% (BldA) [Mass fraction] 98 % Dr. Arsalan Pedro Work Phone: [facility] 09-06-2022 15:24-0500 Systolic blood pressure 136 mm[Hg] Dr. Arsalan Pedro Work Phone: [facility] 06-11-2022 07:04-0500 Body temperature 98.6 [degF] Dr. Arsalan Pedro Work Phone: [facility] Work Phone: 06-11-2022 07:04-0500 Diastolic blood pressure 72 mm[Hg] Dr. Arsalan Pedro Work Phone: [facility] Work Phone: 06-11-2022 07:04-0500 Heart rate 82 /min Dr. Arsalan Pedro Work Phone: [facility] Work Phone: 06-11-2022 07:04-0500 Respiratory rate 14 /min Dr. Arsalan Pedro Work Phone: [facility] Work Phone: 06-11-2022 07:04-0500 SaO2% (BldA) [Mass fraction] 99 % Dr. Arsalan Pedro Work Phone: [facility] Work Phone: 06-11-2022 07:04-0500 Systolic blood pressure 122 mm[Hg] Dr. Arsalan Pedro Work Phone: [facility] Work Phone: 05-18-2022 12:47-0400 Body height 170.[address] Arsalan Pedro Work Phone: [facility] Work Phone: 05-18-2022 12:47-0400 Body mass index (BMI) [Ratio] 29 kg/m2 Dr. Arsalan Pedro Work Phone: [facility] Work Phone: 05-18-2022 12:47-0400 Body temperature 97.9 [degF] Dr. Arsalan Pedro Work Phone: [facility] Work Phone: 05-18-2022 12:47-0400 Body weight 83.[address] Arsalan Pedro Work Phone: [facility] Work Phone: 05-18-2022 12:47-0400 Diastolic blood pressure 87 mm[Hg] Dr. Arsalan Pedro Work Phone: [facility] Work Phone: 05-18-2022 12:47-0400 Heart rate 67 /min Dr. Arsalan Pedro Work Phone: [facility] Work Phone: 05-18-2022 12:47-0400 Respiratory rate 16 /min Dr. Arsalan Pedro Work Phone: [facility] Work Phone: 05-18-2022 12:47-0400 SaO2% (BldA) [Mass fraction] 97 % Dr. Arsalan Pedro Work Phone: [facility] Work Phone: 05-18-2022 12:47-0400 Systolic blood pressure 130 mm[Hg] Dr. Arsalan Pedro Work Phone: [facility] Work Phone: 04-23-2022 13:07-0400 Body mass index (BMI) [Ratio] 29.7 kg/m2 Dr. Arsalan Pedro Work Phone: [facility] Work Phone: 04-23-2022 13:07-0400 Body weight 86.[address] Arsalan Pedro Work Phone: [facility] Work Phone: 04-04-2022 13:49-0400 Body height 170.[address] Arsalan Pedro Work Phone: [facility] Work Phone: 04-04-2022 13:49-0400 Body mass index (BMI) [Ratio] 29.9 kg/m2 Dr. Arsalan Pedro Work Phone: [facility] Work Phone: 04-04-2022 13:49-0400 Body weight 86.[address] Arsalan Pedro Work Phone: [facility] Work Phone: 04-04-2022 13:49-0400 Diastolic blood pressure 88 mm[Hg] Dr. Arsalan Pedro Work Phone: [facility] Work Phone: 04-04-2022 13:49-0400 Heart rate 86 /min Dr. Arsalan Pedro Work Phone: [facility] Work Phone: 04-04-2022 13:49-0400 Respiratory rate 16 /min Dr. Arsalan Pedro Work Phone: [facility] Work Phone: 04-04-2022 13:49-0400 SaO2% (BldA) [Mass fraction] 99 % Dr. Arsalan Pedro Work Phone: [facility] Work Phone: 04-04-2022 13:49-0400 Systolic blood pressure 140 mm[Hg] Dr. Arsalan Pedro Work Phone: [facility] Work Phone: 03-27-2022 13:50-0400 Body temperature 98.2 [degF] Dr. Arsalan Pedro Work Phone: [facility] Work Phone: 03-27-2022 13:50-0400 Diastolic blood pressure 88 mm[Hg] Dr. Arsalan Pedro Work Phone: [facility] Work Phone: 03-27-2022 13:50-0400 Heart rate 80 /min Dr. Arsalan Pedro Work Phone: [facility] Work Phone: 03-27-2022 13:50-0400 Respiratory rate 16 /min Dr. Arsalan Pedro Work Phone: [facility] Work Phone: 03-27-2022 13:50-0400 SaO2% (BldA) [Mass fraction] 100 % Dr. Arsalan Pedro Work Phone: [facility] Work Phone: 03-27-2022 13:50-0400 Systolic blood pressure 133 mm[Hg] Dr. Arsalan Pedro Work Phone: [facility] Work Phone: 03-27-2022 12:20-0400 Body height 170.[address] Arsalan Pedro Work Phone: [facility] Work Phone: 03-27-2022 12:20-0400 Body mass index (BMI) [Ratio] 29.7 kg/m2 Dr. Arsalan Pedro Work Phone: [facility] Work Phone: 03-27-2022 12:20-0400 Body weight [address] Arsalan Pedro Work Phone: [facility] Work Phone: 09-10-2021 13:13-0500 Body height 170.[address] Arsalan Pedro Work Phone: [facility] Work Phone: 09-10-2021 13:13-0500 Body mass index (BMI) [Ratio] 29.1 kg/m2 Dr. Arsalan Pedro Work Phone: [facility] Work Phone: 09-10-2021 13:13-0500 Body temperature 97.3 [degF] Dr. Arsalan Pedro Work Phone: [facility] Work Phone: 09-10-2021 13:13-0500 Body weight 84.[address] Arsalan Pedro Work Phone: [facility] Work Phone: 09-10-2021 13:13-0500 Diastolic blood pressure 78 mm[Hg] Dr. Arsalan Pedro Work Phone: [facility] Work Phone: 09-10-2021 13:13-0500 Heart rate 82 /min Dr. Arsalan Pedro Work Phone: [facility] Work Phone: 09-10-2021 13:13-0500 Respiratory rate 15 /min Dr. Arsalan Pedro Work Phone: [facility] Work Phone: 09-10-2021 13:13-0500 SaO2% (BldA) [Mass fraction] 98 % Dr. Arsalan Pedro Work Phone: [facility] Work Phone: 09-10-2021 13:13-0500 Systolic blood pressure 121 mm[Hg] Dr. Arsalan Pedro Work Phone: [facility] Work Phone: 05-30-2017 08:41-0500 BMI (Body Mass Index) 28.03 kg/m2 Anthony MENDEZ [facility] Work Phone: 05-30-2017 08:41-0500 Body Temperature 98.6 [degF] Anthony MENDEZ [facility] Work Phone: 05-30-2017 08:41-0500 BP Diastolic 84 mm[Hg] Anthony MENDEZ [facility] Work Phone: 05-30-2017 08:41-0500 BP Systolic 126 mm[Hg] Anthony MENDEZ [facility] Work Phone: 05-30-2017 08:41-0500 Height 170.18 cm Anthony MENDEZ [facility] Work Phone: 05-30-2017 08:41-0500 Pulse (Heart Rate) 83 /min Anthony MENDEZ [facility] Work Phone: 05-30-2017 08:41-0500 Respiratory Rate 14 /min Anthony MENDEZ [facility] Work Phone: 05-30-2017 08:41-0500 Weight 81.19 kg Anthony MENDEZ [facility] Work Phone: Encounters Encounter Date Encounter Type Care Provider Facility Start: 01-26-2025 ambulatory Foreign Ortiz Facility :[facility] Start: 01-22-2025 ambulatory Radha Hayden ty:[facility] Start: 12-31-2024 End: 12-31-2024 ambulatory Radha Murillo Facility:[facility] Start: 12-31-2024 End: 12-31-2024 ambulatory Radha Ward Facility:[facility] Start: 12-03-2024 End: 12-03-2024 ambulatory Radha Vacatorsteneleni Facility:[facility] Start: 11-24-2024 End: 11-24-2024 ambulatory Radha Ward Facility:[facility] Start: 11-04-2024 End: 11-04-2024 ambulatory Leigh Bowie Facility:[facility] Start: 10-30-2024 End: 10-30-2024 ambulatory Radha Vacadarrian Facility:[facility] Start: 09-18-2024 End: 09-18-2024 ambulatory Radha Chidi Facility:[facility] Start: 08-17-2024 End: 08-17-2024 ambulatory Radha Vacadarrian Facility:[facility] Start: 08-05-2024 End: 08-05-[address] Start: 06-30-2024 End: 06-30-2024 ambulatory Jamee Reed NP Facility:[facility] Start: 04-30-2024 End: 04-30-2024 ambulatory Leigh Bell Facility:[facility] Start: 03-17-2024 End: 03-17-[address] [facility] Facility:[facility] Start: 03-13-2024 End: 03-13-2024 ambulatory Renetta Vasquez [employer] Facility:[facility] Start: 02-06-2024 End: 02-06-[address] [facility] Facility:[facility] Start: 07-09-2023 End: 07-09-[address] Arsalan Pedro Work Phone: [facility] Work Phone: Start: 07-09-2023 End: 07-09-[address] Arsalan Pedro Work Phone: [facility]-Outpatient Bone Densitometry Work Phone: Start: 06-03-2023 End: 06-03-[address] Arsalan Pedro Work Phone: [facility] Work Phone: Start: 06-03-2023 End: 06-03-[address] Arsalan Pedro Work Phone: [facility]-Outpatient Breast Imaging Work Phone: Start: 05-20-2023 End: 05-20-[address] Arsalan Pedro Work Phone: [facility] Work Phone: Start: 05-20-2023 End: 05-20-[address] Arsaaln Pedro Work Phone: [facility]-Laboratory, Specimen Work Phone: Start: 05-18-2023 End: 05-18-[address] Arsalan Pedro Work Phone: [facility] Work Phone: Start: 03-25-2023 End: 03-25-[address] Arsalan Pedro Work Phone: [facility]-Laboratory, Specimen Work Phone: Start: 11-08-2022 Non-patient / Non-visit Dr. Arsalan Pedro Work Phone: [facility] Start: 11-08-2022 End: 11-08-2022 Admission to same day surgery center Dr. Arsalan Pedro Work Phone: [facility]-Endoscopy Start: 11-08-2022 End: 11-08-[address] Arsalan Pedro Work Phone: [facility] Work Phone: Start: 11-01-2022 End: 11-01-[address] Arsalan Pedro Work Phone: [facility] Work Phone: Start: 11-01-2022 End: 11-01-[address] Arsalan Pedro Work Phone: [facility]-Laboratory, [place] Start: 10-31-2022 End: 10-31-[address] Arsalan Pedro Work Phone: [facility] Work Phone: Start: 10-31-2022 End: 10-31-[address] Arsalan Pedro Work Phone: [facility] Start: 09-06-2022 End: 09-06-[address] Arsalan Pedro Work Phone: [facility] Start: 06-11-2022 End: 06-11-[address] Arsalan Pedro Work Phone: [facility] Start: 05-30-2022 End: 05-30-[address] Arsalan Pedro Work Phone: [facility] Work Phone: Start: 05-30-2022 End: 05-30-[address] Arsalan Pedro Work Phone: [facility]-Outpatient Breast Imaging Start: 05-18-2022 Non-patient / Non-visit Dr. Arsalan Pedro Work Phone: [facility] Start: 05-18-2022 End: 05-18-[address] Arsalan Pedro Work Phone: [facility] Work Phone: Start: 05-18-2022 End: 05-18-[address] Arsalan Pedro Work Phone: [facility] Start: 04-23-2022 End: 04-23-[address] Arsalan Pedro Work Phone: [facility] Start: 04-18-2022 Non-patient / Non-visit Dr. Arsalan Pedro Work Phone: [facility] Start: 04-18-2022 End: 04-18-[address] Arsalan Pedro Work Phone: [facility] Work Phone: Start: 04-18-2022 End: 04-18-[address] Arsalan Pedro Work Phone: [facility]-Cardiovascular Services Start: 04-04-2022 End: 04-04-[address] Arsalan Pedro Work Phone: [facility] Start: 03-27-2022 Non-patient / Non-visit Dr. Arsalan Pedro Work Phone: [facility] Start: 03-27-2022 End: 03-27-2022 Admission to same day surgery center Dr. Arsalan Pedro Work Phone: [facility]-Endoscopy Start: 03-27-2022 End: 03-27-[address] Arsalan Pedro Work Phone: [facility] Work Phone: Start: 12-27-2021 End: 12-27-[address] Arsalan Pedro Work Phone: [facility]-Laboratory, Specimen Start: 12-26-2021 End: 12-26-[address] [facility] Start: 12-25-2021 End: 12-25-[address] Arsalan Pedro Work Phone: [facility] Start: 10-02-2021 End: 10-02-[address] Arsalan Pedro Work Phone: [facility] Start: 09-19-2021 End: 09-19-[address] Arsalan Pedro Work Phone: [facility]-Radiology, [place] Start: 09-10-2021 End: 09-10-2021 Emergency department patient visit Dr. Arsalan Pedro Work Phone: [facility]-Emergency Department Start: 08-30-2021 End: 08-30-[address] Arsalan Pedro Work Phone: [facility] Start: 04-23-2020 End: 04-23-2020 Patient encounter procedure Graeme Cooper Work Phone: [facility] Start: 04-23-2020 Results Only Graeme kim [...] CT angiography of coronary arteries Dr. Arsalan Pdero Work Phone: Start: 03-27-[address] Arsalan [...] Treatment Date Care Activity Detail Author Start: 07-09-2023 Dual energy X-ray absorptiometry Dexa Bone Density Study [facility] Start: 07-09-2023 DXA Bone [Mass/Area] Bone density [facility] Start: 11-08-2022 Patient discharge [facility] Start: 03-27-2022 Egd transoral biopsy single/multiple EGD BIOPSY SINGLE/MULTIPLE [facility] Work Phone: Start: 03-27-2022 Patient discharge [facility] Work Phone: Start: 12-27-2021 Protein measurement [facility] Work Phone: Start: 03-15-2020 Influenza vaccination INFLUENZA (#1) [facility] Start: 02-25-2018 SHINGRIX VACCINE (1 of 2) SHINGRIX VACCINE (1 of 2) [facility] Start: 02-25-2018 Tuberculosis screening COLORECTAL CANCER SCREENING,SEE MODIFIER [facility] Start: 05-30-2017 End: 05-30-2017 Appointment Appointment [facility] Work Phone: Start: 10-29-2016 HPV TESTING HPV TESTING [facility] Start: 10-29-2016 PAP TESTING PAP TESTING [facility] Start: 08-15-2016 LIPID SCREEN LIPID SCREEN [facility] Start: 12-10-2014 Mammography MAMMOGRAM [facility] Start: 02-25-2013 DIABETES SCREEN DIABETES SCREEN [facility] Start: 08-15-2010 Urine microalbumin profile DTAP,TDAP,TD (2 - Tdap) [facility] Start: 02-25-1986 HEPATITIS C SCREENING HEPATITIS C SCREENING [facility] Start: 02-25-1986 HIV SCREENING HIV SCREENING [facility] C reactive protein [Mass/volume] in Serum or Plasma [facility] Work Phone: CBC W Auto Different ial panel - Blood [facility] Work Phone: Celiac disease screen [facility] Work Phone: CT angiography of co ronary arteries [facility] Work Phone: Erythrocyte sediment ation rate [facility] Work Phone: Lactoferrin [Presenc e] in Stool by Immunoassay [facility] Work Phone: Patient Education [facility] Work Phone: Patient referral [facility] Work Phone: Protein measurement [facility] Work Phone: Protein measurement [facility] PT ED PATIENT INFORMATION PT ED PATIENT INFORMATION Other 04/23/2020 [facility] Immunizations Immunization Date Immunization Notes Care Provider Fa cility 09-22-2016 influenza, injectabl e, quadrivalent, preservative free Dr. Arsalan Pedro Work Phone: [facility] 09-22-2016 influenza, seasonal, injectable Dr. Arsalan Pedro Work Phone: [facility] 05-26-2007 influenza virus vaccine, unspecified formulation [facility] 08-15-2000 diphtheria and tetan us toxoids, adsorbed for pediatric use [facility] Payers Date Payer Category Payer Unknown [id number] 2024 Self-pay [id number] 2024 Unknown [id number] 2023 Unknown [id number] 2019 Unknown [employer] A[employer]TC[employer] E PPO [id number] 2019-Present PPO [id number] 2018 Unknown [id number] 1970 Unknown [id number] Unknown [id number] Unknown [employer] [id number] Unknown [id number] Unknown [id number] Unknown [id number] Unknown [id number] Unknown [id number] Unknown [id number] Unknown [id number] Unknown [id number] Unknown [id number] Unknown [id number] Unknown [id number] Unknown [id number] Unknown [id number] Unknown [id number] Unknown [id number] Unknown [id number] Social History Date Type Detail Facility Start: 02-05-2015 Tobacco smoking status PRIS Never smoker [facility] Start: 02-05-2015 Tobacco use and exposure Never used [facility] Start: 02-05-2015 Alcohol intake Current drinke r of alcohol (finding) [facility] Start: 01-05-2014 Alcohol Comment Occasionally Wine [facility] Sex Assigned At Not on file [facility] Exposure to SARS-CoV-2 (event) Unable to assess [facility] Start: 12-25-2021 End: 05-18-2023 Tobacco smoking status NHIS Unknown if ever smoked [facility] Start: 06-24-2013 Occasional [facility] Start: 06-24-2013 None [facility] Start: 06-24-2013 Spouse/ Signif icant Other [facility] Start: 09-22-2016 Non-smoker [facility] Start: 1970 Sex Assigned At Female [facility] NEGATED: Highlighted row [facility] Goals Date Patient Goal Desired Activity /State Mental Status Date Assessment Result Facility 11-08-2022 Cognitive function Voice/Name [facility] Work Phone: 05-18-2022 Cognitive function Voice/Name [facility] Work Phone: 03-27-2022 Cognitive function Level Of Consciousness Awake [facility] Work Phone: 03-27-2022 Cognitive function Voice/Name [facility] Work Phone: Procedure note 11-08-2022 Note Date & Type Note Facility 11-08-2022 Procedure note [facility] Procedure note 11-08-2022 Note Date & Type Note Facility 11-08-2022 Procedure note [facility] Evaluation note Note Date & Type Note Facility Evaluation note Diagnosis Onset Date Chronic ulcerative colitis c hronic Chronic ulcerative colitis c hronic Gastric ulcer [facility] Work Phone: Evaluation note Note Date & Type Note Facility Evaluation note Diagnosis Onset Date Chronic ulcerative colitis c hronic Gastric ulcer [facility] Work Phone: Evaluation note Note Date & Type Note Facility Evaluation note Diagnosis Onset Date Aortic valve disorder acute Chest pain acute [facility] Work Phone: Evaluation note Note Date & Type Note Facility Evaluation note Diagnosis Onset Date Aortic valve disorder acute Chest pain acute GERD (gastroesophageal reflux disease) acute Ulcerative colitis acute [facility] Work Phone: Evaluation note Note Date & Type Note Facility Evaluation note Diagnosis Onset Date Aortic valve disorder acute Chest pain acute GERD (gastroesophageal reflux disease) acute Ulcerative colitis acute Acute bronchitis, unspecified acute [facility] Work Phone: Evaluation note Note Date & Type Note Facility Evaluation note Diagnosis Onset Date Chronic ulcerative colitis c hronic [facility] Work Phone: Evaluation note Note Date & Type Note Facility Evaluation note Diagnosis Onset Date UTI (urinary tract infection) acute [facility] Work Phone: History and physical note Note Date & Type Note Facility History and physical note Note Date/Time November 08, 2022 6:32am [facility] Medical Records Department [address] [place] [address] History & Physical Exam 11/08/22 0632 MR#: [id number] Acct: [id number] Name: TIFFANIE CASTILLO Rep #: [id number] : 1970 52 From: Foreign Friend DO PCP: Dr. Arsalan Pedro MD Status:[facility] Location: [place] [address] History and Physical Date of Admission: 11/08/22 [...] normal to inspection Quality Reporting Tobacco Screening ([facility] 138) Smoking Status: Never smoker Assessment and [...] Arsalan Pedro MD; Foreign Ortiz DO~ Signed [facility] Work Phone: Summary Purpose Family History No [...] Date/ Time Name of Medical Power of Sponge Packer stephon miranda nd September 10, 2021 2:43pm Advance Directives No June 1:46pm Living Will Yes September 10 022 2:43pm Power of Sponge Packer Yes September 10, 2021 2:43pm Advance Directive Response Recorded Date/ Time Name of Medical Power of Sponge Packer HUSAM kimble March 22, 2022 2:54pm Advance Directives No June 1:46pm Living Will Yes March 22 022 2:54pm Power of Sponge Packer Yes March 22, 2022 2:54pm Advance Directive Response Recorded Date/ Time Name of Medical Power of Sponge Packer HUSAM kimble March 22, 2022 1:54pm Advance Directives No June 12:46pm Living Will Yes March 22 1:54pm Power of Sponge Packer Yes March 22, 2022 1:54pm Advance Directive Response Recorded Date/ Time Advance Directives No June 1:46pm Living Will Yes November 05, 2022 10:28am Power of Sponge Packer Yes November 05 10:28am Advance Directive Response Recorded Date/ Time Name of Medical Power of Sponge Packer BARRY Basilio November 05, 2022 10:28am Advance Directives No June 1:46pm Living Will Yes November 05, 2022 10:28am Power of Sponge Packer Yes November 05 10:28am Advance Directive Response Recorded Date/ Time Advance Directives No June 12:46pm Living Will Yes November 05, 2022 9:28am Power of Sponge Packer Yes November 05 9:28am Chief Complaint and [...] section and content) DATE CREATED AUTHOR 10/27/2018 [facility] ([place]) DATE CREATED AUTHOR AUTHOR'S ORGANIZ ATION 01/25/2025 [facility] Source Comments (unrecognize d section and content) In the event this informatio n is protected by the Federal Confidentiality of Alcohol and Drug Abuse Patient Records regulations: The Federal rules restrict any use of the information to criminally investigate or prosecute any alcohol or drug abuse patient.[facility] Goals (unrecognized section and content) Goals [...] Care Provider, Referring Provider Active Franchesca Garcia [employer]PER[employer], [employer]-C Attending Provider Active Team Status: Inactive Member Role Status Dates Dr. Arsalan Pedro MD Primary Care Provider Active Dr. Trell Vargas MD Attending Provider, Referring Pro vider Active Team Status: Active Member Role Status Dates Dr. Arsalan Pedro MD Primary Care Provider Active Franchesca Garcia [employer], [employer]-C Attending Provider, Referrin g Provider Active Team Status: Inactive Member Role Status Dates Dr. Arsalan Pedro MD Primary Care Provider Active Franchesca Garcia [employer]MENT, SUPER[employer]-C Attending Provider, Referrin g Provider Active Team [...] Primary Care Provider, Referring Provider Active Lori MENDEZ PA Attending Provider Active Team Status: Inactive Member Role Status Dates Dr. Arsalan Pedro MD Primary Care Provider Active Renetta Vasquez NP, [employer]-C Attending Provider, Referri ng Provider Active Team [...] BE BASED ON THE PRIMARY CLINICAL RECORDS. [employer] provides no warranty or guarantee of the accuracy or completeness of information in this document.
[2025-01-26] MEDS: Lactated Ringers 1,000 ML 15 ML IV (06:10)
--- NOTE | 2025-01-26 06:30 | COLBX_PTH ---
PATIENT: TANYA PEREZ LOC: EN U#:[id number] AGE/SX: 54/F ROOM: RE01/26/[address]: Dr. Foreign Ortiz DO : 1970 BED: DIS: 01/26/2025 SPEC #: [id number] RECD: 01/26/25 09:39 STATUS: JANINE REWolfgang #: [id number] CONOR: 01/26/25 06:[address]: Foreign Ortiz DEPT: SURGICAL PATHOLOGY RECD BY: Bailee Staton ENTERED: 01/26/25 10:49 SP TYPE: COLON BX OT DR: Dr. Arsalan Pedro MD Tissues: A - Right colon B - Transverse colon C - Left colon D - Sigmoid colon biopsy E - Rectum, NOS Procedures: Surgery Specimen Level IV HEADER OPERATION: Colonoscopy with biopsy PRE-OP DIAGNOSIS: Chronic ulcerative colitis, GERD TISSUE SUBMITTED: A- Right side colon biopsy, B- Transverse colon biopsy, C- Left side colon biopsy,D- Sigmoid colon biopsy, E- Rectal biopsy MICROSCOPIC DIAGNOSIS A. Colon, right side, biopsy: * Focal active cryptitis B. Colon, transverse colon, biopsy: * Colonic mucosa with no pathologic change C. Colon, left side, biopsy: * Colonic mucosa with no pathologic change D. Colon, sigmoid colon, biopsy: * Colonic mucosa with no pathologic change E. Rectum, colon, biopsy: * Mild active chronic proctitis * Negative for dysplasia COMMENT No areas of granulomas or dysplasia is identified in the submitted biopsies. MICROSCOPIC DESCRIPTION Slides are reviewed. GROSS DESCRIPTION A. Received in fixative is one container labeled with the patient's name and designated "Right side colon biopsy." The specimen consists of multiple irregular fragments of light garcia soft tissue that in aggregate measure 0.3 to 0.5 cm. The specimen is totally submitted in one cassette. B. Received in fixative is one container labeled with the patient's name and designated "Transverse colon biopsy." The specimen consists of multiple irregular fragments of light garcia soft tissue that in aggregate measure 0.3 to 0.5 cm. The specimen is totally submitted in one cassette. C. Received in fixative is one container labeled with the patient's name and designated "Left side colon biopsy." The specimen consists of three irregular fragments of light garcia soft tissue that in aggregate measure 0.3 to 0.5 cm. The specimen is totally submitted in one cassette. D. Received in fixative is one container labeled with the patient's name and designated "Sigmoid colon biopsy." The specimen consists of two irregular fragments of light garcia soft tissue that in aggregate measure 0.5 and 0.6 cm. The specimen is totally submitted in one cassette. E. Received in fixative is one container labeled with the patient's name and designated "Rectal biopsy." The specimen consists of one irregular fragment of light garcia soft tissue that measures 0.7 cm. The specimen is totally submitted in one cassette. [place] 01/26/2025 CPT:[id number]
--- NOTE | 2025-01-26 06:31 | PRE.ANES_ITS ---
ASA Classification* ASA Classification ASA Classification: 2 Assessment & Plan Anesthesia* Anesthesia Assessment Anesthesia Assessment: Discussed sedation and/or anesthesia options, risks, benefits, and alternatives with patient/parents/legal guardian/POA. Questions invited. The patient/parents/legal guardian/POA seems to understand and agrees to proceed with anesthesia plan. Reviewed the physical assessment, medical history, allergy history and patient home medications list prior to surgery/procedure/anesthetic and documented any changes. Performed airway and anesthesia risk assessments. Anesthesia Type Anesthesia Type: MAC History Source History Obtained from:: Patient and Chart Anesthesia Focused Assessment* Temperature: 97 F Pulse Rate: 80 Blood Pressure: 105/78 Respiratory Rate: 16 Pulse Ox: 96 Oxygen Delivery Method: Room Air Airway Assessment Mouth opens: >3 cm Mallampati Score: I Teeth Condition: Intact Neck Range of motion (ROM): Full ROM Labs Anesthesia Preop lab: CBC WBC 7.0 K/mm3 (4.4-11.0) 12/31/24 11:14 12/31/24 RBC 4.25 M/mm3 (4.2-5.4) 12/31/24 11:14 12/31/24 Hgb 13.4 g/dL (12.0-15.0) 12/31/24 11:14 12/31/24 Hct 39.2 % (37-47) 12/31/24 11:14 12/31/24 Plt Count 316 K/mm3 (150-450) 12/31/24 11:14 12/31/24 CHEMISTRY Potassium 3.9 mmol/L (3.3-5.1) 12/31/24 11:14 12/31/24 Sodium 137 mmol/L (133-145) 12/31/24 11:14 12/31/24 BUN 12 mg/dL (4-19) 12/31/24 11:14 12/31/24 Creatinine 0.78 mg/dL (0.70-1.20) 12/31/24 11:14 12/31/24 Glucose 88 mg/dL (70-99) 12/31/24 11:14 12/31/24 TSH 2.21 uIU/mL (0.358-3.74) 01/08/24 08:49 COAG PT 16.2 SECONDS (11.9-14.4) H 06/25/13 09:20 06/14 08/27 Urine Test Negative Negative 03/27/22 12:11 03/27/22 Pre-Assessment Diagnosis/Proposed Procedure Planned Operative Procedure(s): COLONOSCOPY Anesthesia History Anesthesia History - television technician: Anesthesia History - television technician Hx Hospitalization No 01/21/25 12:31 Any Problems With Anesthesia No 01/21/25 12:31 Cholinesterase deficiency No 01/21/25 12:31 You/Your Family Experience No 01/21/25 12:31 fever (hyperthermia) with Relationship Recent Exposure to Contagious No 01/26/25 06:01 Disease Does patient have nerve No 01/21/25 12:31 stimulator Patient instructed to have device shut off --Does patient have Pacemaker No 01/26/25 06:01 or ICD? When Was Last Pacemaker Check QUESTION #4 FULL TEXT: You/Your Family Experience fever (hyperthermia) with Anesthesia Last Oral Intake Last Oral intake: Last Oral Intake NPO since 21:00 01/26/25 06:01 Meds taken in AM with sips of water? Meds patient instructed to take am of surgery PONV PONV - television technician: PONV - television technician Female Yes 01/21/25 12:31 HX of Motion Sickness No 01/21/25 12:31 HX of N/V After Surgery No 01/21/25 12:31 Non-Smoker Yes 01/21/25 12:31 Duration of Surgery greater No 01/21/25 12:31 than 60 minutes Number of Risk Factors 2 01/21/25 12:31 PONV Score Moderate Risk 01/21/25 12:31 Height & Weight Height & Weight: Anesthesia: Height & Weight Height 5 ft 7 in 01/26/25 06:01 Weight: 76.204 kg 01/26/25 06:01 Body Mass Index (BMI) 26.3 01/26/25 06:01 Respiratory Assessment Respiratory Assessment - television technician: Respiratory Tract Infection Hx - television technician Hx Respiratory Tract Infection No 01/21/25 12:31 STOP Sleep Apnea STOP Sleep Apnea - television technician: STOP Sleep Apnea - television technician Hx Hypertension No 01/21/25 12:31 Hx Sleep Apnea No 01/21/25 12:31 CPAP No 11/08/22 06:55 BIPAP No 11/05/22 10:28 Do you snore loudly (louder No 01/21/25 12:31 than talking or can be heard Do you often feel tired/ No 01/21/25 12:31 fatigued/ sleepy during daytime? Has anyone observed you stop No 01/21/25 12:31 breathing during sleep? STOP Results Negative 01/21/25 12:31 QUESTION #5 FULL TEXT : Do you snore loudly (louder than talking or can be heard through closed doors)? Tobacco Use History Tobacco Use History - television technician: Tobacco Use History - television technician Tobacco Use Smoking Status Never smoker 01/21/25 12:31 Hx Tobacco Use No 01/21/25 12:31 Years Smoking Packs Smoked per Day Smoking Cessation Date was within the last 15 years Hx Smoking Cessation Date Hx Smoking Cessation No 01/21/25 12:31 Counseling Hematologic Medial History Hematologic Hx - television technician: Hematologic Medical Hx - documentation clerk Hx of Blood Transfusion No 01/21/25 12:31 Hx of Transfusion in last 3 No 01/21/25 12:31 Months Date of Last Transfusion (if within last 3 months) Ever experience any problems No 01/21/25 12:31 with transfusion(s)? Specify any problems Hx of Preganancy in last 3 No 01/21/25 12:31 Months Nurse Filling Out Transfusion [email or web address] 01/21/25 12:31 & Questions: Date: 01/21/25 01/21/25 12:31 Time: 12:32 01/21/25 12:31 Patient unable to answer at this time (ie. confused, unrespo /Reproduction History /Reproductive History - television technician: /Reproductive Hx- television technician Hx Now Gestational Age (in weeks): EDC: Hx Hx Para Hx Section SAB No 11/05/22 10:28 Active Medications Active Medications: Current Medications Generic Name Dose Route Start Last Admin Trade Name Freq PRN Reason Stop Dose Admin Lactated Ringer's 1,000 mls @ 15 mls/hr 01/26/25 05:45 01/26/25 06:10 IV 15 mls/hr .Q48H MARTY Administration PFSH Medical History Gastric reflux Post-menopausal Cardiology follow-up encounter History of echocardiogram History of stress test Acute bronchitis, unspecified Rapid palpitations Family history of valvular heart disease Wears contact lenses Anxiety Alcohol use History of kidney stones History of GI bleed Non-smoker Pelvic pain Abnormal uterine bleeding Colitis History of anxiety Flank pain Gastric ulcer Chronic ulcerative colitis Home Medications Medication Instructions Recorded Last Taken Type multivitamin 1 tab PO DAILY 11/05/22 Unkn own History propranolol 10 mg tablet 10 mg PO TID PRN anxiety #90 tabs 05/06/24 01/25/25 08:00 Rx bupropion HCl 300 mg 24 hr tablet, 300 mg PO QAM #90 t abs 07/01/24 Unknown Rx extended release pantoprazole 20 mg tablet,delayed 20 mg PO QAM #90 tab s 07/28/24 01/25/25 Rx release buspirone 15 mg tablet 15 mg PO BID #180 tabs 08/0501/25/25 Rx vilazodone 20 mg tablet 20 mg PO DAILY #90 tabs 07/1601/25/25 Rx Lactobac no.2-Bifidobac no.1-S. 1 cap PO BID #180 caps 10/07/24 Unknown Rx thermo 112.5 billion cell capsule (VSL#3) trazodone 50 mg tablet 50 mg PO QHS PRN insomnia #3 0 tabs 11/04/24 Unknown Rx ondansetron 4 mg disintegrating 4 mg PO .COMPLEX #5 ta bs 11/24/24 Unknown Rx tablet sodium sul 1.479 gram-potas ch See Rx Instructions PO PER PKG DIR 11/24/24 Unknown Rx 0.188 gram-magnes sul 0.225 gram #24 tabs tablet (Sutab) Allergy/AdvReac Type Severity Reaction Status Date / Time NSAIDS (Non-Steroidal Allergy Other Verified 01/26/25 05:58 Anti-Inflamma Family History Mother Nonrheumatic aortic (valve) stenosis, Onset Age: 55 AVR Other Heart disease Surgical History History of esophagogastroduodenoscopy (EGD) History of bunionectomy History of D&C uterine ablation delivery delivered History of tonsillectomy Social History Smoking Status: Never smoker alcohol intake: current alcohol intake frequency: holidays/special occasions only Alcohol type: wine substance use type: does not use caffeine: Yes what type of physical activity do you participate in: walking seatbelt use: always do you feel safe at home: Yes additional social history: [employer] Patient works at [employer] Review of Systems (Anesthesia) ROS Narrative System reviewed and no additional complaints, except as documented. Physical Exam Const alert and oriented x3 HEENT dentition normal Extremity full ROM
--- NOTE | 2025-01-26 06:58 | PCM.HP.STD ---
HPI - General General Date of Admission: 01/26/25 Date of Service: 01/26/25 Chief Complaint: ulcerative colitis HPI Narrative TANYA PEREZ, is a 54 F who presents for surveillance of UC. OV 5.14.24 Pt reports no GI symptoms of concern at this time. Pt continues with probiotic which she reports has helped her more than anything else she has tried before. Pt reports 1 formed BM per day; denies blood in the stool. [facility] Medical History Gastric reflux Post-menopausal Cardiology follow-up encounter History of echocardiogram History of stress test Acute bronchitis, unspecified Rapid palpitations Family history of valvular heart disease Wears contact lenses Anxiety Alcohol use History of kidney stones History of GI bleed Non-smoker Pelvic pain Abnormal uterine bleeding Colitis History of anxiety Flank pain Gastric ulcer Chronic ulcerative colitis Home Medications Medication Instructions Recorded Last Taken Type multivitamin 1 tab PO DAILY 11/05/22 Unknown History propranolol 10 mg tablet 10 mg PO TID PRN anxiety #90 tabs 05/06/24 01/25/25 08:00 Rx bupropion HCl 300 mg 24 hr tablet, 300 mg PO QAM #90 tabs 07/01/24 Unknown Rx extended release pantoprazole 20 mg tablet,delayed 20 mg PO QAM #90 tabs 07/28/24 01/25/25 Rx release buspirone 15 mg tablet 15 mg PO BID #180 tabs 08/05/24 01/25/25 Rx vilazodone 20 mg tablet 20 mg PO DAILY #90 tabs 08/05/24 01/25/25 Rx Lactobac no.2-Bifidobac no.1-S. 1 cap PO BID #180 caps 10/07/24 Unknown Rx thermo 112.5 billion cell capsule (VSL#3) trazodone 50 mg tablet 50 mg PO QHS PRN insomnia #30 tabs 11/04/24 Unknown Rx ondansetron 4 mg disintegrating 4 mg PO .COMPLEX #5 tabs 11/24/24 Unknown Rx tablet sodium sul 1.479 gram-potas ch See Rx Instructions PO PER PKG DIR 11/24/24 Unknown Rx 0.188 gram-magnes sul 0.225 gram #24 tabs tablet (Sutab) Allergy/AdvReac Type Severity Reaction Status Date / Time NSAIDS (Non-Steroidal Allergy Other Verified 01/26/25 05:58 Anti-Inflamma Family History Mother Nonrheumatic aortic (valve) stenosis, Onset Age: 55 AVR Other Heart disease Surgical History History of esophagogastroduodenoscopy (EGD) History of bunionectomy History of D&C uterine ablation delivery delivered History of tonsillectomy Social History Smoking Status: Never smoker alcohol intake: current alcohol intake frequency: holidays/special occasions only Alcohol type: wine substance use type: does not use caffeine: Yes what type of physical activity do you participate in: walking seatbelt use: always do you feel safe at home: Yes additional social history: [employer] Patient works at [employer] Constitutional Constitutional: Denies fatigue, fever(s), poor appetite, weight gain or weight loss Gastrointestinal Gastrointestinal: Denies belching, bloating, change in bowel habits, change in stool character, chewing difficulty, coffee ground emesis, constipation, cramping, diarrhea, dyspepsia, dysphagia, early satiety, excessive flatus, fecal incontinence, heartburn, hematemesis, hematochezia, hemorrhoids, loose stools, melena, nausea, odynophagia, rectal bleeding, tenesmus, vomiting or weight changes Vital Signs Vital Signs Vital Signs: 01/26/25 06:01 01/26/25 06:32 Temperature 97 F L 97 F L Temperature Source Temporal Pulse Rate 80 80 Respiratory Rate 16 16 Blood Pressure 105/78 105/78 Blood Pressure Mean 87 Blood Pressure Source Monitor Blood Pressure Position Semi-Fowlers Blood Pressure Location Left Arm Pulse Ox 96 96 Oxygen Delivery Method Room Air Room Air Weight Weight: 168 lb Body Mass Index (BMI) 26.3 Physical Exam Const alert, oriented x3, no apparent distress and healthy appearing General Appearance: cooperative GI normal to inspection, nondistended, normoactive bowel sounds, soft to palpation, non-tender and non-distended Percussion: normal to percussion Rectal Exam: deferred Assessment & Plan Assessment/Plan (1) Ulcerative colitis: QUALIFIERS: Ulcerative colitis location: unspecified ulcerative colitis location Digestive disease complication type: without complication Qualified Code(s): K51.90 - Ulcerative colitis, unspecified, without complications PLAN: Assessment and Plan Assessment and Plan (1) Chronic ulcerative colitis: Status: Chronic Plan: Continue VSL # 3 Update blood and stool tests today Repeat blood test and stool test yearly (2) GERD (gastroesophageal reflux disease): Status: Acute Plan: We reviewed results from her EGD--small hiatal hernia, LA Grade B reflux esophagitis, erythematous mucosa in the stomach; mild gastritis on bx, neg H pylori, neg Gonsales's. She will continue pantoprazole 20 mg QAM. f/u 6 mos. She will repeat labs before that appt to f/u UC. Will decide then re next colonoscopy. (3) Ulcerative colitis: Status: Acute Plan: No flare since tapering off azathioprine Medications: Refilled Lactobac 2-Bifido 1-S. therm 112.5 billion cell (VSL#3) 1 cap PO BID 180 caps 3RF pantoprazole 20 mg PO QAM 90 tabs 3RF
--- NOTE | 2025-01-26 07:25 | OP.COLON_ITS ---
Patient Name: Tiffanie Castillo Procedure Date: 01/26/2025 6:26 AM Date of : 1970 Age: 54 Procedure: Colonoscopy Indications: Disease activity assessment of left-sided chronic ulcerative colitis Providers: Foreign Ortiz DO Referring MD: Arsalan Pedro MD Medicines: Monitored Anesthesia Care Patient Profile: This is a 54 year old female. Refer to note in patient chart for documentation of history and physical. Last Colonoscopy: within the past 3 years. Complications: No immediate complications. Procedure: Pre-Anesthesia Assessment: - Prior to the procedure, a History and Physical was performed, and patient medications and allergies were reviewed. The patient is competent. The risks and benefits of the procedure and the sedation options and risks were discussed with the patient. All questions were answered and informed consent was obtained. Patient identification and proposed procedure were verified by the physician in the pre-procedure area. Mental Status Examination: alert and oriented. Airway Examination: normal oropharyngeal airway and neck mobility. Respiratory Examination: clear to auscultation. CV Examination: normal. Prophylactic Antibiotics: The patient does not require prophylactic antibiotics. Prior Anticoagulants: The patient has taken no anticoagulant or antiplatelet agents except for NSAID medication. ASA Grade Assessment: II - A patient with mild systemic disease. After reviewing the risks and benefits, the patient was deemed in satisfactory condition to undergo the procedure. The anesthesia plan was to use monitored anesthesia care (MAC). Immediately prior to administration of medications, the patient was re-assessed for adequacy to receive sedatives. The heart rate, respiratory rate, oxygen saturations, blood pressure, adequacy of pulmonary ventilation, and response to care were monitored throughout the procedure. The physical status of the patient was re-assessed after the procedure. After I obtained informed consent, the scope was passed under direct vision. Throughout the procedure, the patient's blood pressure, pulse, and oxygen saturations were monitored continuously. The Colonoscope was introduced through the anus and advanced to the cecum, identified by appendiceal orifice and ileocecal valve. The colonoscopy was performed without difficulty. The patient tolerated the procedure well. The quality of the bowel preparation was adequate. The ileocecal valve, appendiceal orifice, and rectum were photographed. Scope In: 7:08:37 AM Scope Withdrawal Time 0 hours 6 minutes 12 seconds Scope Out: 7:18:24 AM Total Procedure Duration Time 0 hours 9 minutes 47 seconds Findings: The perianal and digital rectal examinations were normal. Inflammation was found in a continuous and circumferential pattern from the anus to the sigmoid colon. This was graded as Valderrama Score 2 (moderate, with marked erythema, absent vascular pattern, friability, erosions), and when compared to the previous examination, the findings are new. Biopsies were taken with a cold forceps for histology. Verification of patient identification for the specimen was done. Estimated blood loss was minimal. The exam was otherwise without abnormality on direct and retroflexion views. 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 Biopsied. - The examination was otherwise normal on direct and retroflexion views. Recommendation: - Discharge patient to home. - Resume previous diet. - Continue present medications. - Await pathology results. - Repeat colonoscopy for surveillance based on pathology results. Procedure Code(s): --- Professional --- 63381, Colonoscopy, flexible; with biopsy, single or multiple CPT copyright 2021 [employer]. All rights reserved. The codes documented in this report are preliminary and upon fitness/wellness director review may be revised to meet current compliance requirements. Foreign Ortiz DO 01/26/2025 7:24:59 AM This report has been signed electronically. Number of Addenda: 0 Note Initiated On: 01/26/2025 6:26 AM
--- NOTE | 2025-01-26 07:25 | OP.CCLET_ITS ---
01/26/2025 Arsalan Pedro MD [address] [place] [address] Re : Colonoscopy procedure for Tiffanie DejesusAnna Dear Dr. Pedro This procedure was performed on Sunday, January 26, 2025. 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 Biopsied. - The examination was otherwise normal on direct and retroflexion views. Recommendations : - Discharge patient to home. - Resume previous diet. - Continue present medications. - Await pathology results. - Repeat colonoscopy for surveillance based on pathology results. My findings are described in the full procedure note, which is enclosed. If I can be of further assistance, please feel free to contact me at . Sincerely, Foreign Ortiz, 01/26/2025 7:24:59 AM This report has been signed electronically.
--- NOTE | 2025-01-26 07:30 | PCM.POST.ANE ---
Anesthesia: Postop Eval I Current Vital Signs Temperature: 97.2 F Pulse Rate: 74 Blood Pressure: 92/62 Respiratory Rate: 16 Pulse Ox: 96 Oxygen Delivery Method: Room Air Assessment Airway patent: Yes Spontaneous unlabored respirations: Yes Mental status: Asleep nausea: No Vomiting: No Anesthesia Complication: No Fluid Hydration Crystalloid volume administer (ml): 400 Total IV fluid infused: 400 Progress Note Anesthesia document: Postop Eval 1 completed: Yes
--- NOTE | 2025-01-26 10:14 | PCM.POSTANE2 ---
Anesthesia Postop Eval I Sum Postop Eval Completion status Anesthesia document: Postop Eval 1 completed: Yes Anesthesia Postop Eval I Summary Anesthesia Postop Eval I Summary: Anesthesia Postop Eval I: Assessment Summary Airway patent Yes 01/26/25 07:31 [email or web address] Spontaneous unlabored Yes 01/26/25 07:31 [email or web address] respirations Mental status Asleep 01/26/25 07:31 [email or web address] nausea No 01/26/25 07:31 [email or web address] Vomiting No 01/26/25 07:31 [email or web address] Anesthesia Postop Eval I: Fluid Summary Crystalloid volume administer 400 01/26/25 07:31 [email or web address] (ml) Colloids volume administered ( ml) Blood Product volume administered (ml) Total IV fluid infused 400 01/26/25 07:31 [email or web address] Anesthesia Postop Eval I: Summary Notes Anesthesia Complication No 01/26/25 07:31 [email or web address] Anesthesia Complication Comment: Post-operative progress note Anesthesia: Postop Eval II Evaluation Mental status: Awake and Calm Pain Level: 0 nausea: No Vomiting: No Complications Anesthesia Complication: No
== END 2025-01-26 07:57 | disposition home or self-care (01) ==
LOC: EN 05:29 → AC 05:30
PROVIDERS: PCP Family Medicine; Referring Provider Family Medicine; Visit Provider Internal Medicine Gastroenterology
PROC: 0DJD8ZZ Inspection of Lower Intestinal Tract, Via Natural or Artificial Opening Endoscopic (ICD-10-PCS; CPT 45378; principal; 2025-01-26 06:25)
DX: K51.90 Ulcerative colitis, unspecified, without complications (principal); K21.9 Gastro-esophageal reflux disease without esophagitis; K62.89 Other specified diseases of anus and rectum; Z79.899 Other long term (current) drug therapy
CPT/HCPCS: 45380; 88305; J2405

== ENCOUNTER → 2025-05-03 | Outpatient (CLI) | payer BC, SELFPAY ==
[2025-05-06 15:08] LABS: HPV APTIMA, High Risk Negative (Negative)
== END | disposition home or self-care (01) ==
LOC: LABSPEC 11:44
PROVIDERS: PCP Family Medicine; Referring Provider Obstetrics & Gynecology; Visit Provider Obstetrics & Gynecology
DX: Z12.4 Encounter for screening for malignant neoplasm of cervix (principal)
CPT/HCPCS: 87624; 88175; G0145

== ENCOUNTER → 2025-06-24 | Outpatient (CLI) | payer BC, SELFPAY ==
[2025-06-26 03:07] LABS: Calprotectin, Stool 37 ug/g (0-120)
== END | disposition home or self-care (01) ==
LOC: MTLAB 08:23
PROVIDERS: PCP Family Medicine; Referring Provider Student in an Organized Health Care Education/Training Program; Visit Provider Student in an Organized Health Care Education/Training Program
DX: K51.90 Ulcerative colitis, unspecified, without complications (principal)
CPT/HCPCS: 83993

== ENCOUNTER → 2025-07-01 | Outpatient (CLI) | payer BC, SELFPAY ==
--- NOTE | 2025-07-01 07:15 | BI_ITS ---
EXAM: SCRN MAMM (CAD)W/MARC BILAT DATE: 07/01/2025 CLINICAL HISTORY: F, Age 55 y/o , SCREENING MAMMOGRAM No family history. TECHNIQUE: Procedure Code: [id number] Modality: MG Procedure: SCRN MAMM (CAD)W/MARC BILAT COMPARISON: Prior exam(s) dated June 30, 2024.. FINDINGS: TISSUE DENSITY: There are scattered areas of fibroglandular density. Bilateral Breast Mammographic Findings: No significant masses, calcifications or other abnormalities are identified. No suspicious masses, areas of developing architectural distortion, or suspicious calcifications. There has been no significant interval change. BI/SCRN MAMM (CAD)W/MARC BILAT IMPRESSION: Stable bilateral screening mammogram. OVERALL FINAL ASSESSMENT BI-RADS 1: NEGATIVE. RECOMMENDATION: Routine annual follow-up in 1 Year Additional Recommendation none A letter with findings and recommendations will be mailed to the patient. Reading Location: [facility]
--- OUTSIDE RECORDS SUMMARY | 2025-07-01 07:28 | XMS RPT_ITS | CCD ---
Author Organization [facility] CliniSyut Care Team Providers Care Job Spotter Name Role Phone Anthony Marcelo Unavailable AL [...] Vargas Attending Provider [phone] Jose FOX, POLICE AND FIRE DISPATCHERTasha Mendoza Attending Provider Dr. Trell Vargas Referring Provider [phone] Trell Vargas Other Provider VANESSA Marcelo Attending Provider Willis, Dr. Arriaza Primary Care Provider Willis, Dr. Arriaza Referring Provider Jose FOX, HILDAC Franchesca Mendoza Attending Provider Friend, Dr. Carrasquillo Attending Provider Friend, Dr. Carrasquillo Other Provider Willis, Dr. Arriaza Primary Care Provider Willis, Dr. Arriaza Referring Provider VANESSA Neal Attending Provider Pedro, Arsalan Primary Care Unavailable Ed, Radha Referring Unavailable Ed, Radha Attending Unavailable Marcanthony, Marisa Referring Unavailable Marcanthony, Marisa Attending Unavailable Pedro, Arsalan Primary Care Unavailable Pedro, Arsalan Primary Care Unavailable Skruck, Radha Attending Unavailable Skruck, Radha Attending Unavailable Pedro, Arsalan Primary Care Unavailable Pedro, Arsalan Primary Care Unavailable Pedro, Arsalan Referring Unavailable FriendForeign Attending Unavailable Pedro, Arsalan Primary Care Unavailable Skruck, Radha Attending Unavailable Pedro, Arsalan Primary Care Unavailable Skruck, Radha Attending Unavailable Pedro, Arsalan Primary Care Unavailable Pedro, Arsalan Referring Unavailable Ed, Radha Attending Unavailable Pedro, Arsalan Primary Care Unavailable Leigh Bowie Attending Unavailable Pedro, Arsalan Primary Care Unavailable SkruckRadha Attending Unavailable Friend, Foreign Consulting Unavailable Pedro, Arsalan Primary Care Unavailable Pedro, Arsalan Referring Unavailable FriendForeign Attending Unavailable SkruckRadha Attending Unavailable Pedro, Arsalan Primary Care Unavailable Pedro, Arsalan Primary Care Unavailable Skruck, Radha Attending Unavailable Pedro, Arsalan Primary Care Unavailable Pedro, Arsalan Referring Unavailable Ed, Radha Attending Unavailable Pedro, Arsalan Primary Care Unavailable Skruck, Radha Attending Unavailable Pedro, Arsalan Referring Unavailable Pedro, Arsalan Primary Care Unavailable Marcanthony, Marisa Attending Unavailable Pedro, Arsalan Primary Care Unavailable Ed, Radha Referring Unavailable Ed, Radha Attending Unavailable Pedro, Arsalan Primary Care Unavailable Skruck, Radha Attending Unavailable Pedro, Arsalan Primary Care Unavailable Radha Murillo Attending Unavailable Arsalan Pedro Primary Care Unavailable Radha Murillo Attending Unavailable Leigh Bowie Attending Unavailable Arsalan Pedro Primary Care Unavailable Jamee Reed Referring Unavailable Jamee Reed Attending Unavailable Arsalan Pedro Primary Care Unavailable Allergies Allergy Classification Reported Allergen(s) Allergy Type Date of Onset Reaction(s) Facility (2 sources) NSAIDs drug allergy [address] [facility] Work Phone: (1 source) Environmental allergies [Other] Propensity to adverse reactions [address] [facility] (12 sources) NSAIDS (Non-Steroidal Anti-Inflamma; Translations: [NSAIDS (Non-Steroidal Anti-Inflamma] Allergy to substance 2 Other [facility] Medications Current Medications Medication Drug Class(es) Dates [...] AZATHIOPRINE T ABS as directed AZATHIOPRINE TABS [id number] Blank Cosme LPN take 1 tablet by [...] TABS 1 tablet 1 as instructed FLUCONAZOLE [id number] Anthony MENDEZ Lactobac 2-Bifido 1-S. Therm (Vsl#3) [...] Pantoprazole Active 20 MG PO EVERY MORNING 90 July 04, 2023 8:42am Start: 03-27-2022 End: [...] TABS a s directed VILAZODONE HCL TABS [id number] Blank Cosme LPN take 10 mg by [...] 2 capsules 2 times a day AMOXICILLIN [id number] Anthony MENDEZ Start: 11-14-2016 AMOXICILLIN 50 0 MG CAPS 2 capsules 2 times a day AMOXICILLIN 17527958533 Anthony MENDEZ ascorbic acid 500 mg oral [...] on days 2 through 5 BUPROPION HCL [id number] (14 sources) Aminoketone Start: 11-14-2016 WELLBUTRIN XL [id number] as directed BUPROPION HCL [id number] Blank Cosme LPN Start: 11-10-2014 take 300 [...] pain; Translations: [Chest pain, unspecified] Episodic Other female genital disorders (11 sources) Abnormal uterine bleeding; Translations: [Abnormal uterine and vaginal bleeding, unspecified] 04-03-2022 Chronic Other screening for suspected conditions (not mental disorders or infectious disease) (2 sources) Encounter for screening for malignant neoplasm of cervix; Translations: [Encounter for screening mammogram for malignant neoplasm of breast] Onset: 05-03-2025 Episodic Regional enteritis and ulcerative colitis (20 sources) [...] unspecified ear] Onset: 11-14-2016 11-14-2016 Episodic Other upper respiratory infections (4 sources) [...] Test Name Value Interpretation Reference Range Facility PAP IG HPV APTIMA 16/18,45on 05-06-2025 ADEQ Comment Normal . [facility] Comment on above: Order Comment: Speci men Comment: [id number] Specimen Comment: No. of containers..01 ThinPrep Vial Result Comment: Sati sfactory for evaluation. No endocervical component is identified. Performed By: #### L 7400.0280 #### [facility] [address] [place], [place], [id number] COMM . Normal . [facility] Comment on above: Order Comment: Speci men Comment: [id number] Specimen Comment: No. of containers..01 ThinPrep Vial Performed By: #### L 7400.0280 #### [facility] [address] [place], [place], [id number] COMMENT Comment Normal . [facility] Comment on above: Order Comment: Speci men Comment: [id number] Specimen Comment: No. of containers..01 ThinPrep Vial Result Comment: This liquid based ThinPrep(R) pap test was interpreted using the MulliganPlus(R) Genius(TM) Cervical Algorithm whole slide imaging system. Performed By: #### L 7400.0280 #### [facility] [address] [place], [place], [address] DIAG Comment Normal . [facility] Comment on above: Order Comment: Speci men Comment: [id number] Specimen Comment: No. of containers..01 ThinPrep Vial Result Comment: NEGA TIVE FOR INTRAEPITHELIAL LESION OR MALIGNANCY. CELLULAR CHANGES ASSOCIATED WITH INFLAMMATION ARE PRESENT. Performed By: #### L 7400.0280 #### [facility] [address] [place], [address] HPV APTIMA, HR Negative Normal Negative [facility] Comment on above: Order Comment: Speci men Comment: [id number] Specimen Comment: No. of containers..01 ThinPrep Vial Result Comment: This nucleic acid amplification test detects fourteen high- risk HPV types (16,18,31,33,35,39,45,51,52,56,58,59,66,68) without differentiation. Performed By: #### L 7400.0280 #### [facility] [address] [place], [place], [address] HPV Estefanía Rfx Comment Normal . [facility] Comment on above: Order Comment: Speci men Comment: [id number] Specimen Comment: No. of containers..01 ThinPrep Vial Result Comment: Crit eria not met, HPV Genotype not performed. Performed at: - [address] [id number] Poultry Packer: Nadine Jones MD, Phone: [phone] Performed at: = - [facility] [id number] Poultry Packer: Nadine Jones MD, Phone: [phone] Performed By: #### L 7400.0280 #### [facility] [address] [place], [place], [address] PAPSMR Comment Normal . [facility] Comment on above: Order Comment: Speci men Comment: [id number] Specimen Comment: No. of containers..01 ThinPrep Vial Result Comment: The Pap smear is a screening test designed to aid in the detection of premalignant and malignant conditions of the uterine cervix. It is not a diagnostic procedure and should not be used as the sole means of detecting cervical cancer. Both false-positive and false-negative reports do occur. Performed By: #### L 7400.0280 #### [facility] [address] [place], [address] PERFORM Comment Normal . [facility] Comment on above: Order Comment: Speci men Comment: [id number] Specimen Comment: No. of containers..01 ThinPrep Vial Result Comment: Jennifer Chen, Supervisory Label Pinker (ASCP) Performed By: #### L 7400.0280 #### [facility] [address] [place], [address] Election Assistant Office Visit Reporton 05-03-2025 Election Assistant Office Visit Report [facility] [address], [address] [place] [address] OFFICE VISIT Date of Service: 05/03/25 MR#: [id number] Acct: [id number] Name: TIFFANIE CASTILLO Rep #: [id number] : 1970 Provider: Dr. 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) *per Mailing Section Clerk Required: No Is patient in pain?: No Allergies NSAIDS (Non-Steroidal Anti-Inflamma Allergy (Verified 05/03/25 08:00) Other Medications ???Medication ???Instructions ???Recorded ???Confirmed ???Type multivitamin 1 tab PO DAILY 11/05/22 05/03/25 H istory propranolol 10 mg tablet 10 mg PO TID PRN anxiety #90 tabs 05/06/24 05/03/25 Rx bupropion HCl 300 mg 24 hr tablet, 300 mg PO QAM #90 tabs 07/01/24 05/03/25 Rx extended release pantoprazole 20 mg tablet,delayed 20 mg PO QAM #90 tabs 07/28/24 Rx release vilazodone 20 mg tablet 20 mg PO DAILY #90 tabs 08/05/24 1 Rx Lactobac no.2-Bifidobac no.1-S. 1 cap PO BID #180 caps 10/07/24 Rx thermo 112.5 billion cell capsule (VSL#3) trazodone 50 mg tablet 50 mg PO QHS PRN insomnia #30 tabs 11/04/24 05/03/25 Rx mesalamine 0.375 gram 1.5 g (4 x 0.375 gram) PO QAM 90 0 02/11/25 05/03/25 Rx capsule,extended release 24 hr days #360 caps (Apriso) mesalamine 1,000 mg rectal 1 g WV QHS #90 ea 02/11/25 5 Rx suppository (Canasa) buspirone 15 mg tablet 15 mg PO BID #180 tabs 03/05/25 Rx Is last menstrual period known: No Post menopausal: Yes Patient : No : No PFSH Medical History (Updated 05/03/25 @ 08:[address] Marisa Modi MD) Gastric reflux Post-menopausal Cardiology follow-up encounter History of echocardiogram History of stress test Acute bronchitis, unspecified Rapid palpitations Family history of valvular heart disease Wears contact lenses Anxiety Alcohol use History of kidney stones History of GI bleed Non-smoker Pelvic pain Abnormal uterine bleeding Colitis History of anxiety Flank pain Gastric ulcer Chronic ulcerative colitis Surgical History (Updated 05/03/25 @ 08:02 by Chasidy Richardson) H/O melanoma excision History of esophagogastroduodenoscopy (EGD) History of bunionectomy [...] social history: Marixa Lux Patient works at [employer] History 1 Elective abortions Hx Para 1 Spontaneous abortions Hx # Term Pregnancies Ectopic pregnancies Hx # Pregnancies Multiple births # of living children Past Pregnancies Del. 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 she hasn't had a menses in 2 years. Last PAP: 04/26/2021 - normal History of abnormal PAP: Last mammogram: 06/30/2024 - normal History of abnormal mammogram: Colon cancer screening: colonoscopy 2024 - ulcerative colitis Other preventative health care screenings: PCP [facility] Female Reproductive History Questions: metrorrhagia: No, sexually active: Yes, dyspareunia: No and PCB: No Menopausal Symptoms: No hot flashes, No night sweats, No weight change, No mood changes, No difficulty concentrating, No sleep problems and No change in libido ROS Const Constitutional: Reports as per HPI; Denies fatigue, increased appetite, poor appetite, night sweats, weight gain or weight loss Cardio Card: Denies chest pain Resp Resp: Denies cough or dyspnea GI GI: Reports as per HPI; Denies abdominal pain, bloating, constipation, nausea or vomiting : Reports as per HPI and other; Denies difficulty voiding, dysuria, hematuria, hot flashes, nipple discharge, pelvic pain, prolapse symptoms, urinary frequency, urinary incontinence, urinary urgency, vaginal discharge, vaginal dryness, vaginal odor (more content not included)... [facility] MR/BMS.[place] 04-27-2025 MR/BMS.[place] [address] [facility], [address] [place] [id number] OFFICE VISIT Date of Service: 04/27/25 MR#: [id number] Acct: [id number] Name: TIFFANIE CASTILLO Rep #: [id number] : 1970 Provider: DO solis Age/Sex: 55/F [place] [facility] [place] Status: Signed Intake Vital Signs 09/18/24 13:01 04/13/25 08:55 04/27/25 12:21 Height 5 ft 7 in 5 ft 7 in 5 ft 7 in BP Intake Visit Reasons: Follow up Allergies NSAIDS (Non-Steroidal Anti-Inflamma Allergy (Verified 02/11/25 08:14) Other [facility] Medical History Gastric reflux Post-menopausal Cardiology follow-up encounter History [...] social history: Marixa Lux Patient works at [employer] HPI History of Present Illness HPI: Tiffanie Castillo is a 55 year-old female returning for therapy. She reported success during recent trip utilizing assertiveness strategies and preparing for difficult conversations. Tiffanie reported that this resulted in reduced anxiety and being able to effectively manage interactions with a unexpected combative person. She discussed ongoing stressors related to interactions with tchyef-gu-yep who frequently stays at her home. Encouraged verbalization of emotions while providing support. Normalized emotions. Reinforced effective use of skills. Worked on radical acceptance related to interactions with scaznj-qz-akd with Tiffanie reporting having done well when she utilizing radical acceptance. Provided psychoeducation on healthy boundaries and limit setting. No SI. Future- oriented. Exam Mental Status Exam - Psych Appearance casually dressed and well kempt Attitude cooperative, engaged, pleasant and friendly Activity/Motor Behavior appropriate eye contact and fidgeting Speech regular rate, regular volume and regular prosody Mood OK Affect full range Thought Process linear, logical, coherent and goal [...] effectiveness. (2) MDD (major depressive disorder): Qualifiers: Active/Remission status: in full remission Major depression recurrence: recurrent Qualified Code(s): F33.42 - Major depressive disorder, [...] Qualified Code(s): G47.00 - Insomnia, unspecified Plan: therapy using CBT, DBT, and ACT interventions to address insomnia. Continued psychiatric services to monitor insomnia and medication effectiveness. Plan TREATMENT PLAN Goal 1 - Enhance ability to effectively cope with the full variety of life's worries and anxieties AEB pt. self-report. Objectiv (more content not included)... Normal [facility] MR/on 04-13-2025 MR/REGINALD.[facility] [address] [place] [address] [address] [place] [address] OFFICE VISIT Date of Service: 04/13/25 MR#: [id number] Acct: [id number] Name: TIFFANIE CASTILLO Rep #: [id number] : 1970 Provider: DO solis Age/Sex: 55/F [place] [facility] [place] Status: Signed Intake Vital Signs 09/18/24 13:01 03/26/25 11:20 04/13/25 08:55 Height 5 ft 7 in 5 ft 7 in 5 ft 7 in BP Intake Visit Reasons: Follow up Allergies NSAIDS (Non-Steroidal Anti-Inflamma Allergy (Verified 02/11/25 08:14) Other [facility] Medical History Gastric reflux Post-menopausal Cardiology follow-up encounter History [...] social history: Marixa Lux Patient works at [employer] HPI History of Present Illness HPI: Pietro Castillo is a 55 year-old female returning for therapy. She identified recent surgery for a melanoma on her leg and upcoming appointment with OB-CURRICULUM FACILITATOR to assess hormone levels and possible impact on sleep. Pietro reported stressors related to recent interactions with her ioumtw-fe-vdk and anxiety regarding potential interactions during upcoming trip. Encouraged verbalization of emotions while providing support. Normalized emotions. Reinforced her consistent follow-through with medical needs and appointments. Provided psychoeducation on healthy communication modeling and role playing communication strategies. Pietro was receptive to interventions discussed displaying understanding of the skills. She reported decreased anxiety and increased confidence related to handling potential interactions with knnfdm-pa-iac during upcoming trip. No SI. Future-oriented. Exam Mental Status Exam - Psych Appearance casually dressed and well kempt Attitude cooperative and engaged Activity/Motor Behavior appropriate eye contact and fidgeting Speech regular volume, regular prosody and rapid Mood OK and anxious Affect congruent Thought Process linear, logical, coherent and goal [...] effectiveness. (2) MDD (major depressive disorder): Qualifiers: Active/Remission status: in full remission Major depression recurrence: recurrent Qualified Code(s): F33.42 - Major depressive disorder, [...] CBT, DBT, and ACT interventions to address insomnia. Continued psychiatric services to monitor insomnia and medication effectiveness. Plan TREATMENT PLAN Goal 1 - Enhance ability to effectively cope with the full variet (more content not included)... Normal [facility] MR/BMS.BPon 03-26-2025 MR/BMS.[facility] [address] [facility], [address] [place] [address] OFFICE VISIT Date of Service: 03/26/25 MR#: [id number] Acct: [id number] Name: TIFFANIE CASTILLO Rep #: [id number] : 1970 [facility] Age/Sex: 55/F [place] [facility] [place] Status: Signed Intake Vital Signs 03/05/25 15:15 03/26/25 11:20 Height 5 ft 7 in 5 ft 7 in BP Intake Visit Reasons: F/U Allergies NSAIDS (Non-Steroidal Anti-Inflamma Allergy (Verified 02/11/25 08:14) Other [facility] Medical History Gastric reflux Post-menopausal Cardiology follow-up encounter History [...] social history: Marixa Lux Patient works at [employer] HPI History of Present Illness HPI: Tiffanie Castillo is a 55 year-old female returning for therapy. She reported that her gkhdfb-ln-mgk was diagnosed with terminal cancer. Tiffanie identified feelings of grief and having end of life discussions with her cxcnkk-ep-izk. She stated that she applied radical acceptance to situation of in-laws visiting and/or staying at her home, which was effective. Tiffanie also worked with her to set healthy limits and boundaries with those visiting. The main themes of the session were expression and exploration of loss related to lzddpq-xl-gwq's terminal cancer and development of greater self-assertion and effective interpersonal communication. Encouraged verbalization of emotions while providing support. Provided psychoeducation on Interpersonal Effectiveness skill DEAR MAN discussing how to apply to daily living to appropriately assert self. Problem solved ways Tiffanie could provide emotional support to , ljbugi-bb-hah, mjxxko-kl-dqj and rest of in-laws. Reinforced appropriate use of skills. No SI. Future-orieted. Exam Mental Status Exam - Psych Appearance casually dressed and well kempt Attitude cooperative and engaged Activity/Motor Behavior appropriate eye contact and fidgeting Speech regular volume, regular prosody and rapid Mood sad and anxious Affect congruent Thought Process linear, logical, coherent and goal [...] CBT, DBT, and ACT interventions to address insomnia. Continued psychiatric services to monitor insomnia and medication effectiveness. (more content not included)... Normal [facility] MR/BMSon 03-05-2025 MR[facility]BMSDionBP [facility] [address] [facility], [address] [place] [address] OFFICE VISIT Date of Service: 03/05/25 MR#: [id number] Acct: [id number] Name: TIFFANIE CASTILLO Rep #: [id number] : 1970 [facility] Age/Sex: 55/F [place] [facility] [place] Status: Signed Intake Vital Signs 09/18/24 13:01 02/11/25 08:15 03/05/25 15:15 Height 5 ft 7 in 5 ft 7 in 5 ft 7 in BP Intake Visit Reasons: Follow up Allergies NSAIDS (Non-Steroidal Anti-Inflamma Allergy (Verified 02/11/25 08:14) Other [facility] Medical History Gastric reflux Post-menopausal Cardiology follow-up encounter History [...] history: Marixa Cast[employer] Patient works at [employer] HPI History of Present Illness HPI: Tiffanie Castillo is a 55 year-old female returning for BH therapy. She reported a high level of anxiety and agitation. Tiffanie stated that her tpoinn-dq-fjw was recently diagnosed with bone cancer. She identified struggling with in-laws either staying at or visiting her home as they were disrespectful of her property and space. Encouraged verbalization of emotions while providing support. Normalized emotions. Worked on healthy limit setting, assertiveness, and boundaries. Provided psychoeducation on radical acceptance for coping with difference in values. Worked on realistic expectations. Discussed coping plan for the weekend including planning activities with in- laws outside the home and attending an outing she already had scheduled independently. Encouraged utilization of supports. No SI. Future-oriented. Exam Mental Status Exam - Psych Appearance well kempt Attitude engaged and agitated Activity/Motor Behavior appropriate eye contact and fidgeting Speech regular prosody, rapid and loud Mood anxious and irritable Affect congruent Thought Process linear, logical, coherent and goal [...] CBT, DBT, and ACT interventions to address insomnia. Continued psychiatric services to monitor insomnia and medication effectiveness. Plan TREATMENT PLAN Goal 1 - Enhance ability to effectively cope with the full variety of life's worries and anxieties AEB pt. self-report. Objective 1 - Learn and implement calming skills to reduce overall a (more content not included)... Normal [facility] Gastroenterology Visit Repor ton 02-11-2025 Gastroenterology Visit Report [facility] [address] [place] [address] OFFICE VISIT Date of Service: 02/11/25 MR#: [id number] Acct: [id number] Name: TIFFANIE CASTILLO Rep #: [id number] : 1970 Provider: TAY sims Age/Sex: 54/F [place] [facility] Status: Signed Intake Vital Signs 01/26/25 06:01 02/04/25 06:50 02/11/25 08:15 Height 5 ft 7 in 5 ft 7 in 5 ft 7 in Weight: 166 lb 2 oz BMI 26.0 BP 105/72 Respiration 18 Pulse 84 Temp 97.3 F L Temp Source Temporal Pulse Oximetry (%) 94 Oxygen Delivery Method room air Intake Visit Reasons: Test Result Chief Complaint: follow-up UC post colonoscopy Mailing Section Clerk Required: No Accompanied by: Self Is patient in pain?: No Allergies NSAIDS (Non-Steroidal Anti-Inflamma Allergy (Verified 02/11/25 08:14) Other Medications ???Medication ???Instructions ???Recorded ???Confirmed ???Type multivitamin 1 tab PO DAILY 11/05/22 02/11/25 H istory propranolol 10 mg tablet 10 mg PO TID PRN anxiety #90 tabs 05/06/24 02/11/25 Rx bupropion HCl 300 mg 24 hr tablet, 300 mg PO QAM #90 tabs 07/01/24 02/11/25 Rx extended release pantoprazole 20 mg tablet,delayed 20 mg PO QAM #90 tabs 07/28/24 Rx release buspirone 15 mg tablet 15 mg PO BID #180 tabs 08/05/24 Rx vilazodone 20 mg tablet 20 mg PO DAILY #90 tabs 08/05/24 0 02/11/25 Rx Lactobac no.2-Bifidobac no.1-S. 1 cap PO BID #180 caps 10/07/24 Rx thermo 112.5 billion cell capsule (VSL#3) trazodone 50 mg tablet 50 mg PO QHS PRN insomnia #30 tabs 11/04/24 02/11/25 Rx mesalamine 0.375 gram 1.5 g (4 x 0.375 gram) PO QAM 90 0 02/11/25 02/11/25 Rx capsule,extended release 24 hr days #360 caps (Apriso) mesalamine 1,000 mg rectal 1 g WV QHS #90 ea 02/11/25 5 Rx suppository (Canasa) PFSH Medical History Gastric reflux Post-menopausal Cardiology follow-up encounter History [...] safe at home: Yes additional social history: [employer] Patient works at [employer] HPI Chief Complaint: follow-up UC post colonoscopy Details: OV 07/27/2024 64-year-old female presents for annual follow-up of ulcerative colitis. She was initially diagnosed in 2016 with presenting symptoms of diarrhea and BRBPR. Symptoms improved with mesalamine suppositories and she was started on azathioprine. She initially established with [facility] August 2021 on azathioprine 150 mg daily. Her azathioprine dose was gradually decreased and discontinued summer 2021 with goal to manage her with a daily probiotic. Colonoscopy was last performed 11/08/2022; this revealed a cecal tubular adenoma and random colon biopsies were unremarkable with no evidence of colitis. She is continuing to do well on VSL #3. She does report a flare with diarrhea and rectal bleeding May 2024 which lasted approximately 1 month. She did use mesalamine suppositories at that time. I have ordered labs, fecal calprotectin and scheduled her for colonoscopy. I recommend she follow-up in 6 months. Note: Whisbi speech recognition business objects software was used to create portions of this document. Sound-alike and misspelled words, as well as other business objects errors may be contained in the documentation. Patient Instructions: Fecal Calprotectin LABS: CBC, CMP, CRP, Vitamin D Colonoscopy - SuTab bowel prep Continue VSL#3 Labs now and every 6 months Fecal Calprotectin now and yearly Follow-up in 6 months CBC: 12/31/2024 WNL CMP: 12/31/2024 WNL CRP: 12/31/2024 WNL Fecal Calprotectin: 01/22/2025 elevate (more content not included)... Normal [facility] MR/BMS.BPon 02-04-2025 MR/BMS.[address], [address] [place] [address] OFFICE VISIT Date of Service: 02/03/25 MR#: [id number] Acct: [id number] Name: ANATIFFANIE FONTANEZ Rep #: [id number] : 1970 Provider: DO solis Age/Sex: 54/F [place] [facility] [place] Status: Signed Intake Vital Signs 09/18/24 13:01 12/31/24 11:03 01/26/25 06:01 02/04/25 06:50 Height 5 ft 7 in 5 ft 7 in 5 ft 7 in 5 ft 7 in BP Intake Visit Reasons: Follow up Allergies NSAIDS (Non-Steroidal Anti-Inflamma Allergy (Verified 01/26/25 05:58) Other [facility] Medical History Gastric reflux Post-menopausal Cardiology follow-up encounter History [...] social history: Marixa Lux Patient works at [employer] and [employer] HPI History of Present Illness HPI: Tiffanie Castillo is a 54 year-old female returning for therapy. She identified recent colonoscopy and ulcerative colitis flare. Tiffanie reported that zulwlw-wx-ste has been visiting, which is a stressor due to changes in household routine. She identified rumination after hearing things mfgqvt-lz-grp has said about her from ieidho-ip-wpb. Encouraged verbalization of emotions while providing support. Normalized emotions. Worked on healthy assertiveness and communication of thoughts, feelings, and concerns with yqtslc-za-shw. Explored with Tiffanie what she can and cannot control. Worked on thought defusion and mindfulness of thoughts, as alternatives to challenging thinking distortions, providing psychoeducation and applying to recent situations. Also worked on procrastination. Tiffanie noted significant progress reducing procrastination at work since last appointment. Examined what has been effective. Tiffanie recognized that doing her hardest task first has led to reduction of procrastination. Reviewed skill of evaluating perceived level and actual level of difficulty completing difficult tasks. No SI. Future-oriented. Exam Mental Status Exam [...] own safety. (3) Insomnia: Qualifiers: Insomnia type: (more content not included)... Normal [facility] Calprotectin, Stoolon [address] 825 ug/g Abnormal 0-120 [facility] Comment on above: Result Comment: Re sults verified by repeat testing Concentration Interpretation Follow-Up < 5 - 50 ug/g Normal None >50 -120 ug/g Borderline Re-evaluate in 4-6 weeks >120 ug/g Abnormal Repeat as clinically indicated Performed at: [facility] Lab[address] [id number] Poultry Packer: Navin Sanchez MD, Phone: [phone] Performed By: #### L 7000.0700 #### [facility] [address] [facility] [place], [address] Colonoscopy Reporton 025 Colonoscopy Report [facility] Medical Records Department [address] [place] [place] [address] Colonoscopy Report MR#: [id number] Acct: [id number] Name: TIFFANIE CASTILLO Rep #: [id number] : 1970 54 From: Foreign Ortiz DO PCP: Dr. Arsalan Pedro MD Status:[facility] Patient Name: Tiffanie Castillo Procedure Date: 01/26/2025 6:26 AM Date of : 1970 Age: 54 Procedure: Colonoscopy Indications: Disease activity assessment of left-sided chronic ulcerative colitis Providers: Foreign Ortiz DO Referring MD: Arsalan Pedro MD Medicines: Monitored Anesthesia Care Patient Profile: This is a 54 year old female. Refer to note in patient chart for documentation of history and physical. Last Colonoscopy: within the past 3 years. Complications: No immediate complications. Procedure: Pre-Anesthesia Assessment: - Prior to the procedure, a History and Physical was performed, and patient medications and allergies were reviewed. The patient is competent. The risks and benefits of the procedure and the sedation options and risks were discussed with the patient. All questions were answered and informed consent was obtained. Patient identification and proposed procedure were verified by the physician in the pre-procedure area. Mental Status Examination: alert and oriented. Airway Examination: normal oropharyngeal airway and neck mobility. Respiratory Examination: clear to auscultation. CV Examination: normal. Prophylactic Antibiotics: The patient does not require prophylactic antibiotics. Prior Anticoagulants: The patient has taken no anticoagulant or antiplatelet agents except for NSAID medication. ASA Grade Assessment: II - A patient with mild systemic disease. After reviewing the risks and benefits, the patient was deemed in satisfactory condition to undergo the procedure. The anesthesia plan was to use monitored anesthesia care (MAC). Immediately prior to administration of medications, the patient was re-assessed for adequacy to receive sedatives. The heart rate, respiratory rate, oxygen saturations, blood pressure, adequacy of pulmonary ventilation, and response to care were monitored throughout the procedure. The physical status of the patient was re-assessed after the procedure. After I obtained informed consent, the scope was passed under direct vision. Throughout the procedure, the patient's blood pressure, pulse, and oxygen saturations were monitored continuously. The Colonoscope was introduced through the anus and advanced to the cecum, identified by appendiceal orifice and ileocecal valve. The colonoscopy was performed without difficulty. The patient tolerated the procedure well. The quality of the bowel preparation was adequate. The ileocecal valve, appendiceal orifice, and rectum were photographed. Scope In: 7:08:37 AM Scope Withdrawal Time 0 hours 6 minutes 12 seconds Scope Out: 7:18:24 AM Total Procedure Duration Time 0 hours 9 minutes 47 seconds Findings: The perianal and digital rectal examinations were normal. Inflammation was found in a continuous and circumferential pattern from the anus to the sigmoid colon. This was graded as Valderrama Score 2 (moderate, with marked erythema, absent vascular pattern, friability, erosions), and when compared to the previous examination, the findings are new. Biopsies were taken with a cold forceps for histology. Verification of patient identification for the specimen was done. Estimated blood loss was minimal. The exam was otherwise without abnormality on direct and retroflexion views. 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 Biopsied. - The examination was otherwise normal on direct and retroflexion views. Recommendation: - Discharge patient to home. - Resume previous diet. - Continue present medications. - Await pathology results. - Repeat colonoscopy for surveillance based on pathology results. Procedure Code(s): --- Professional --- 28513, Colonoscopy, flexible; with biopsy, single or multiple CPT copyright 2021 [employer]. All rights reserved. The codes documented in this report are preliminary and upon body care manager review may be revised to meet current compliance requirements. Foreign Ortiz DO 01/26/2025 7:24:59 AM This report has been signed electronically. Number of Addenda: 0 Note Initiated On: 01/26/2025 6:26 AM 01/26/25 0725 Date Foreign Castillo Signature: Date (if indicated) CC: Dr. Arsalan Pedro MD; Foreign Ortiz DO Date Dictated: 01/26/25625 Date Transcribed: Flyer Repairer: RF Signed [facility] MR/POSTOP.ANEon 01-26-2025 MR/POSTOP.[facility] Medical Records Department [address] [place] [address] Anesthesia Postop Eval I 01/26/25 0730 MR#: [id number] Acct: [id number] Name: TIFFANIE CASTILLO Rep #: [id number] : 1970 54 From: Freddy Srivastava PCP: Dr. Arsalan Pedro MD Status:REG [facility] Y Race: C Location: [place] [address] Anesthesia: Postop Eval I Current Vital Signs Temperature: 97.2 F Pulse Rate: 74 Blood Pressure: 92/62 Respiratory Rate: 16 Pulse Ox: 96 Oxygen Delivery Method: Room Air Assessment Airway patent: Yes Spontaneous unlabored respirations: Yes Mental status: Asleep nausea: No Vomiting: No Anesthesia Complication: No Fluid Hydration Crystalloid volume administer (ml): 400 Total IV fluid infused: 400 Progress Note Anesthesia document: Postop Eval 1 completed: Yes 01/26/25730 Date Freddy Carrillo Signature: Date CC: Signed [facility] MR/DQIRINYW1fy 01-26-2025 MR/POSTOPAN2 [facility] Medical Records Department [address] [place] [address] Anesthesia Postop Eval II 01/26/25 1014 MR#: [id number] Acct: [id number] Name: TIFFANIE CASTILLO Rep #: [id number] : 1970 54 From: Andrea Brewster MD PCP: Dr. Arsalan Pedro MD Status:DEP [facility] Y Race: C Location: EN Anesthesia Postop Eval I Sum Postop Eval Completion status Anesthesia document: Postop Eval 1 completed: Yes Anesthesia Postop Eval I Summary Anesthesia Postop Eval I Summary: Anesthesia Postop Eval I: Assessment Summary Airway patent Yes 01/26/25 07:31 [email or web address] Spontaneous unlabored Yes 01/26/25 07:31 [email or web address] respirations Mental status Asleep 01/26/25 07:31 [email or web address] nausea No 01/26/25 07:31 [email or web address] Vomiting No 01/26/25 07:31 [email or web address] Anesthesia Postop Eval I: Fluid Summary Crystalloid volume administer 400 01/26/25 07:31 [email or web address] (ml) Colloids volume administered ( ml) Blood Product volume administered (ml) Total IV fluid infused 400 01/26/25 07:31 [email or web address] Anesthesia Postop Eval I: Summary Notes Anesthesia Complication No 01/26/25 07:31 [email or web address] Anesthesia Complication Comment: Post-operative progress note Anesthesia: Postop Eval II Evaluation Mental status: Awake and Calm Pain Level: 0 nausea: No Vomiting: No Complications Anesthesia Complication: No 01/26/25 1014 Date Andrea Brewster MD Cosigner Signature: Date CC: Signed Normal [facility] Surgery Specimen Level Leandro 01-26-2025 Surgery Specimen Level IV Patient Age/Sex Location Account Attending Physician TIFFANIE CASTILLO 54/F EN [id number] Foreign Ortiz DO Specimen: [id number] Received: 01/26/25 Status: JANINE Martinez Num: [id number] Spec Type: COLON BX Subm Dr: Foreign Ortiz DO HEADER OPERATION: Colonoscopy with biopsy PRE-OP DIAGNOSIS: Chronic ulcerative colitis, GERD TISSUE SUBMITTED: A- Right side colon biopsy, B- Transverse colon biopsy, C- Left side colon biopsy,D- Sigmoid colon biopsy, E- Rectal biopsy MICROSCOPIC DIAGNOSIS A. Colon, right side, biopsy: * Focal active cryptitis B. Colon, transverse colon, biopsy: * Colonic mucosa with no pathologic change C. Colon, left side, biopsy: * Colonic mucosa with no pathologic change D. Colon, sigmoid colon, biopsy: * Colonic mucosa with no pathologic change E. Rectum, colon, biopsy: * Mild active chronic proctitis * Negative for dysplasia COMMENT No areas of granulomas or dysplasia is identified in the submitted biopsies. MICROSCOPIC DESCRIPTION Slides are reviewed. GROSS DESCRIPTION A. Received in fixative is one container labeled with the patient's name and designated Right side colon biopsy. The specimen consists of multiple irregular fragments of light garcia soft tissue that in aggregate measure 0.3 to 0.5 cm. The specimen is totally submitted in one cassette. B. Received in fixative is one container labeled with the patient's name and designated Transverse colon biopsy. The specimen consists of multiple irregular fragments of light garcia soft tissue that in aggregate measure 0.3 to 0.5 cm. The specimen is totally submitted in one cassette. C. Received in fixative is one container labeled with the patient's name and designated Left side colon biopsy. The specimen consists of three irregular fragments of light garcia soft tissue that in aggregate measure 0.3 to 0.5 cm. The specimen is totally submitted in Patient Age/Sex Location Account Attending Physician TIFFANIE CASTILLO 54/F EN [id number] Foreign Ortiz DO one cassette. D. Received in fixative is one container labeled with the patient's name and designated Sigmoid colon biopsy. The specimen consists of two irregular fragments of light garcia soft tissue that in aggregate measure 0.5 and 0.6 cm. The specimen is totally submitted in one cassette. E. Received in fixative is one container labeled with the patient's name and designated Rectal biopsy. The specimen consists of one irregular fragment of light garcia soft tissue that measures 0.7 cm. The specimen is totally submitted in one cassette. [place] 01/26/2025 [facility]:[id number] Patient Age/Sex Location Account Attending Physician TIFFANIE CASTILLO 54/F EN [id number] Foreign Ortiz DO Signed (signature on file) Dr. Brigitte Mares DO 02/02/25 0924 Normal [facility] Comment on above: Performed By: #### P SUIV ####[facility] [address] [place], [address] MR/PAT.Esa 01-21-2025 MR/PAT.JEWEL [facility] Medical Records Department [address] [place] [address] PAT - Anesthesia 01/21/251933 MR#: [id number] Acct: [id number] Name: TIFFANIE CASTILLO Rep #: [id number] : 1970 54 From: Andrea Brewster MD PCP: Dr. Arsalan Pedro MD Status:PRE [facility] Y Race: C Location: EN Pre-Assessment Diagnosis/Proposed Procedure Planned Operative Procedure(s): COLONOSCOPY Anesthesia History Anesthesia History - careers adviser: Anesthesia History - careers adviser Hx Hospitalization No 01/21/25 12:31 Any Problems [...] take am of surgery PONV PONV - careers adviser: PONV - careers adviser Female Yes 01/21/25 12:31 HX of Motion Sickness No 01/21/25 12:31 HX of N/V After Surgery No 01/21/25 12:31 Non-Smoker Yes 01/21/25 12:31 Duration of Surgery greater No 01/21/25 12:31 than 60 minutes Number of Risk Factors 2 01/21/25 12:31 PONV Score Moderate Risk 01/21/25 12:31 Height Weight Height Weight: Anesthesia: Height Weight Height 5 ft 7 in 11/24/24 08:57 Respiratory Assessment Respiratory Assessment - careers adviser: Respiratory Tract Infection Hx - careers adviser Hx Respiratory Tract Infection No 01/21/25 12:31 STOP Sleep Apnea STOP Sleep Apnea - careers adviser: STOP Sleep Apnea - careers adviser Hx Hypertension No 01/21/25 12:31 Hx Sleep [...] Tobacco Use History Tobacco Use History - careers adviser: Tobacco Use History - careers adviser Tobacco Use Smoking Status Never smoker 01/21/25 12:31 Hx Tobacco Use No 01/21/25 12:31 Years Smoking Packs Smoked per Day Smoking Cessation Date was within the last 15 years Hx Smoking Cessation Date Hx Smoking Cessation No 01/21/25 12:31 Counseling Hematologic Medial History Hematologic Hx - careers adviser: 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 Normal [facility] CBC W/Diff, Automatedon 12-13 Absolute Lymph 2.58 X10 3/uL Normal 0.83-4.51 [facility] Comment on above: Performed By: #### L 500.4050, L506.1001, L501.6710, L100.0100 ####[facility] [address] [place], [address] Absolute Neut 3.8 X10 3/uL Normal 2.0-7.7 [facility] Comment on above: Performed By: #### L 500.4050, L506.1001, L501.6710, L100.0100 ####[facility] [address] [place], [address] Basophils/100 WBC (Bld) 0.4 % Normal 0-1 [facility] Comment on above: Performed By: #### L 500.4050, L506.1001, L501.6710, L100.0100 ####[facility] [address] [place], [address] Eosinophils/100 WBC (Bld) 1.0 % Normal 0-5 [facility] Comment on above: Performed By: #### L 500.4050, L506.1001, L501.6710, L100.0100 ####[facility] [address] [place], [address] Erythrocyte distribution width (RBC) [Ratio] 12.4 % Normal 11.6-14.6 [facility] Comment on above: Performed By: #### L 500.4050, L506.1001, L501.6710, L100.0100 ####[facility] [address] [place], [address] Hematocrit (Bld) [Volume fraction] 39.2 % Normal 37-47 [facility] Comment on above: Performed By: #### L 500.4050, L506.1001, L501.6710, L100.0100 ####[facility] [address] [place], [address] Hemoglobin (Bld) [Mass/Vol] 13.4 g/dL Normal 12.0-15.0 [facility] Comment on above: Performed By: #### L 500.4050, L506.1001, L501.6710, L100.0100 ####[facility] [address] [place], [address] IG% 0.400 Normal 0.0-0.9 [facility] Comment on above: Result Comment: IG% - Immature Granulocytes (promyelocytes, myelocytes and metamyelocytes) > 1% indicates that a LEFT SHIFT is Present. Performed By: #### L 500.4050, L506.1001, L501.6710, L100.0100 ####[facility] [address] [place], [address] Lymphocytes/100 WBC (Bld) 37.0 % Normal 19-41 [facility] Comment on above: Performed By: #### L 500.4050, L506.1001, L501.6710, L100.0100 ####[facility] [address] [place], [address] MCH (RBC) [Entitic mass] 31.5 pg Normal 27.0-32.0 [facility] Comment on above: Performed By: #### L 500.4050, L506.1001, L501.6710, L100.0100 ####[facility] [address] [place], [address] MCHC (RBC) [Mass/Vol] 34.2 g/dL Normal 32-36 [facility] Comment on above: Performed By: #### L 500.4050, L506.1001, L501.6710, L100.0100 ####[facility] [address] [place], [address] MCV (RBC) [Entitic vol] 92.2 fL Normal 81-99 [facility] Comment on above: Performed By: #### L 500.4050, L506.1001, L501.6710, L100.0100 ####[facility] [address] [place], [address] Monocytes/100 WBC (Bld) 6.4 % Normal 0-10 [facility] Comment on above: Performed By: #### L 500.4050, L506.1001, L501.6710, L100.0100 ####[facility] [address] [place], [address] Neutrophils/100 WBC (Bld) 54.8 % Normal 47-70 [facility] Comment on above: Performed By: #### L 500.4050, L506.1001, L501.6710, L100.0100 ####[facility] [address] [place], [address] Nucleated RBC (Bld) [#/Vol] 0 10*3/uL Normal 0-5 [facility] Comment on above: Performed By: #### L 500.4050, L506.1001, L501.6710, L100.0100 ####[facility] [address] [place], [address] Platelet mean volume (Bld) [Entitic vol] 8.7 fL Normal 6.2-12.0 [facility] Comment on above: Performed By: #### L 500.4050, L506.1001, L501.6710, L100.0100 ####[facility] [address] [place], [address] Platelets (Bld) [#/Vol] 316 10*3/uL Normal 150-450 [facility] Comment on above: Performed By: #### L 500.4050, L506.1001, L501.6710, L100.0100 ####[facility] [address] [place], [address] RBC (Bld) [#/Vol] 4.25 10*6/uL Normal 4.2-5.4 [facility] Comment on above: Performed By: #### L 500.4050, L506.1001, L501.6710, L100.0100 ####[facility] [address] [place], [address] RDW SD 42.0 fl Normal 35.1-43.9 [facility] Comment on above: Performed By: #### L 500.4050, L506.1001, L501.6710, L100.0100 ####[facility] [address] [place], [address] WBC (Bld) [#/Vol] 7.0 10*3/uL Normal 4.4-11.0 [facility] Comment on above: Performed By: #### L 500.4050, L506.1001, L501.6710, L100.0100 ####[facility] [address] [place], [address] CRPon 12-31-2024 C-REACTIVE PROT < 3.00 Normal 0.0-3.0 [facility] Comment on above: Performed By: #### L 500.4050, L506.1001, L501.6710, L100.0100 ####[facility] [address] [place], [address] Comprehensive Metabolic Prof ilon 12-31-2024 Albumin [Mass/Vol] 4.2 g/dL Normal 3.5-5.0 [facility] Comment on above: Performed By: #### L 500.4050, L506.1001, L501.6710, L100.0100 ####[facility] [address], [address] Albumin/Globulin [Mass ratio] 1.4 {ratio} Normal 0.9-2.4 [facility] Comment on above: Performed By: #### L 500.4050, L506.1001, L501.6710, L100.0100 ####[facility] [address] [place], [address] ALK PHOS 63 U/L Normal 35-104 [facility] Comment on above: Performed By: #### L 500.4050, L506.1001, L501.6710, L100.0100 ####[facility] [address] [place], [address] ALT [Catalytic activity/Vol] 15 U/L Normal <=34 [facility] Comment on above: Performed By: #### L 500.4050, L506.1001, L501.6710, L100.0100 ####[facility] [address] [place], [address] AST [Catalytic activity/Vol] 18 U/L Normal <=31 [facility] Comment on above: Performed By: #### L 500.4050, L506.1001, L501.6710, L100.0100 ####[facility] [address] [place], [address] Bilirubin [Mass/Vol] 0.35 mg/dL Normal 0.00-1.30 [facility] Comment on above: Performed By: #### L 500.4050, L506.1001, L501.6710, L100.0100 ####[facility] [address] [place], [address] BUN/CRE 15.8 RATIO Normal 10-20 [facility] Comment on above: Performed By: #### L 500.4050, L506.1001, L501.6710, L100.0100 ####[facility] [address] [place], [address] Calcium [Mass/Vol] 9.3 mg/dL Normal 7.6-11.0 [facility] Comment on above: Performed By: #### L 500.4050, L506.1001, L501.6710, L100.0100 ####[facility] [address] [place], [address] Chloride [Moles/Vol] 103 mmol/L Normal 98-108 [facility] Comment on above: Performed By: #### L 500.4050, L506.1001, L501.6710, L100.0100 ####[facility] [address] [place], [address] CO2 [Moles/Vol] 24.2 mmol/L Normal 21.0-32.0 [facility] Comment on above: Performed By: #### L 500.4050, L506.1001, L501.6710, L100.0100 ####[facility] [address] [place], [address] Creatinine [Mass/Vol] 0.78 mg/dL Normal 0.70-1.20 [facility] Comment on above: Performed By: #### L 500.4050, L506.1001, L501.6710, L100.0100 ####[facility] [address] [place], [address] GAP 11 Normal 5-15 [facility] Comment on above: Performed By: #### L 500.4050, L506.1001, L501.6710, L100.0100 ####[facility] [address] [place], [address] GFR/1.73 sq M.predicted among non-blacks MDRD (S/P/Bld) [Vol rate/Area] 89 mL/min/{1.73_m2} Normal >60 [facility] Comment on above: Result Comment: mL/m in/1.73m2 CKD-EPI Creatinine Equation (2020) Performed By: #### L 500.4050, L506.1001, L501.6710, L100.0100 ####[facility] [address] [place], [address] Globulin (S) [Mass/Vol] 3.0 g/dL Normal 2.2-4.2 [facility] Comment on above: Performed By: #### L 500.4050, L506.1001, L501.6710, L100.0100 ####[facility] [address] [place], [address] Glucose [Mass/Vol] 88 mg/dL Normal 70-99 [facility] Comment on above: Performed By: #### L 500.4050, L506.1001, L501.6710, L100.0100 ####[facility] [address] [place], [address] Potassium [Moles/Vol] 3.9 mmol/L Normal 3.3-5.1 [facility] Comment on above: Performed By: #### L 500.4050, L506.1001, L501.6710, L100.0100 ####[facility] [address] [place], [address] Sodium [Moles/Vol] 137 mmol/L Normal 133-145 [facility] Comment on above: Performed By: #### L 500.4050, L506.1001, L501.6710, L100.0100 ####[facility] [address] [place], [address] T PROT 7.2 g/dL Normal 5.9-8.4 [facility] Comment on above: Performed By: #### L 500.4050, L506.1001, L501.6710, L100.0100 ####[facility] [address] [place], [address] Urea nitrogen [Mass/Vol] 12 mg/dL Normal 4-19 [facility] Comment on above: Performed By: #### L 500.4050, L506.1001, L501.6710, L100.0100 ####[facility] [address] [place], [address] MR/BMS.BPon 12-31-2024 MR/BMS.BP [address], [address] [place] [address] OFFICE VISIT Date of Service: 12/31/24 MR#: [id number] Acct: [id number] Name: TIFFANIE CASTILLO Rep #: [id number] : 1970 Provider: [facility] Radha solis Age/Sex: 54/F [place] [facility] [place] Status: Signed Intake Vital Signs 08/17/24 08:06 12/03/24 12:19 12/31/24 11:03 Height 5 ft 7 in 5 ft 7 in 5 ft 7 in BP Intake Visit Reasons: Follow up Allergies NSAIDS (Non-Steroidal Anti-Inflamma Allergy (Verified 11/24/24 08:43) Other [facility] Medical History Post-menopausal Cardiology follow-up encounter History [...] social history: Marixa Lux Patient works at [employer] HPI History of Present Illness HPI: Tiffanie [...] on thought patterns about self and abilities. Tiffanie asked for and was given information on [...] interventions to (more content not included)... Normal [facility] Vitamin D,25 Hydroxyon 12-31 Vitamin D 25-OH 61.6 ng/mL Normal 30-100 [facility] Comment on above: Result Comment: Karla min D Status Deficiency: <20 ng/mL (50nmol/L) Insufficiency: 20-30 ng/mL (50-75 nmol/L) Sufficiency: 30-100 ng/mL (75-250 nmol/L) Toxicity: >100 ng/mL (>250 nmol/L) Performed By: #### L 500.4050, L506.1001, L501.6710, L100.0100 ####[facility] [address] [place], [address] MR/BMS.BPon 12-03-2024 MR/BMS.BP [address], [address] [place] [address] OFFICE VISIT Date of Service: 12/03/24 MR#: [id number] Acct: [id number] Name: TIFFANIE CASTILLO Rep #: [id number] : 1970 Provider: DO solis Age/Sex: 54/F [place] [facility] [place] Status: Signed Intake Vital Signs 08/17/24 08:06 11/24/24 08:57 12/03/24 12:19 Height 5 ft 7 in 5 ft 7 in 5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 2021 Cholesterol [Mass/Vol] 300 mg/dL <200 [facility] Work Phone: Comment on above: <200 mg/dL Desirable 200-240 mg/dL Borderline >240 mg/dL High Risk Triglyceride [Mass/Vol] 55 mg/dL <199 [facility] Work Phone: Comment on above: The drugs N-Acetylcy steine and Metamizole may falsely depress this assay.Serum Triglycerides Reference Interval Normal <150 mg/dL Borderline high 150 - 199 mg/dL High 200 - 499 mg/dL Very High > or = 500 mg/dL Serum or plasma cholesterol in HDL measurement (mass/volume)on 04-18-2022 Cholesterol in HDL [Mass/Vol] 95 mg/dL >40 [facility] Work Phone: Comment on above: The drugs N-Acetylcy steine and Metamizole may falsely depress this assay. Reference Range HDL <40 mg/dL Low HDL Cholesterol HDL >or= 60 mg/dL High HDL Cholesterol Serum or plasma cholesterol in VLDL measurement (mass/volume)on 04-18-2022 Cholesterol in VLDL [Mass/Vol] 11 mg/dL 5-40 [facility] Work Phone: Serum or plasma low density lipoprotein (LDL) cholesterol measurement (mass/volume)on 04-18-2022 Cholesterol in LDL [Mass/Vol] 194 mg/dL 0-130 [facility] Work Phone: Laboratory - Chemistry and C hemistry - challengeon 03-27-2022 HCG ( test) Ql (U) Negative [facility] Work Phone: Comment on above: Very dilute urine sp ecimens, as indicated by a low specificgravity, may not contain new accounts representative levels of hCG. If is still suspected, a first morning urinespecimen should be collected 48 hours later and tested. Laboratory - Microbiology an d Antimicrobial susceptibilityon 12-27-2021 SARS-CoV-2 (COVID-19) RNA ABIODUN+probe Ql (Unsp spec) Negative Not Detect [facility] Work Phone: Comment on above: Normal Reference [...] Informationon 12-27 Stool Calprotectin 26 ug/g 0-120 [facility] Work Phone: Comment on above: Concentration Interp retation Follow-Up<16 - 50 ug/g Normal None>50 -120 ug/g Borderline Re-evaluate in 4-6 weeks >120 ug/g Abnormal Repeat as clinically indicatedPerformed at: - [facility] [place] [address] [place], [place] [id number] Director: Navin Sanchez MD, Phone: [phone] Absolute lymphocyte counton 12-26-2021 Lymphocytes Auto (Unsp spec) [#/Vol] 1.81 10*3/uL 0.83-4.51 [facility] Work Phone: Basophil percentageon 2021 Basophils/100 WBC (Bld) 0.5 % 0-1 [facility] Work Phone: Bilirubin [Mass/Vol] 0.30 mg/dL 0.20-1.00 [facility] Work Phone: Comment on above: For patients on eltr ombopag therapy, use of Dimension [place] TBIL is not recommended. Chloride [Moles/Vol] 104 mmol/L 98-107 [facility] Work Phone: Eosinophils/100 WBC (Bld) 2.2 % 0-5 [facility] Work Phone: Glucose [Mass/Vol] 66 mg/dL 74-106 [facility] Work Phone: Neutrophils (Bld) [#/Vol] 3.8 10*3/uL 2.0-7.7 [facility] Work Phone: Neutrophils/100 WBC (Bld) 60.3 % 47-70 [facility] Work Phone: Potassium [Moles/Vol] 3.8 mmol/L 3.5-5.1 [facility] Work Phone: Protein [Mass/Vol] 7.6 g/dL 6.4-8.2 [facility]: Sodium [Moles/Vol] 139 mmol/L 136-145 [facility] Work Phone: [phone] WBC (Bld) [#/Vol] 6.4 10*3/uL 4.4-11.0 [facility] Work Phone: Blood erythrocytes count (nu mber/volume)on 12-26-2021 RBC (Bld) [#/Vol] 4.04 10*6/uL 4.2-5.4 [facility]: Blood hemoglobin measurement (mass/volume)on 12-26-2021 Hemoglobin (Bld) [Mass/Vol] 13.6 g/dL 12.0-15.0 [facility] Work Phone: Blood lymphocytes/100 leukoc yteson 12-26-2021 Lymphocytes/100 WBC (Bld) 28.5 % 19-41 [facility] Work Phone: Blood monocytes/100 leukocyt eson 12-26-2021 Monocytes/100 WBC (Bld) 8.0 % 0-10 [facility] Work Phone: Blood platelet mean volumeon 12-26-2021 Platelet mean volume (Bld) [Entitic vol] 9.2 fL 6.2-12.0 [facility] Work Phone: Determination of erythrocyte mean corpuscular volume (MCV)on 12-26-2021 MCV (RBC) [Entitic vol] 99.8 fL 81-99 [facility] Work Phone: Erythrocyte sedimentation ra leonardo 12-26-2021 ESR (Bld) [Velocity] 8 mm[facility]h 0-30 [facility]: Hematocrit Auto (Bld) [Volum e fraction]on 12-26-2021 Hematocrit (Bld) [Volume fraction] 40.3 % 37-47 [facility] Work Phone: Laboratory - Chemistry and C hemistry - challengeon 12-26-2021 ALP [Catalytic activity/Vol] 60 U/L 45-117 [facility] Work Phone: ALT [Catalytic activity/Vol] 29 U/L 13-56 [facility] Work Phone: CO2 [Moles/Vol] 30.0 mmol/L 21.0-32.0 [facility] Work Phone: Globulin (S) [Mass/Vol] 3.8 g/dL 2.2-4.2 [facility] Work Phone: Urea nitrogen/Creatinine [Mass ratio] 17.8 mg/mg 10-20 [facility] Work Phone: Laboratory - Hematology and Cell countson 12-26-2021 Erythrocyte distribution width (RBC) [Entitic vol] 43.7 fL 35.1-43.9 [facility] Work Phone: Erythrocyte distribution width (RBC) [Ratio] 11.9 % 11.6-14.6 [facility] Work Phone: Immature granulocytes/100 WBC (Bld) 0.500 % 0.0-0.9 [facility] Work Phone: Comment on above: IG% - Immature Granu locytes (promyelocytes, myelocytes and metamyelocytes) > 1% indicates that a LEFT SHIFT is Present. MCH (RBC) [Entitic mass] 33.7 pg 27.0-32.0 [facility] Work Phone: Nucleated RBC/100 WBC (Bld) [Ratio] 0 % 0-5 [facility] Work Phone: MCHC Auto (RBC) [Mass/Vol]on 12-26-2021 MCHC (RBC) [Mass/Vol] 33.7 g/dL 32-36 [facility] Work Phone: No Panel Informationon 12-26 Estimated GFR (MDRD) Amer 74 mL/min >60 [facility] Work Phone: Comment on above: GFR Calc Estimated GFR (MDRD) Non-Af Amer 61 mL/min >60 [facility] Work Phone: Comment on above: Non- GFR Calc Platelets bldon 12-26-2021 Platelets (Bld) [#/Vol] 319 10*3/uL 150-450 [facility] Work Phone: Serum or plasma C reactive p rotein measurement (mass/volume)on 12-26-2021 CRP [Mass/Vol] mg/L 0.0-3.0 [facility] Work Phone: Comment on above: C-Reactive Protein ( CRP) provides useful information for thediagnosis, therapy and monitoring of inflammatory processesand associated diseases. For the evaluation of Relative Riskfor Cardiovascular Disease, a High Sensitivity CRP (HSCRP)should be ordered. Serum or plasma albumin lorrie urement (mass/volume)on 12-26-2021 Albumin [Mass/Vol] 3.8 g/dL 3.2-5.0 [facility] Work Phone: Serum or plasma albumin/glob ulin mass ratioon 12-26-2021 Albumin/Globulin [Mass ratio] 1.0 {ratio} 0.9-2.4 [facility] Work Phone: Serum or plasma calcium lorrie urement (mass/volume)on 12-26-2021 Calcium [Mass/Vol] 9.4 mg/dL 8.5-10.1 [facility] Work Phone: Serum or plasma creatinine m easurement (mass/volume)on 12-26-2021 Creatinine [Mass/Vol] 1.01 mg/dL 0.55-1.02 [facility] Work Phone: Comment on above: The validity of the calculated GFR & GFRAA in patients over 70 years has not been determined. Clinical correlation is essential. Serum or plasma urea nitroge n measurement (mass/volume)on 12-26-2021 Urea nitrogen [Mass/Vol] 18 mg/dL 7-18 [facility] Work Phone: Thin prep Papanicolaou smear with manual screeningon 12-26-2021 Thin prep Papanicolaou smear with manual screening 15 U/L 15-37 [facility] Work Phone: Thin prep Papanicolaou smear with manual screening 5 5-15 [facility] Work Phone: Absolute lymphocyte counton 08-30-2021 Lymphocytes Auto (Unsp spec) [#/Vol] 1.19 10*3/uL 0.83-4.51 [facility] Work Phone: Basophil percentageon 2021 Basophils/100 WBC (Bld) 0.6 % 0-1 [facility] Work Phone: Bilirubin [Mass/Vol] 0.50 mg/dL 0.20-1.00 [facility] Work Phone: Comment on above: For patients on eltr ombopag therapy, use of Dimension [place] TBIL is not recommended. Chloride [Moles/Vol] 105 mmol/L 98-107 [facility] Work Phone: Eosinophils/100 WBC (Bld) 1.9 % 0-5 [facility] Work Phone: Glucose [Mass/Vol] 86 mg/dL 74-106 [facility] Work Phone: Neutrophils (Bld) [#/Vol] 3.0 10*3/uL 2.0-7.7 [facility] Work Phone: [phone] Neutrophils/100 WBC (Bld) 63.6 % 47-70 [facility] Work Phone: Potassium [Moles/Vol] 3.8 mmol/L 3.5-5.1 [facility] Work Phone: Protein [Mass/Vol] 7.3 g/dL 6.4-8.2 [facility] Work Phone: Sodium [Moles/Vol] 138 mmol/L 136-145 [facility] Work Phone: WBC (Bld) [#/Vol] 4.7 10*3/uL 4.4-11.0 [facility] Work [facility]: Blood erythrocytes count (nu mber/volume)on 08-30-2021 RBC (Bld) [#/Vol] 4.11 10*6/uL 4.2-5.4 [facility] Work Phone: Blood hemoglobin measurement (mass/volume)on 08-30-2021 Hemoglobin (Bld) [Mass/Vol] 13.6 g/dL 12.0-15.0 [facility] Work Phone: Blood lymphocytes/100 leukoc yteson 08-30-2021 Lymphocytes/100 WBC (Bld) 25.5 % 19-41 [facility] Work Phone: Blood monocytes/100 leukocyt eson 08-30-2021 Monocytes/100 WBC (Bld) 7.5 % 0-10 [facility] Work Phone: Blood platelet mean volumeon 08-30-2021 Platelet mean volume (Bld) [Entitic vol] 8.8 fL 6.2-12.0 [facility] Work Phone: Determination of erythrocyte mean corpuscular volume (MCV)on 08-30-2021 MCV (RBC) [Entitic vol] 100.2 fL 81-99 [facility] Work Phone: Erythrocyte sedimentation ra leonardo 08-30-2021 ESR (Bld) [Velocity] 7 mm/h 0-30 [facility] Work Phone: Hematocrit Auto (Bld) [Volum e fraction]on 08-30-2021 Hematocrit (Bld) [Volume fraction] 41.2 % 37-47 [facility] Work Phone: Laboratory - Chemistry and C hemistry - challengeon 08-30-2021 ALP [Catalytic activity/Vol] 58 U/L 45-117 [facility] Work Phone: ALT [Catalytic activity/Vol] 37 U/L 13-56 [facility] Work Phone: CO2 [Moles/Vol] 28.0 mmol/L 21.0-32.0 [facility] Work Phone: Globulin (S) [Mass/Vol] 3.8 g/dL 2.2-4.2 [facility] Work Phone: Urea nitrogen/Creatinine [Mass ratio] 11.9 mg/mg 10-20 [facility] Work Phone: Laboratory - Hematology and Cell countson 08-30-2021 Erythrocyte distribution width (RBC) [Entitic vol] 48.9 fL 35.1-43.9 [facility] Work Phone: Erythrocyte distribution width (RBC) [Ratio] 13.2 % 11.6-14.6 [facility] Work Phone: Immature granulocytes/100 WBC (Bld) 0.900 % 0.0-0.9 [facility] Work Phone: Comment on above: IG% - Immature Granu locytes (promyelocytes, myelocytes and metamyelocytes) > 1% indicates that a LEFT SHIFT is Present. MCH (RBC) [Entitic mass] 33.1 pg 27.0-32.0 [facility] Work Phone: Nucleated RBC/100 WBC (Bld) [Ratio] 0 % 0-5 [facility] Work Phone: MCHC Auto (RBC) [Mass/Vol]on 08-30-2021 MCHC (RBC) [Mass/Vol] 33.0 g/dL 32-36 [facility] Work [facility]: No Panel Informationon 08-30 Estimated GFR (MDRD) Amer 91 mL/min >60 [facility] Work Phone: Comment on above: GFR Calc Estimated GFR (MDRD) Non-Af Amer 75 mL/min >60 [facility] Work Phone: Comment on above: Non- GFR Calc Immunoglobulin E 5 IU/mL 6-495 [facility] Work Phone: Comment on above: Performed at: [place] [id number] Director: lA Beavers PhD, Phone: [phone] at: [facility] [place] [address] [place], [place] [id number] Director: Navin Sanchez MD, Phone: [phone] Platelets bldon 08-30-2021 Platelets (Bld) [#/Vol] 316 10*3/uL 150-450 [facility] Work Phone: Serum mitochondria antibody detectionon 08-30-2021 Mitochondria Ab Ql (S) <20.0 Units 0.0-20.0 [facility] Work Phone: Comment on above: Negative 0.0 - 20.0 Equivocal 20.1 - 24.9 Positive >24.9Mitochondrial (M2) Antibodies are found in 90-96% ofpatients with primary biliary cirrhosis.Performed at: [facility] CenterGfsvtk[address] [place], [place] [id number] Director: Al Beavers PhD, Phone: [phone] Serum or plasma C reactive p rotein measurement (mass/volume)on 08-30-2021 CRP [Mass/Vol] mg/L 0.0-3.0 [facility] Work Phone: Comment on above: C-Reactive Protein ( CRP) provides useful information for thediagnosis, therapy and monitoring of inflammatory processesand associated diseases. For the evaluation of Relative Riskfor Cardiovascular Disease, a High Sensitivity CRP (HSCRP)should be ordered. Serum or plasma IgA measurem ent (mass/volume)on 08-30-2021 IgA [Mass/Vol] 146 mg/dL 87-352 [facility] Work Phone: Serum or plasma IgG measurem ent (mass/volume)on 08-30-2021 IgG [Mass/Vol] 1092 mg/dL [phone] [facility] Work Phone: Serum or plasma IgM measurem ent (mass/volume)on 08-30-2021 IgM [Mass/Vol] 212 mg/dL 26-217 [facility] Work Phone: Serum or plasma albumin lorrie urement (mass/volume)on 08-30-2021 Albumin [Mass/Vol] 3.5 g/dL 3.2-5.0 [facility] Work Phone: Serum or plasma albumin/glob ulin mass ratioon 08-30-2021 Albumin/Globulin [Mass ratio] 0.9 {ratio} 0.9-2.4 [facility] Work Phone: Serum or plasma calcium lorrie urement (mass/volume)on 08-30-2021 Calcium [Mass/Vol] 8.6 mg/dL 8.5-10.1 [facility] Work Phone: Serum or plasma creatinine m easurement (mass/volume)on 08-30-2021 Creatinine [Mass/Vol] 0.84 mg/dL 0.55-1.02 [facility] Work Phone: Comment on above: The validity of the calculated GFR & GFRAA in patients over 70 years has not been determined. Clinical correlation is essential. Serum or plasma urea nitroge n measurement (mass/volume)on 08-30-2021 Urea nitrogen [Mass/Vol] 10 mg/dL 7-18 [facility] Work Phone: Thin prep Papanicolaou smear with manual screeningon 08-30-2021 Thin prep Papanicolaou smear with manual screening 22 U/L 15-37 [facility] Work Phone: Thin prep Papanicolaou smear with manual screening 5 5-15 [facility] Work Phone: Final Surgical Pathology Rep [facility] 10-21-2018 Final Surgical Pathology Report . Pathology Reports Accession: Collected Date/Time: Received Date/Time: Pathologist: [id number] 10/17/2018 14:14 EDT 10/20/2018 14:14 EDT DO [...] cm. TS -1 Dictated by Denita MENDEZ ([facility]) MICROSCOPIC DESCRIPTION: A-C Slides reviewed. Electronically Signed by Pathology Report verified by [facility] Electronically signed by LEONARDO DIAZ DO Sign out Date: 10/21/2018 12:15 Performing Lab: [facility], [address] [place] [address] ([place]) Comment on above: Performed By: #### S PFR #### [place] [address] Office Visit: UC: sinusitiso n 05-30-2017 Documentation of current medications (procedure) Done Invalid Interpretation Code [facility] Work Phone: Fall risk assessment No Invalid Interpretation Code [facility] Work Phone: Tobacco smoking status NHIS Never Invalid Interpretation Code [facility] Work Phone: Tobacco use CPHS Never smoker Invalid Interpretation Code [facility] Work Phone: Vital Signs Date Time Vital Sign Value Performing Clinician Faci lity 05-18-2023 11:42-0400 Body height 172.[address] Arsalan Pedro Work Phone: [facility] 05-18-2023 11:42-0400 Body mass index (BMI) [Ratio] 30.4 kg/m2 Dr. Arsalan Pedro Work Phone: [facility] 05-18-2023 11:42-0400 Body weight 90.[address] Arsalan Pedro Work Phone: [facility] 05-18-2023 11:42-0400 Diastolic blood pressure 87 mm[Hg] Dr. Arsalan Pedro Work Phone: [facility] 05-18-2023 11:42-0400 Heart rate 88 /min Dr. Arsalan Pedro Work Phone: [facility] 05-18-2023 11:42-0400 Respiratory rate 16 /min Dr. Arsalan Pedro Work Phone: [facility] 05-18-2023 11:42-0400 SaO2% (BldA) [Mass fraction] 98 % Dr. Arsalan Pedro Work Phone: [facility] 05-18-2023 11:42-0400 Systolic blood pressure 135 mm[Hg] Dr. Arsalan Pedro Work Phone: [facility] 11-08-2022 07:10-0400 Body temperature 96.9 [degF] Dr. Arsalan Pedro Work Phone: [facility] 11-08-2022 07:10-0400 Diastolic blood pressure 81 mm[Hg] Dr. Arsalan Pedro Work Phone: [facility] 11-08-2022 07:10-0400 Heart rate 71 /min Dr. Arsalan Pedro Work Phone: [facility] 11-08-2022 07:10-0400 Respiratory rate 16 /min Dr. Arsalan Pedro Work Phone: [facility] 11-08-2022 07:10-0400 SaO2% (BldA) [Mass fraction] 97 % Dr. Arsalan Pedro Work Phone: [facility] 11-08-2022 07:10-0400 Systolic blood pressure 105 mm[Hg] Dr. Arsalan Pedro Work Phone: [facility] 11-08-2022 06:02-0400 Body height 170.[address] Arsalan Pedro Work Phone: [facility] 11-08-2022 06:02-0400 Body mass index (BMI) [Ratio] 29.9 kg/m2 Dr. Arsalan Pedro Work Phone: [facility] 11-08-2022 06:02-0400 Body weight 86.[address] Arsalan Pedro Work Phone: [facility] 09-06-2022 15:24-0500 Body height 170.[address] Arsalan Pedro Work Phone: [facility] 09-06-2022 15:24-0500 Body mass index (BMI) [Ratio] 30.4 kg/m2 Dr. Arsalan Pedro Work Phone: [facility] 09-06-2022 15:24-0500 Body weight 87.[address] Arsalan Pedro Work Phone: [facility] 09-06-2022 15:24-0500 Diastolic blood pressure 91 mm[Hg] Dr. Arsalan Pedro Work Phone: [facility] 09-06-2022 15:24-0500 Heart rate 98 /min Dr. Arsalan Pedro Work Phone: [facility] 09-06-2022 15:24-0500 SaO2% (BldA) [Mass fraction] 98 % Dr. Arsalan Pedro Work Phone: [facility] 09-06-2022 15:24-0500 Systolic blood pressure 136 mm[Hg] Dr. Arsalan Pedro Work Phone: [facility] 06-11-2022 07:04-0500 Body temperature 98.6 [degF] Dr. Arsalan Pedro Work Phone: [facility] Work Phone: 06-11-2022 07:04-0500 Diastolic blood pressure 72 mm[Hg] Dr. Arsalan Pedro Work Phone: [facility] Work Phone: 06-11-2022 07:04-0500 Heart rate 82 /min Dr. Arsalan Pedro Work Phone: [facility] Work Phone: 06-11-2022 07:04-0500 Respiratory rate 14 /min Dr. Arsalan Pedro Work Phone: [facility] Work Phone: 06-11-2022 07:04-0500 SaO2% (BldA) [Mass fraction] 99 % Dr. Arsalan Pedro Work Phone: [facility] Work Phone: 06-11-2022 07:04-0500 Systolic blood pressure 122 mm[Hg] Dr. Arsalan Pedro Work Phone: [facility] Work Phone: 05-18-2022 12:47-0400 Body height 170.[address] Arsalan Pedro Work Phone: [facility] Work Phone: 05-18-2022 12:47-0400 Body mass index (BMI) [Ratio] 29 kg/m2 Dr. Arsalan Pedro Work Phone: [facility] Work Phone: 05-18-2022 12:47-0400 Body temperature 97.9 [degF] Dr. Arsalan Pedro Work Phone: [facility] Work Phone: 05-18-2022 12:47-0400 Body weight 83.[address] Arsalan Pedro Work Phone: [facility] Work Phone: 05-18-2022 12:47-0400 Diastolic blood pressure 87 mm[Hg] Dr. Arsalan Pedro Work Phone: [facility] Work Phone: 05-18-2022 12:47-0400 Heart rate 67 /min Dr. Arsalan Pedro Work Phone: [facility] Work Phone: 05-18-2022 12:47-0400 Respiratory rate 16 /min Dr. Arsalan Pedro Work Phone: [facility] Work Phone: 05-18-2022 12:47-0400 SaO2% (BldA) [Mass fraction] 97 % Dr. Arsalan Pedro Work Phone: [facility] Work Phone: 05-18-2022 12:47-0400 Systolic blood pressure 130 mm[Hg] Dr. Arsalan Pedro Work Phone: [facility] Work Phone: 04-23-2022 13:07-0400 Body mass index (BMI) [Ratio] 29.7 kg/m2 Dr. Arsalan Pedro Work Phone: [facility] Work Phone: 04-23-2022 13:07-0400 Body weight 86.[address] Arsalan Pedro Work Phone: [facility] Work Phone: 04-04-2022 13:49-0400 Body height 170.[address] Arsalan Pedro Work Phone: [facility] Work Phone: 04-04-2022 13:49-0400 Body mass index (BMI) [Ratio] 29.9 kg/m2 Dr. Arsalan Pedro Work Phone: [facility] Work Phone: 04-04-2022 13:49-0400 Body weight 86.[address] Arsalan Pedro Work Phone: [facility] Work Phone: 04-04-2022 13:49-0400 Diastolic blood pressure 88 mm[Hg] Dr. Arsalan Pedro Work Phone: [facility] Work Phone: 04-04-2022 13:49-0400 Heart rate 86 /min Dr. Arsalan Pedro Work Phone: [facility] Work Phone: 04-04-2022 13:49-0400 Respiratory rate 16 /min Dr. Arsalan Pedro Work Phone: [facility] Work Phone: 04-04-2022 13:49-0400 SaO2% (BldA) [Mass fraction] 99 % Dr. Arsalan Pedro Work Phone: [facility] Work Phone: 04-04-2022 13:49-0400 Systolic blood pressure 140 mm[Hg] Dr. Arsalan Pedro Work Phone: [facility] Work Phone: 03-27-2022 13:50-0400 Body temperature 98.2 [degF] Dr. Arsalan Pedro Work Phone: [facility] Work Phone: 03-27-2022 13:50-0400 Diastolic blood pressure 88 mm[Hg] Dr. Arsalan Pedro Work Phone: [facility] Work Phone: 03-27-2022 13:50-0400 Heart rate 80 /min Dr. Arsalan Pedro Work Phone: [facility] Work Phone: 03-27-2022 13:50-0400 Respiratory rate 16 /min Dr. Arsalan Pedro Work Phone: [facility] Work Phone: 03-27-2022 13:50-0400 SaO2% (BldA) [Mass fraction] 100 % Dr. Arsalan Pedro Work Phone: [facility] Work Phone: 03-27-2022 13:50-0400 Systolic blood pressure 133 mm[Hg] Dr. Arsalan Pedro Work Phone: [facility] Work Phone: 03-27-2022 12:20-0400 Body height 170.[address] Arsalan Pedro Work Phone: [facility] Work Phone: 03-27-2022 12:20-0400 Body mass index (BMI) [Ratio] 29.7 kg/m2 Dr. Arsalan Pedro Work Phone: [facility] Work Phone: 03-27-2022 12:20-0400 Body weight [address] Arsalan Pedro Work Phone: [facility] Work Phone: 09-10-2021 13:13-0500 Body height 170.[address] Arsalan Pedro Work Phone: [facility] Work Phone: 09-10-2021 13:13-0500 Body mass index (BMI) [Ratio] 29.1 kg/m2 Dr. Arsalan Pedro Work Phone: [facility] Work Phone: 09-10-2021 13:13-0500 Body temperature 97.3 [degF] Dr. Arsalan Pedro Work Phone: [facility] Work Phone: 09-10-2021 13:13-0500 Body weight 84.[address] Arsalan Pedro Work Phone: [facility] Work Phone: 09-10-2021 13:13-0500 Diastolic blood pressure 78 mm[Hg] Dr. Arsalan Pedro Work Phone: [facility] Work Phone: 09-10-2021 13:13-0500 Heart rate 82 /min Dr. Arsalan Pedro Work Phone: [facility] Work Phone: 09-10-2021 13:13-0500 Respiratory rate 15 /min Dr. Arsalan Pedro Work Phone: [facility] Work Phone: 09-10-2021 13:13-0500 SaO2% (BldA) [Mass fraction] 98 % Dr. Arsalan Pedro Work Phone: [facility] Work Phone: 09-10-2021 13:13-0500 Systolic blood pressure 121 mm[Hg] Dr. Arsalan Pedro Work Phone: [facility] Work Phone: 05-30-2017 08:41-0500 BMI (Body Mass Index) 28.03 kg/m2 [facility] Work Phone: 05-30-2017 08:41-0500 Body Temperature 98.6 [degF] [facility] Work Phone: 05-30-2017 08:41-0500 BP Diastolic 84 mm[Hg] [facility] Work Phone: 05-30-2017 08:41-0500 BP Systolic 126 mm[Hg] [facility] Work Phone: 05-30-2017 08:41-0500 Height 170.[address] [facility] Work Phone: 05-30-2017 08:41-0500 Pulse (Heart Rate) 83 /min [facility] Work Phone: 05-30-2017 08:41-0500 Respiratory Rate 14 /min [facility] Work Phone: 05-30-2017 08:41-0500 Weight 81.[address] [facility] Work Phone: Encounters Encounter Date Encounter Type Care Provider Facility Start: 05-04-2025 ambulatory [facility] Start: 05-03-2025 End: 05-03-2025 ambulatory Arsalan Pedro Facility:[facility] Start: 05-03-2025 End: 05-03-2025 ambulatory Marisa Modi Facility:[facility] Start: 04-27-2025 End: 04-27-2025 ambulatory Arsalan Pedro Facility:[facility] Start: 04-13-2025 End: 04-13-2025 ambulatory Radha Murillo Facility:[facility] Start: 03-26-2025 End: 03-26-2025 ambulatory Arsalan Pedro Facility:[facility] Start: 03-05-2025 End: 03-05-2025 ambulatory Arsalan Pedro Facility:[facility] Start: 02-11-2025 End: 02-11-2025 ambulatory Arsalan Pedro Facility:[facility] Start: 02-03-2025 End: 02-03-2025 ambulatory Arsalan Pedro Facility:[facility] Start: 01-26-2025 ambulatory Foreign Angel Facility :[facility] Start: 01-26-2025 End: 01-26-2025 ambulatory Arsalan Pedro Facility:[facility] Start: 01-22-2025 End: 01-22-2025 ambulatory Arsalan Pedro Facility:[facility] Start: 12-31-2024 End: 12-31-2024 ambulatory Arsalan Pedro Facility:[facility] Start: 12-31-2024 End: 12-31-2024 ambulatory Arsalan Pedro Facility:[facility] Start: 12-03-2024 End: 12-03-2024 ambulatory Arsalan Pedro Facility:[facility] Start: 11-24-2024 End: 11-24-2024 ambulatory Arsalan Pedro Facility:[facility] Start: 11-04-2024 End: 11-04-2024 ambulatory Arsalan Pedro Facility:[facility] Start: 10-30-2024 End: 10-30-2024 ambulatory Arsalan Pedro Facility:[facility] Start: 09-18-2024 End: 09-18-2024 ambulatory Arsalan Pedro Facility:[facility] Start: 08-17-2024 End: 08-17-2024 ambulatory Arsalan Pedro Facility:[facility] Start: 08-05-2024 End: 08-05-2024 ambulatory Leigh Bowie Facility:[facility] Start: 06-30-2024 End: 06-30-2024 ambulatory Jamee Reed Facility:[facility] Start: 07-09-2023 End: 07-09-[address] Arsalan Pedro Work Phone: [facility] Work Phone: Start: 07-09-2023 End: 07-09-[address] Arsalan Pedro Work Phone: [facility] Work Phone: Start: 06-03-2023 End: 06-03-[address] Arsalan Pedro Work Phone: [facility] Work Phone: Start: 06-03-2023 End: 06-03-[address] Araslan Pedro Work Phone: [facility] Work Phone: Start: 05-20-2023 End: 05-20-[address] Arsalan Pedro Work Phone: [facility] Work Phone: Start: 05-20-2023 End: 05-20-[address] Arsalan Pedro Work Phone: [facility]Laboratory[facility] Specimen Work Phone: Start: 05-18-2023 End: 05-18-[address] Arsalan Pedro Work Phone: [facility] Work Phone: Start: 03-25-2023 End: 03-25-[address] Arsalan Pedro Work Phone: [facility] Work Phone: Start: 11-08-2022 Non-patient / Non-visit Dr. Arsalan Pedro Work Phone: [facility] Start: 11-08-2022 End: 11-08-2022 Admission to same day surgery center Dr. Arsalan Pedro Work Phone: [facility]End[facility] Start: 11-08-2022 End: 11-08-[address] Arsalan Pedro Work Phone: [facility] Work Phone: Start: 11-01-2022 End: 11-01-[address] Arsalan Pedro Work Phone: [facility] Work Phone: Start: 11-01-2022 End: 11-01-[address] Arsalan Pedro Work Phone: [facility] Start: 10-31-2022 End: 10-31-[address] Arsalan Pedro Work Phone: [facility] Work Phone: Start: 10-31-2022 End: 10-31-[address] Arsalan Pedro Work Phone: [facility] Start: 09-06-2022 End: 09-06-[address] Arsalan Pedro Work Phone: [facility] Start: 06-11-2022 End: 06-11-[address] Arsalan Pedro Work Phone: [facility] Start: 05-30-2022 End: 05-30-[address] Arsalan Pedro Work Phone: [facility] Work Phone: Start: 05-30-2022 End: 05-30-[address] Arsalan Pedro Work Phone: [facility] Start: 05-18-2022 Non-patient / Non-visit Dr. Arsalan Pedro Work Phone: [facility] Start: 05-18-2022 End: 05-18-[address] Arsalan Pedro Work Phone: [facility] Work Phone: Start: 05-18-2022 End: 05-18-[address] Arsalan Pedro Work Phone: [facility] Start: 04-23-2022 End: 04-23-[address] Arsalan Pedro Work Phone: [facility] Start: 04-18-2022 Non-patient / Non-visit Dr. Arsalan Pedro Work Phone: [facility] Start: 04-18-2022 End: 04-18-[address] Arsalan Pedro Work Phone: [facility] Work Phone: Start: 04-18-2022 End: 04-18-[address] Arsalan Pedro Work Phone: [facility] Start: 04-04-2022 End: 04-04-[address] Arsalan Pedro Work Phone: [facility] Start: 03-27-2022 Non-patient / Non-visit Dr. Arsalan Pedro Work Phone: [facility] Start: 03-27-2022 End: 03-27-2022 Admission to same day surgery center Dr. Arsalan Pedro Work Phone: [facility] Start: 03-27-2022 End: 03-27-[address] Arsalan Pedro Work Phone: [facility] Work Phone: Start: 12-27-2021 End: 12-27-[address] Arsalan Pedro Work Phone: [facility] Spec[facility] Start: 12-26-2021 End: 12-26-[address] [facility] Start: 12-25-2021 End: 12-25-[address] Arsalan Pedro Work Phone: [facility] Start: 10-02-2021 End: 10-02-[address] Arsalan Pedro Work Phone: [facility] Start: 09-19-2021 End: 09-19-[address] Arsalan Pedro Work Phone: [facility] Start: 09-10-2021 End: 09-10-2021 Emergency department patient visit Dr. Arsalan Pedro Work Phone: [facility] Department Start: 08-30-2021 End: 08-30-[address] Arsalan Pedro Work Phone: [facility] Start: 04-23-2020 End: 04-23-2020 Patient encounter procedure Graeme Cooper Work Phone: [facility] Start: 04-23-2020 Results Only Graeme kim [...] kim Work Phone: Start: 12-10-2013 Mammography Graeme Allison Lactoferrin measurement Dr. Arsalan Pedro Work Phone: Lactoferrin measurement Dr. Arsalan Pedro Work Phone: Plan of Treatment Date Care Activity Detail Author Start: 07-09-2023 Dual energy X-ray absorptiometry Dexa Bone Density Study [facility] Start: 07-09-2023 DXA Bone [Mass/Area] Bone density [facility] Start: 11-08-2022 Patient discharge [facility] Start: 03-27-2022 Egd transoral biopsy single/multiple EGD BIOPSY SINGLE/MULTIPLE [facility] Work Phone: Start: 03-27-2022 Patient discharge [facility] Work Phone: Start: 12-27-2021 Protein measurement [facility] Work Phone: Start: 03-15-2020 Influenza vaccination INFLUENZA (#1) [facility] Start: 02-25-2018 SHINGRIX VACCINE (1 of 2) SHINGRIX VACCINE (1 of 2) [facility] Start: 02-25-2018 Tuberculosis screening COLORECTAL CANCER SCREENING,SEE MODIFIER [facility] Start: 05-30-2017 End: 05-30-2017 Appointment Appointment [facility] Work Phone: Start: 10-29-2016 HPV TESTING HPV TESTING [facility] Start: 10-29-2016 PAP TESTING PAP TESTING [facility] Start: 08-15-2016 LIPID SCREEN LIPID SCREEN [facility] Start: 12-10-[address] [facility] Start: 02-25-2013 DIABETES SCREEN DIABETES SCREEN [facility] Start: 08-15-2010 Urine microalbumin profile DTAP,TDAP,TD (2 - Tdap) [facility] Start: 02-25-1986 HEPATITIS C SCREENING HEPATITIS C SCREENING [facility] Start: 02-25-1986 HIV SCREENING HIV SCREENING [facility] C reactive protein [Mass/volume] in Serum or Plasma [facility] Work Phone: CBC W Auto Different ial panel - Blood [facility] Work Phone: Celiac disease screen [facility] Work Phone: CT angiography of co ronary arteries [facility] Work Phone: Erythrocyte sediment ation rate [facility] Work Phone: Lactoferrin [Presenc e] in Stool by Immunoassay [facility] Work Phone: Patient Education [facility] Work Phone: Patient referral [facility] Work Phone: Protein measurement [facility] Work Phone: Protein measurement [facility] PT ED PATIENT INFORMATION PT ED PATIENT INFORMATION Other 04/23/2020 [facility] Immunizations Immunization Date Immunization Notes Care Provider Fa cili 09-22-2016 influenza, injectabl e, quadrivalent, preservative free Dr. Arsalan Pedro Work Phone: [facility] 09-22-2016 influenza, seasonal, injectable Dr. Arsalan Pedro Work Phone: [facility] 05-26-2007 influenza virus vaccine, unspecified formulation [facility] 08-15-2000 diphtheria and tetan us toxoids, adsorbed for pediatric use [facility] Payers Date Payer Category Payer Self-pay [id number] 2024 Unknown [id number] 2023 Unknown [id number] 2019 Unknown [employer]TC[employer] AULTCAR E PPO [id number] 2019-Present PPO [id number] 2018 Unknown [id number] 1970 Unknown [id number] Unknown [id number] Unknown [employer]UL[employer]ARE [id number] Unknown [id number] Unknown [id number] Unknown [id number] Unknown [id number] 2.840.1.910195.3.579.2.462 Unknown [id number] 2.840.1.858627.3.579.2.462 Unknown [id number] .840.1.748249.3.579.2.462 Unknown [id number] .840.1.795517.3.579.2.462 Unknown [id number] .840.1.191658.3.579.2.462 Unknown [id number] .840.1.443074.3.579.2.462 Unknown [id number] .840.1.642278.3.579.2.462 Unknown [id number] .840.1.286360.3.579.2.462 Unknown [id number] .840.1.456103.3.579.2.462 Unknown [id number] .840.1.562754.3.579.2.462 Unknown [id number] .840.1.561237.3.579.2.462 Unknown [id number] .840.1.895118.3.579.2.462 Unknown [id number] .840.1.426674.3.579.2.462 Unknown [id number] .840.1.769798.3.579.2.462 Unknown [id number] .840.1.184019.3.579.2.462 Unknown [id number] 2.840.1.492631.3.579.2.462 Unknown [id number] .840.1.231154.3.579.2.462 Unknown [id number] [id number]2 Unknown [id number] Social History Date Type Detail Facility Start: 02-05-2015 Tobacco smoking status NHIS Never smoker [facility] Start: 02-05-2015 Tobacco use and exposure Never used [facility] Start: 02-05-2015 Alcohol intake Current drinke r of alcohol (finding) [facility] Start: 01-05-2014 Alcohol Comment Occasionally Wine Cl [facility] Sex Assigned At Not on file [facility] Exposure to SARS-CoV-2 (event) Unable to assess [facility] Start: 12-25-2021 End: 05-18-2023 Tobacco smoking status NHIS Unknown if ever smoked [facility] Start: 06-24-2013 Occasional [facility] Start: 06-24-2013 None [facility] Start: 06-24-2013 Spouse/ Signif icant Other [facility] Start: 09-22-2016 Non-smoker [facility] Start: 1970 Sex Assigned At Female [facility] NEGATED: Highlighted row [facility] Goals Date Patient Goal Desired Activity /State Mental Status Date Assessment Result Facility 11-08-2022 Cognitive function Voice/Name [facility] Work Phone: 05-18-2022 Cognitive function Voice/Name [facility] Work Phone: 03-27-2022 Cognitive function Level Of Consciousness Awake [facility] Work Phone: 03-27-2022 Cognitive function Voice/Name [facility] Work Phone: Clinical Notes 11-08-2022 to 01-26-2025 Note Date & Type Note Facility 01-26-2025 Note [facility] Medical Records Department [address] [place] [address] History Physical Exam 01/26/25 0658 MR#: [id number] Acct: [id number] Name: TIFFANIE CASTILLO Rep #: [id number] : 1970 54 From: Foreign Ortiz DO PCP: Dr. Arsalan Pedro MD Status:[facility] Location: [place] [address] HPI - General General Date of Admission: 01/26/25 Date of Service: 01/26/25 Chief Complaint: ulcerative colitis HPI Narrative TIFFANIE CASTILLO, is a 54 F who presents for surveillance of UC. OV 5.14.24 Pt reports no GI symptoms of concern at this time. Pt continues with probiotic which she reports has helped her more than anything else she has tried before. Pt reports 1 formed BM per day; denies blood in the stool. [facility] Medical History Gastric reflux Post-menopausal Cardiology follow-up encounter History [...] PO TID PRN anxiety #90 tabs 05/06/24 01/25/25 08:00 Rx bupropion HCl 300 mg 24 hr tablet, 300 mg PO QAM #90 tabs 07/01/24 Unknown Rx extended release pantoprazole 20 mg tablet,delayed 20 mg PO QAM #90 tabs 07/28/24 Rx release buspirone 15 mg tablet 15 mg PO BID #180 tabs 08/05/24 Rx vilazodone 20 mg tablet 20 mg PO DAILY #90 tabs 08/05/24 0 01/25/25 Rx Lactobac no.2-Bifidobac no.1-S. 1 cap PO BID #180 caps 10/07/24 Un known Rx thermo 112.5 billion cell capsule (VSL#3) trazodone 50 mg tablet 50 mg PO QHS PRN insomnia #30 tabs 11/04/24 Unknown Rx ondansetron 4 mg disintegrating 4 mg PO .COMPLEX #5 tabs 11/24/24 Unknown Rx tablet sodium sul 1.479 gram-potas ch See Rx Instructions PO PER PKG DIR 11/24/24 Unknown Rx 0.188 gram-magnes sul 0.225 gram #24 tabs tablet (Sutab) Allergy/AdvReac Type Severity Reaction Status Date / Time NSAIDS (Non-Steroidal Allergy Other Verified 01/26/25 05:58 Anti-Inflamma Family History Mother Nonrheumatic aortic (valve) stenosis, Onset Age: 55 AVR Other Heart disease Surgical History History of esophagogastroduodenoscopy (EGD) History of bunionectomy History of D C uterine ablation delivery delivered History of tonsillectomy Social History Smoking Status: Never smoker alcohol intake: current alcohol intake frequency: holidays/special occasions only Alcohol type: wine substance use type: does not use caffeine: Yes what type of physical activity do you participate in: walking seatbelt use: always do you feel safe at home: Yes additional social history: [employer] Patient works at [employer] Constitutional Constitutional: Denies fatigue, fever(s), poor appetite, weight gain or weight loss Gastrointestinal Gastrointestinal: Denies belching, bloating, change in bowel habits, change in stool character, chewing difficulty, coffee ground emesis, constipation, cramping, diarrhea, dyspepsia, dysphagia, early satiety, excessive flatus, fecal incontinence, heartburn, hematemesis, hematochezia, hemorrhoids, loose stools, melena, nausea, odynophagia, rectal bleeding, tenesmus, vomiting or weight changes Vital Signs Vital Signs Vital Signs: 01/26/25 06:01 01/26/25 06:32 Temperature 97 F L 97 F L Temperature Source Temporal Pulse Rate 80 80 Respiratory Rate 16 16 Blood Pressure 105/78 105/78 Blood Pressure Mean 87 Blood Pressure Source Monitor Blood Pressure Position Semi-Fowlers Blood Pressure Location Left Arm Pulse Ox 96 96 Oxygen Delivery Method Room Air Room Air Weight Weight: 168 lb Body Mass Index (BMI) 26.3 Physical Exam Const alert, oriented x3, no apparent distress and healthy appearing General Appearance: cooperative GI normal to inspection, nondistended, normoactive bowel sounds, soft to palpation, non-tender and non- distended Percussion: normal to percussion Rectal Exam: deferred Assessment Plan Assessment/Plan (1) Ulcerative colitis: QUALIFIERS: Ulcerative colitis location: unspecified ulcerative colitis location Digestive disease complication type: (more content not included)... [facility] 11-08-2022 Procedure note [facility] 11-08-2022 Procedure note [facility] Evaluation note Diagnosis Onset Date Chronic ulcerative colitis c hronic Chronic ulcerative colitis c hronic Gastric ulcer [facility] Work Phone: Evaluation note* Diagnosis Onset Date Resolution Status Chronic ulcerative colitis c hronic Gastric ulcer [facility] Work Phone: Evaluation note* Diagnosis Onset Date Resolution Status Aortic valve disorder acute Chest pain acute [facility] Work Phone: Evaluation note* Diagnosis Onset Date Resolution Status Aortic valve disorder acute Chest pain acute GERD (gastroesophageal reflux disease) acute Ulcerative colitis acute [facility] Work Phone: Evaluation note* Diagnosis Onset Date Resolution Status Aortic valve disorder acute Chest pain acute GERD (gastroesophageal reflux disease) acute Ulcerative colitis acute Acute bronchitis, unspecified acute [facility] Work Phone: Evaluation note* Diagnosis Onset Date Resolution Status Chronic ulcerative colitis c hronic [facility] Work Phone: Evaluation note* Diagnosis Onset Date Resolution Status UTI (urinary tract infection) acute [facility] Work Phone: History and physical note Author Foreign Friend [facility] November 08, 2022 6:32am Note Date/Time November 08, 2022 6:3 2am [facility] Medical Records Department [address] [place] [address] History & Physical Exam 11/08/22 0632 MR#: [id number] Acct: [id number] Name: TIFFANIE CASTILLO Rep #: [id number] : 1970 52 From: Foreign Friend DO PCP: Dr. Arsalan Pedro MD Status:REG S DC Location: [place] [address] History and Physical Date of Admission: 11/08/22 [...] normal to inspection Quality Reporting Tobacco Screening ([facility] 138) Smoking Status: Never smoker Assessment [...] Arsalan Pedro MD; Foreign Ortiz DO~ Signed [facility] Work Phone: Summary Purpose Family History No [...] Date/ Time Name of Medical Power of Cassandra Developer stephon miranda elaine September 10, 2021 2:43pm Advance Directives No June 1:46pm Living Will Yes September 10 022 2:43pm Power of Cassandra Developer Yes September 10, 2021 2:43pm Advance Directive Response Recorded Date/ Time Name of Medical Power of Cassandra Developer HUSAM kimble March 22, 2022 2:54pm Advance Directives No June 1:46pm Living Will Yes March 22 022 2:54pm Power of Cassandra Developer Yes March 22, 2022 2:54pm Advance Directive Response Recorded Date/ Time Name of Medical Power of Cassandra Developer HUSAM kimble March 22, 2022 1:54pm Advance Directives No June 12:46pm Living Will Yes March 22 022 1:54pm Power of Cassandra Developer Yes March 22, 2022 1:54pm Advance Directive Response Recorded Date/ Time Advance Directives No June 1:46pm Living Will Yes November 05, 2022 10:28am Power of Cassandra Developer Yes November 05 10:28am Advance Directive Response Recorded Date/ Time Name of Medical Power of Cassandra Developer BARRY Basilio November 05, 2022 10:28am Advance Directives No June 1:46pm Living Will Yes November 05, 2022 10:28am Power of Cassandra Developer Yes November 05 10:28am Advance Directive Response Recorded Date/ Time Advance Directives No June 12:46pm Living Will Yes November 05, 2022 9:28am Power of Cassandra Developer Yes November 05 9:28am Chief Complaint and [...] section and content) DATE CREATED AUTHOR 10/27/2018 [facility] ([place]) DATE CREATED AUTHOR AUTHOR'S ORGANIZ ATION 05/12/2025 [facility] Source Comments (unrecognize d section and content) In the event this informatio n is protected by the Federal Confidentiality of Alcohol and Drug Abuse Patient Records regulations: The Federal rules restrict any use of the information to criminally investigate or prosecute any alcohol or drug abuse patient.[facility] Goals (unrecognized section and content) Goals [...] Care Provider, Referring Provider Active Franchesca Garcia POLICE AND FIRE DISPATCHER, POLICE AND FIRE DISPATCHER-C Attending Provider Active Team Status: Inactive Member Role Status Dates Dr. Arsalan Pedro MD Primary Care Provider Active Dr. Trell Vargas MD Attending Provider, Referring Pro vider Active Team Status: Active Member Role Status Dates Dr. Arsalan Pedro MD Primary Care Provider Active Franchesca Garcia POL[employer] AND FIRE DISPATCHER, POLICE AND FIRE DISPATCHER-C Attending Provider, Referrin g Provider Active Team Status: Inactive Member Role Status Dates Dr. Arsalan Pedro MD Primary Care Provider Active Franchesca Garcia POLICE AND FIRE DISPATCHER, POLICE AND FIRE DISPATCHER-C Attending Provider, Referrin g Provider Active Team [...] Primary Care Provider, Referring Provider Active Lori Frazier PA, PA Attending Provider Active Team Status: Inactive Member Role Status Dates Dr. Arsalan Pedro MD Primary Care Provider Active Renetta Vasquez NP, [employer]ICE AND FIRE DISPATCHER-C Attending Provider, Jack townsend Provider Active Team Status: Inactive Member Role Status Dates Dr. Arsalan Pedro MD Primary Care Provider Active VANESSA Joyce Attending Provider Active Team Status: Inactive Member Role Status Dates Dr. Arsalan Pedro MD Primary Care Provider Active Laurel Martinez NP-C Attending Provider, Elsa rush Active FOR RECORDS PERTAINING TO PATIENTS WHO [...] BE BASED ON THE PRIMARY CLINICAL RECORDS. [facility] [employer] provides no warranty or guarantee of the accuracy or completeness of information in this document.
== END | disposition home or self-care (01) ==
LOC: OPBI 07:14
PROVIDERS: PCP Family Medicine; Referring Provider Obstetrics & Gynecology; Visit Provider Obstetrics & Gynecology
DX: Z12.31 Encounter for screening mammogram for malignant neoplasm of breast (principal)
CPT/HCPCS: 77063; 77067

== ENCOUNTER 2025-07-14 08:04 | Day surgery (SDC) | payer BC, SELFPAY ==
--- NOTE | 2025-07-12 15:36 | PAT.ANESEVAL ---
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 When Was Last Pacemaker Check QUESTION #4 FULL TEXT: You/Your Family Experience fever (hyperthermia) with Anesthesia Last Oral Intake Last Oral intake: Last Oral Intake NPO since Meds taken in AM with sips of water? Meds patient instructed to take am of surgery PONV PONV - cushion spring assembler: PONV - cushion spring assembler Female Yes 07/12/25 11:11 HX of Motion Sickness No 07/12/25 11:11 HX of N/V After Surgery No 07/12/25 11:11 Non-Smoker Yes 07/12/25 11:11 Duration of Surgery greater No 07/12/25 11:11 than 60 minutes Number of Risk Factors 2 07/12/25 11:11 PONV Score Moderate Risk 07/12/25 11:11 Height & Weight Height & Weight: Anesthesia: Height & Weight Height 5 ft 7 in 06/28/25 08:18 Respiratory Assessment Respiratory Assessment - cushion spring assembler: Respiratory Tract Infection Hx - cushion spring assembler Hx Respiratory Tract Infection No 07/12/25 11:11 STOP Sleep Apnea STOP Sleep Apnea - cushion spring assembler: STOP Sleep Apnea - cushion spring assembler Hx Hypertension No 07/12/25 11:11 Hx Sleep Apnea No 07/12/25 11:11 CPAP No 01/26/25 07:25 BIPAP No 11/05/22 10:28 Do you snore loudly (louder No 07/12/25 11:11 than talking or can be heard Do you often feel tired/ No 07/12/25 11:11 fatigued/ sleepy during daytime? Has anyone observed you stop No 07/12/25 11:11 breathing during sleep? STOP Results Negative 07/12/25 11:11 QUESTION #5 FULL TEXT : Do you snore loudly (louder than talking or can be heard through closed doors)? Tobacco Use History Tobacco Use History - cushion spring assembler: Tobacco Use History - cushion spring assembler Tobacco Use Smoking Status Never smoker 07/12/25 11:11 Hx Tobacco Use No 07/12/25 11:11 Years Smoking Packs Smoked per Day Smoking Cessation Date was within the last 15 years Hx Smoking Cessation Date Hx Smoking Cessation No 07/12/25 11:11 Counseling Hematologic Medial History Hematologic Hx - cushion spring assembler: Hematologic Medical Hx - quality lab technician Hx of Blood Transfusion Yes 07/12/25 11:11 Hx of Transfusion in last 3 No 07/12/25 11:11 Months Date of Last Transfusion (if within last 3 months) Ever experience any problems No 07/12/25 11:11 with transfusion(s)? Specify any problems Hx of Preganancy in last 3 No 07/12/25 11:11 Months Nurse Filling Out Transfusion VLEHMAN 07/12/25 11:11 & Questions: Date: 07/12/25 07/12/25 11:11 Time: 11:16 07/12/25 11:11 Patient unable to answer at this time (ie. confused, unrespo /Reproduction History /Reproductive History - cushion spring assembler: /Reproductive Hx- cushion spring assembler Hx Now No 07/12/25 11:11 Gestational Age (in weeks): EDC: Hx Hx Para Hx Section SAB No 07/12/25 11:11 Does the father of the baby or his family experience fever w Father of the baby Malignant Hypertension history comment [facility] Medical History (Updated 07/12/25 @ 11:16 by Gauri Ghotra) Wears glasses History of ulceration Gastric reflux Post-menopausal Cardiology follow-up encounter History of echocardiogram History of stress test Acute bronchitis, unspecified Rapid palpitations Family history of valvular heart disease Wears contact lenses Anxiety Alcohol use History of kidney stones History of GI bleed Non-smoker Pelvic pain Abnormal uterine bleeding Colitis History of anxiety Flank pain Gastric ulcer Chronic ulcerative colitis Home Medications ?Medication ?Instructions ?Recorded ?Last Taken ?Type multivitamin 1 tab PO DAILY 11/05/22 Unknown History propranolol 10 mg tablet 10 mg PO TID PRN anxiety #90 tabs 05/06/24 01/25/25 08:00 Rx pantoprazole 20 mg tablet,delayed 20 mg PO QAM #90 tabs 07/28/24 01/25/25 Rx release trazodone 50 mg tablet 50 mg PO QHS PRN insomnia #30 tabs 11/04/24 Unknown Rx buspirone 15 mg tablet 15 mg PO BID #180 tabs 03/05/25 Unknown Rx ospemifene 60 mg tablet (Osphena) 60 mg PO QDAY #30 tabs 05/03/25 Unknown Rx vilazodone 20 mg tablet 20 mg PO DAILY #90 tabs 05/31/25 Unknown Rx bupropion HCl 300 mg 24 hr tablet, 300 mg PO QAM #90 tabs 06/03/25 Unknown Rx extended release Lactobac no.2-Bifidobac no.1-S. 1 cap PO BID #180 caps 06/15/25 Unknown Rx thermo 112.5 billion cell capsule (VSL#3) mesalamine 0.375 gram 1.5 g (4 x 0.375 gram) PO QAM 90 06/15/25 Unknown Rx capsule,extended release 24 hr days #360 caps (Apriso) mesalamine 1,000 mg rectal 1 g [place] QHS #90 ea 06/15/25 Unknown Rx suppository (Canasa) Allergy/AdvReac Type Severity Reaction Status Date / Time NSAIDS (Non-Steroidal Allergy Other Verified 07/12/25 11:09 Anti-Inflamma Family History Mother Nonrheumatic aortic (valve) stenosis, Onset Age: 55 AVR Other Heart disease Surgical History H/O melanoma excision History of esophagogastroduodenoscopy (EGD) History of bunionectomy History of D&C uterine ablation delivery delivered History of tonsillectomy Social History Smoking Status: Never smoker alcohol intake: current alcohol intake frequency: holidays/special occasions only Alcohol type: wine substance use type: does not use caffeine: Yes what type of physical activity do you participate in: walking seatbelt use: always do you feel safe at home: Yes additional social history: [employer] Patient works at [employer]: Pertinent Findings Pertinent Findings Echo (EF%) pertinent findings: Echo 04/18/2022. Resting echocardiogram demonstrated ejection fraction of approximately 57%. At peak exercise there is thickening of all reddy, reduction of the left ventricular cavity size and peaking of ejection fraction at approximately 70%. No wall motion abnormalities were noted. Exercise stress echo with no EKG criteria for ischemia. Normal echocardiographic findings noted. Recommendation Anesthesia Recommendation Anesthesia recommendation: OPTIMIZED for anesthesia
[2025-07-14] VITALS (7 sets, daily range): BP systolic 107–124; BP diastolic 76–87; PULSE 73–80; RESP 16–18; TEMP 36.2–36.8; O2SAT 99–100; BMI 23.8
--- NOTE | 2025-07-14 08:19 | PCM.PRE.AN2 ---
ASA Classification* ASA Classification ASA Classification: 2 Assessment & Plan Anesthesia* Anesthesia Assessment Anesthesia Assessment: Discussed sedation and/or anesthesia options, risks, benefits, and alternatives with patient/parents/legal guardian/POA. Questions invited. The patient/parents/legal guardian/POA seems to understand and agrees to proceed with anesthesia plan. Reviewed the physical assessment, medical history, allergy history and patient home medications list prior to surgery/procedure/anesthetic and documented any changes. Performed airway and anesthesia risk assessments. Anesthesia Type Anesthesia Type: MAC Anesthesia Focused Assessment* Airway Assessment Mouth opens: >3 cm Mallampati Score: II Labs Anesthesia Preop lab: CBC WBC, (4.4-11.0) 7.0 K/mm3 12/31/24, 11:14 RBC, (4.2-5.4) 4.25 M/mm3 12/31/24, 11:14 Hgb, (12.0-15.0) 13.4 g/dL 12/31/24, 11:14 Hct, (37-47) 39.2 % 12/31/24, 11:14 Plt Count, (150-450) 316 K/mm3 12/31/24, 11:14 CHEMISTRY Potassium, (3.3-5.1) 3.9 mmol/L 12/31/24, 11:14 Sodium, (133-145) 137 mmol/L 12/31/24, 11:14 BUN, (4-19) 12 mg/dL 12/31/24, 11:14 Creatinine, (0.70-1.20) 0.78 mg/dL 12/31/24, 11:14 Glucose, (70-99) 88 mg/dL 12/31/24, 11:14 TSH, (0.358-3.74) 2.21 uIU/mL 01/08/24, 08:49 COAG PT, (11.9-14.4) 16.2 SECONDS H 06/25/13, 09:20 Urine Test Negative Negative 03/27/22, 12:11 Pre-Assessment Diagnosis/Proposed Procedure Planned Operative Procedure(s): FLEX SIGMOID Anesthesia History 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 When Was Last Pacemaker Check QUESTION #4 FULL TEXT: You/Your Family Experience fever (hyperthermia) with Anesthesia Last Oral Intake Last Oral intake: Last Oral Intake NPO since Meds taken in AM with sips of water? 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 Female Yes 07/12/25 11:11 HX of Motion Sickness No 07/12/25 11:11 HX of N/V After Surgery No 07/12/25 11:11 Non-Smoker Yes 07/12/25 11:11 Duration of Surgery greater No 07/12/25 11:11 than 60 minutes Number of Risk Factors 2 07/12/25 11:11 PONV Score Moderate Risk 07/12/25 11:11 Height & Weight Height & Weight: Anesthesia: Height & Weight Height 5 ft 7 in 06/28/25 08:18 Respiratory Assessment Respiratory Assessment - steel spar operator: Respiratory Tract Infection Hx - steel spar operator Hx Respiratory Tract Infection No 07/12/25 11:11 STOP Sleep Apnea STOP Sleep Apnea - steel spar operator: STOP Sleep Apnea - steel spar operator Hx Hypertension No 07/12/25 11:11 Hx Sleep Apnea No 07/12/25 11:11 CPAP No 01/26/25 07:25 BIPAP No 11/05/22 10:28 Do you snore loudly (louder No 07/12/25 11:11 than talking or can be heard Do you often feel tired/ No 07/12/25 11:11 fatigued/ sleepy during daytime? Has anyone observed you stop No 07/12/25 11:11 breathing during sleep? STOP Results Negative 07/12/25 11:11 QUESTION #5 FULL TEXT : Do you snore loudly (louder than talking or can be heard through closed doors)? 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 Specify any problems Hx of Preganancy in last 3 No 07/12/25 11:11 Months Nurse Filling Out Transfusion VLEHMAN 07/12/25 11:11 & Questions: Date: 07/12/25 07/12/25 11:11 Time: 11:16 07/12/25 11:11 Patient unable to answer at this time (ie. confused, unrespo /Reproduction History /Reproductive History - steel spar operator: /Reproductive Hx- steel spar operator Hx Now No 07/12/25 11:11 Gestational Age (in weeks): EDC: Hx Hx Para Hx Section SAB No 07/12/25 11:11 Does the father of the baby or his family experience fever w Father of the baby Malignant Hypertension history comment Active Medications Active Medications: Current Medications Generic Name Dose Route Start Last Admin Trade Name Freq PRN Reason Stop Dose Admin Lactated Ringer's 1,000 mls @ 15 mls/hr 07/14/25 08:15 IV .Q48H MARTY PFSH Medical History Wears glasses History of ulceration Gastric reflux Post-menopausal Cardiology follow-up encounter History of echocardiogram History of stress test Acute bronchitis, unspecified Rapid palpitations Family history of valvular heart disease Wears contact lenses Anxiety Alcohol use History of kidney stones History of GI bleed Non-smoker Pelvic pain Abnormal uterine bleeding Colitis History of anxiety Flank pain Gastric ulcer Chronic ulcerative colitis Home Medications ?Medication ?Instructions ?Recorded ?Last Taken ?Type multivitamin 1 tab PO DAILY 11/05/22 Unknown History propranolol 10 mg tablet 10 mg PO TID PRN anxiety #90 tabs 05/06/24 01/25/25 08:00 Rx pantoprazole 20 mg tablet,delayed 20 mg PO QAM #90 tabs 07/28/24 01/25/25 Rx release trazodone 50 mg tablet 50 mg PO QHS PRN insomnia #30 tabs 11/04/24 Unknown Rx buspirone 15 mg tablet 15 mg PO BID #180 tabs 03/05/25 Unknown Rx ospemifene 60 mg tablet (Osphena) 60 mg PO QDAY #30 tabs 05/03/25 Unknown Rx vilazodone 20 mg tablet 20 mg PO DAILY #90 tabs 05/31/25 Unknown Rx bupropion HCl 300 mg 24 hr tablet, 300 mg PO QAM #90 tabs 06/03/25 Unknown Rx extended release Lactobac no.2-Bifidobac no.1-S. 1 cap PO BID #180 caps 06/15/25 Unknown Rx thermo 112.5 billion cell capsule (VSL#3) mesalamine 0.375 gram 1.5 g (4 x 0.375 gram) PO QAM 90 06/15/25 Unknown Rx capsule,extended release 24 hr days #360 caps (Apriso) mesalamine 1,000 mg rectal 1 g [place] QHS #90 ea 06/15/25 Unknown Rx suppository (Canasa) Allergy/AdvReac Type Severity Reaction Status Date / Time NSAIDS (Non-Steroidal Allergy Other Verified 07/14/25 08:18 Anti-Inflamma Family History Mother Nonrheumatic aortic (valve) stenosis, Onset Age: 55 AVR Other Heart disease Surgical History H/O melanoma excision History of esophagogastroduodenoscopy (EGD) History of bunionectomy History of D&C uterine ablation delivery delivered History of tonsillectomy Social History Smoking Status: Never smoker alcohol intake: current alcohol intake frequency: holidays/special occasions only Alcohol type: wine substance use type: does not use caffeine: Yes what type of physical activity do you participate in: walking seatbelt use: always do you feel safe at home: Yes additional social history: [employer] Patient works at [employer] Review of Systems (Anesthesia) ROS Narrative System reviewed and no additional complaints, except as documented.
--- OUTSIDE RECORDS SUMMARY | 2025-07-14 08:27 | XMS RPT_ITS | CCD ---
Author Organization [facility] CliniSytx Care Team Providers Care Software Applications Architect Name Role Phone Anthony Marcelo Unavailable [phone] AL KAYE Attending Unavailable Arsalan Pedro Primary [...] Vargas Attending Provider [phone] Jose FOX, CARRIER OPERATORTasha Mendoza Attending Provider Dr. Trell Vargas Referring [...] Primary Care Unavailable Pedro, Arsalan Referring Unavailable De, Radha Attending Unavailable Pedro, Arsalan Primary Care Unavailable Skruck, Radha Attending Unavailable Pedro, Asralan Referring Unavailable Pedro, Arsalan Primary Care Unavailable [...] Facility (2 sources) NSAIDs drug allergy 7 [facility] Work Phone: (1 source) Environmental allergies [Other] Propensity to adverse reactions 6 [facility] (12 sources) NSAIDS (Non-Steroidal Anti-Inflamma; Translations: [NSAIDS (Non-Steroidal Anti-Inflamma] Allergy to substance 2 Other [facility] Medications Current Medications Medication Drug Class(es) Dates [...] AZATHIOPRINE T ABS as directed AZATHIOPRINE TABS 30121378975 Blank Cosme LPN take 1 tablet by [...] TABS 1 tablet 1 as instructed FLUCONAZOLE [id number] Anthony MENDEZ Lactobac 2-Bifido 1-S. Therm (Vsl#3) [...] TABS a s directed VILAZODONE HCL TABS [id number] Blank Cosme LPN take 10 mg by [...] 2 capsules 2 times a day AMOXICILLIN [id number] Anthony MENDEZ Start: 11-14-2016 AMOXICILLIN 50 0 MG CAPS 2 capsules 2 times a day AMOXICILLIN 69663607493 Anthony MENDEZ ascorbic acid 500 mg oral [...] on days 2 through 5 BUPROPION HCL [id number]-UGW (14 sources) Aminoketone Start: 11-14-2016 WELLBUTRIN XL SN06H-OOA as directed BUPROPION HCL LZ32G-LDF 16883908341 Blank Cosme LPN Start: 11-10-2014 take 300 [...] APTIMA 16/18,45on 05-06-2025 ADEQ Comment Normal . [facility] Comment on above: Order Comment: Speci men Comment: [id number] Specimen Comment: No. of containers..01 ThinPrep Vial Result Comment: Sati sfactory for evaluation. No endocervical component is identified. Performed By: #### L 7400.0280 #### [facility] [address] [place], [place], [id number] COMM . Normal . [facility] Comment on above: Order Comment: Speci men Comment: [id number] Specimen Comment: No. of containers..01 ThinPrep Vial Performed By: #### L 7400.0280 #### [facility] [address] [place], [place], [address] COMMENT Comment Normal . [facility] Comment on above: Order Comment: Speci men Comment: [id number] Specimen Comment: No. of containers..01 ThinPrep Vial Result Comment: This liquid based ThinPrep(R) pap test was interpreted using the Neck Tie Koozies(R) Genius(TM) Cervical Algorithm whole slide imaging system. Performed By: #### L 7400.0280 #### [facility] [address] [place], [place], [address] DIAG Comment Normal . [facility] Comment on above: Order Comment: Speci men Comment: [id number] Specimen Comment: No. of containers..01 ThinPrep Vial Result Comment: NEGA TIVE FOR INTRAEPITHELIAL LESION OR MALIGNANCY. CELLULAR CHANGES ASSOCIATED WITH INFLAMMATION ARE PRESENT. Performed By: #### L 7400.0280 #### [facility] [address] [place], [address] HPV APTIMA, HR Negative Normal Negative [facility] Comment on above: Order Comment: Speci men Comment: [id number] Specimen Comment: No. of containers..01 ThinPrep Vial Result Comment: This nucleic acid amplification test detects fourteen high- risk HPV types (16,18,31,33,35,39,45,51,52,56,58,59,66,68) without differentiation. Performed By: #### L 7400.0280 #### [facility] [address] [place], [place], [address] HPV Estefanía Rfx Comment Normal . [facility] Comment on above: Order Comment: Speci men Comment: [id number] Specimen Comment: No. of containers..01 ThinPrep Vial Result Comment: Crit eria not met, HPV Genotype not performed. Performed at: - [address] [id number] Cementer: Nadine Jones MD, Phone: [phone] Performed at: = - [facility] [id number] Cementer: Nadine Jones MD, Phone: [phone] Performed By: #### L 7400.0280 #### [facility] [address] [place], [place], [address] PAPSMR Comment Normal . [facility] Comment on above: Order Comment: Speci men Comment: [id number] Specimen Comment: No. of containers..01 ThinPrep Vial Result Comment: The Pap smear is a screening test designed to aid in the detection of premalignant and malignant conditions of the uterine cervix. It is not a diagnostic procedure and should not be used as the sole means of detecting cervical cancer. Both false-positive and false-negative reports do occur. Performed By: #### L 7400.0280 #### [facility] [address] [place], [address] PERFORM Comment Normal . [facility] Comment on above: Order Comment: Speci men Comment: [id number] Specimen Comment: No. of containers..01 ThinPrep Vial Result Comment: Jennifer Chen, Supervisory Solid Waste Analyst (ASCP) Performed By: #### L 7400.0280 #### [facility] [address] [place], [address] Electrolytic De Scaler Office Visit Reporton 05-03-2025 Electrolytic De Scaler Office Visit Report [facility]'s [address], [address] [place] [address] OFFICE VISIT Date of Service: 05/03/25 MR#: [id number] Acct: [id number] Name: TIFFANIE CASTILLO Rep #: [id number] : 1970 Provider: Dr. Marisa sims MD Age/Sex: 55/F Location: [facility] Status: Signed Intake Vital Signs 03/26/25 11:20 04/27/25 12:21 05/03/25 08:04 Height 5 ft 7 in 5 ft 7 in 5 ft 7 in Weight: 154 lb 6 oz BMI 24.1 BP 95/66 Intake Visit Reasons: Annual (APPLICATION SUPPORT) *per Information Coordinator Required: No Is patient in pain?: No [...] (Apriso) mesalamine 1,000 mg rectal 1 g [place] QHS #90 ea 02/11/25 5 Rx suppository [...] social history: Marixa Lux Patient works at [employer] History 1 Elective abortions Hx Para 1 Spontaneous abortions Hx # Term Pregnancies Ectopic pregnancies Hx # Pregnancies Multiple births # of living children Past Pregnancies Del. Date Name GA/Weeks Outcome Route Bth Weight Gen Labor Lgth Anesthesia Del Locatn Provider FOB Unknown marcella 1995, Sherri Childress HPI Annual (APPLICATION SUPPORT) *per Details: TIFFANIE CASTILLO is a 55 [...] dryness, vaginal odor (more content not included)... [facility] MR/BMS.[place] 04-27-2025 MR/BMS.[place] [address] [facility], [address] [place] [id number] OFFICE VISIT Date of Service: 04/27/25 MR#: [id number] Acct: [id number] Name: TIFFANIE CASTILLO Rep #: [id number] : 1970 Provider: DO solis Age/Sex: 55/F Location: [facility] Status: Signed Intake Vital Signs 09/18/24 13:01 04/13/25 08:55 04/27/25 12:21 Height 5 ft 7 in 5 ft 7 in 5 ft 7 in BP Intake Visit Reasons: Follow up Allergies NSAIDS (Non-Steroidal Anti-Inflamma Allergy (Verified 02/11/25 08:14) Other [facility] Medical History Gastric reflux Post-menopausal Cardiology follow-up [...] social history: Marixa Lux Patient works at [employer] HPI History of Present Illness HPI: Tiffanie Castillo is a 55 year-old female returning for therapy. She reported success during recent trip utilizing assertiveness strategies and preparing for difficult conversations. Tiffanie reported that this resulted in reduced anxiety and being able to effectively manage interactions with a unexpected combative person. She discussed ongoing stressors related to interactions with tazgel-cn-mmf who frequently stays at her home. Encouraged verbalization of emotions while providing support. Normalized emotions. Reinforced effective use of skills. Worked on radical acceptance related to interactions with vnxdhi-zr-oif with Tiffanie reporting having done well when [...] self-report. Objectiv (more content not included)... Normal [facility] MR/on 04-13-2025 MR/REGINALD.[facility] Psychiatry [address] [place] [address] [address] [place] [address] OFFICE VISIT Date of Service: 04/13/25 MR#: [id number] Acct: [id number] Name: TIFFANIE CASTILLO Rep #: [id number] : 1970 Provider: DO solis Age/Sex: 55/F Location: [facility] Status: Signed Intake Vital Signs 09/18/24 13:01 03/26/25 11:20 04/13/25 08:55 Height 5 ft 7 in 5 ft 7 in 5 ft 7 in BP Intake Visit Reasons: Follow up Allergies NSAIDS (Non-Steroidal Anti-Inflamma Allergy (Verified 02/11/25 08:14) Other [facility] Medical History Gastric reflux Post-menopausal Cardiology follow-up [...] social history: Marixa Lux Patient works at [employer] HPI History of Present Illness HPI: Pietro Castillo is a 55 year-old female returning for therapy. She identified recent surgery for a melanoma on her leg and upcoming appointment with OB-APPLICATION SUPPORT to assess hormone levels and possible impact on sleep. Pietro reported stressors related to recent interactions with her ybtfbw-gv-whx and anxiety regarding potential interactions during upcoming trip. Encouraged verbalization of emotions while providing support. Normalized emotions. Reinforced her consistent follow-through with medical needs and appointments. Provided psychoeducation on healthy communication modeling and role playing communication strategies. Pietro was receptive to interventions discussed displaying understanding of the skills. She reported decreased anxiety and increased confidence related to handling potential interactions with hyppvr-wf-hoo during upcoming trip. No SI. Future-oriented. Exam [...] full variet (more content not included)... Normal [facility] MR/BMS.BPon 03-26-2025 MR[facility] [address] [facility], [address] [place] [address] OFFICE VISIT Date of Service: 03/26/25 MR#: [id number] Acct: [id number] Name: TIFFANIE CASTILLO Rep #: [id number] : 1970 [facility] Age/Sex: 55/F Location: [facility] Status: Signed Intake Vital Signs 03/05/25 15:15 03/26/25 11:20 Height 5 ft 7 in 5 ft 7 in BP Intake Visit Reasons: F/U Allergies NSAIDS (Non-Steroidal Anti-Inflamma Allergy (Verified 02/11/25 08:14) Other [facility] Medical History Gastric reflux Post-menopausal Cardiology follow-up [...] social history: Marixa Lux Patient works at [employer] HPI History of Present Illness HPI: Tiffanie Castillo is a 55 year-old female returning for therapy. She reported that her llyfoe-sk-kjq was diagnosed with terminal cancer. Tiffanie identified feelings of grief and having end of life discussions with her zynukl-mj-bew. She stated that she applied radical acceptance to situation of in-laws visiting and/or staying at her home, which was effective. Tiffanie also worked with her to set healthy limits and boundaries with those visiting. The main themes of the session were expression and exploration of loss related to fcuhfd-xr-ixc's terminal cancer and development of greater self-assertion and effective interpersonal communication. Encouraged verbalization of emotions while providing support. Provided psychoeducation on Interpersonal Effectiveness skill DEAR MAN discussing how to apply to daily living to appropriately assert self. Problem solved ways Tiffanie could provide emotional support to , krefmo-hr-dcl, xtromw-ff-bmp and rest of in-laws. Reinforced appropriate use [...] medication effectiveness. (more content not included)... Normal [facility] MR/BMSon 03-05-2025 MR/BMSDionBP [facility] [address] [facility], [address] [place] [address] OFFICE VISIT Date of Service: 03/05/25 MR#: [id number] Acct: [id number] Name: TIFFANIE CASTILLO Rep #: [id number] : 1970 [facility] Age/Sex: 55/F Location: [facility] Status: Signed Intake Vital Signs 09/18/24 13:01 02/11/25 08:15 03/05/25 15:15 Height 5 ft 7 in 5 ft 7 in 5 ft 7 in BP Intake Visit Reasons: Follow up Allergies NSAIDS (Non-Steroidal Anti-Inflamma Allergy (Verified 02/11/25 08:14) Other [facility] Medical History Gastric reflux Post-menopausal Cardiology follow-up [...] history: Marixa [employer] Patient works at [employer] HPI History of Present Illness HPI: Tiffanie Castillo is a 55 year-old female returning for BH therapy. She reported a high level of anxiety and agitation. Tiffanie stated that her bmeify-qb-bok was recently diagnosed with bone cancer. She [...] overall a (more content not included)... Normal [facility] Gastroenterology Visit Repor ton 02-11-2025 Gastroenterology Visit Report [facility] [address] [place] [address] OFFICE VISIT Date of Service: 02/11/25 MR#: [id number] Acct: [id number] Name: TIFFANIE CASTILLO Rep #: [id number] : 1970 Provider: TAY sims Age/Sex: 54/F Location: [facility] Status: Signed Intake Vital Signs 01/26/25 06:01 [...] Result Chief Complaint: follow-up UC post colonoscopy Information Coordinator Required: No Accompanied by: Self Is patient [...] (Apriso) mesalamine 1,000 mg rectal 1 g [place] QHS #90 ea 02/11/25 5 Rx suppository [...] safe at home: Yes additional social history: [employer] Patient works at [employer] [facility] HPI Chief Complaint: follow-up UC post colonoscopy Details: OV 07/27/2024 64-year-old female presents for annual follow-up of ulcerative colitis. She was initially diagnosed in 2016 with presenting symptoms of diarrhea and BRBPR. Symptoms improved with mesalamine suppositories and she was started on azathioprine. She initially established with [facility] August 2021 on azathioprine 150 mg [...] recommend she follow-up in 6 months. Note: Scal[employer] speech recognition systems integration analyst software was used to create portions of this document. Sound-alike and misspelled words, as well as other systems integration analyst errors may be contained in the documentation. Patient Instructions: Fecal Calprotectin LABS: CBC, CMP, CRP, Vitamin D Colonoscopy - SuTab bowel prep Continue VSL#3 Labs now and every 6 months Fecal Calprotectin now and yearly Follow-up in 6 months CBC: 12/31/2024 WNL CMP: 12/31/2024 WNL CRP: 12/31/2024 WNL Fecal Calprotectin: 01/22/2025 elevate (more content not included)... Normal [facility] MR/BMS.BPon 02-04-2025 MR/BMS.[address], [address] [place] [address] OFFICE VISIT Date of Service: 02/03/25 MR#: [id number] Acct: [id number] Name: ANATIFFANIE FONTANEZ Rep #: [id number] : 1970 Provider: DO solis Age/Sex: 54/F Location: [facility] Status: Signed Intake Vital Signs 09/18/24 13:01 12/31/24 11:03 01/26/25 06:01 02/04/25 06:50 Height 5 ft 7 in 5 ft 7 in 5 ft 7 in 5 ft 7 in BP Intake Visit Reasons: Follow up Allergies NSAIDS (Non-Steroidal Anti-Inflamma Allergy (Verified 01/26/25 05:58) Other [facility] Medical History Gastric reflux Post-menopausal Cardiology follow-up [...] social history: Marixa Lux Patient works at [employer] HPI History of Present Illness HPI: Tiffanie Castillo is a 54 year-old female returning for therapy. She identified recent colonoscopy and ulcerative colitis flare. Tiffanie reported that choccl-ak-sen has been visiting, which is a stressor due to changes in household routine. She identified rumination after hearing things qaktir-mb-tup has said about her from emshmb-rj-xgl. Encouraged verbalization of emotions while providing support. Normalized emotions. Worked on healthy assertiveness and communication of thoughts, feelings, and concerns with tovlbv-rf-jvp. Explored with Tiffanie what she can and [...] Insomnia type: (more content not included)... Normal [facility] Calprotectin, Stoolon [address] 825 ug/g Abnormal 0-120 [facility] Comment on above: Result Comment: Re sults verified by repeat testing Concentration Interpretation Follow-Up < 5 - 50 ug/g Normal None >50 -120 ug/g Borderline Re-evaluate in 4-6 weeks >120 ug/g Abnormal Repeat as clinically indicated Performed at: [facility] [address] [id number] Cementer: Navin Sanchez MD, Phone: [phone] Performed By: #### L 7000.0700 #### [facility] [address] [facility] [place], [address] Colonoscopy Reporton 025 Colonoscopy Report [facility] Medical Records Department [address] [facility] [address] [place] [address] Colonoscopy Report MR#: [id number] Acct: [id number] Name: TIFFANIE CASTILLO Rep #: [id number] : 1970 54 From: Foreign Ortiz DO PCP: Dr. Arsalan Pedro MD Status:[facility] Patient Name: Tiffanie Castillo Procedure Date: 01/26/2025 [...] pathology results. Procedure Code(s): --- Professional --- 27596, Colonoscopy, flexible; with biopsy, single or multiple CPT copyright 2021 [employer]. All rights reserved. The codes documented in this report are preliminary and upon retail grocer review may be revised to meet current compliance requirements. Foreign Ortiz DO 01/26/2025 7:24:59 AM This report has been signed electronically. Number of Addenda: 0 Note Initiated On: 01/26/2025 6:26 AM 01/26/25 0725 Date Foreign Castillo Signature: Date (if indicated) CC: Dr. Arsalan Pedro MD; Foreign Ortiz DO Date Dictated: 01/26/25625 Date Transcribed: Bakery Technician: RF Signed [facility] MR/POSTOP.ANEon 01-26-2025 MR/POSTOP.[facility] Medical Records Department [address] [facility] [place] [address] Anesthesia Postop Eval I 01/26/25 0730 MR#: [id number] Acct: [id number] Name: TIFFANIE CASTILLO Rep #: [id number] : 1970 54 From: Freddy Srivastava PCP: Dr. Arsalan Pedro MD Status:REG [facility] Y Race: C Location: [place] [address] Anesthesia: Postop Eval I Current Vital Signs [...] Date Freddy Carrillo Signature: Date CC: Signed [facility] MR/VYIKKKXA0vw 01-26-2025 MR/POSTOPAN2 [facility] Medical Records Department [address] [facility] [place] [address] Anesthesia Postop Eval II 01/26/25 1014 MR#: [id number] Acct: [id number] Name: TIFFANIE CASTILLO Rep #: [id number] : 1970 54 From: Andrea Brewster MD PCP: Dr. Arsalan Pedro MD Status:DEP [facility] Y Race: C Location: [place] Anesthesia Postop [...] MD Cosigner Signature: Date CC: Signed Normal [facility] Surgery Specimen Level Leandro 01-26-2025 Surgery Specimen Level IV Patient Age/Sex Location Account Attending Physician TIFFANIE CASTILLO 54/F EN [id number] Foreign Ortiz DO Specimen: [id number] Received: 01/26/25 Status: JANINE Martinez Num: [id number] Spec Type: COLON BX Subm Dr: Foreign [...] Account Attending Physician TIFFANIE CASTILLO 54/F EN [id number] Foreign Ortiz DO one cassette. D. Received [...] specimen is totally submitted in one cassette. MI 01/26/2025 [facility]:[id number] Patient Age/Sex Location Account Attending Physician TIFFANIE CASTILLO 54/F EN [id number] Foreign Ortiz DO Signed (signature on file) Dr. Brigitte Mares DO 02/02/25 0924 Normal [facility] Comment on above: Performed By: #### P SUIV ####[facility] [address] [place], [address] MR/PAT.Esa 01-21-2025 MR/PAT.JEWEL [facility] Medical Records Department [address] [place] [address] PAT - Anesthesia 01/21/251933 MR#: [id number] Acct: [id number] Name: TIFFANIE CASTILLO Rep #: [id number] : 1970 54 From: Andrea Brewster MD PCP: Dr. 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] Tobacco Use History Tobacco Use History - high school foreign 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: Tobacco Use History - 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 school foreign 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 Tobacco Use Smoking Status Never smoker 01/21/25 12:31 Hx Tobacco Use No 01/21/25 12:31 Years Smoking Packs Smoked per Day Smoking Cessation Date was within the last 15 years Hx Smoking Cessation Date Hx Smoking Cessation No 01/21/25 12:31 Counseling Hematologic Medial History Hematologic Hx - high school foreign 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 Normal [facility] CBC W/Diff, Automatedon 12-13 Absolute Lymph 2.58 X10 3/uL Normal 0.83-4.51 [facility] Comment on above: Performed By: #### L 500.4050, L506.1001, L501.6710, L100.0100 ####[facility] [address] [place], [address] Absolute Neut 3.8 X10 3/uL Normal 2.0-7.7 [facility] Comment on above: Performed By: #### L 500.4050, L506.1001, L501.6710, L100.0100 ####[facility] [address] [place], [address] Basophils/100 WBC (Bld) 0.4 % Normal 0-1 [facility] Comment on above: Performed By: #### L 500.4050, L506.1001, L501.6710, L100.0100 ####[facility] [address] [place], [address] Eosinophils/100 WBC (Bld) 1.0 % Normal 0-5 [facility] Comment on above: Performed By: #### L 500.4050, L506.1001, L501.6710, L100.0100 ####[facility] [address] [place], [address] Erythrocyte distribution width (RBC) [Ratio] 12.4 % Normal 11.6-14.6 [facility] Comment on above: Performed By: #### L 500.4050, L506.1001, L501.6710, L100.0100 ####[facility] [address] [place], [address] Hematocrit (Bld) [Volume fraction] 39.2 % Normal 37-47 [facility] Comment on above: Performed By: #### L 500.4050, L506.1001, L501.6710, L100.0100 ####[facility] [address] [place], [address] Hemoglobin (Bld) [Mass/Vol] 13.4 g/dL Normal 12.0-15.0 [facility] Comment on above: Performed By: #### L 500.4050, L506.1001, L501.6710, L100.0100 ####[facility] [address] [place], [address] IG% 0.400 Normal 0.0-0.9 [facility] Comment on above: Result Comment: IG% - Immature Granulocytes (promyelocytes, myelocytes and metamyelocytes) > 1% indicates that a LEFT SHIFT is Present. Performed By: #### L 500.4050, L506.1001, L501.6710, L100.0100 ####[facility] [address] [place], [address] Lymphocytes/100 WBC (Bld) 37.0 % Normal 19-41 [facility] Comment on above: Performed By: #### L 500.4050, L506.1001, L501.6710, L100.0100 ####[facility] [address] [place], [address] MCH (RBC) [Entitic mass] 31.5 pg Normal 27.0-32.0 [facility] [facility] Comment on above: Performed By: #### L 500.4050, L506.1001, L501.6710, L100.0100 ####[facility] [address] [place], [address] MCHC (RBC) [Mass/Vol] 34.2 g/dL Normal 32-36 [facility] Comment on above: Performed By: #### L 500.4050, L506.1001, L501.6710, L100.0100 ####[facility] [address] [place], [address] MCV (RBC) [Entitic vol] 92.2 fL Normal 81-99 [facility] Comment on above: Performed By: #### L 500.4050, L506.1001, L501.6710, L100.0100 ####[facility] [address] [place], [address] Monocytes/100 WBC (Bld) 6.4 % Normal 0-10 [facility] Comment on above: Performed By: #### L 500.4050, L506.1001, L501.6710, L100.0100 ####[facility] [address] [place], [address] Neutrophils/100 WBC (Bld) 54.8 % Normal 47-70 [facility] Comment on above: Performed By: #### L 500.4050, L506.1001, L501.6710, L100.0100 ####[facility] [address] [place], [address] Nucleated RBC (Bld) [#/Vol] 0 10*3/uL Normal 0-5 [facility] Comment on above: Performed By: #### L 500.4050, L506.1001, L501.6710, L100.0100 ####[facility] [address] [place], [address] Platelet mean volume (Bld) [Entitic vol] 8.7 fL Normal 6.2-12.0 [facility] Comment on above: Performed By: #### L 500.4050, L506.1001, L501.6710, L100.0100 ####[facility] [address] [place], [address] Platelets (Bld) [#/Vol] 316 10*3/uL Normal 150-450 [facility] Comment on above: Performed By: #### L 500.4050, L506.1001, L501.6710, L100.0100 ####[facility] [address] [place], [address] RBC (Bld) [#/Vol] 4.25 10*6/uL Normal 4.2-5.4 [facility] Comment on above: Performed By: #### L 500.4050, L506.1001, L501.6710, L100.0100 ####[facility] [address] [place], [address] RDW SD 42.0 fl Normal 35.1-43.9 [facility] Comment on above: Performed By: #### L 500.4050, L506.1001, L501.6710, L100.0100 ####[facility] [address] [place], [address] WBC (Bld) [#/Vol] 7.0 10*3/uL Normal 4.4-11.0 [facility] Comment on above: Performed By: #### L 500.4050, L506.1001, L501.6710, L100.0100 ####[facility] [address] [place], [address] CRPon 12-31-2024 C-REACTIVE PROT < 3.00 Normal 0.0-3.0 [facility] Comment on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 [Velocity] 12 mm/h 0-30 [facility] Hematocrit Auto (Bld) [Volum e fraction]Ordered By: Franchesca Garcia on 10-31-2022 Hematocrit (Bld) [Volume fraction] 40.4 % 37-47 [facility] Laboratory - Chemistry and C hemistry - challengeOrdered By: Franchesca Garcia on 10-31-2022 ALP [Catalytic activity/Vol] 63 U/L 45-117 [facility] ALT [Catalytic activity/Vol] 28 U/L 13-56 [facility] CO2 [Moles/Vol] 24.0 mmol/L 21.0-32.0 [facility] Globulin (S) [Mass/Vol] 3.9 g/dL 2.2-4.2 [facility] Urea nitrogen/Creatinine [Mass ratio] 20.0 mg/mg 10-20 [facility] Laboratory - Chemistry and C hemistry - challengeOrdered By: Dr. Vargas on 10-31-2022 ALP [Catalytic activity/Vol] 61 U/L 45-117 [facility] ALT [Catalytic activity/Vol] 29 U/L 13-56 [facility] Globulin (S) [Mass/Vol] 4.2 g/dL 2.2-4.2 [facility] Laboratory - Hematology and Cell countsOrdered By: Franchesca Garcia on 10-31-2022 Erythrocyte distribution width (RBC) [Entitic vol] 42.5 fL 35.1-43.9 [facility] Erythrocyte distribution width (RBC) [Ratio] 12.3 % 11.6-14.6 [facility] Immature granulocytes/100 WBC (Bld) 0.400 % 0.0-0.9 [facility] Comment on above: IG% - Immature Granu locytes (promyelocytes, myelocytes and metamyelocytes) > 1% indicates that a LEFT SHIFT is Present. MCH (RBC) [Entitic mass] 31.8 pg 27.0-32.0 [facility] Nucleated RBC/100 WBC (Bld) [Ratio] 0 % 0-5 [facility] MCHC Auto (RBC) [Mass/Vol]Or dered By: Franchesca Garcia on 10-31-2022 MCHC (RBC) [Mass/Vol] 33.4 g/dL 32-36 [facility] No Panel InformationOrdered By: Franchesca Garcia on 10-31-2022 Endomysial IgA Antibody Negative Negative [facility] Estimated GFR (MDRD) Amer 89 mL/min >60 [facility] Comment on above: GFR Calc Estimated GFR (MDRD) Non-Af Amer 74 mL/min >60 [facility] Comment on above: Non- GFR Calc Platelets bldOrdered By: Diane Garcia on 10-31-2022 Platelets (Bld) [#/Vol] 314 10*3/uL 150-450 [facility] Serum IgA measurement (units /volume)Ordered By: Franchesca Garcia on 10-31-2022 IgA Qn (S) 132 mg/dL 87-352 [facility] Comment on above: Performed at: CB - [id number] [place], [place] [id number] Director: Al Beavers PhD, Phone: [phone] Serum or plasma C reactive p rotein measurement (mass/volume)Ordered By: Franchesca Garcia on 10-31-2022 CRP [Mass/Vol] mg/L 0.0-3.0 [facility] Comment on above: C-Reactive Protein ( CRP) provides useful information for thediagnosis, therapy and monitoring of inflammatory processesand associated diseases. For the evaluation of Relative Riskfor Cardiovascular Disease, a High Sensitivity CRP (HSCRP)should be ordered. Serum or plasma albumin lorrie urement (mass/volume)Ordered By: Franchesca Garcia on 10-31-2022 Albumin [Mass/Vol] 3.6 g/dL 3.2-5.0 [facility] Serum or plasma albumin lorrie urement (mass/volume)Ordered By: Dr. Vargas on 10-31-2022 Albumin [Mass/Vol] 3.6 g/dL 3.2-5.0 [facility] Serum or plasma albumin/glob ulin mass ratioOrdered By: Franchesca Garcia on 10-31-2022 Albumin/Globulin [Mass ratio] 0.9 {ratio} 0.9-2.4 [facility] Serum or plasma calcium lorrie urement (mass/volume)Ordered By: Franchesca Garcia on 10-31-2022 Calcium [Mass/Vol] 9.1 mg/dL 8.5-10.1 [facility] Serum or plasma cholesterol in HDL measurement (mass/volume)Ordered By: Dr. Vargas on 10-31-2022 Cholesterol in HDL [Mass/Vol] 101 mg/dL >40 [facility] Comment on above: The drugs N-Acetylcy steine and Metamizole may falsely depress this assay. Reference Range HDL <40 mg/dL Low HDL Cholesterol HDL >or= 60 mg/dL High HDL Cholesterol Serum or plasma cholesterol in VLDL measurement (mass/volume)Ordered By: Dr. Vargas on 10-31-2022 Cholesterol in VLDL [Mass/Vol] 10 mg/dL 5-40 [facility] Serum or plasma creatinine m easurement (mass/volume)Ordered By: Franchesca Garcia on 10-31-2022 Creatinine [Mass/Vol] 0.85 mg/dL 0.55-1.02 [facility] Comment on above: The validity of the calculated GFR & GFRAA in patients over 70 years has not been determined. Clinical correlation is essential. Serum or plasma low density lipoprotein (LDL) cholesterol measurement (mass/volume)Ordered By: Dr. Vargas on 10-31-2022 Cholesterol in LDL [Mass/Vol] 163 mg/dL 0-130 [facility] Serum or plasma urea nitroge n measurement (mass/volume)Ordered By: Franchesca Garcia on 10-31-2022 Urea nitrogen [Mass/Vol] 17 mg/dL 7-18 [facility] Serum tissue transglutaminas e IgA antibody assay (units/volume)Ordered By: Franchesca Garcia on 10-31-2022 tTG IgA Qn (S) <2 U/mL 0-3 [facility] Comment on above: Negative 0 - 3 Weak Positive 4 - 10 Positive >10 Tissue Transglutaminase (tTG) has been identified as the endomysial antigen. Studies have demonstr- ated that endomysial IgA antibodies have over 99% specificity for gluten sensitive enteropathy. Thin prep Papanicolaou smear with manual screeningOrdered By: Franchesca Garcia on 10-31-2022 Thin prep Papanicolaou smear with manual screening 19 U/L [facility] Thin prep Papanicolaou smear with manual screening 6 5-15 [facility] Thin prep Papanicolaou smear with manual screeningOrdered By: Dr. Vargas on 10-31-2022 Thin prep Papanicolaou smear with manual screening 18 U/L [facility] Basophil percentageon 2021 Cholesterol [Mass/Vol] 300 mg/dL <200 [facility] Work Phone: Comment on above: <200 mg/dL Desirable 200-240 mg/dL Borderline >240 mg/dL High Risk Triglyceride [Mass/Vol] 55 mg/dL <199 [facility] Work Phone: Comment on above: The drugs N-Acetylcy steine and Metamizole may falsely depress this assay.Serum Triglycerides Reference Interval Normal <150 mg/dL Borderline high 150 - 199 mg/dL High 200 - 499 mg/dL Very High > or = 500 mg/dL Serum or plasma cholesterol in HDL measurement (mass/volume)on 04-18-2022 Cholesterol in HDL [Mass/Vol] 95 mg/dL >40 [facility] Work Phone: Comment on above: The drugs N-Acetylcy steine and Metamizole may falsely depress this assay. Reference Range HDL <40 mg/dL Low HDL Cholesterol HDL >or= 60 mg/dL High HDL Cholesterol Serum or plasma cholesterol in VLDL measurement (mass/volume)on 04-18-2022 Cholesterol in VLDL [Mass/Vol] 11 mg/dL 5-40 [facility] Work Phone: Serum or plasma low density lipoprotein (LDL) cholesterol measurement (mass/volume)on 04-18-2022 Cholesterol in LDL [Mass/Vol] 194 mg/dL 0-130 [facility] Work Phone: Laboratory - Chemistry and C hemistry - challengeon 03-27-2022 HCG ( test) Ql (U) Negative [facility] Work Phone: Comment on above: Very dilute urine sp ecimens, as indicated by a low specificgravity, may not contain agency sales representative levels of hCG. If is still suspected, a first morning urinespecimen should be collected 48 hours later and tested. Laboratory - Microbiology an d Antimicrobial susceptibilityon 12-27-2021 SARS-CoV-2 (COVID-19) RNA ABIODUN+probe Ql (Unsp spec) Negative Not Detect [facility] Work Phone: Comment on above: Normal Reference [...] Informationon 12-27 Stool Calprotectin 26 ug/g 0-120 [facility] Work Phone: Comment on above: Concentration Interp retation Follow-Up<16 - 50 ug/g Normal None>50 -120 ug/g Borderline Re-evaluate in 4-6 weeks >120 ug/g Abnormal Repeat as clinically indicatedPerformed at: - [facility] [id number] [place], [place] [id number] Director: Navin Sanchez MD, Phone: [phone] Absolute lymphocyte counton 12-26-2021 Lymphocytes Auto (Unsp spec) [#/Vol] 1.81 10*3/uL 0.83-4.51 [facility] Work Phone: Basophil percentageon 2021 Basophils/100 WBC (Bld) 0.5 % 0-1 [facility] Work Phone: Bilirubin [Mass/Vol] 0.30 mg/dL 0.20-1.00 [facility] Work Phone: Comment on above: For patients on eltr ombopag therapy, use of Dimension [place] TBIL is not recommended. Chloride [Moles/Vol] 104 mmol/L 98-107 [facility] Work Phone: Eosinophils/100 WBC (Bld) 2.2 % 0-5 [facility] Work Phone: Glucose [Mass/Vol] 66 mg/dL 74-106 [facility] Work Phone: Neutrophils (Bld) [#/Vol] 3.8 10*3/uL 2.0-7.7 [facility] Work Phone: Neutrophils/100 WBC (Bld) 60.3 % 47-70 [facility] Work Phone: Potassium [Moles/Vol] 3.8 mmol/L 3.5-5.1 [facility] Work Phone: Protein [Mass/Vol] 7.6 g/dL 6.4-8.2 [facility]: [phone] Sodium [Moles/Vol] 139 mmol/L 136-145 [facility] Work Phone: WBC (Bld) [#/Vol] 6.4 10*3/uL 4.4-11.0 [facility] Work Phone: Blood erythrocytes count (nu mber/volume)on 12-26-2021 RBC (Bld) [#/Vol] 4.04 10*6/uL 4.2-5.4 [facility]: Blood hemoglobin measurement (mass/volume)on 12-26-2021 Hemoglobin (Bld) [Mass/Vol] 13.6 g/dL 12.0-15.0 [facility] Work Phone: [phone] Blood lymphocytes/100 leukoc yteson 12-26-2021 Lymphocytes/100 WBC (Bld) 28.5 % 19-41 [facility] Work Phone: Blood monocytes/100 leukocyt eson 12-26-2021 Monocytes/100 WBC (Bld) 8.0 % 0-10 [facility] Work Phone: [phone] Blood platelet mean volumeon 12-26-2021 Platelet mean volume (Bld) [Entitic vol] 9.2 fL 6.2-12.0 [facility] Work Phone: Determination of erythrocyte mean corpuscular volume (MCV)on 12-26-2021 MCV (RBC) [Entitic vol] 99.8 fL 81-99 [facility] Work Phone: Erythrocyte sedimentation ra leonardo 12-26-2021 ESR (Bld) [Velocity] 8 mm/h 0-30 [facility]: Hematocrit Auto (Bld) [Volum e fraction]on 12-26-2021 Hematocrit (Bld) [Volume fraction] 40.3 % 37-47 [facility] Work Phone: Laboratory - Chemistry and C hemistry - challengeon 12-26-2021 ALP [Catalytic activity/Vol] 60 U/L 45-117 [facility] Work Phone: ALT [Catalytic activity/Vol] 29 U/L 13-56 [facility] Work Phone: CO2 [Moles/Vol] 30.0 mmol/L 21.0-32.0 [facility] Work Phone: Globulin (S) [Mass/Vol] 3.8 g/dL 2.2-4.2 [facility] Work Phone: Urea nitrogen/Creatinine [Mass ratio] 17.8 mg/mg 10-20 [facility] Work Phone: Laboratory - Hematology and Cell countson 12-26-2021 Erythrocyte distribution width (RBC) [Entitic vol] 43.7 fL 35.1-43.9 [facility] Work Phone: Erythrocyte distribution width (RBC) [Ratio] 11.9 % 11.6-14.6 [facility] Work Phone: Immature granulocytes/100 WBC (Bld) 0.500 % 0.0-0.9 [facility] Work Phone: Comment on above: IG% - Immature Granu locytes (promyelocytes, myelocytes and metamyelocytes) > 1% indicates that a LEFT SHIFT is Present. MCH (RBC) [Entitic mass] 33.7 pg 27.0-32.0 [facility] Work Phone: Nucleated RBC/100 WBC (Bld) [Ratio] 0 % 0-5 [facility] Work Phone: MCHC Auto (RBC) [Mass/Vol]on 12-26-2021 MCHC (RBC) [Mass/Vol] 33.7 g/dL 32-36 [facility] Work Phone: No Panel Informationon 12-26 Estimated GFR (MDRD) Amer 74 mL/min >60 [facility] Work Phone: Comment on above: GFR Calc Estimated GFR (MDRD) Non-Af Amer 61 mL/min >60 [facility] Work Phone: Comment on above: Non- GFR Calc Platelets bldon 12-26-2021 Platelets (Bld) [#/Vol] 319 10*3/uL 150-450 [facility] Work Phone: Serum or plasma C reactive p rotein measurement (mass/volume)on 12-26-2021 CRP [Mass/Vol] mg/L 0.0-3.0 [facility] Work Phone: Comment on above: C-Reactive Protein ( CRP) provides useful information for thediagnosis, therapy and monitoring of inflammatory processesand associated diseases. For the evaluation of Relative Riskfor Cardiovascular Disease, a High Sensitivity CRP (HSCRP)should be ordered. Serum or plasma albumin lorrie urement (mass/volume)on 12-26-2021 Albumin [Mass/Vol] 3.8 g/dL 3.2-5.0 [facility] Work Phone: Serum or plasma albumin/glob ulin mass ratioon 12-26-2021 Albumin/Globulin [Mass ratio] 1.0 {ratio} 0.9-2.4 [facility] Work Phone: Serum or plasma calcium lorrie urement (mass/volume)on 12-26-2021 Calcium [Mass/Vol] 9.4 mg/dL 8.5-10.1 [facility] Work Phone: Serum or plasma creatinine m easurement (mass/volume)on 12-26-2021 Creatinine [Mass/Vol] 1.01 mg/dL 0.55-1.02 [facility] Work Phone: Comment on above: The validity of the calculated GFR & GFRAA in patients over 70 years has not been determined. Clinical correlation is essential. Serum or plasma urea nitroge n measurement (mass/volume)on 12-26-2021 Urea nitrogen [Mass/Vol] 18 mg/dL 7-18 [facility] Work Phone: Thin prep Papanicolaou smear with manual screeningon 12-26-2021 Thin prep Papanicolaou smear with manual screening 15 U/L 15-37 [facility] Work Phone: Thin prep Papanicolaou smear with manual screening 5 5-15 [facility] Work Phone: Absolute lymphocyte counton 08-30-2021 Lymphocytes Auto (Unsp spec) [#/Vol] 1.19 10*3/uL 0.83-4.51 [facility] Work Phone: Basophil percentageon 2021 Basophils/100 WBC (Bld) 0.6 % 0-1 [facility] Work Phone: Bilirubin [Mass/Vol] 0.50 mg/dL 0.20-1.00 [facility] Work Phone: Comment on above: For patients on eltr ombopag therapy, use of Dimension [place] TBIL is not recommended. Chloride [Moles/Vol] 105 mmol/L 98-107 [facility] Work Phone: Eosinophils/100 WBC (Bld) 1.9 % 0-5 [facility] Work Phone: Glucose [Mass/Vol] 86 mg/dL 74-106 [facility] Work Phone: Neutrophils (Bld) [#/Vol] 3.0 10*3/uL 2.0-7.7 [facility] Work Phone: [phone] Neutrophils/100 WBC (Bld) 63.6 % 47-70 [facility] Work Phone: Potassium [Moles/Vol] 3.8 mmol/L 3.5-5.1 [facility] Work Phone: Protein [Mass/Vol] 7.3 g/dL 6.4-8.2 [facility] Work Phone: Sodium [Moles/Vol] 138 mmol/L 136-145 [facility] Work Phone: WBC (Bld) [#/Vol] 4.7 10*3/uL 4.4-11.0 [facility] Work Phone: Blood erythrocytes count (nu mber/volume)on 08-30-2021 RBC (Bld) [#/Vol] 4.11 10*6/uL 4.2-5.4 [facility] Work Phone: Blood hemoglobin measurement (mass/volume)on 08-30-2021 Hemoglobin (Bld) [Mass/Vol] 13.6 g/dL 12.0-15.0 [facility] Work Phone: Blood lymphocytes/100 leukoc yteson 08-30-2021 Lymphocytes/100 WBC (Bld) 25.5 % 19-41 [facility] Work Phone: Blood monocytes/100 leukocyt eson 08-30-2021 Monocytes/100 WBC (Bld) 7.5 % 0-10 [facility] Work Phone: Blood platelet mean volumeon 08-30-2021 Platelet mean volume (Bld) [Entitic vol] 8.8 fL 6.2-12.0 [facility] Work Phone: Determination of erythrocyte mean corpuscular volume (MCV)on 08-30-2021 MCV (RBC) [Entitic vol] 100.2 fL 81-99 [facility] Work Phone: Erythrocyte sedimentation ra leonardo 08-30-2021 ESR (Bld) [Velocity] 7 mm/h 0-30 [facility] Work Phone: Hematocrit Auto (Bld) [Volum e fraction]on 08-30-2021 Hematocrit (Bld) [Volume fraction] 41.2 % 37-47 [facility] Work Phone: Laboratory - Chemistry and C hemistry - challengeon 08-30-2021 ALP [Catalytic activity/Vol] 58 U/L 45-117 [facility] Work Phone: ALT [Catalytic activity/Vol] 37 U/L 13-56 [facility] Work Phone: CO2 [Moles/Vol] 28.0 mmol/L 21.0-32.0 [facility] Work Phone: Globulin (S) [Mass/Vol] 3.8 g/dL 2.2-4.2 [facility] Work Phone: Urea nitrogen/Creatinine [Mass ratio] 11.9 mg/mg 10-20 [facility] Work Phone: Laboratory - Hematology and Cell countson 08-30-2021 Erythrocyte distribution width (RBC) [Entitic vol] 48.9 fL 35.1-43.9 [facility] Work Phone: Erythrocyte distribution width (RBC) [Ratio] 13.2 % 11.6-14.6 [facility] Work Phone: Immature granulocytes/100 WBC (Bld) 0.900 % 0.0-0.9 [facility] Work Phone: Comment on above: IG% - Immature Granu locytes (promyelocytes, myelocytes and metamyelocytes) > 1% indicates that a LEFT SHIFT is Present. MCH (RBC) [Entitic mass] 33.1 pg 27.0-32.0 [facility] Work Phone: Nucleated RBC/100 WBC (Bld) [Ratio] 0 % 0-5 [facility] Work Phone: MCHC Auto (RBC) [Mass/Vol]on 08-30-2021 MCHC (RBC) [Mass/Vol] 33.0 g/dL 32-36 [facility] Work Phone: No Panel Informationon 08-30 Estimated GFR (MDRD) Amer 91 mL/min >60 [facility] Work Phone: Comment on above: GFR Calc Estimated GFR (MDRD) Non-Af Amer 75 mL/min >60 [facility] Work Phone: Comment on above: Non- GFR Calc Immunoglobulin E 5 IU/mL 6-495 [facility] Work Phone: Comment on above: Performed at: [place] [id number] Director: Al Beavers PhD, Phone: [phone] at: [facility] [address] [place], [place] [id number] Director: Navin Sanchez MD, Phone: [phone] Platelets bldon 08-30-2021 Platelets (Bld) [#/Vol] 316 10*3/uL 150-450 [facility] Work Phone: Serum mitochondria antibody detectionon 08-30-2021 Mitochondria Ab Ql (S) <20.0 Units 0.0-20.0 [facility] Work Phone: Comment on above: Negative 0.0 - 20.0 Equivocal 20.1 - 24.9 Positive >24.9Mitochondrial (M2) Antibodies are found in 90-96% ofpatients with primary biliary cirrhosis.Performed at: [facility]mouthQkgzby[address] [place], [place] [id number] Director: Al Beavers PhD, Phone: [phone] Serum or plasma C reactive p rotein measurement (mass/volume)on 08-30-2021 CRP [Mass/Vol] mg/L 0.0-3.0 [facility] Work Phone: Comment on above: C-Reactive Protein ( CRP) provides useful information for thediagnosis, therapy and monitoring of inflammatory processesand associated diseases. For the evaluation of Relative Riskfor Cardiovascular Disease, a High Sensitivity CRP (HSCRP)should be ordered. Serum or plasma IgA measurem ent (mass/volume)on 08-30-2021 IgA [Mass/Vol] 146 mg/dL 87-352 [facility] Work Phone: Serum or plasma IgG measurem ent (mass/volume)on 08-30-2021 IgG [Mass/Vol] 1092 mg/dL [phone] [facility] Work Phone: Serum or plasma IgM measurem ent (mass/volume)on 08-30-2021 IgM [Mass/Vol] 212 mg/dL 26-217 [facility] Work Phone: Serum or plasma albumin lorrie urement (mass/volume)on 08-30-2021 Albumin [Mass/Vol] 3.5 g/dL 3.2-5.0 [facility] Work Phone: Serum or plasma albumin/glob ulin mass ratioon 08-30-2021 Albumin/Globulin [Mass ratio] 0.9 {ratio} 0.9-2.4 [facility] Work Phone: Serum or plasma calcium lorrie urement (mass/volume)on 08-30-2021 Calcium [Mass/Vol] 8.6 mg/dL 8.5-10.1 [facility] Work Phone: Serum or plasma creatinine m easurement (mass/volume)on 08-30-2021 Creatinine [Mass/Vol] 0.84 mg/dL 0.55-1.02 [facility] Work Phone: Comment on above: The validity of the calculated GFR & GFRAA in patients over 70 years has not been determined. Clinical correlation is essential. Serum or plasma urea nitroge n measurement (mass/volume)on 08-30-2021 Urea nitrogen [Mass/Vol] 10 mg/dL 7-18 [facility] Work Phone: Thin prep Papanicolaou smear with manual screeningon 08-30-2021 Thin prep Papanicolaou smear with manual screening 22 U/L 15-37 [facility] Work Phone: Thin prep Papanicolaou smear with manual screening 5 5-15 [facility] Work Phone: Final Surgical Pathology Rep [facility] 10-21-2018 Final Surgical Pathology Report . Pathology Reports Accession: Collected Date/Time: Received Date/Time: Pathologist: [id number] 10/17/2018 14:14 EDT 10/20/2018 14:14 EDT DO [...] cm. TS -1 Dictated by Denita MENDEZ ([facility]) MICROSCOPIC DESCRIPTION: A-C Slides reviewed. Electronically Signed by Pathology Report verified by [facility] Electronically signed by LEONARDO DIAZ DO Sign out Date: 10/21/2018 12:15 Performing Lab: [facility], [address] [place] [address] ([place]) Comment on above: Performed By: #### S PFR #### [place] [address] Office Visit: UC: sinusitiso n 05-30-2017 Documentation of current medications (procedure) Done Invalid Interpretation Code [facility] Work Phone: Fall risk assessment No Invalid Interpretation Code [facility] Work Phone: Tobacco smoking status NHIS Never Invalid Interpretation Code [facility] Work Phone: Tobacco use CPHS Never smoker Invalid Interpretation Code [facility] Work Phone: Vital Signs Date Time Vital Sign Value Performing Clinician Faci lity 05-18-2023 11:42-0400 Body height 172.[address] Arsalan Pedro Work Phone: [facility] 05-18-2023 11:42-0400 Body mass index (BMI) [Ratio] 30.4 kg/m2 Dr. Arsalan Pedro Work Phone: [facility] 05-18-2023 11:42-0400 Body weight 90.[address] Arsalan Pedro Work Phone: [facility] 05-18-2023 11:42-0400 Diastolic blood pressure 87 mm[Hg] Dr. Arsalan Pedro Work Phone: [facility] 05-18-2023 11:42-0400 Heart rate 88 /min Dr. Arsalan Pedro Work Phone: [facility] 05-18-2023 11:42-0400 Respiratory rate 16 /min Dr. Arslaan Pedro Work Phone: [facility] 05-18-2023 11:42-0400 SaO2% (BldA) [Mass fraction] 98 % Dr. Arsalan Pedro Work Phone: [facility] 05-18-2023 11:42-0400 Systolic blood pressure 135 mm[Hg] Dr. Arsalan Pedro Work Phone: [facility] 11-08-2022 07:10-0400 Body temperature 96.9 [degF] Dr. Arsalan Pedro Work Phone: [facility] 11-08-2022 07:10-0400 Diastolic blood pressure 81 mm[Hg] Dr. Arsalan Pedro Work Phone: [facility] 11-08-2022 07:10-0400 Heart rate 71 /min Dr. Arsalan Pedro Work Phone: [facility] 11-08-2022 07:10-0400 Respiratory rate 16 /min Dr. Arsalan Pedro Work Phone: [facility] 11-08-2022 07:10-0400 SaO2% (BldA) [Mass fraction] 97 % Dr. Arsalan Pedro Work Phone: [facility] 11-08-2022 07:10-0400 Systolic blood pressure 105 mm[Hg] Dr. Arsalan Pedro Work Phone: [facility] 11-08-2022 06:02-0400 Body height 170.[address] Arsalan Pedro Work Phone: [facility] 11-08-2022 06:02-0400 Body mass index (BMI) [Ratio] 29.9 kg/m2 Dr. Arsalan Pedro Work Phone: [facility] 11-08-2022 06:02-0400 Body weight 86.[address] Arsalan Pedro Work Phone: [facility] 09-06-2022 15:24-0500 Body height 170.[address] Arsalan Pedro Work Phone: [facility] 09-06-2022 15:24-0500 Body mass index (BMI) [Ratio] 30.4 kg/m2 Dr. Arsalan Pedro Work Phone: [facility] 09-06-2022 15:24-0500 Body weight 87.[address] Arsalan Pedro Work Phone: [facility] 09-06-2022 15:24-0500 Diastolic blood pressure 91 mm[Hg] Dr. Arsalan Pedro Work Phone: [facility] 09-06-2022 15:24-0500 Heart rate 98 /min Dr. Arsalan Pedro Work Phone: [facility] 09-06-2022 15:24-0500 SaO2% (BldA) [Mass fraction] 98 % Dr. Arsalan Pedro Work Phone: [facility] 09-06-2022 15:24-0500 Systolic blood pressure 136 mm[Hg] Dr. Arsalan Pedro Work Phone: [facility] 06-11-2022 07:04-0500 Body temperature 98.6 [degF] Dr. Arsalan Pedro Work Phone: [facility] Work Phone: 06-11-2022 07:04-0500 Diastolic blood pressure 72 mm[Hg] Dr. Arsalan Pedro Work Phone: [facility] Work Phone: 06-11-2022 07:04-0500 Heart rate 82 /min Dr. Arsalan Pedro Work Phone: [facility] Work Phone: 06-11-2022 07:04-0500 Respiratory rate 14 /min Dr. Arsalan Pedro Work Phone: [facility] Work Phone: 06-11-2022 07:04-0500 SaO2% (BldA) [Mass fraction] 99 % Dr. Arsalan Pedro Work Phone: [facility] Work Phone: 06-11-2022 07:04-0500 Systolic blood pressure 122 mm[Hg] Dr. Arsalan Pedro Work Phone: [facility] Work Phone: 05-18-2022 12:47-0400 Body height 170.[address] Arsalan Pedro Work Phone: [facility] Work Phone: 05-18-2022 12:47-0400 Body mass index (BMI) [Ratio] 29 kg/m2 Dr. Arsalan Pedro Work Phone: [facility] Work Phone: 05-18-2022 12:47-0400 Body temperature 97.9 [degF] Dr. Arsalan Pedro Work Phone: [facility] Work Phone: 05-18-2022 12:47-0400 Body weight 83.[address] Arsalan Pedro Work Phone: [facility] Work Phone: 05-18-2022 12:47-0400 Diastolic blood pressure 87 mm[Hg] Dr. Arsalan Pedro Work Phone: [facility] Work Phone: 05-18-2022 12:47-0400 Heart rate 67 /min Dr. Arsalan Pedro Work Phone: [facility] Work Phone: 05-18-2022 12:47-0400 Respiratory rate 16 /min Dr. Arsalan Pedro Work Phone: [facility] Work Phone: 05-18-2022 12:47-0400 SaO2% (BldA) [Mass fraction] 97 % Dr. Arsalan Pedro Work Phone: [facility] Work Phone: 05-18-2022 12:47-0400 Systolic blood pressure 130 mm[Hg] Dr. Arsalan Pedro Work Phone: [facility] Work Phone: 04-23-2022 13:07-0400 Body mass index (BMI) [Ratio] 29.7 kg/m2 Dr. Arsalan Pedro Work Phone: [facility] Work Phone: 04-23-2022 13:07-0400 Body weight 86.[address] Arsalan Pedro Work Phone: [facility] Work Phone: 04-04-2022 13:49-0400 Body height 170.[address] Arsalan Pedro Work Phone: [facility] Work Phone: 04-04-2022 13:49-0400 Body mass index (BMI) [Ratio] 29.9 kg/m2 Dr. Arsalan Pedro Work Phone: [facility] Work Phone: 04-04-2022 13:49-0400 Body weight 86.[address] Arsalan Pedro Work Phone: [facility] Work Phone: 04-04-2022 13:49-0400 Diastolic blood pressure 88 mm[Hg] Dr. rAsalan Pedro Work Phone: [facility] Work Phone: 04-04-2022 13:49-0400 Heart rate 86 /min Dr. Arsalan Pedro Work Phone: [facility] Work Phone: 04-04-2022 13:49-0400 Respiratory rate 16 /min Dr. Arsalan Pedro Work Phone: [facility] Work Phone: 04-04-2022 13:49-0400 SaO2% (BldA) [Mass fraction] 99 % Dr. Arsalan Pedro Work Phone: [facility] Work Phone: 04-04-2022 13:49-0400 Systolic blood pressure 140 mm[Hg] Dr. Arsalan Pedro Work Phone: [facility] Work Phone: 03-27-2022 13:50-0400 Body temperature 98.2 [degF] Dr. Arsalan Pedro Work Phone: [facility] Work Phone: 03-27-2022 13:50-0400 Diastolic blood pressure 88 mm[Hg] Dr. Arsalan Pedro Work Phone: [facility] Work Phone: 03-27-2022 13:50-0400 Heart rate 80 /min Dr. Arsalan Pedro Work Phone: [facility] Work Phone: 03-27-2022 13:50-0400 Respiratory rate 16 /min Dr. Arsalan Pedro Work Phone: [facility] Work Phone: 03-27-2022 13:50-0400 SaO2% (BldA) [Mass fraction] 100 % Dr. Arsalan Pedro Work Phone: [facility] Work Phone: 03-27-2022 13:50-0400 Systolic blood pressure 133 mm[Hg] Dr. Arsalan Pedro Work Phone: [facility] Work Phone: 03-27-2022 12:20-0400 Body height 170.[address] Arsalan Pedro Work Phone: [facility] Work Phone: 03-27-2022 12:20-0400 Body mass index (BMI) [Ratio] 29.7 kg/m2 Dr. Arsalan Pedro Work Phone: [facility] Work Phone: 03-27-2022 12:20-0400 Body weight [address] Arsalan Pedro Work Phone: [facility] Work Phone: 09-10-2021 13:13-0500 Body height 170.[address] Arsalan Pedro Work Phone: [facility] Work Phone: 09-10-2021 13:13-0500 Body mass index (BMI) [Ratio] 29.1 kg/m2 Dr. Arsalan Pedro Work Phone: [facility] Work Phone: 09-10-2021 13:13-0500 Body temperature 97.3 [degF] Dr. Arsalan Pedro Work Phone: [facility] Work Phone: 09-10-2021 13:13-0500 Body weight 84.[address] Arsalan Pedro Work Phone: [facility] Work Phone: 09-10-2021 13:13-0500 Diastolic blood pressure 78 mm[Hg] Dr. Arsalan Pedro Work Phone: [facility] Work Phone: 09-10-2021 13:13-0500 Heart rate 82 /min Dr. Arsalan Pedro Work Phone: [facility] Work Phone: 09-10-2021 13:13-0500 Respiratory rate 15 /min Dr. Arsalan Pedro Work Phone: [facility] Work Phone: 09-10-2021 13:13-0500 SaO2% (BldA) [Mass fraction] 98 % Dr. Arsalan Pedro Work Phone: [facility] Work Phone: 09-10-2021 13:13-0500 Systolic blood pressure 121 mm[Hg] Dr. Arsalan Pedro Work Phone: [facility] Work Phone: 05-30-2017 08:41-0500 BMI (Body Mass Index) 28.03 kg/m2 Anthony MENDEZ [facility] Work Phone: 05-30-2017 08:41-0500 Body Temperature 98.6 [degF] Anthony MENDE[facility] Work Phone: 05-30-2017 08:41-0500 BP Diastolic 84 mm[Hg] Anthony MENDE[facility] Work Phone: 05-30-2017 08:41-0500 BP Systolic 126 mm[Hg] Anthony MENDEZ [facility] Work Phone: 05-30-2017 08:41-0500 Height 170.18 cm Anthony MENDEZ [facility] Work Phone: 05-30-2017 08:41-0500 Pulse (Heart Rate) 83 /min Anthony MENDEZ [facility] Work Phone: 05-30-2017 08:41-0500 Respiratory Rate 14 /min Anthony MENDEZ [facility] Work Phone: 05-30-2017 08:41-0500 Weight 81.19 kg Anthony MENDEZ [facility] Work Phone: Encounters Encounter Date Encounter Type Care Provider Facility Start: 05-04-2025 ambulatory Radha Escoto [facility] Start: 05-03-2025 End: 05-03-2025 ambulatory Arsalan Pedro Facility:[facility] Start: 05-03-2025 End: 05-03-2025 ambulatory Marisa Modi Facility:[facility] Start: 04-27-2025 End: 04-27-2025 ambulatory Arsalan Pedro Facility:[facility] Start: 04-13-2025 End: 04-13-2025 ambulatory Radha Murillo Facility:[facility] Start: 03-26-2025 End: 03-26-2025 ambulatory Arsalan Pedro Facility:[facility] Start: 03-05-2025 End: 03-05-2025 ambulatory Arsalan Pedro Facility:[facility] Start: 02-11-2025 End: 02-11-2025 ambulatory Arsalan Pedro Facility:[facility] Start: 02-03-2025 End: 02-03-2025 ambulatory Arsalan Pedro Facility:[facility] Start: 01-26-2025 ambulatory Foreign Angel Facility :[facility] Start: 01-26-2025 End: 01-26-2025 ambulatory Arsalan Pedro Facility:[facility] Start: 01-22-2025 End: 01-22-2025 ambulatory Arsalan Pedro Facility:[facility] Start: 12-31-2024 End: 12-31-2024 ambulatory Arsalan Pedro Facility:[facility] Start: 12-31-2024 End: 12-31-2024 ambulatory Arsalan Pedro Facility:[facility] Start: 12-03-2024 End: 12-03-2024 ambulatory Arsalan Pedro Facility:[facility] Start: 11-24-2024 End: 11-24-2024 ambulatory Arsalan Pedro Facility:[facility] Start: 11-04-2024 End: 11-04-2024 ambulatory Arsalan Pedro Facility:[facility] Start: 10-30-2024 End: 10-30-2024 ambulatory Arsalan Pedro Facility:[facility] Start: 09-18-2024 End: 09-18-2024 ambulatory Arsalan Pedro Facility:[facility] Start: 08-17-2024 End: 08-17-2024 ambulatory Arsalan Pedro Facility:[facility] Start: 08-05-2024 End: 08-05-2024 ambulatory Leigh Bowie Facility:[facility] Start: 06-30-2024 End: 06-30-2024 ambulatory Jamee Reed Facility:[facility] Start: 07-09-2023 End: 07-09-[address] Arsalan Pedro Work Phone: [facility] Work Phone: Start: 07-09-2023 End: 07-09-[address] Arsalan Pedro Work Phone: [facility]Outpatient Bone Densitometry Work Phone: Start: 06-03-2023 End: 06-03-[address] Arsalan Pedro Work Phone: [facility] Work Phone: Start: 06-03-2023 End: 06-03-[address] Arsalan Pedro Work Phone: [facility]-Outpatient Breast Imaging Work Phone: Start: 05-20-2023 End: 05-20-[address] Arsalan Pedro Work Phone: [facility] Work Phone: Start: 05-20-2023 End: 05-20-[address] Arsalan Pedro Work Phone: [facility]-Laboratory, Specimen Work Phone: Start: 05-18-2023 End: 05-18-[address] Arsalan Pedro Work Phone: [facility] Work Phone: Start: 03-25-2023 End: 03-25-[address] Arsalan Pedro Work Phone: [facility]Laboratory, Specimen Work Phone: Start: 11-08-2022 Non-patient / Non-visit Dr. Arsalan Pedro Work Phone: [facility] Start: 11-08-2022 End: 11-08-2022 Admission to same day surgery center Dr. Arsalan Pedro Work Phone: [facility]-Endoscopy Start: 11-08-2022 End: 11-08-[address] rAsalan Pedro Work Phone: [facility] Work Phone: Start: 11-01-2022 End: 11-01-[address] Arsalan Pedro Work Phone: [facility] Work Phone: Start: 11-01-2022 End: 11-01-[address] Arsalan Pedro Work Phone: [facility] Start: 10-31-2022 End: 10-31-[address] Arsalan Pedro Work Phone: [facility] Work Phone: Start: 10-31-2022 End: 10-31-[address] Arsalan Pedro Work Phone: [facility] Start: 09-06-2022 End: 09-06-[address] Arsalan Pedro Work Phone: [facility] Start: 06-11-2022 End: 06-11-[address] Arsalan Pedro Work Phone: [facility] Start: 05-30-2022 End: 05-30-[address] Arsalan Pedro Work Phone: [facility] Work Phone: Start: 05-30-2022 End: 05-30-[address] Arsalan Pedro Work Phone: [facility] Breast Imaging Start: 05-18-2022 Non-patient / Non-visit Dr. Arsalan Pedro Work Phone: [facility] Start: 05-18-2022 End: 05-18-[address] Arsalan Pedro Work Phone: [facility] Work Phone: Start: 05-18-2022 End: 05-18-[address] Arsalan Pedro Work Phone: [facility] Start: 04-23-2022 End: 04-23-[address] Arsalan Pedro Work Phone: [facility] Start: 04-18-2022 Non-patient / Non-visit Dr. Arsalan Pedro Work Phone: [facility] Start: 04-18-2022 End: 04-18-[address] Arsalan Pedro Work Phone: [facility] Work Phone: Start: 04-18-2022 End: 04-18-[address] Arsalan Pedro Work Phone: [facility]Cardi[facility] Services Start: 04-04-2022 End: 04-04-[address] Arsalan ePdro Work Phone: [facility] Start: 03-27-2022 Non-patient / Non-visit Dr. Arsalan Pedro Work Phone: [facility] Start: 03-27-2022 End: 03-27-2022 Admission to same day surgery center Dr. Arsalan Pedro Work Phone: [facility]-Endoscopy Start: 03-27-2022 End: 03-27-[address] Arsalan Pedro Work Phone: [facility] Work Phone: Start: 12-27-2021 End: 12-27-[address] Arsalan Pedro Work Phone: [facility]Laboratory, Specimen Start: 12-26-2021 End: 12-26-[address] [facility] Start: 12-25-2021 End: 12-25-[address] Arsalan Pedro Work Phone: [facility] Start: 10-02-2021 End: 10-02-[address] Arsalan Pedro Work Phone: [facility] Start: 09-19-2021 End: 09-19-[address] Arsalan Pedro Work Phone: [facility] Start: 09-10-2021 End: 09-10-2021 Emergency department patient visit Dr. Arsalan Pedro Work Phone: [facility]-Emergency Department Start: 08-30-2021 End: 08-30-[address] Arsalan Pedro Work Phone: [facility] Start: 04-23-2020 End: 04-23-2020 Patient encounter procedure Graeme Cooper Work Phone: [facility] Start: 04-23-2020 Results Only Graeme kim [...] energy X-ray absorptiometry Dexa Bone Density Study [facility] Start: 07-09-2023 DXA Bone [Mass/Area] Bone density [facility] Start: 11-08-2022 Patient discharge [facility] Start: 03-27-2022 Egd transoral biopsy single/multiple EGD BIOPSY SINGLE/MULTIPLE [facility] Work Phone: Start: 03-27-2022 Patient discharge [facility] Work Phone: Start: 12-27-2021 Protein measurement [facility] Work Phone: Start: 03-15-2020 Influenza vaccination INFLUENZA (#1) [facility] Start: 02-25-2018 SHINGRIX VACCINE (1 of 2) SHINGRIX VACCINE (1 of 2) [facility] Start: 02-25-2018 Tuberculosis screening COLORECTAL CANCER SCREENING,SEE MODIFIER [facility] Start: 05-30-2017 End: 05-30-2017 Appointment Appointment [facility] Work Phone: Start: 10-29-2016 HPV TESTING HPV TESTING [facility] Start: 10-29-2016 PAP TESTING PAP TESTING [facility] Start: 08-15-2016 LIPID SCREEN LIPID SCREEN [facility] Start: 12-10-2014 Mammography MAMMOGRAM [facility] Start: 02-25-2013 DIABETES SCREEN DIABETES SCREEN [facility] Start: 08-15-2010 Urine microalbumin profile DTAP,TDAP,TD (2 - Tdap) [facility] Start: 02-25-1986 HEPATITIS C SCREENING HEPATITIS C SCREENING [facility] Start: 02-25-1986 HIV SCREENING HIV SCREENING [facility] C reactive protein [Mass/volume] in Serum or Plasma [facility] Work Phone: CBC W Auto Different ial panel - Blood [facility] Work Phone: Celiac disease screen [facility] Work Phone: CT angiography of co ronary arteries [facility] Work Phone: Erythrocyte sediment ation rate [facility] Work Phone: Lactoferrin [Presenc e] in Stool by Immunoassay [facility] Work Phone: Patient Education [facility] Work Phone: Patient referral [facility] Work Phone: Protein measurement [facility] Work Phone: Protein measurement [facility] PT ED PATIENT INFORMATION PT ED PATIENT INFORMATION Other 04/23/2020 [facility] Immunizations Immunization Date Immunization Notes Care Provider Fa cili 09-22-2016 influenza, injectabl e, quadrivalent, preservative free Dr. Arsalan Pedro Work Phone: [facility] 09-22-2016 influenza, seasonal, injectable Dr. Arsalan Pedro Work Phone: [facility] 05-26-2007 influenza virus vaccine, unspecified formulation [facility] 08-15-2000 diphtheria and tetan us toxoids, adsorbed for pediatric use [facility] Payers Date Payer Category Payer Self-pay [id number] 2024 Unknown [id number] 2023 Unknown [id number] 2019 Unknown [employer] E PPO [id number] 2019-Present PPO [id number] 2018 Unknown [id number] 1970 Unknown [id number] Unknown [id number] Unknown [employer] [id number] Unknown [id number] Unknown [id number] Unknown [id number] Unknown [id number] Unknown [id number] Unknown [id number] .[id number] Unknown [id number] .[id number] Unknown [id number] .[id number] Unknown [id number] .840.1.537783.3.579.2.462 Unknown [id number] .840.1.686531.3.579.2.462 Unknown [id number] .[id number] Unknown [id number] .840.1.715376.3.579.2.462 Unknown [id number] .[id number] Unknown [id number] .840.1.063963.3.579.2.462 Unknown [id number] .[id number] Unknown [id number] .840.1.551058.3.579.2.462 Unknown [id number] .840.1.732869.3.579.2.462 Unknown [id number] .840.1.521358.3.579.2.462 Unknown [id number] 2.840.1.323812.3.579.2.462 Unknown [id number] .[id number] Unknown [id number] Unknown [id number] Social History Date Type Detail Facility Start: 02-05-2015 Tobacco smoking status NHIS Never smoker [facility] Start: 02-05-2015 Tobacco use and exposure Never used [facility] Start: 02-05-2015 Alcohol intake Current drinke r of alcohol (finding) [facility] Start: 01-05-2014 Alcohol Comment Occasionally [facility] Sex Assigned At Not on file [facility] Exposure to SARS-CoV-2 (event) Unable to assess [facility] Start: 12-25-2021 End: 05-18-2023 Tobacco smoking status NHIS Unknown if ever smoked [facility] Start: 06-24-2013 Occasional [facility] Start: 06-24-2013 None [facility] Start: 06-24-2013 Spouse/ Signif icant Other [facility] Start: 09-22-2016 Non-smoker [facility] Start: 1970 Sex Assigned At Female [facility] NEGATED: Highlighted row [facility] Goals Date Patient Goal Desired Activity /State Mental Status Date Assessment Result Facility 11-08-2022 Cognitive function Voice/Name [facility] Work Phone: 05-18-2022 Cognitive function Voice/Name [facility] Work Phone: 03-27-2022 Cognitive function Level Of Consciousness Awake [facility] Work Phone: 03-27-2022 Cognitive function Voice/Name [facility] Work Phone: Clinical Notes 11-08-2022 to 01-26-2025 Note Date & Type Note Facility 01-26-2025 Note [facility] Medical Records Department [address] [place] [address] History Physical Exam 01/26/25 0658 MR#: [id number] Acct: [id number] Name: TIFFANIE CASTILLO Rep #: [id number] : 1970 54 From: Foreign Ortiz DO PCP: Dr. Arsalan Pedro MD Status:[facility] Location: [place] [address] HPI - General General Date of Admission: [...] per day; denies blood in the stool. [facility] Medical History Gastric reflux Post-menopausal Cardiology follow-up [...] safe at home: Yes additional social history: [employer] Patient works at [employer] Constitutional Constitutional: Denies fatigue, fever(s), poor appetite, [...] disease complication type: (more content not included)... [facility] 11-08-2022 Procedure note [facility] 11-08-2022 Procedure note [facility] Evaluation note Diagnosis Onset Date Chronic ulcerative colitis c hronic Chronic ulcerative colitis c hronic Gastric ulcer [facility] Work Phone: Evaluation note* Diagnosis Onset Date Resolution Status Chronic ulcerative colitis c hronic Gastric ulcer [facility] Work Phone: Evaluation note* Diagnosis Onset Date Resolution Status Aortic valve disorder acute Chest pain acute [facility] Work Phone: Evaluation note* Diagnosis Onset Date Resolution Status Aortic valve disorder acute Chest pain acute GERD (gastroesophageal reflux disease) acute Ulcerative colitis acute [facility] Work Phone: Evaluation note* Diagnosis Onset Date Resolution Status Aortic valve disorder acute Chest pain acute GERD (gastroesophageal reflux disease) acute Ulcerative colitis acute Acute bronchitis, unspecified acute [facility] Work Phone: Evaluation note* Diagnosis Onset Date Resolution Status Chronic ulcerative colitis c hronic [facility] Work Phone: Evaluation note* Diagnosis Onset Date Resolution Status UTI (urinary tract infection) acute [facility] Work Phone: History and physical note Author Foreign Friend [facility] November 08, 2022 6:32am Note Date/Time November 08, 2022 6:3 2am [facility] Medical Records Department [address] [place] [address] History & Physical Exam 11/08/22 0632 MR#: [id number] Acct: [id number] Name: TIFFANIE CASTILLO Rep #: [id number] : 1970 52 From: Foreign Friend DO PCP: Dr. Arsalan Pdero MD Status:REG S DC Location: [place] [address] History and Physical Date of Admission: 11/08/22 [...] normal to inspection Quality Reporting Tobacco Screening ([facility] 138) Smoking Status: Never smoker Assessment and [...] Arsalan Pedro MD; Foreign Ortiz DO~ Signed [facility] Work Phone: Summary Purpose Family History No [...] Date/ Time Name of Medical Power of Sales Advisory Manager stephon miranda elaine September 10, 2021 2:43pm Advance Directives No June 1:46pm Living Will Yes September 10 022 2:43pm Power of Sales Advisory Manager Yes September 10, 2021 2:43pm Advance Directive Response Recorded Date/ Time Name of Medical Power of Sales Advisory Manager HUSAM kimble March 22, 2022 2:54pm Advance Directives No June 1:46pm Living Will Yes March 22 022 2:54pm Power of Sales Advisory Manager Yes March 22, 2022 2:54pm Advance Directive Response Recorded Date/ Time Name of Medical Power of Sales Advisory Manager HUSAM kimble March 22, 2022 1:54pm Advance Directives No June 12:46pm Living Will Yes March 22 022 1:54pm Power of Sales Advisory Manager Yes March 22, 2022 1:54pm Advance Directive Response Recorded Date/ Time Advance Directives No June 1:46pm Living Will Yes November 05, 2022 10:28am Power of Sales Advisory Manager Yes November 05 10:28am Advance Directive Response Recorded Date/ Time Name of Medical Power of Sales Advisory Manager BARRY Bsailio November 05, 2022 10:28am Advance Directives No June 1:46pm Living Will Yes November 05, 2022 10:28am Power of Sales Advisory Manager Yes November 05 10:28am Advance Directive Response Recorded Date/ Time Advance Directives No June 12:46pm Living Will Yes November 05, 2022 9:28am Power of Sales Advisory Manager Yes November 05 9:28am Chief Complaint and [...] section and content) DATE CREATED AUTHOR 10/27/2018 [facility] ([place]) DATE CREATED AUTHOR AUTHOR'S ORGANIZ ATION 05/12/2025 [facility] Source Comments (unrecognize d section and content) In the event this informatio n is protected by the Federal Confidentiality of Alcohol and Drug Abuse Patient Records regulations: The Federal rules restrict any use of the information to criminally investigate or prosecute any alcohol or drug abuse patient.[facility] Goals (unrecognized section and content) Goals [...] Care Provider, Referring Provider Active Franchesca Garcia CARRIER OPERATOR, CARRIER OPERATOR-C Attending Provider Active Team Status: Inactive Member Role Status Dates Dr. Arsalan Pedro MD Primary Care Provider Active Dr. Trell Vargas MD Attending Provider, Referring Pro vider Active Team Status: Active Member Role Status Dates Dr. Arsalan Pedro MD Primary Care Provider Active Franchesca Garcia CARRIER OPERATOR, CARRIER OPERATOR-C Attending Provider, Referrin g Provider Active Team Status: Inactive Member Role Status Dates Dr. Arsalan Pedro MD Primary Care Provider Active Franchesca Garcia CARRIER OPERATOR, CARRIER OPERATOR-C Attending Provider, Referrin g Provider Active Team [...] Primary Care Provider Active Renetta Vasquez NP, CARRIER OPERATOR-C Attending Provider, Jack townsend Provider Active Team [...] BE BASED ON THE PRIMARY CLINICAL RECORDS. [facility] [employer] provides no warranty or guarantee of the accuracy or completeness of information in this document.
[2025-07-14] MEDS: Lactated Ringers 1,000 ML 15 ML IV (08:32)
--- NOTE | 2025-07-14 09:15 | COLBX_PTH ---
PATIENT: TANYA PEREZ LOC: EN U#:[id number] AGE/SX: 55/F ROOM: RE07/14/[address]: Dr. Foreign Ortiz DO : 1970 BED: DIS: 07/14/2025 SPEC #: [id number] RECD: 07/14/25 11:23 STATUS: JANINE GARG #: [id number] CONOR: 07/14/25 09:[address]: Foreign Ortiz DEPT: SURGICAL PATHOLOGY RECD BY: Bailee Staton ENTERED: 07/14/25 12:09 SP TYPE: COLON BX OTHR DR: Dr. Arsalan Pedro MD Tissues: Rectum, NOS Procedures: Surgery Specimen Level IV HEADER OPERATION: Flexible sigmoidoscopy with biopsy PRE-OP DIAGNOSIS: Ulcerative colitis TISSUE SUBMITTED: A. Rectum MICROSCOPIC DIAGNOSIS A. Rectum, biopsy: - Mild chronic colitis without activity. - Negative for dysplasia. MICROSCOPIC DESCRIPTION Slides are reviewed. GROSS DESCRIPTION A. Received is one container labeled with the patient name and designated rectum. The specimen consists of multiple irregular fragments of light garcia soft tissue that in aggregate measure 0.6 x 0.5 x 0.3 cm. The specimen is totally submitted in one cassette. 07/14/2025 CPT: 94193
--- NOTE | 2025-07-14 09:34 | HP.PCM_ITS ---
HPI - General General Date of Admission: 07/14/25 Date of Service: 07/14/25 Chief Complaint: Ulcerative colitis HPI Narrative TIFFANIE PEREZ, is a 55 F who presents [TIFFANIE PEREZ, is a 55 F who presents to the office today for follow-up. COLON 01/26/2025 The perianal and digital rectal examinations were normal. Inflammation was found in a continuous and circumferential pattern from the anus to the sigmoid colon. This was graded as Valderrama Score 2 (moderate, with marked erythema, absent vascular pattern, friability, erosions), and when compared to the previous examination, the findings are new. Biopsies were taken with a cold forceps for histology. Past medical history of ulcerative colitis diagnosed in 2017 with symptoms including diarrhea and bright red blood per rectum. Treated in the past with mesalamine suppositories and azathioprine. Last office visit 02/11/2025 with reports of rectal bleeding with bowel movements. Blood is bright red and occurs during bowel movements which is typically twice a day. Start Apriso 4 capsules once daily, Canasa x 3 months and repeat calprotectin in 3 months. Recommend sigmoidoscopy in 6 months and colonoscopy in 3 years. OV 06/15/25 patient reports resolution of rectal bleeding. She is having daily formed bowel movements. She continues with oral mesalamine and mesalamine suppositories daily. She is feeling well and denies GI symptoms. Calprotectin, Stool Today K51.90 - Ulcerative colitis, unspecified, without complications ] [facility] Medical History Wears glasses History of ulceration Gastric reflux Post-menopausal Cardiology follow-up encounter History of echocardiogram History of stress test Acute bronchitis, unspecified Rapid palpitations Family history of valvular heart disease Wears contact lenses Anxiety Alcohol use History of kidney stones History of GI bleed Non-smoker Pelvic pain Abnormal uterine bleeding Colitis History of anxiety Flank pain Gastric ulcer Chronic ulcerative colitis Home Medications ?Medication ?Instructions ?Recorded ?Last Taken ?Type multivitamin 1 tab PO DAILY 11/05/22 Unkn own History propranolol 10 mg tablet 10 mg PO TID PRN anxiety #90 tabs 05/06/24 01/25/25 08 :00 Rx pantoprazole 20 mg tablet,delayed 20 mg PO QAM #90 tab s 07/28/24 01/25/25 Rx release trazodone 50 mg tablet 50 mg PO QHS PRN insomnia #3 0 tabs 11/04/24 Unknown Rx buspirone 15 mg tablet 15 mg PO BID #180 tabs 03/05 Unknown Rx ospemifene 60 mg tablet (Osphena) 60 mg PO QDAY #30 ta bs 05/03/25 Unknown Rx vilazodone 20 mg tablet 20 mg PO DAILY #90 tabs 05/15 02/05 Unknown Rx bupropion HCl 300 mg 24 hr tablet, 300 mg PO QAM #90 t abs 06/03/25 Unknown Rx extended release Lactobac no.2-Bifidobac no.1-S. 1 cap PO BID #180 caps 06/15/25 Unknown Rx thermo 112.5 billion cell capsule (VSL#3) mesalamine 0.375 gram 1.5 g (4 x 0.375 gram) PO QA M 90 06/15/25 Unknown Rx capsule,extended release 24 hr days #360 caps (Apriso) mesalamine 1,000 mg rectal 1 g MO QHS #90 ea 06/15/25 Unknown Rx suppository (Canasa) Allergy/AdvReac Type Severity Reaction Status Date / Time NSAIDS (Non-Steroidal Allergy Other Verified 07/14/25 08:18 Anti-Inflamma Family History Mother Nonrheumatic aortic (valve) stenosis, Onset Age: 55 AVR Other Heart disease Surgical History H/O melanoma excision History of esophagogastroduodenoscopy (EGD) History of bunionectomy History of D&C uterine ablation delivery delivered History of tonsillectomy Social History Smoking Status: Never smoker alcohol intake: current alcohol intake frequency: holidays/special occasions only Alcohol type: wine substance use type: does not use caffeine: Yes what type of physical activity do you participate in: walking seatbelt use: always do you feel safe at home: Yes additional social history: [employer] Patient works at [employer] Constitutional Constitutional: Denies fatigue, fever(s), poor appetite, weight gain or weight loss Gastrointestinal Gastrointestinal: Denies belching, bloating, change in bowel habits, change in stool character, chewing difficulty, coffee ground emesis, constipation, cramping, diarrhea, dyspepsia, dysphagia, early satiety, excessive flatus, fecal incontinence, heartburn, hematemesis, hematochezia, hemorrhoids, loose stools, melena, nausea, odynophagia, rectal bleeding, tenesmus, vomiting or weight changes Patient's Goals Of Care . What would you like to achieve or improve as a result of your hospital stay?: N one Vital Signs Vital Signs Vital Signs: 07/14/25 08:19 07/14/25 08:19 07/14/25 08:19 Temperature 97.1 F L Temperature Source Temporal Pulse Rate 80 Respiratory Rate 16 Respiratory Pattern Normal Blood Pressure 109/76 Blood Pressure Mean 87 Blood Pressure Source Monitor Blood Pressure Position Semi-Fowlers Blood Pressure Location Left Arm Baseline BP 109/76 Pulse Ox 100 Oxygen Delivery Method Room Air Weight Weight: 152 lb 1.903 oz Body Mass Index (BMI) 23.8 Physical Exam Const alert, oriented x3, no apparent distress and healthy appearing General Appearance: cooperative GI normal to inspection, nondistended, normoactive bowel sounds, soft to palpation, non-tender and non-distended Percussion: normal to percussion Rectal Exam: deferred Assessment & Plan Assessment/Plan (1) Ulcerative colitis: QUALIFIERS: Ulcerative colitis location: unspecified ulcerative colitis location Digestive disease complication type: without complication Qualified Code(s): K51.90 - Ulcerative colitis, unspecified, without complications PLAN: Assessment and Plan Assessment and Plan (1) Ulcerative colitis: Status: Acute Qualifiers: Ulcerative colitis location: unspecified ulcerative colitis location Digestive disease complication type: without complication Qualified Code(s): K51.90 - Ulcerative colitis, unspecified, without complications Plan: Tiffanie is a 55-year-old female patient with a past medical history of ulcerative colitis, hyperlipidemia, aortic valve disorder, insomnia and depression here today for follow-up. Patient last seen in the office in January 2025 for follow-up after colonoscopy. Colonoscopy demonstrated inflammation in a continuous and circumferential pattern from the anus to the sigmoid colon. Valderrama score of 2. Calprotectin in the 800s. Patient was started on oral mesalamine and mesalamine suppositories daily. Since then she has had no further blood in her stool. She is having daily formed bowel movements. She denies any GI symptoms at this time. Patient will be scheduled for sigmoidoscopy to assess for healing of her sigmoid and rectum. She will continue mesalamine suppositories and oral mesalamine. I have also ordered repeat calprotectin to ensure this is downt rending. Patient will follow-up after procedure. - Sigmoidoscopy - Calprotectin - Continue mesalamine suppositories and/or mesalamine - Follow-up after procedure Note: Portions of this note may have been selectively carried forward from previous documentation to ensure continuity and accuracy of the clinical record. All imported information has been reviewed and updated as necessary to reflect the current patient status, findings, and clinical decision-making for this encounter. [employer] speech recognition weed sprayer software was used to create portions of this document. Sound alike and misspelled words, as well as other weed sprayer errors may be contained in the documentation. Orders: Orders
--- NOTE | 2025-07-14 10:01 | PCM.POST.ANE ---
Anesthesia: Postop Eval I Current Vital Signs Temperature: 98.1 F Pulse Rate: 77 Blood Pressure: 107/80 Respiratory Rate: 16 Pulse Ox: 100 Assessment Airway patent: Yes Spontaneous unlabored respirations: Yes nausea: No Vomiting: No Anesthesia Complication: No Fluid Hydration Crystalloid volume administer (ml): 300 Total IV fluid infused: 300 Progress Note Anesthesia document: Postop Eval 1 completed: Yes
--- NOTE | 2025-07-14 10:04 | OP.PROVAT_ITS ---
07/14/2025 Arsaaln Pedro MD [address] [place] [address] Re : Flexible Sigmoidoscopy procedure for Tiffanie Castillo Dear Dr. Pedro This procedure was performed on Monday, July 14, 2025. My impressions and recommendations are as follows: Impressions : - Mild (Valderrama Score 1) ulcerative colitis, improved since the last examination. Biopsied. Recommendations : My findings are described in the full procedure note, which is enclosed. If I can be of further assistance, please feel free to contact me at . Sincerely, Foreign Ortiz, 07/14/2025 10:03:56 AM This report has been signed electronically.
--- NOTE | 2025-07-14 10:04 | OP.FLEXSIG_ITS ---
Patient Name: Tiffanie Castillo Procedure Date: 07/14/2025 8:53 AM Date of : 1970 Age: 55 Procedure: Flexible Sigmoidoscopy Indications: Hematochezia, Follow-up of ulcerative colitis Providers: Foreign Ortiz DO Referring MD: Araslan Pedro MD Medicines: Monitored Anesthesia Care Patient Profile: This is a 55 year old female. Refer to note in patient chart for documentation of history and physical. Last Colonoscopy: within the past 6 months. Complications: No immediate complications. Procedure: Pre-Anesthesia Assessment: - Prior to the procedure, a History and Physical was performed, and patient medications and allergies were reviewed. The patient is competent. The risks and benefits of the procedure and the sedation options and risks were discussed with the patient. All questions were answered and informed consent was obtained. Patient identification and proposed procedure were verified by the physician in the pre-procedure area. Mental Status Examination: alert and oriented. Airway Examination: normal oropharyngeal airway and neck mobility. Respiratory Examination: clear to auscultation. CV Examination: normal. Prophylactic Antibiotics: The patient does not require prophylactic antibiotics. Prior Anticoagulants: The patient has taken no anticoagulant or antiplatelet agents. ASA Grade Assessment: II - A patient with mild systemic disease. After reviewing the risks and benefits, the patient was deemed in satisfactory condition to undergo the procedure. The anesthesia plan was to use monitored anesthesia care (MAC). Immediately prior to administration of medications, the patient was re-assessed for adequacy to receive sedatives. The heart rate, respiratory rate, oxygen saturations, blood pressure, adequacy of pulmonary ventilation, and response to care were monitored throughout the procedure. The physical status of the patient was re-assessed after the procedure. After obtaining informed consent, the endoscope was passed under direct vision. Throughout the procedure, the patient's blood pressure, pulse, and oxygen saturations were monitored continuously. The Colonoscope was introduced through the anus and advanced to the splenic flexure. The flexible sigmoidoscopy was accomplished without difficulty. The patient tolerated the procedure well. The quality of the bowel preparation was adequate. Scope In: 9:51:32 AM Scope Out: 9:54:22 AM Total Procedure Duration Time 0 hours 2 minutes 50 seconds Findings: The perianal and digital rectal examinations were normal. Inflammation was found in a continuous and circumferential pattern from the anus to the sigmoid colon. This was graded as Valderrama Score 1 (mild, with erythema, decreased vascular pattern, mild friability), and when compared to the previous examination, the findings are improved. Biopsies were taken with a cold forceps for histology. Verification of patient identification for the specimen was done. Estimated blood loss was minimal. Impression: - Mild (Valderrama Score 1) ulcerative colitis, improved since the last examination. Biopsied. Procedure Code(s): --- Professional --- 72402, Sigmoidoscopy, flexible; with biopsy, single or multiple CPT copyright 2021 [employer]. All rights reserved. The codes documented in this report are preliminary and upon philosophy faculty member review may be revised to meet current compliance requirements. Foreign Ortiz DO 07/14/2025 10:03:56 AM This report has been signed electronically. Number of Addenda: 0 Note Initiated On: 07/14/2025 8:53 AM
--- NOTE | 2025-07-14 10:28 | POSTOPAN2_ITS ---
Anesthesia Postop Eval I Sum Postop Eval Completion status Anesthesia document: Postop Eval 1 completed: Yes Anesthesia Postop Eval I Summary Anesthesia Postop Eval I Summary: Anesthesia Postop Eval I: Assessment Summary Airway patent Yes 07/14/25 10:01 [email or web address] Spontaneous unlabored Yes 07/14/25 10:01 [email or web address] respirations Mental status nausea No 07/14/25 10:01 [email or web address] Vomiting No 07/14/25 10:01 [email or web address] Anesthesia Postop Eval I: Fluid Summary Crystalloid volume administer 300 07/14/25 10:01 [email or web address] (ml) Colloids volume administered ( ml) Blood Product volume administered (ml) Total IV fluid infused 300 07/14/25 10:01 [email or web address] Anesthesia Postop Eval I: Summary Notes Anesthesia Complication No 07/14/25 10:01 [email or web address] Anesthesia Complication Comment: Post-operative progress note Anesthesia: Postop Eval II Evaluation Mental status: Awake Pain Level: 0 nausea: No Vomiting: No
--- NOTE | 2025-07-14 10:28 | PCM.POSTANE2 ---
Anesthesia Postop Eval I Sum Postop Eval Completion status Anesthesia document: Postop Eval 1 completed: Yes Anesthesia Postop Eval I Summary Anesthesia Postop Eval I Summary: Anesthesia Postop Eval I: Assessment Summary Airway patent Yes 07/14/25 10:01 [email or web address] Spontaneous unlabored Yes 07/14/25 10:01 [email or web address] respirations Mental status nausea No 07/14/25 10:01 [email or web address] Vomiting No 07/14/25 10:01 [email or web address] Anesthesia Postop Eval I: Fluid Summary Crystalloid volume administer 300 07/14/25 10:01 [email or web address] (ml) Colloids volume administered ( ml) Blood Product volume administered (ml) Total IV fluid infused 300 07/14/25 10:01 [email or web address] Anesthesia Postop Eval I: Summary Notes Anesthesia Complication No 07/14/25 10:01 [email or web address] Anesthesia Complication Comment: Post-operative progress note Anesthesia: Postop Eval II Evaluation Mental status: Awake Pain Level: 0 nausea: No Vomiting: No
== END 2025-07-14 10:40 | disposition home or self-care (01) ==
LOC: EN 08:05 → AC 08:06
PROVIDERS: PCP Family Medicine; Referring Provider Family Medicine; Visit Provider Internal Medicine Gastroenterology
PROC: 0DJD8ZZ Inspection of Lower Intestinal Tract, Via Natural or Artificial Opening Endoscopic (ICD-10-PCS; CPT 45330; principal; 2025-07-14 09:10)
DX: K51.90 Ulcerative colitis, unspecified, without complications (principal); K21.9 Gastro-esophageal reflux disease without esophagitis; F41.9 Anxiety disorder, unspecified; Z79.899 Other long term (current) drug therapy
CPT/HCPCS: 45331; 88305